=== PATIENT | male | born 1975 | race Two or more races ===

== ENCOUNTER 2018-04-12 03:54 | Inpatient (IN) ==
[2018-04-12 04:08] LABS: Basophils # 0.1 K/mm3 (0-0.2); Basophils % 0.9 % (0.1-2.0); Eosinophils # 0.3 K/mm3 (0.0-0.4); Eosinophils % 3.4 % (0.1-12.0); Lymphocytes # 2.5 K/mm3 (0.7-4.5); Lymphocytes % 33.9 K/mm3 (10-50); Mean Corpuscular HGB Conc 32.4 g/dL (31.8-35.4); Mean Corpuscular Volume 89.6 fl (80-94); Mean Platelet Volume 9.4 fl (7.4-10.4); Monocytes # 0.4 K/mm3 (0.1-1.0); Monocytes % 4.9 % (1.7-9.3); Neutrophils # 4.2 K/mm3 (1.8-7.8); Neutrophils % 56.9 % (37.0-80.0); Platelet Count 61 K/mm3 (142-424); Red Blood Count 2.66 M/mm3 (4.60-6.20); Red Cell Distribution Width 17.7 % (11.5-17.5); White Blood Count 7.3 K/mm3 (4.8-10.8)
[2018-04-12 04:14] LABS: Hematocrit 23.8 % (42.0-52.0); Hemoglobin 7.7 g/dL (14.1-18.0)
[2018-04-12 04:20] LABS: Anion Gap 13.1 mEq/L (5-15); Blood Urea Nitrogen 9 mg/dL (7-18); Carbon Dioxide 28 mmol/L (21.0-32.0); Chloride 91 mmol/L (98-107); Glucose 155 mg/dL (74-106); Potassium 3.1 mmoL/L (3.5-5.1); Sodium 129 mmol/L (136-145)
--- NOTE | 2018-04-12 04:43 | Emergency Department Note ---
ED Disposition Clinical Impression: UGI bleed, Tobacco abuse, Alcohol use disorder, Hypokalemia Chest pain Qualifiers: Chest pain type: precordial pain Qualified Code(s): R07.2 - Precordial pain Anemia Qualifiers: Anemia type: unspecified type Qualified Code(s): D64.9 - Anemia, unspecified Alcohol intoxication Qualifiers: Complication of substance-induced condition: with unspecified complication Qualified Code(s): F10.929 - Alcohol use, unspecified with intoxication, unspecified Disposition: Admitted as Observation Condition on Discharge: Good - Critical Care Critical Care Time: No Attestation: On 04/12/18, the high probability of a clinically significant, sudden or life threatening deterioration of the following system(s) required my full and direct attention, intervention and personal management. The time I documented below is in addition to time spent performing reported procedures but includes the following listed in this critical care notation. Medical Decision Making - Medical Records Medical records reviewed: Yes: I reviewed the patient's medical records. - Job Inquiry Pt receiving controlled substance: No Vital Signs: 04/12/18 03:54 04/12/18 04:24 04/12/18 04:27 Temperature 98.6 F Temperature Source Oral Pulse Rate 115 H Pulse Rate [Right Brachial] 115 H 103 H Respiratory Rate 15 16 Blood Pressure [Right Arm] 116/64 103/52 Blood Pressure Mean [Right Arm] 81 69 Blood Pressure Source [Right Arm] Automatic Cuff Blood Pressure Position [Right Arm] Sitting 02 Sat by Pulse Oximetry 98 97 Oxygen Delivery Method Room Air Room Air 04/12/18 04:51 Temperature Temperature Source Pulse Rate Pulse Rate [Right Brachial] 107 H Respiratory Rate 15 Blood Pressure [Right Arm] 108/62 Blood Pressure Mean [Right Arm] 77 Blood Pressure Source [Right Arm] Automatic Cuff Blood Pressure Position [Right Arm] Sitting 02 Sat by Pulse Oximetry 99 Oxygen Delivery Method Room Air - Lab Data Lab results reviewed: Yes: I reviewed the patient's lab results. Lab Results 04/12/18 04:00: WBC 7.3, RBC 2.66 L, Hgb 7.7 L*, Hct 23.8 L*, MCV 89.6, MCH 29.0 , MCHC 32.4, RDW 17.7 H, Plt Count 61 L, MPV 9.4, Neut % (Auto) 56.9, Lymph % ( Auto) 33.9, [place] % (Auto) 4.9, Eos % (Auto) 3.4, Baso % (Auto) 0.9, Neut # (Auto ) 4.2, Lymph # (Auto) 2.5, [place] # (Auto) 0.4, Eos # (Auto) 0.3, Baso # (Auto) 0.1 04/12/18 04:00: Sodium 129 L, Potassium 3.1 L, Chloride 91 L, Carbon Dioxide 28 , Anion Gap 13.1, BUN 9, Creatinine 0.67 L, Estimated Creat Clear 114, Estimated GFR 129, Est GFR ( Amer) 157, Glucose 155 H, Troponin I < 0.02 Result diagrams: 04/12/18 04:00 04/12/18 04:00 Orders (Tests/Meds): ED MEDICATIONS Generic Name Dose Route Start Last Admin Trade Name Freq PRN Reason Stop Dose Admin Lactated Ringer's 1,000 mls @ 999 mls/hr 04/12/18 04:30 04/12/18 04:31 Lactated Ringer's 1000 Ml Bag IV 04/12/18 05:30 999 mls/hr .Q1H1M VINOD Administration Sodium Chloride 250 mls @ 25 mls/hr 04/12/18 05:00 Sod Chlor 0.9% 250ml Bag IV 04/13/18 04:59 .Q10H VINOD Multivitamins 10 ml/ Thiamine 1,015 mls @ 150 mls/hr 04/12/18 05:00 HCl 100 mg/ Magnesium Sulfate IV 04/12/18 11:45 2 gm/ Lactated Ringer's .Q6H46M VINOD Discontinued Medications Generic Name Dose Route Start Last Admin Trade Name Freq PRN Reason Stop Dose Admin Folic Acid 1 mg 04/12/18 04:59 Folic Acid 1mg Tablet PO 04/12/18 05:00 ONCE ONE ORDERS Category Date Time Status PRBC [Red Blood Cells] Stat BBK 04/12/18 04:51 Ordered Type and Screen Stat BBK 04/12/18 04:51 Ordered Chest XR 2 view (NOT portable) [XR chest 2V] Stat Exams 04/12/18 03:59 Taken Ethanol [Ethyl Alcohol] Stat Lab 04/12/18 04:00 Received Hepatitis Panel (4) Stat Lab 04/12/18 05:00 Ordered Lipase Stat Lab 04/12/18 05:01 Ordered Liver Panel Stat Lab 04/12/18 05:00 Ordered Magnesium Stat Lab 04/12/18 05:01 Ordered Occult Blood,Stool Stat Lab 04/12/18 04:55 Received ECG Request by /[place] Stat Y 04/12/18 03:59 Ordered - Radiology Data #1 Image(s): Chest Image Reviewed: Yes I reviewed the patient's radiology image Preliminary Findings: Normal/NAD - ECG Data Tracing #1 I reviewed this ECG and interpreted as documented below: Arrhythmias present: sinus tach Ischemic changes: non-specific ST-T wave changes Chest Pain HPI - General Chief Complaint: Chest Pain Stated Complaint: chest pain Time Seen by Provider: 04/12/18 04:10 Mode of Arrival: Ambulatory Limitations: No Limitations Description of Symptoms (Recalled from ER Triage Doc. by RN): Reports cp that started about a month ago, but stated it felt worse yesterday with radiation to left arm. reports he vomited blood at 0100. - History of Present Illness HPI narrative: lt sided chest pain which has been ongoing for the last 2 weeks with no known card disease with hx of vomiting blood with dark stools MD complaint: chest pain Onset (ago): day(s) Duration: intermittent Activity at onset: during rest Pain location: left chest Severity: moderate Quality: aching Associated symptoms: vomiting Risk Factors for CAD: Family Hx of CAD, Smoking - KOBE Score Non-Stemi Age of patient: Less than 65 yrs Number of risk factors for CAD: Presence of 3 or more Prior coronary artery stenosis(seen in coronary angiography): Less than 50% ST-Segment deviation on ECG (more than 1 min): Absent Prior aspirin intake: ASA intake in the last 7 days Severe anginal chest pain: Two or more episodes in last 24 hours Elevated cardiac markers(CK-MB or troponin): Absent Non-Stemi Risk Score: 3 - Related Data Home Medications Medication Instructions Recorded Confirmed Aspirin [Aspirin 325mg Tab] 325 mg PO DAILY 04/12/18 04/12/18 Fluoxetine HCl [Prozac 20mg 20 mg PO DAILY 04/12/18 04/12/18 Capsule] Allergies Allergy/AdvReac Type Severity Reaction Status Date / Time No Known Allergies Allergy Verified 04/12/18 03:58 [facility] History I have reviewed the patient's past medical history: Yes Medical History: Denies:: Cancer, Diabetes Mellitus Type 1, Diabetes Mellitus Type 2, MRSA Amputation: No Fractures: Yes - Social History Smoking Status: Current every day smoker Tobacco Type: cigarettes Alcohol Intake: current Alcohol Intake Frequency:: 3 or more drinks per day - Psychiatric History Expresses thoughts of harming self/others: None Suicide Plan Description: No Plan ROS Obtained: Yes All systems reviewed & no additional complaints - Constitutional Constitutional: Denies fever(s) - Eyes Eyes: Denies change in vision - ENT Ears, Nose, Mouth, and Throat: Denies sore throat - Cardiovascular Cardiovascular: Reports chest pain - Respiratory Respiratory: No cough - Gastrointestinal Gastrointestingal: Reports: vomiting. Denies: abdominal pain, black, tarry stools - Genitourinary Male Genitourinary: Denies hematuria - Musculoskeletal Musculoskeletal: Denies joint pain, Denies joint swelling - Integumentary/Breasts Skin/Breast: Denies rash - Neurologic Neurologic: Denies seizure-like activity Physical Exam - General General appearance: in no apparent distress - Head Head exam: normocephalic - Eye Eye exam: Present: PERRL, EOMI. Absent: scleral icterus - ENT ENT exam: Present: mucous membranes dry - Neck Neck exam: Present: trachea midline - Respiratory Respiratory exam: Absent: respiratory distress - Cardiovascular Cardiovascular exam: Present: regular rate, systolic murmur - Abdominal Exam Abdominal exam: Present: soft. Absent: tenderness, guarding - Rectal Exam Rectal exam: Present: heme (+) stool, black stool - Extremities Exam Extremities exam: Absent: calf tenderness - Neurological Exam Neurological exam: Present: alert, oriented X3, CN II-XII intact - Psychiatric Psychiatric exam: Present: normal affect - Skin Skin exam: Absent: rash
[2018-04-12 05:48] LABS: Albumin Level 2.7 gm/dL (3.4-5.0); Bilirubin,Direct 0.6 mg/dL (0.0-0.2); Bilirubin,Indirect 0.7 mg/dL (0.0-0.9); Bilirubin,Total 1.3 mg/dL (0.2-1.0)
--- NOTE | 2018-04-12 07:36 | Pharmacy Consult Notes ---
[facility] Pharmacy VTE Monitoring - Patient Demographics Admission date: 04/12/18 Report Date: 04/12/18 Time: 07:35 Allergies/Adverse Reactions: Patient Allergies No Known Allergies Allergy (Verified 04/12/18 05:55) Height: 1.65 m Weight: 57.72 kg Patient Problems: Current Active Problems UGI bleed (Acute) Chest pain (Acute) Anemia (Acute) Tobacco abuse (Acute) Alcohol use disorder (Acute) Hypokalemia (Acute) Alcohol intoxication (Acute) - VTE Risk Labs: VTE Related Lab Results Hgb 7.7 g/dL (14.1-18.0) L* 04/12/18 04:00 Hct 23.8 % (42.0-52.0) L* 04/12/18 04:00 Plt Count 61 K/mm3 (142-424) L 04/12/18 04:00 BUN 9 mg/dL (7-18) 04/12/18 04:00 Creatinine 0.67 mg/dL (0.70-1.30) L 04/12/18 04:00 Estimated Creat Clear 114 mL/min (0-300) 04/12/18 04:00 Was VTE Risk Assessment Performed: No VTE Score: 1 VTE Risk Level: Very Low Risk - Prophylaxis VTE Prophylaxis Ordered?: Yes Types of VTE Prophylaxis: TEDS Knee High Location of Applied Device: Bilateral Lower Extremeties - VTE Diagnosis Confirmed Treatment or plan recommended: Continue Current Treatment
--- NOTE | 2018-04-12 07:50 | Consult Report ---
History of Present Illness Consult date: 04/12/18 Requesting physician: Sebas English Consult reason: chest pain Chief complaint: chest pain, vomiting blood Additional Medical History:: 1. Alcohol use of a 12 pack per day for many years 2. Tobacco use 1/2-1 pack per day 25 years 3. History of TIA like symptoms with previous workup at without etiology, possibly related to alcohol use History of present illness: 42-year-old male with history of alcohol and tobacco use admitted through the ER for recurrent chest pain worsening over the last couple of weeks without known aggravating or alleviating symptoms. Patient does relate previous workup at without etiology. In the emergency department showed sinus tachycardia with nonspecific ST-T abnormalities without evidence of coronary syndrome. Initial troponin's have returned normal. Echocardiogram has been performed with results pending at this time. Cardiology consulted for evaluation. Patient is receiving blood transfusion at this time for hemoglobin of 7.7 noted on admission. He did have an episode of vomiting with blood prior to admission. [facility] History Medical History: Denies:: Cancer, Diabetes Mellitus Type 1, Diabetes Mellitus Type 2, Internal Pacemaker, MRSA Other Surgeries: No: Pacemaker Amputation: No Fractures: Yes - *Social History Educational Level: Completed High School Smoking Status: Current every day smoker Tobacco Type: cigarettes Alcohol Intake: current Alcohol Intake Frequency:: 3 or more drinks per day Occupational Status: unemployed Housing: house - Psychiatric History Expresses thoughts of harming self/others: None Suicide Plan Description: No Plan *Family Hx:: Diabetes Meds Home Medications Medication Instructions Recorded Confirmed Type Aspirin [Aspirin 325mg Tab] 325 mg PO DAILY 04/12/18 04/12/18 History Fluoxetine HCl [Prozac 20mg 20 mg PO NEEDED PRN 04/12/18 04/12/18 History Capsule] Allergies Allergy/AdvReac Type Severity Reaction Status Date / Time No Known Allergies Allergy Verified 04/12/18 05:55 Review of Systems - *Cardiovascular Reports chest pain, Denies shortness of breath - *Respiratory Denies shortness of breath - *Gastrointestinal Reports vomiting blood - *Neurologic Denies seizure-like activity Exam Vital signs and Labs for Last 24 Hours: Temp Pulse Resp BP Pulse Ox 98.2 F 101 H 16 104/68 95 04/12/18 07:25 04/12/18 07:25 04/12/18 07:25 04/12/18 07:25 04/12/18 07:25 Laboratory Results - last 24 hr 04/12/18 04:00: WBC 7.3, RBC 2.66 L, Hgb 7.7 L*, Hct 23.8 L*, MCV 89.6, MCH 29.0 , MCHC 32.4, RDW 17.7 H, Plt Count 61 L, MPV 9.4, Neut % (Auto) 56.9, Lymph % ( Auto) 33.9, [place] % (Auto) 4.9, Eos % (Auto) 3.4, Baso % (Auto) 0.9, Neut # (Auto ) 4.2, Lymph # (Auto) 2.5, [place] # (Auto) 0.4, Eos # (Auto) 0.3, Baso # (Auto) 0.1 04/12/18 04:00: Sodium 129 L, Potassium 3.1 L, Chloride 91 L, Carbon Dioxide 28 , Anion Gap 13.1, BUN 9, Creatinine 0.67 L, Estimated Creat Clear 114, Estimated GFR 129, Est GFR ( Amer) 157, Glucose 155 H, Troponin I < 0.02 04/12/18 04:00: Plasma/Serum Alcohol 331 H* 04/12/18 04:00: Total Bilirubin 1.3 H, Direct Bilirubin 0.6 H, Indirect Bilirubin 0.7, AST 248 H, ALT 76, Alkaline Phosphatase 142 H, Total Protein 8.0 , Albumin 2.7 L 04/12/18 04:00: Magnesium 1.7, Lipase 244 04/12/18 04:55: Stool Occult Blood Positive A 04/12/18 05:10: Blood Type O Positive, Antibody Screen Negative, Crossmatch (AHG ) See Detail 04/12/18 05:45: Blood Type Confirm O Positive 04/12/18 07:10: Troponin I < 0.02 I & O for Last 24 hours: Intake & Output 04/09/18 04/10/18 04/11/18 04/12/18 11:59 11:59 11:59 11:59 Intake Total 1500 / 1500 Balance 1500 / 1500 Weight 127 lb 4.013 oz - *Routine Neck Exam Absent: JVD, carotid bruit - *Routine Respiratory Exam Present: CTA bilaterally - *Routine Cardiovascular Exam Present: RRR. Absent: murmur, gallop - *Routine Extremities Exam Absent: edema - *Routine Neurological Exam Present: alert, oriented X3, moving all extremities Assessment and Plan (1) UGI bleed Current visit: Yes Status: Acute Category: Medical Code(s): K92.2 - Gastrointestinal hemorrhage, unspecified (2) Alcohol use disorder Current visit: Yes Status: Acute Category: Medical Code(s): F10.99 - Alcohol use, unspecified with unspecified alcohol-induced disorder (3) Anemia Current visit: Yes Status: Acute Qualifiers: Anemia type: unspecified type Qualified Code(s): D64.9 - Anemia, unspecified Category: Medical Code(s): D64.9 - Anemia, unspecified (4) Chest pain Current visit: Yes Status: Acute Qualifiers: Chest pain type: precordial pain Qualified Code(s): R07.2 - Precordial pain Category: Medical Code(s): R07.9 - Chest pain, unspecified (5) Tobacco abuse Current visit: Yes Status: Acute Category: Medical Code(s): Z72.0 - Tobacco use - Assessment and plan all Dx Assessment and Plan for all problems:: 1. Preliminary echo shows preserved LVEF without significant valve disease. With normal troponins and no acute changes on EKG, no further cardiac workup at this time. OK from Cardiology standpoint to proceed with endoscopy. 2. Tachycardia should resolve with blood transfusion. Discussed with Dr. Mathews.
--- NOTE | 2018-04-12 09:15 | Consult Report ---
*Admission Date: 04/12/18 *Chief complaint: Chest pain, bloody emesis, and melena *History of present illness: This is a 42-year-old gentleman seen in consultation from Dr. English for evaluation regarding likely upper gastrointestinal hemorrhage. He presented to the emergency department overnight with increasing chest pain and reports of approximately 1 week of "dark stools" and occasional "bloody vomit". Cardiac evaluation has revealed no definitive abnormality and the surgical service is now consulted for possible esophagogastroduodenoscopy. No bright red blood per rectum. No unexplained weight loss. Review of Systems - Constitutional Denies fever(s) - Eyes Denies change in vision - ENT Denies dizziness - *Cardiovascular Reports chest pain - *Respiratory Denies cough - *Gastrointestinal Denies abdominal pain - *Genitourinary Denies difficulty urinating - *Neurologic Denies abnormal speech, Denies seizure-like activity - Hematologic/Lymphatic Denies easy bleeding [facility] History Medical History: Denies:: Cancer, Diabetes Mellitus Type 1, Diabetes Mellitus Type 2, Internal Pacemaker, MRSA Other Surgeries: No: Pacemaker Amputation: No Fractures: Yes - *Social History Educational Level: Completed High School Smoking Status: Current every day smoker Tobacco Type: cigarettes Alcohol Intake: current Alcohol Intake Frequency:: 3 or more drinks per day Occupational Status: unemployed Housing: house - Psychiatric History Expresses thoughts of harming self/others: None Suicide Plan Description: No Plan *Family Hx:: Diabetes Meds Home Medications Medication Instructions Recorded Confirmed Type Aspirin [Aspirin 325mg Tab] 325 mg PO DAILY 04/12/18 04/12/18 History Fluoxetine HCl [Prozac 20mg 20 mg PO NEEDED PRN 04/12/18 04/12/18 History Capsule] Allergies Allergy/AdvReac Type Severity Reaction Status Date / Time No Known Allergies Allergy Verified 04/12/18 05:55 Exam Vital signs and Labs for Last 24 Hours: Temp Pulse Resp BP Pulse Ox 98.2 F 101 H 16 104/68 95 04/12/18 07:25 04/12/18 07:25 04/12/18 07:25 04/12/18 07:25 04/12/18 07:25 Laboratory Results - last 24 hr 04/12/18 04:00: WBC 7.3, RBC 2.66 L, Hgb 7.7 L*, Hct 23.8 L*, MCV 89.6, MCH 29.0 , MCHC 32.4, RDW 17.7 H, Plt Count 61 L, MPV 9.4, Neut % (Auto) 56.9, Lymph % ( Auto) 33.9, [place] % (Auto) 4.9, Eos % (Auto) 3.4, Baso % (Auto) 0.9, Neut # (Auto ) 4.2, Lymph # (Auto) 2.5, [place] # (Auto) 0.4, Eos # (Auto) 0.3, Baso # (Auto) 0.1 04/12/18 04:00: Sodium 129 L, Potassium 3.1 L, Chloride 91 L, Carbon Dioxide 28 , Anion Gap 13.1, BUN 9, Creatinine 0.67 L, Estimated Creat Clear 114, Estimated GFR 129, Est GFR ( Amer) 157, Glucose 155 H, Troponin I < 0.02 04/12/18 04:00: Plasma/Serum Alcohol 331 H* 04/12/18 04:00: Total Bilirubin 1.3 H, Direct Bilirubin 0.6 H, Indirect Bilirubin 0.7, AST 248 H, ALT 76, Alkaline Phosphatase 142 H, Total Protein 8.0 , Albumin 2.7 L 04/12/18 04:00: Magnesium 1.7, Lipase 244 04/12/18 04:55: Stool Occult Blood Positive A 04/12/18 05:10: Blood Type O Positive, Antibody Screen Negative, Crossmatch (AHG ) See Detail 04/12/18 05:45: Blood Type Confirm O Positive 04/12/18 07:10: Troponin I < 0.02 I & O for Last 24 hours: Intake & Output 04/09/18 04/10/18 04/11/18 04/12/18 11:59 11:59 11:59 11:59 Intake Total 1500 / 1500 Balance 1500 / 1500 Weight 127 lb 4.013 oz - Constitutional no acute distress - *Routine Respiratory Exam Absent: respiratory distress - *Routine Cardiovascular Exam Present: tachycardia - *Routine Abdominal Exam Present: soft. Absent: tenderness Results - Labs 04/12/18 04:00 04/12/18 04:00 Laboratory Results - last 24 hr 04/12/18 04:00: WBC 7.3, RBC 2.66 L, Hgb 7.7 L*, Hct 23.8 L*, MCV 89.6, MCH 29.0 , MCHC 32.4, RDW 17.7 H, Plt Count 61 L, MPV 9.4, Neut % (Auto) 56.9, Lymph % ( Auto) 33.9, [place] % (Auto) 4.9, Eos % (Auto) 3.4, Baso % (Auto) 0.9, Neut # (Auto ) 4.2, Lymph # (Auto) 2.5, [place] # (Auto) 0.4, Eos # (Auto) 0.3, Baso # (Auto) 0.1 04/12/18 04:00: Sodium 129 L, Potassium 3.1 L, Chloride 91 L, Carbon Dioxide 28 , Anion Gap 13.1, BUN 9, Creatinine 0.67 L, Estimated Creat Clear 114, Estimated GFR 129, Est GFR ( Amer) 157, Glucose 155 H, Troponin I < 0.02 04/12/18 04:00: Plasma/Serum Alcohol 331 H* 04/12/18 04:00: Total Bilirubin 1.3 H, Direct Bilirubin 0.6 H, Indirect Bilirubin 0.7, AST 248 H, ALT 76, Alkaline Phosphatase 142 H, Total Protein 8.0 , Albumin 2.7 L 04/12/18 04:00: Magnesium 1.7, Lipase 244 04/12/18 04:55: Stool Occult Blood Positive A 04/12/18 05:10: Blood Type O Positive, Antibody Screen Negative, Crossmatch (AHG ) See Detail 04/12/18 05:45: Blood Type Confirm O Positive 04/12/18 07:10: Troponin I < 0.02 Assessment and Plan (1) UGI bleed Current visit: Yes Status: Acute Category: Medical Code(s): K92.2 - Gastrointestinal hemorrhage, unspecified Follow-up response to 2 units packed red blood cell transfusion. Continue PPI. Likely EGD later today or early tomorrow morning. I have discussed the risks and benefits and he agrees to proceed. (2) Alcohol use disorder Current visit: Yes Status: Acute Category: Medical Code(s): F10.99 - Alcohol use, unspecified with unspecified alcohol-induced disorder (3) Anemia Current visit: Yes Status: Acute Qualifiers: Anemia type: unspecified type Qualified Code(s): D64.9 - Anemia, unspecified Category: Medical Code(s): D64.9 - Anemia, unspecified (4) Chest pain Current visit: Yes Status: Acute Qualifiers: Chest pain type: precordial pain Qualified Code(s): R07.2 - Precordial pain Category: Medical Code(s): R07.9 - Chest pain, unspecified (5) Tobacco abuse Current visit: Yes Status: Acute Category: Medical Code(s): Z72.0 - Tobacco use
--- NOTE | 2018-04-12 12:47 | History & Physical Report ---
*Admission Date: 04/12/18 *Chief complaint: chest pain *History of present illness: This is a 42-year-old gentleman seen in consultation from Dr. English for evaluation regarding likely upper gastrointestinal hemorrhage. He presented to the emergency department overnight with increasing chest pain and reports of approximately 1 week of "dark stools" and occasional "bloody vomit". Cardiac evaluation has revealed no definitive abnormality and the surgical service is now consulted for possible esophagogastroduodenoscopy. No bright red blood per rectum. No unexplained weight loss. 42-year-old male with history of alcohol and tobacco use admitted through the ER for recurrent chest pain worsening over the last couple of weeks without known aggravating or alleviating symptoms. Patient does relate previous workup at without etiology. In the emergency department showed sinus tachycardia with nonspecific ST-T abnormalities without evidence of coronary syndrome. Initial troponin's have returned normal. Echocardiogram has been performed with results pending at this time. Cardiology consulted for evaluation. Patient is receiving blood transfusion at this time for hemoglobin of 7.7 noted on admission. He did have an episode of vomiting with blood prior to admission. [facility] History I have reviewed the patient's past medical history: Yes Medical History: Denies:: Cancer, Diabetes Mellitus Type 1, Diabetes Mellitus Type 2, Internal Pacemaker, MRSA Other Surgeries: No: Pacemaker Amputation: No Fractures: Yes - *Social History Educational Level: Completed High School Smoking Status: Current every day smoker Tobacco Type: cigarettes Alcohol Intake: current Alcohol Intake Frequency:: 3 or more drinks per day Occupational Status: unemployed Housing: house - Psychiatric History Expresses thoughts of harming self/others: None Suicide Plan Description: No Plan *Family Hx:: Diabetes Review of Systems - Review of Systems Review of systems:: pertinent systems reviewed and negative unless documented below - Constitutional Denies fever(s) - Eyes Denies change in vision - ENT Denies sore throat - *Cardiovascular Reports chest pain at rest, Denies generalized swelling, Denies rapid, pounding , or irregular heartbeat - *Respiratory Denies cough, Denies shortness of breath - *Gastrointestinal Reports vomiting blood, Denies abdominal pain - *Genitourinary Denies blood in urine - *Musculoskeletal Denies joint pain, Denies joint swelling - Integumentary/Breasts Denies rash - *Neurologic Denies abnormal speech, Denies dizziness, Denies seizure-like activity - Psychiatric Denies anxiety Meds Home Medications Medication Instructions Recorded Confirmed Type Aspirin [Aspirin 325mg Tab] 325 mg PO DAILY 04/12/18 04/12/18 History Fluoxetine HCl [Prozac 20mg 20 mg PO NEEDED PRN 04/12/18 04/12/18 History Capsule] Allergies Allergy/AdvReac Type Severity Reaction Status Date / Time No Known Allergies Allergy Verified 04/12/18 05:55 Exam Vital signs and Labs for Last 24 Hours: Temp Pulse Resp BP Pulse Ox 98.8 F 102 H 16 104/63 93 L 04/12/18 12:00 04/12/18 12:00 04/12/18 12:00 04/12/18 12:00 04/12/18 12:00 Laboratory Results - last 24 hr 04/12/18 04:00: WBC 7.3, RBC 2.66 L, Hgb 7.7 L*, Hct 23.8 L*, MCV 89.6, MCH 29.0 , MCHC 32.4, RDW 17.7 H, Plt Count 61 L, MPV 9.4, Neut % (Auto) 56.9, Lymph % ( Auto) 33.9, Blair % (Auto) 4.9, Eos % (Auto) 3.4, Baso % (Auto) 0.9, Neut # (Auto ) 4.2, Lymph # (Auto) 2.5, Blair # (Auto) 0.4, Eos # (Auto) 0.3, Baso # (Auto) 0.1 04/12/18 04:00: Sodium 129 L, Potassium 3.1 L, Chloride 91 L, Carbon Dioxide 28 , Anion Gap 13.1, BUN 9, Creatinine 0.67 L, Estimated Creat Clear 114, Estimated GFR 129, Est GFR ( Amer) 157, Glucose 155 H, Troponin I < 0.02 04/12/18 04:00: Plasma/Serum Alcohol 331 H* 04/12/18 04:00: Total Bilirubin 1.3 H, Direct Bilirubin 0.6 H, Indirect Bilirubin 0.7, AST 248 H, ALT 76, Alkaline Phosphatase 142 H, Total Protein 8.0 , Albumin 2.7 L 04/12/18 04:00: Magnesium 1.7, Lipase 244 04/12/18 04:55: Stool Occult Blood Positive A 04/12/18 05:10: Blood Type O Positive, Antibody Screen Negative, Crossmatch (AHG ) See Detail 04/12/18 05:45: Blood Type Confirm O Positive 04/12/18 07:10: Troponin I < 0.02 04/12/18 10:26: Troponin I < 0.02 I & O for Last 24 hours: Intake & Output 04/10/18 04/11/18 04/12/18 04/13/18 11:59 11:59 11:59 11:59 Intake Total 1540 / 1540 Balance 1540 / 1540 Weight 127 lb 4.013 oz - Constitutional no acute distress - *Routine HEENT Exam Head: Present: normocephalic, atraumatic Eye: Present: EOMI, PERRL. Absent: conjunctival icterus ENT: Present: mucous membranes dry - *Routine Neck Exam Absent: JVD - *Routine Respiratory Exam Present: CTA bilaterally - *Routine Cardiovascular Exam Present: RRR, murmur. Absent: rubs - *Routine Abdominal Exam Present: soft. Absent: tenderness - *Routine Extremities Exam Absent: Cony's sign - *Routine Skin Exam Present: intact - *Routine Neurological Exam Present: alert, oriented X3, CN II-XII intact - Routine Psychiatric Exam Present: normal affect H&P: Result - Labs Labs: Short CBC 04/12/18 Range/Units 04:00 WBC 7.3 (4.8-10.8) K/mm3 Hgb 7.7 L* (14.1-18.0) g/dL Hct 23.8 L* (42.0-52.0) % Plt Count 61 L (142-424) K/mm3 BMP 04/12/18 04:00 Sodium 129 L Potassium 3.1 L Chloride 91 L Carbon Dioxide 28 BUN 9 Creatinine 0.67 L Glucose 155 H Cardiac Enzymes 04/12/18 04/12/18 04/12/18 Range/Units 04:00 07:10 10:26 Troponin I < 0.02 < 0.02 < 0.02 (0.00-0.06) ng/ml Liver Function 04/12/18 Range/Units 04:00 Total Bilirubin 1.3 H (0.2-1.0) mg/dL Direct Bilirubin 0.6 H (0.0-0.2) mg/dL AST 248 H (15-37) U/L ALT 76 (12-78) U/L Alkaline Phosphatase 142 H (46-116) U/L Albumin 2.7 L (3.4-5.0) gm/dL Assessment and Plan (1) UGI bleed Current visit: Yes Status: Acute Category: Medical Code(s): K92.2 - Gastrointestinal hemorrhage, unspecified (2) Alcohol use disorder Current visit: Yes Status: Acute Category: Medical Code(s): F10.99 - Alcohol use, unspecified with unspecified alcohol-induced disorder (3) Anemia Current visit: Yes Status: Acute Qualifiers: Anemia type: unspecified type Qualified Code(s): D64.9 - Anemia, unspecified Category: Medical Code(s): D64.9 - Anemia, unspecified (4) Chest pain Current visit: Yes Status: Acute Qualifiers: Chest pain type: precordial pain Qualified Code(s): R07.2 - Precordial pain Category: Medical Code(s): R07.9 - Chest pain, unspecified (5) Tobacco abuse Current visit: Yes Status: Acute Category: Medical Code(s): Z72.0 - Tobacco use
[2018-04-12 14:01] LABS: Hematocrit 27.2 % (42.0-52.0)
[2018-04-12 14:11] LABS: Hemoglobin 9.2 g/dL (14.1-18.0)
[2018-04-12 14:15] LABS: INR 1.25 (0.9-1.1); Prothrombin Time 13.5 seconds (9.4-11.8)
--- NOTE | 2018-04-12 18:26 | Progress Note ---
[facility] Anesthesia Checklist - Patient Identification Patient Identification: Arm Band, Verbal (Name & ) - Structural Data Admitted From: Inpatient Planned Operative Procedure/s: egd Consent for Planned Operative Procedure(s) Verified: Yes Verified Documents: Surgical Consent, History and Physical - NPO Status Verified Time NPO: 00:00 - Chart Verification Results Verified: CBC, BMP - Additional verifications Patient : No Anesthesia Reactions: No Hx Blood Transfusions: No Blood Transfusion Reaction: No Cephalosporin Allergy: No Previous Colonoscopy: No - Cardiovascular Assessment Heart Sounds: S1 & S2 Pulse Strength: Baseline Pulse Rhythm: Regular Peripheral Edema: No - Airway Assessment C-Spine Mobility Assessed: Yes TMJ Mobility Assessed: Yes Dentition: Good Dentition - Neurological Assessment Level of Consciousness: Awake, Alert, Appropriate Hx Seizures: No Numbness or tingling in extremities: No - Anesthesia Plan Anesthesia Risk discussed: Yes Anesthesia Plan: Verified ASA Class: III Anesthesia Type: MAC [facility] Anesthesia HX I have reviewed the patient's past medical history: Yes Medical History: Reports:: Anxiety, Ulcer Denies:: Cancer, Diabetes Mellitus Type 1, Diabetes Mellitus Type 2, Internal Pacemaker, MRSA Other Surgeries: Yes: No Previous Surgery. No: Pacemaker Amputation: No Fractures: Yes *Family Hx:: Diabetes
[2018-04-12 19:52] LABS: Hematocrit 24.9 % (42.0-52.0)
[2018-04-12 20:04] LABS: Hemoglobin 8.4 g/dL (14.1-18.0)
[2018-04-13 06:04] LABS: Basophils % 0.5 % (0.1-2.0); Eosinophils # 0.1 K/mm3 (0.0-0.4); Eosinophils % 1.9 % (0.1-12.0); Hematocrit 26.1 % (42.0-52.0); Hemoglobin 8.7 g/dL (14.1-18.0); Lymphocytes # 0.8 K/mm3 (0.7-4.5); Lymphocytes % 15.2 K/mm3 (10-50); Mean Corpuscular HGB Conc 33.2 g/dL (31.8-35.4); Mean Corpuscular Hemoglobin 29.6 pg (27.0-31.2); Mean Corpuscular Volume 88.9 fl (80-94); Mean Platelet Volume 10.4 fl (7.4-10.4); Monocytes # 0.2 K/mm3 (0.1-1.0); Monocytes % 3.6 % (1.7-9.3); Neutrophils # 4.2 K/mm3 (1.8-7.8); Neutrophils % 78.9 % (37.0-80.0); Red Blood Count 2.94 M/mm3 (4.60-6.20); Red Cell Distribution Width 18.6 % (11.5-17.5); White Blood Count 5.3 K/mm3 (4.8-10.8)
[2018-04-13 06:13] LABS: Platelet Count 47 K/mm3 (142-424)
--- NOTE | 2018-04-13 06:30 | Progress Note ---
Subjective Patient reports: other (resting) Exam Vital signs and Labs for Last 24 Hours: Temp Pulse Resp BP Pulse Ox 99.1 F 103 H 18 118/70 99 04/13/18 04:00 04/13/18 04:00 04/13/18 04:00 04/13/18 04:00 04/13/18 04:00 Laboratory Results - last 24 hr 04/12/18 05:10: Blood Type O Positive, Antibody Screen Negative, Crossmatch (AHG ) See Detail 04/12/18 05:45: Blood Type Confirm O Positive 04/12/18 07:10: Troponin I < 0.02 04/12/18 10:26: Troponin I < 0.02 04/12/18 13:20: Troponin I < 0.02 04/12/18 13:20: Hgb 9.2 L D, Hct 27.2 L 04/12/18 19:36: Hgb 8.4 L, Hct 24.9 L 04/12/18 : PT 13.5 H, INR 1.25 H, APTT 28.0 04/13/18 05:50: WBC 5.3 D, RBC 2.94 L, Hgb 8.7 L, Hct 26.1 L, MCV 88.9, MCH 29.6, MCHC 33.2, RDW 18.6 H, Plt Count 47 L*, MPV 10.4, Neut % (Auto) 78.9, Lymph % (Auto) 15.2, Swisher % (Auto) 3.6, Eos % (Auto) 1.9, Baso % (Auto) 0.5, Neut # (Auto) 4.2, Lymph # (Auto) 0.8, Swisher # (Auto) 0.2, Eos # (Auto) 0.1, Baso # (Auto) 0.0 I & O for Last 24 hours: Intake & Output 04/10/18 04/11/18 04/12/18 04/13/18 11:59 11:59 11:59 11:59 Intake Total 1540 / 1540 3181 / 3181 Output Total 5 / 5 Balance 1540 / 1540 3176 / 3176 Weight 127 lb 4.013 oz - Constitutional no acute distress - *Routine Respiratory Exam Absent: respiratory distress - *Routine Abdominal Exam Present: soft Progress Note: A&P (1) UGI bleed Status: Acute Assessment and plan: stable H/H this AM EGD this AM Current Visit: Yes (2) Alcohol use disorder Status: Acute Current Visit: Yes (3) Anemia Status: Acute Current Visit: Yes (4) Chest pain Status: Acute Current Visit: Yes (5) Tobacco abuse Status: Acute Current Visit: Yes (6) Thrombocytopenia Status: Acute Assessment and plan: "6-pack" ordered this AM Current Visit: Yes
--- NOTE | 2018-04-13 07:17 | Procedure Note ---
- Procedure: Date: 04/13/18 Procedure Performed:: Esophagogastroduodenoscopy with biopsy Indications:: Upper gastrointestinal hemorrhage Performing Provider:: Alexy Elmore MD Referring Provider:: Dr. English Sedation:: Monitored anesthesia care Procedure:: After informed consent was obtained, the patient was taken to the endoscopy suite. Monitored anesthesia care ensued after he was transferred to the left lateral decubitus position. The gastroscope was advanced. The gastroesophageal junction was at 40 cm. Mild to moderate varices were noted distally, but no sign of recent or active hemorrhage was seen. The stomach was entered. No sign of active bleeding or "old blood" was noted. Moderate patchy gastritis was seen. A biopsy of the antrum was noted. Retroflexion did reveal a sliding hiatal hernia but no sign of recent or active hemorrhage and no sign of ulceration was seen proximally. Visualization was slightly limited secondary to gastric spasticity. The pylorus is intubated. Inflammation within the duodenal bulb was noted; however, no ulcerations were seen. The gastroscope was carefully removed and the patient was transferred to recovery. Findings:: Gastroesophageal junction 40 cm Mild to moderate varices distally with no sign of recent or active hemorrhage Sliding hiatal hernia Moderate patchy gastritis with no sign of recent or active hemorrhage No ulcerations Inflammation within duodenal bulb with no sign of ulceration or active hemorrhage Specimens:: Antral biopsy Recommendations:: Continue current medications UGI/SBFT pending Follow-up pending pathology Complications:: No immediate Estimated blood obtained (mL): 1
[2018-04-13 08:30] LABS: Hepatitis B Core Antibody IgM Negative (Negative); Hepatitis B Surface Antigen Negative (Negative)
--- NOTE | 2018-04-13 10:32 | Progress Note ---
Internal Medicine - PN: Subj *Date: 04/13/18 *Time: 22:15 Interval history: pt with endo today Exam Vital signs and Labs for Last 24 Hours: Temp Pulse Resp BP Pulse Ox 99.2 F 95 H 20 120/67 98 04/13/18 08:25 04/13/18 09:25 04/13/18 09:25 04/13/18 09:25 04/13/18 09:25 Laboratory Results - last 24 hr 04/12/18 05:10: Crossmatch (AHG) See Detail 04/12/18 10:26: Troponin I < 0.02 04/12/18 13:20: Troponin I < 0.02 04/12/18 13:20: Hgb 9.2 L D, Hct 27.2 L 04/12/18 19:36: Hgb 8.4 L, Hct 24.9 L 04/12/18 : PT 13.5 H, INR 1.25 H, APTT 28.0 04/13/18 05:50: WBC 5.3 D, RBC 2.94 L, Hgb 8.7 L, Hct 26.1 L, MCV 88.9, MCH 29.6, MCHC 33.2, RDW 18.6 H, Plt Count 47 L*, MPV 10.4, Neut % (Auto) 78.9, Lymph % (Auto) 15.2, Jefferson % (Auto) 3.6, Eos % (Auto) 1.9, Baso % (Auto) 0.5, Neut # (Auto) 4.2, Lymph # (Auto) 0.8, Jefferson # (Auto) 0.2, Eos # (Auto) 0.1, Baso # (Auto) 0.0 I & O for Last 24 hours: Intake & Output 04/10/18 04/11/18 04/12/18 04/13/18 11:59 11:59 11:59 11:59 Intake Total 1540 / 1540 3181 / 3181 Output Total 5 / 5 Balance 1540 / 1540 3176 / 3176 Weight 127 lb 4.013 oz 129 lb 4 oz - Constitutional no acute distress - *Routine HEENT Exam Head: Present: normocephalic Eye: Present: EOMI, PERRL ENT: Present: mucous membranes dry - *Routine Neck Exam Absent: JVD - *Routine Respiratory Exam Absent: respiratory distress - *Routine Cardiovascular Exam Present: RRR - *Routine Abdominal Exam Present: soft - *Routine Skin Exam Present: intact - *Routine Neurological Exam Present: alert - Routine Psychiatric Exam Present: normal affect Assessment and Plan (1) UGI bleed Current visit: Yes Status: Acute Category: Medical Code(s): K92.2 - Gastrointestinal hemorrhage, unspecified (2) Alcohol use disorder Current visit: Yes Status: Acute Category: Medical Code(s): F10.99 - Alcohol use, unspecified with unspecified alcohol-induced disorder (3) Anemia Current visit: Yes Status: Acute Qualifiers: Anemia type: unspecified type Qualified Code(s): D64.9 - Anemia, unspecified Category: Medical Code(s): D64.9 - Anemia, unspecified (4) Chest pain Current visit: Yes Status: Acute Qualifiers: Chest pain type: precordial pain Qualified Code(s): R07.2 - Precordial pain Category: Medical Code(s): R07.9 - Chest pain, unspecified (5) Tobacco abuse Current visit: Yes Status: Acute Category: Medical Code(s): Z72.0 - Tobacco use (6) Thrombocytopenia Current visit: Yes Status: Acute Category: Medical Code(s): D69.6 - Thrombocytopenia, unspecified
[2018-04-14 06:32] LABS: Hepatitis C Antibody <0.1 s/co ratio (0.0-0.9)
--- NOTE | 2018-04-14 06:58 | Progress Note ---
Subjective Patient reports: feels better Exam Vital signs and Labs for Last 24 Hours: Temp Pulse Resp BP Pulse Ox 99.0 F 81 16 110/58 98 04/14/18 04:00 04/14/18 04:00 04/14/18 04:00 04/14/18 04:00 04/14/18 04:00 Laboratory Results - last 24 hr 04/12/18 04:00: Hepatitis A IgM Ab Negative, Hep Bs Antigen Negative, Hep B Core IgM Ab Negative, Hepatitis C Antibody <0.1 04/12/18 05:10: Blood Type O Positive, Antibody Screen Negative, Crossmatch (AHG ) See Detail I & O for Last 24 hours: Intake & Output 04/11/18 04/12/18 04/13/18 04/14/18 11:59 11:59 11:59 11:59 Intake Total 1540 / 1540 3181 / 3181 2230 / 2230 Output Total 5 / 5 Balance 1540 / 1540 3176 / 3176 2230 / 2230 Weight 127 lb 4.013 oz 129 lb 4 oz - Constitutional no acute distress - *Routine Cardiovascular Exam Present: RRR - *Routine Abdominal Exam Present: soft Progress Note: A&P (1) UGI bleed Status: Acute Assessment and plan: No definite source on EGD (non-bleeding varices and moderate gastritis) Continue PPI for now FU path on antral biopsy Current Visit: Yes (2) Alcohol use disorder Status: Acute Current Visit: Yes (3) Anemia Status: Acute Current Visit: Yes (4) Chest pain Status: Acute Current Visit: Yes (5) Tobacco abuse Status: Acute Current Visit: Yes (6) Thrombocytopenia Status: Acute Current Visit: Yes (7) Abnormal small bowel x-ray Problem details: SBFT c/w possible Crohn's Status: Acute Assessment and plan: GI consultation as inpatient or in near future as outpatient (as per PCP) Current Visit: Yes
[2018-04-14 08:19] LABS: Basophils % 0.9 % (0.1-2.0); Eosinophils # 0.4 K/mm3 (0.0-0.4); Eosinophils % 9.5 % (0.1-12.0); Hematocrit 26.6 % (42.0-52.0); Hemoglobin 8.8 g/dL (14.1-18.0); Lymphocytes # 0.9 K/mm3 (0.7-4.5); Lymphocytes % 20.8 K/mm3 (10-50); Mean Corpuscular Hemoglobin 30.4 pg (27.0-31.2); Mean Corpuscular Volume 92.1 fl (80-94); Mean Platelet Volume 9.9 fl (7.4-10.4); Monocytes # 0.2 K/mm3 (0.1-1.0); Monocytes % 4.4 % (1.7-9.3); Neutrophils # 2.9 K/mm3 (1.8-7.8); Neutrophils % 64.5 % (37.0-80.0); Platelet Count 75 K/mm3 (142-424); Red Blood Count 2.89 M/mm3 (4.60-6.20); Red Cell Distribution Width 19.5 % (11.5-17.5); White Blood Count 4.5 K/mm3 (4.8-10.8)
[2018-04-14 08:21] VITALS: BP 99/58
[2018-04-14 08:31] LABS: Albumin Level 2.2 gm/dL (3.4-5.0); Albumin/Globulin Ratio 0.5 (1.1-1.8); Anion Gap 8.4 mEq/L (5-15); Bilirubin,Total 1.7 mg/dL (0.2-1.0); Calcium 7.1 mg/dL (8.5-10.1); Globulin 4.5 gm/dl (1.3-3.2); Total Protein,Serum 6.7 gm/dL (6.4-8.2)
[2018-04-14 08:32] LABS: Potassium 2.4 mmoL/L (3.5-5.1)
--- NOTE | 2018-04-14 08:43 | Discharge Summary ---
General - General Admission date:: 04/12/18 Discharge date: 04/14/18 HPI HPI: This is a 42-year-old gentleman seen in consultation from Dr. English for evaluation regarding likely upper gastrointestinal hemorrhage. He presented to the emergency department overnight with increasing chest pain and reports of approximately 1 week of "dark stools" and occasional "bloody vomit". Cardiac evaluation has revealed no definitive abnormality and the surgical service is now consulted for possible esophagogastroduodenoscopy. No bright red blood per rectum. No unexplained weight loss. 42-year-old male with history of alcohol and tobacco use admitted through the ER for recurrent chest pain worsening over the last couple of weeks without known aggravating or alleviating symptoms. Patient does relate previous workup at without etiology. In the emergency department showed sinus tachycardia with nonspecific ST-T abnormalities without evidence of coronary syndrome. Initial troponin's have returned normal. Echocardiogram has been performed with results pending at this time. Cardiology consulted for evaluation. Patient is receiving blood transfusion at this time for hemoglobin of 7.7 noted on admission. He did have an episode of vomiting with blood prior to admission. Hospital Course Hospital Course: pt witheval for gi bleed by surg After informed consent was obtained, the patient was taken to the endoscopy suite. Monitored anesthesia care ensued after he was transferred to the left lateral decubitus position. The gastroscope was advanced. The gastroesophageal junction was at 40 cm. Mild to moderate varices were noted distally, but no sign of recent or active hemorrhage was seen. The stomach was entered. No sign of active bleeding or "old blood" was noted. Moderate patchy gastritis was seen. A biopsy of the antrum was noted. Retroflexion did reveal a sliding hiatal hernia but no sign of recent or active hemorrhage and no sign of ulceration was seen proximally. Visualization was slightly limited secondary to gastric spasticity. The pylorus is intubated. Inflammation within the duodenal bulb was noted; however, no ulcerations were seen. The gastroscope was carefully removed and the patient was transferred to recovery. Findings:: Gastroesophageal junction 40 cm Mild to moderate varices distally with no sign of recent or active hemorrhage Sliding hiatal hernia Moderate patchy gastritis with no sign of recent or active hemorrhage No ulcerations Inflammation within duodenal bulb with no sign of ulceration or active hemorrhage pt has stablized with transfusion and will be followed as op with gi and pcp - discussed use of meds and no etoh Objective Vital signs: Temp Pulse Resp BP Pulse Ox 98.9 F 85 20 99/58 97 04/14/18 08:00 04/14/18 08:00 04/14/18 08:00 04/14/18 08:00 04/14/18 08:00 no acute distress - *Routine HEENT Exam Head: Present: normocephalic Eye: Present: EOMI, PERRL ENT: Present: mucous membranes dry - *Routine Neck Exam Present: supple - *Routine Respiratory Exam Present: CTA bilaterally - *Routine Cardiovascular Exam Present: RRR, murmur - *Routine Abdominal Exam Present: soft - *Routine Extremities Exam Present: full ROM - *Routine Skin Exam Present: intact - *Routine Neurological Exam Present: alert, oriented X3, CN II-XII intact - Routine Psychiatric Exam Present: normal affect Results Labs on day of discharge: Labs from last 24 hours 04/14/18 04/14/18 04/12/18 07:55 07:55 05:10 WBC 4.5 L RBC 2.89 L Hgb 8.8 L Hct 26.6 L MCV 92.1 MCH 30.4 MCHC 33.0 RDW 19.5 H Plt Count 75 L D MPV 9.9 Neut % (Auto) 64.5 Lymph % (Auto) 20.8 Wilson % (Auto) 4.4 Eos % (Auto) 9.5 Baso % (Auto) 0.9 Neut # (Auto) 2.9 Lymph # (Auto) 0.9 Wilson # (Auto) 0.2 Eos # (Auto) 0.4 Baso # (Auto) 0.0 Sodium 130 L Potassium 2.4 L* D Chloride 96 L Carbon Dioxide 28 Anion Gap 8.4 BUN 3 L D Creatinine 0.66 L Estimated Creat Clear 120 Estimated GFR 132 Est GFR ( Amer) 159 Glucose 123 H Calcium 7.1 L Total Bilirubin 1.7 H AST 159 H D ALT 65 Alkaline Phosphatase 107 Total Protein 6.7 Albumin 2.2 L Globulin 4.5 H Albumin/Globulin Ratio 0.5 L Hepatitis A IgM Ab Hep Bs Antigen Hep B Core IgM Ab Hepatitis C Antibody Blood Type O Positive Antibody Screen Negative Crossmatch (AHG) See Detail 04/12/18 04:00 WBC RBC Hgb Hct MCV MCH MCHC RDW Plt Count MPV Neut % (Auto) Lymph % (Auto) Wilson % (Auto) Eos % (Auto) Baso % (Auto) Neut # (Auto) Lymph # (Auto) Wilson # (Auto) Eos # (Auto) Baso # (Auto) Sodium Potassium Chloride Carbon Dioxide Anion Gap BUN Creatinine Estimated Creat Clear Estimated GFR Est GFR ( Amer) Glucose Calcium Total Bilirubin AST ALT Alkaline Phosphatase Total Protein Albumin Globulin Albumin/Globulin Ratio Hepatitis A IgM Ab Negative Hep Bs Antigen Negative Hep B Core IgM Ab Negative Hepatitis C Antibody <0.1 Blood Type Antibody Screen Crossmatch (AHG) DS: Diagnosis - Discharge Diagnosis (1) UGI bleed Status: Acute (2) Alcohol use disorder Status: Acute (3) Anemia Status: Acute (4) Chest pain Status: Acute (5) Tobacco abuse Status: Acute (6) Thrombocytopenia Status: Acute (7) Abnormal small bowel x-ray Status: Acute Problem details: SBFT c/w possible Crohn's (8) Esophageal varices determined by endoscopy Status: Acute (9) Tobacco use Status: Acute (10) Gastritis Status: Acute (11) Hypokalemia Status: Acute Discharge Plan - Patient Discharge Instructions ACTIVITY: Continue current activity DIET: continue same diet Patient Instructions: Alcohol Use Disorder, Upper GI Endoscopy, Hypokalemia - Follow up Plan Follow up with: Alexy Elmore MD [Staff Physician] - 1 week Disposition: Home, Self-[facility] Medications: Home Medications Medication Instructions Recorded Confirmed Type Aspirin [Aspirin 325mg Tab] 325 mg PO DAILY 04/12/18 04/12/18 History Prescriptions/Medication Reconciliation: Discontinued Aspirin [Aspirin 325mg Tab] 325 mg PO DAILY
--- NOTE | 2018-04-15 17:34 | Cardiology Report ---
PROCEDURE: 2-D M-mode and color Doppler study INDICATIONS FOR THE TEST: Chest pain + COPD Heart Murmur Tobacco Smoking+ Palpitations Fatigue Syncope Edema Hypertension Diabetes Mellitus Rheumatic Fever SOB MORA Obesity Hyperlipidemia Family History HD Additional History ALCOHOL USE PATIENT INFORMATION HEIGHT: 65 WEIGHT:125 GENDER: Male B/P:103/52 2-D/M-MODE INTERPRETATION: 2-D MEASUREMENTS OBSERVED VALUES IN CMS Right Ventricular Dimension (RVDd) 2.5 Interventricular Septum (Thickness)(IVsd) 1.0 Left Ventricular Internal Dimensions(LVIDd) 5.1 Left Ventricular Posterior Wall (Thickness)(LVPWd) 0.9 Aortic Root 3.2 Aortic Cusp Separation 2.2 Left Atrial Dimensions (LAD) 3.9 2D 1. Left atrium is normal size, left ventricle is normal size, there is no concentric left ventricular hypertrophy, visually estimated ejection fraction 55-60% with no obvious regional wall motion abnormality. 2. The right atrium and right ventricle are normal size and contractility. 3. The aortic, mitral and tricuspid valve are grossly normal. 4. The pulmonic valve is poorly visualized. 5. No significant pericardial effusion noted. DOPPLER INTERROGATION: Doppler interrogation of the aortic, mitral and tricuspid valvular presence of mild mitral and tricuspid regurgitation, tricuspid regurgitant jet velocity insufficient for calculation of the right ventricular systolic pressure, diastolic parameters are within normal range. CONCLUSION: 1. Normal left ventricular size, preserved left ventricular systolic function, visually estimated ejection fraction 55-60% with no obvious regional wall motion abnormality, diastolic parameters are within normal range. 2. Mild mitral and tricuspid regurgitation 3. No significant pericardial effusion noted.
== END 2018-04-14 12:15 | disposition home or self-care (01) ==
LOC: 2ND 03:54 → ER 03:54 → OBSVTOIN 05:40 → 2ND 05:43
PROVIDERS: ADMIT Emergency Medicine; ATTEND Emergency Medicine

== ENCOUNTER → 2018-04-18 10:42 | Outpatient (REF) | payer OTHER, SELFPAY ==
[2018-04-18 13:40] LABS: Basophils # 0.1 K/mm3 (0-0.2); Basophils % 1.2 % (0.1-2.0); Eosinophils # 0.4 K/mm3 (0.0-0.4); Eosinophils % 7.6 % (0.1-12.0); Hematocrit 27.7 % (42.0-52.0); Hemoglobin 8.7 g/dL (14.1-18.0); Lymphocytes # 1.2 K/mm3 (0.7-4.5); Lymphocytes % 23.6 K/mm3 (10-50); Mean Corpuscular HGB Conc 31.3 g/dL (31.8-35.4); Mean Corpuscular Volume 95.8 fl (80-94); Monocytes # 0.6 K/mm3 (0.1-1.0); Monocytes % 12.2 % (1.7-9.3); Neutrophils # 2.8 K/mm3 (1.8-7.8); Neutrophils % 55.4 % (37.0-80.0); Platelet Count 151 K/mm3 (142-424); Red Blood Count 2.89 M/mm3 (4.60-6.20); Red Cell Distribution Width 19.2 % (11.5-17.5)
[2018-04-18 14:29] LABS: Alanine Aminotransferase 76 U/L (12-78); Albumin Level 2.5 gm/dL (3.4-5.0); Albumin/Globulin Ratio 0.5 (1.1-1.8); Alkaline Phosphatase 141 U/L (46-116); Anion Gap 10.9 mEq/L (5-15); Aspartate Amino Transferase 135 U/L (15-37); Bilirubin,Total 1.2 mg/dL (0.2-1.0); Blood Urea Nitrogen 5 mg/dL (7-18); Calcium 8.5 mg/dL (8.5-10.1); Carbon Dioxide 27 mmol/L (21.0-32.0); Chloride 100 mmol/L (98-107); Creatinine,Serum 0.54 mg/dL (0.70-1.30); Estimated Glomerular Filt Rate 166 ml/min (>60); GFR (African American) 201 ML/MIN (>60); Globulin 4.7 gm/dl (1.3-3.2); Sodium 135 mmol/L (136-145); Total Protein,Serum 7.2 gm/dL (6.4-8.2)
[2018-04-18 14:35] LABS: Glucose 102 mg/dL (74-106)
[2018-04-18 14:37] LABS: Potassium 2.9 mmoL/L (3.5-5.1)
== END ==
LOC: LAB 10:42
PROVIDERS: Visit Provider Emergency Medicine
DX: Z72.0 Tobacco use (principal)
CPT/HCPCS: 80053; 85025

== ENCOUNTER 2019-01-01 08:24 | Inpatient (IN) ==
--- NOTE | 2019-01-01 08:48 | Emergency Department Note ---
ED Disposition Clinical Impression: Acute pancreatitis, Cholelithiasis, Fatty liver, Colitis, Reflux esophagitis, Anemia Clinical Impression: (Ruled Out): Reflux gastritis Disposition: Still a Patient Condition on Discharge: Fair Instructions: DI for Acute Abdomen Referrals: Sebas English MD [Primary Care Provider] - - Critical Care Critical Care Time: No Attestation: On 01/01/19, the high probability of a clinically significant, sudden or life threatening deterioration of the following system(s) required my full and direct attention, intervention and personal management. The time I documented below is in addition to time spent performing reported procedures but includes the following listed in this critical care notation. Medical Decision Making - Medical Records Medical records reviewed: Yes: I reviewed the patient's medical records. - Job Inquiry Pt receiving controlled substance: No Job was queried for this patient: No Vital Signs: 01/01/19 08:34 01/01/19 09:51 01/01/19 09:56 Temperature 98.5 F Temperature Source Oral Pulse Rate [Left Radial] 90 91 H 89 Respiratory Rate 16 20 16 Blood Pressure [Right Arm] 134/78 136/81 135/78 Blood Pressure Mean [Right Arm] 96 99 97 Blood Pressure Source [Right Arm] Automatic Cuff Automatic Cuff Blood Pressure Position [Right Arm] Sitting Sitting Sitting 02 Sat by Pulse Oximetry 98 99 98 Oxygen Delivery Method Room Air Room Air Room Air 01/01/19 10:30 01/01/19 11:00 01/01/19 11:30 Temperature Temperature Source Pulse Rate [Left Radial] 90 90 92 H Respiratory Rate 18 16 18 Blood Pressure [Right Arm] 141/80 H 139/86 142/86 H Blood Pressure Mean [Right Arm] 100 103 104 Blood Pressure Source [Right Arm] Automatic Cuff Automatic Cuff Automatic Cuff Blood Pressure Position [Right Arm] Sitting Sitting Sitting 02 Sat by Pulse Oximetry 94 L 94 L 98 Oxygen Delivery Method Room Air Room Air Room Air - Lab Data Lab Results 01/01/19 08:50: WBC 8.8, RBC 4.28 L, Hgb 14.1, Hct 43.5, MCV 101.8 H, MCH 32.9 H , MCHC 32.3, RDW 15.0, Plt Count 128 L, MPV 7.2 L, Neut % (Auto) 80.2 H, Lymph % (Auto) 11.6, [place] % (Auto) 4.3, Eos % (Auto) 3.2, Baso % (Auto) 0.7, Neut # (Auto) 7.0, Lymph # (Auto) 1.0, [place] # (Auto) 0.4, Eos # (Auto) 0.3, Baso # (Auto) 0.1 01/01/19 08:50: Sodium 138, Potassium 3.1 L, Chloride 103, Carbon Dioxide 24, Anion Gap 14.1, BUN 5 L, Creatinine 0.88, Estimated Creat Clear 93, Estimated GFR 94, Est GFR ( Amer) 114, Glucose 149 H, Calcium 9.1, Total Bilirubin 2.1 H, AST 72 H, ALT 44, Alkaline Phosphatase 154 H, Total Protein 8.1, Albumin 2.9 L, Globulin 5.2 H, Albumin/Globulin Ratio 0.6 L, Amylase 2323 H*, Lipase 55700 H, Plasma/Serum Alcohol 0 01/01/19 08:50: Urine Color Yellow, Urine Appearance Clear, Urine pH 6.0, Ur Specific [employer] 1.025, Urine Protein Negative, Urine Glucose (UA) Negative, Urine Ketones Negative, Urine Blood Negative, Urine Nitrate Negative, Urine Bilirubin Negative, Urine Urobilinogen 0.2, Ur Leukocyte Esterase Negative, Urine WBC 3-5, Ur Squamous Epith Cells Occasional, Urine Bacteria 1+ 01/01/19 08:50: Magnesium 1.6, Troponin I < 0.02 01/01/19 08:50: Urine Opiates Screen Negative, Urine Methadone Screen Negative, Ur Barbituates Screen Negative, Ur Phencyclidine Scrn Negative, Ur Amphetamines Screen Negative, U Benzodiazepines Scrn Negative, Urine Cocaine Screen Negative, U Marijuana (THC) Screen Negative 01/01/19 09:00: Lactate 2.1 H Result diagrams: 01/01/19 08:50 01/01/19 08:50 Orders (Tests/Meds): ED MEDICATIONS Generic Name Dose Route Start Last Admin Trade Name Freq PRN Reason Stop Dose Admin Potassium Chloride/Sodium Chloride 1,000 mls @ 125 mls/hr 01/01/19 10:00 01/01/19 10:41 Kcl 20 Meq In Ns 1,000 Ml Iv Soln IV 01/31/19 09:59 125 mls/hr .Q8H VINOD Administration Morphine Sulfate 1 mg 01/01/19 08:52 01/01/19 09:10 Morphine 2mg/Ml Syringe IV 01/31/19 08:51 1 mg [id number] PRN Administration Severe Pain Sodium Chloride 10 ml 01/01/19 08:40 01/01/19 09:10 Saline Flush 10ml Syringe IV 01/31/19 08:39 10 ml NEEDED PRN Administration Maintain IV Site Discontinued Medications Generic Name Dose Route Start Last Admin Trade Name Freq PRN Reason Stop Dose Admin Famotidine 20 mg 01/01/19 08:51 01/01/19 09:10 Pepcid 20mg/2ml Vial IV 01/01/19 08:52 20 mg ONCE ONE Administration Morphine Sulfate 2 mg 01/01/19 11:06 01/01/19 11:07 Morphine 2mg/Ml Syringe IV 01/01/19 11:07 2 mg ONCE ONE Administration Ondansetron HCl 4 mg 01/01/19 08:51 01/01/19 09:10 Zofran 4mg/2ml Vial IV 01/01/19 08:52 4 mg ONCE ONE Administration Pantoprazole Sodium 40 mg 01/01/19 08:51 01/01/19 09:10 Protonix 40mg Vial IV 01/01/19 08:52 40 mg ONCE ONE Administration Sodium Chloride 8 ml 01/01/19 08:51 01/01/19 09:09 Saline Flush 10ml Syringe IV 01/01/19 08:52 8 ml ONCE ONE Administration Sodium Chloride 10 ml 01/01/19 09:36 01/01/19 09:37 Rad-Saline Flush 10ml Syringe IV 01/01/19 09:37 10 ml ONCE ONE Administration ORDERS Category Date Time Status Urinalysis and Microscopic Stat Lab 01/01/19 08:50 Ordered Blood Culture Stat Micro 01/01/19 09:00 Received ECG Request by /Hel[place] Stat Y 01/01/19 08:55 Ordered - CT Data CT Scan: Abdomen, Pelvis Time Received: 11:[address] Reviewed: Yes: I have viewed the radiologist's interpretation Preliminary Findings: Abnormal Findings Narrative: Please see V-read report. - ECG Data Tracing #1 Normal sinus rhythm 83/min no acute findings. Medical Decision Narrative: I discussed with the patient and his at the bedside differential diagnosis of having acute pancreatitis, perforated epigastric ulcer, and acute appendicitis among other possibilities. The need for CT scan with p.o. and IV contrast is needed and outweighs the risk with his normal labs from March 2018. [address] scan report from [facility] and called Dr. Dc Dinh the on- call surgeon discussed the findings of inflammatory changes of acute pancreatitis, heterogeneous changes of the liver with recommendations for MRI, gallbladder stone with per cystic fluid. Dr. Robbins suggest the patient be admitted to medical service for acute pancreatitis treatment, n.p.o., IV fluids, pain management, and IV antibiotics. He will see the patient in consultation, in a.m. an ultrasound can be ordered in the morning.. [address] Deng direct care professional for Dr. English his primary care physician who agreed to admit the patient for medical management as discussed above. Abdominal Pain HPI - General Chief Complaint: Abdominal Pain Stated Complaint: stomach pain,kidney pain Time Seen by Provider: 01/01/19 08:35 Mode of Arrival: Ambulatory Source of Information: Patient, Spouse Limitations: No Limitations Description of Symptoms (Recalled from ER Triage Doc. by RN): to ed per pvt car with c/o epigastric pain radiating into back +vomiting approx 6 times pt states pain started approx midnight. denies fever, chills, diarrhea, sick contacts. cpta none - History of Present Illness HPI narrative: 43 years old male with history of alcoholism peptic ulcer disease and anemia that required blood transfusion. His daily medications are Nexium and iron supplement. Today at 5 AM, he developed sudden onset epigastric abdominal pain radiating to his back sharp in character rated 8/10 followed by vomiting x5 initially had blood then cleared. He denies having fever chills diarrhea. He denies having dysuria hematuria or frequency or flank pain. Denies having chest pain shortness of breath palpitations or hemoptysis. He denies recent intake of alcohol or drug. The is at the bedside and agrees with above history. The reported having chronic kidney disease I reviewed his labs from April 18, 2018 he had normal BUN and creatinine of 0.54 and BUN of 5. I reviewed his 2D echo with ejection fraction 55% from March 2018, upper GI with a follow-through with the report below: MPRESSION: 1. Negative upper GI. 2. Abnormal appearing small bowel. The terminal ileum has an abnormal appearance appearing somewhat fixed with a shaggy mucosa. This is suspicious for Crohn's disease. There is mild dilatation of the small bowel proximal to this region suggesting mild obstruction. MD complaint: abdominal pain Onset (ago): hour(s) (3 hours.) Consistency: constant Location: epigastric Severity: severe Severity scale (1-10): 8 Quality: stabbing, sharp Radiation: back Relieving factors: nothing Exacerbating factors: nothing Associated symptoms: vomiting - Related Data Home Medications Medication Instructions Recorded Confirmed esomeprazole magnesium 20 mg 20 mg PO DAILY cap 04/18/18 01/01/19 capsule,delayed release Ferrous Sulfate 325 mg PO DAILY 01/01/19 01/01/19 Allergies Allergy/AdvReac Type Severity Reaction Status Date / Time No Known Allergies Allergy Verified 04/26/18 13:12 [facility] History - Hepatitis A Screen Drug use history?: No High risk sexual behaviors?: No History of sexually transmitted infection?: No Currently employed?: No Childcare worker?: No Do you have indoor plumbing?: No Do you have electricity?: Yes Attestation statement:: This patient has been screened for Hepatitis A risk factors. I have reviewed the patient's past medical history: Yes Medical History: Reports:: Anxiety, Ulcer Denies:: Cancer, Diabetes Mellitus Type 1, Diabetes Mellitus Type 2, Internal Pacemaker, MRSA, Seizures Other Medical History: Denies: Blood Transfusion Reaction Other Surgeries: Yes: No Previous Surgery. No: Pacemaker Amputation: No Fractures: Yes - Social History Smoking Status: Current every day smoker Tobacco Type: cigarettes Alcohol Intake: never Alcohol Intake Frequency:: 3 or more drinks per day Substance Use Type: denies use Occupational Status: unemployed Housing: house - Psychiatric History Expresses thoughts of harming self/others: None Suicide Plan Description: No Plan Pschychiatric History:: Reports:: Anxiety Family Hx:: Diabetes ROS Obtained: Yes All systems reviewed & no additional complaints Physical Exam - General General appearance: alert, in distress, other (due to his pain. ) - Head Head exam: atraumatic, normocephalic, normal inspection - Eye Eye exam: Present: normal appearance, PERRL, EOMI. Absent: scleral icterus, nystagmus - ENT ENT exam: Present: normal exam, normal oropharynx, mucous membranes moist, TM's normal bilaterally, normal external ear exam - Neck Neck exam: Present: normal inspection, full ROM, trachea midline. Absent: tenderness, meningismus, lymphadenopathy - Chest Chest inspection: Present: normal inspection, symmetric chest wall rise. Absent: tenderness - Respiratory Respiratory exam: Present: normal lung sounds bilaterally. Absent: respiratory distress - Cardiovascular Cardiovascular exam: Present: regular rate, normal rhythm, normal heart sounds. Absent: JVD - Abdominal Exam Abdominal exam: Present: soft, tenderness, normal bowel sounds, tenderness at McBurney's Point, other (Patient has a soft abdomen with tenderness in epigastrium, focal tenderness over the McBurney's point with a strong rebound, no voluntary guarding no rigidity.). Absent: distention, guarding, rebound, rigidity - exam: Present: normal inspection, normal testicular lie. Absent: testicular tenderness, urethral discharge, scrotal swelling, circumcised - Extremities Exam Extremities exam: Present: normal inspection, full ROM, normal capillary refill. Absent: tenderness, pedal edema, joint swelling, calf tenderness - Back Exam Back exam: Present: normal inspection. Absent: tenderness - Neurological Exam Neurological exam: Present: alert, oriented X3, CN II-XII intact, motor sensory deficit, reflexes normal - Psychiatric Psychiatric exam: Present: normal affect, normal mood - Skin Skin exam: Present: warm, dry, intact, normal color - Lymphatic Lymphatic Findings: no adenopathy
[2019-01-01 09:01] LABS: Basophils # 0.1 K/mm3 (0-0.2); Basophils % 0.7 % (0.1-2.0); Eosinophils # 0.3 K/mm3 (0.0-0.4); Eosinophils % 3.2 % (0.1-12.0); Hematocrit 43.5 % (42.0-52.0); Hemoglobin 14.1 g/dL (14.1-18.0); Lymphocytes % 11.6 % (10-50); Mean Corpuscular HGB Conc 32.3 g/dL (31.8-35.4); Mean Corpuscular Hemoglobin 32.9 pg (27.0-31.2); Mean Corpuscular Volume 101.8 fl (80-94); Mean Platelet Volume 7.2 fl (7.4-10.4); Monocytes # 0.4 K/mm3 (0.1-1.0); Monocytes % 4.3 % (1.7-9.3); Neutrophils % 80.2 % (37.0-80.0); Platelet Count 128 K/mm3 (142-424); Red Blood Count 4.28 M/mm3 (4.60-6.20); White Blood Count 8.8 K/mm3 (4.8-10.8)
[2019-01-01 09:03] LABS: Appearance,Urine CLEAR (Clear); Bilirubin,Urine Negative (Negative); Blood, Urine Negative (Negative); Color,Urine YELLOW (Yellow); Glucose,Urine (UA) Negative (Negative); Ketones,Urine Negative (Negative); Leukocyte Esterase,Urine Negative (Negative); Microscopic, Urine URINE MICROSCOPIC (MICROSCOPIC); Protein,Urine Negative (Negative); Specific Gravity, Urine 1.025 (1.005-1.030); Urobilinogen,Urine 0.2 EU/dl (0.2)
[2019-01-01 09:09] LABS: Amphetamine/Metha Screen,Urine Negative ng/mL (<1000); Barbiturates Screen,Urine Negative ng/mL (<200); Benzodiazepines Screen,Urine Negative ng/mL (<200); Cannabinoid Screen,Urine Negative ng/mL (<50); Cocaine Screen,Urine Negative ng/mL (<300); Methadone Screen,Urine Negative ng/mL (<300); Opiate Screen,Urine Negative ng/mL (<300); Phencyclidine Screen,Urine Negative ng/mL (<25)
[2019-01-01 09:18] LABS: Bacteria,Urine 1+ /lpf; Squamous Epithelial Cell,Urine Occasional #/hpf (0-5)
[2019-01-01 09:19] LABS: Albumin Level 2.9 gm/dL (3.4-5.0); Albumin/Globulin Ratio 0.6 (1.1-1.8); Anion Gap 14.1 mEq/L (5-15); Bilirubin,Total 2.1 mg/dL (0.2-1.0); Calcium 9.1 mg/dL (8.5-10.1); Globulin 5.2 gm/dl (1.3-3.2); Potassium 3.1 mmoL/L (3.5-5.1); Total Protein,Serum 8.1 gm/dL (6.4-8.2)
[2019-01-02 07:00] LABS: Basophils % 0.9 % (0.1-2.0); Eosinophils # 0.4 K/mm3 (0.0-0.4); Eosinophils % 9.2 % (0.1-12.0); Hematocrit 38.6 % (42.0-52.0); Lymphocytes # 1.3 K/mm3 (0.7-4.5); Lymphocytes % 31.9 % (10-50); Mean Corpuscular Hemoglobin 33.1 pg (27.0-31.2); Mean Corpuscular Volume 103.5 fl (80-94); Mean Platelet Volume 7.2 fl (7.4-10.4); Monocytes # 0.3 K/mm3 (0.1-1.0); Monocytes % 7.1 % (1.7-9.3); Neutrophils # 2.1 K/mm3 (1.8-7.8); Neutrophils % 50.8 % (37.0-80.0); Platelet Count 103 K/mm3 (142-424); Red Blood Count 3.73 M/mm3 (4.60-6.20); Red Cell Distribution Width 14.8 % (11.5-17.5)
[2019-01-02 07:13] LABS: Albumin Level 2.3 gm/dL (3.4-5.0); Albumin/Globulin Ratio 0.5 (1.1-1.8); Anion Gap 10.5 mEq/L (5-15); Bilirubin,Total 2.4 mg/dL (0.2-1.0); Calcium 8.5 mg/dL (8.5-10.1); Globulin 4.5 gm/dl (1.3-3.2); INR 1.36 (0.9-1.1); Potassium 3.5 mmoL/L (3.5-5.1); Prothrombin Time 13.9 seconds (9.4-11.8); Total Protein,Serum 6.8 gm/dL (6.4-8.2)
[2019-01-02 07:18] LABS: Hemoglobin 12.3 g/dL (14.1-18.0)
--- NOTE | 2019-01-02 07:24 | Pharmacy Consult Notes ---
[facility] Pharmacy VTE Monitoring - Patient Demographics Admission date: 01/01/19 Report Date: 01/02/19 Time: 07:24 Allergies/Adverse Reactions: Patient Allergies No Known Allergies Allergy (Verified 04/26/18 13:12) Height: 1.68 m Weight: 65.799 kg Patient Problems: Current Active Problems (This Medical Record has been edited. Action required.) Anemia (Acute) Acute pancreatitis (Acute) Cholelithiasis (Acute) Fatty liver (Acute) Colitis (Acute) Reflux esophagitis (Acute) - VTE Risk Labs: VTE Related Lab Results Hgb 12.3 g/dL (14.1-18.0) L D 01/02/19 06:09 Hct 38.6 % (42.0-52.0) L 01/02/19 06:09 Plt Count 103 K/mm3 (142-424) L 01/02/19 06:09 PT 13.9 seconds (9.4-11.8) H 01/02/19 06:09 INR 1.36 (0.9-1.1) H 01/02/19 06:09 BUN 6 mg/dL (7-18) L 01/02/19 06:09 Creatinine 0.81 mg/dL (0.70-1.30) 01/02/19 06:09 Estimated Creat Clear 108 mL/min (50-200) 01/02/19 06:09 Was VTE Risk Assessment Performed: Yes VTE Score: 1 VTE Risk Level: Very Low Risk - Prophylaxis VTE Prophylaxis Ordered?: Yes Types of VTE Prophylaxis: TEDS Knee High Location of Applied Device: Bilateral Lower Extremeties - VTE Diagnosis Confirmed Treatment or plan recommended: Continue Current Treatment
--- NOTE | 2019-01-02 08:02 | Consult Report ---
*Admission Date: 01/01/19 *Chief complaint: ABDOMINAL PAIN *History of present illness: Patient is a 43-year-old male. Per his report and medical record he has a history of heavy alcohol consumption in the past and he was admitted last March with GI bleeding. He underwent endoscopy by Dr. Martinez and was found to have inflammatory changes as well as findings of mild to moderate varices. Patient states that he has abstained from alcohol consumption since last March. Yesterday he developed acute onset of epigastric pain. This was sharp and severe. He presented to the emergency department where he was seen and evaluated. He did have some mid abdomen and right lower quadrant. He underwent CT scan which revealed findings most consistent with acute pancreatitis as well as findings of gallstones. He is found to have marked elevation of pancreatic enzymes on blood work. He was admitted for inpatient management and surgical consultation. Review of Systems - Review of Systems Review of systems:: pertinent systems reviewed and negative unless documented below - Constitutional Reports anorexia - Eyes Denies change in vision - ENT Denies abnormal hearing - *Cardiovascular Denies chest pain - *Respiratory Denies shortness of breath - *Gastrointestinal Reports abdominal pain - *Genitourinary Denies difficulty urinating - *Musculoskeletal Denies abnormal walking - *Neurologic Denies dizziness [facility] History Medical History: Reports:: Anxiety, Ulcer Denies:: Cancer, Diabetes Mellitus Type 1, Diabetes Mellitus Type 2, Internal Pacemaker, MRSA, Seizures Have you ever received a pneumonia vaccine?: No Have you received a flu vaccine this season?: No Other Medical History: Denies: Blood Transfusion Reaction Other Surgeries: Yes: No Previous Surgery. No: Pacemaker Amputation: No Fractures: Yes (leg) - *Social History Smoking Status: Current every day smoker Tobacco Type: cigarettes Alcohol Intake: former Alcohol Intake Frequency:: 3 or more drinks per day Substance Use Type: denies use Occupational Status: unemployed Housing: other Household Members: spouse, friend(s) Travel in the last 8 weeks: None - Psychiatric History Expresses thoughts of harming self/others: None Suicide Plan Description: No Plan Pschychiatric History:: Reports:: Anxiety *Family Hx:: Diabetes Meds Home Medications Medication Instructions Recorded Confirmed Type esomeprazole magnesium 20 mg 20 mg PO DAILY cap 04/18/18 01/01/19 History capsule,delayed release Ergocalciferol (Vitamin D2) 400 unit PO DAILY 01/01/19 01/01/19 History [Vitamin D] Ferrous Sulfate 325 mg PO DAILY 01/01/19 01/01/19 History Allergies Allergy/AdvReac Type Severity Reaction Status Date / Time No Known Allergies Allergy Verified 04/26/18 13:12 Exam Vital signs and Labs for Last 24 Hours: Temp Pulse Resp BP Pulse Ox 98.1 F 70 18 97/56 L 98 01/02/19 04:00 01/02/19 04:00 01/02/19 04:00 01/02/19 04:00 01/02/19 04:00 Laboratory Results - last 24 hr 01/01/19 08:50: WBC 8.8, RBC 4.28 L, Hgb 14.1, Hct 43.5, MCV 101.8 H, MCH 32.9 H , MCHC 32.3, RDW 15.0, Plt Count 128 L, MPV 7.2 L, Neut % (Auto) 80.2 H, Lymph % (Auto) 11.6, [place] % (Auto) 4.3, Eos % (Auto) 3.2, Baso % (Auto) 0.7, Neut # (Auto) 7.0, Lymph # (Auto) 1.0, [place] # (Auto) 0.4, Eos # (Auto) 0.3, Baso # (Auto) 0.1 01/01/19 08:50: Sodium 138, Potassium 3.1 L, Chloride 103, Carbon Dioxide 24, Anion Gap 14.1, BUN 5 L, Creatinine 0.88, Estimated Creat Clear 93, Estimated GFR 94, Est GFR ( Amer) 114, Glucose 149 H, Calcium 9.1, Total Bilirubin 2.1 H, AST 72 H, ALT 44, Alkaline Phosphatase 154 H, Total Protein 8.1, Albumin 2.9 L, Globulin 5.2 H, Albumin/Globulin Ratio 0.6 L, Amylase 2323 H*, Lipase 70494 H, Plasma/Serum Alcohol 0 01/01/19 08:50: Urine Color Yellow, Urine Appearance Clear, Urine pH 6.0, Ur Specific [place] 1.025, Urine Protein Negative, Urine Glucose (UA) Negative, Urine Ketones Negative, Urine Blood Negative, Urine Nitrate Negative, Urine Bilirubin Negative, Urine Urobilinogen 0.2, Ur Leukocyte Esterase Negative, Urine WBC 3-5, Ur Squamous Epith Cells Occasional, Urine Bacteria 1+ 02/03/19 08:50: Magnesium 1.6, Troponin I < 0.02 01/01/19 08:50: Urine Opiates Screen Negative, Urine Methadone Screen Negative, Ur Barbituates Screen Negative, Ur Phencyclidine Scrn Negative, Ur Amphetamines Screen Negative, U Benzodiazepines Scrn Negative, Urine Cocaine Screen Negative, U Marijuana (THC) Screen Negative 01/01/19 09:00: Lactate 2.1 H 01/01/19 13:35: Lactate 1.2 01/02/19 06:09: WBC 4.0 L D, RBC 3.73 L, Hgb 12.3 L D, Hct 38.6 L, MCV 103.5 H, MCH 33.1 H, MCHC 32.0, RDW 14.8, Plt Count 103 L, MPV 7.2 L, Neut % (Auto) 50.8, Lymph % (Auto) 31.9, [place] % (Auto) 7.1, Eos % (Auto) 9.2, Baso % (Auto) 0.9, Neut # (Auto) 2.1, Lymph # (Auto) 1.3, [place] # (Auto) 0.3, Eos # (Auto) 0.4, Baso # (Auto) 0.0 01/02/19 06:09: PT 13.9 H, INR 1.36 H 01/02/19 06:09: Sodium 141, Potassium 3.5, Chloride 109 H, Carbon Dioxide 25, Anion Gap 10.5, BUN 6 L, Creatinine 0.81, Estimated Creat Clear 108, Estimated GFR 104, Est GFR ( Amer) 125, Glucose 112 H D, Calcium 8.5, Magnesium 1.6, Total Bilirubin 2.4 H, AST 53 H D, ALT 37, Alkaline Phosphatase 99, Total Protein 6.8, Albumin 2.3 L D, Globulin 4.5 H, Albumin/Globulin Ratio 0.5 L I & O for Last 24 hours: Intake & Output 12/30/18 12/31/18 01/01/19 01/02/19 11:59 11:59 11:59 11:59 Intake Total 1040 / 1040 Balance 1040 / 1040 Weight 135 lb 145 lb 1 oz - *Routine HEENT Exam Head: Present: normocephalic Eye: Present: EOMI, PERRL ENT: Present: mucous membranes moist - *Routine Neck Exam Present: supple. Absent: lymphadenopathy - *Routine Respiratory Exam Present: CTA bilaterally - *Routine Cardiovascular Exam Present: RRR - *Routine Abdominal Exam Present: soft, normoactive bowel sounds. Absent: tenderness - *Routine Extremities Exam Absent: cyanosis, clubbing, edema - *Routine Skin Exam Present: warm. Absent: rash - *Routine Neurological Exam Present: alert, oriented X3 - Detailed Eye Exam Eyelids: Left normal inspection Results - Labs 01/02/19 06:09 01/02/19 06:09 Laboratory Results - last 24 hr 01/01/19 08:50: WBC 8.8, RBC 4.28 L, Hgb 14.1, Hct 43.5, MCV 101.8 H, MCH 32.9 H , MCHC 32.3, RDW 15.0, Plt Count 128 L, MPV 7.2 L, Neut % (Auto) 80.2 H, Lymph % (Auto) 11.6, [place] % (Auto) 4.3, Eos % (Auto) 3.2, Baso % (Auto) 0.7, Neut # (Auto) 7.0, Lymph # (Auto) 1.0, [place] # (Auto) 0.4, Eos # (Auto) 0.3, Baso # (Auto) 0.1 01/01/19 08:50: Sodium 138, Potassium 3.1 L, Chloride 103, Carbon Dioxide 24, Anion Gap 14.1, BUN 5 L, Creatinine 0.88, Estimated Creat Clear 93, Estimated GFR 94, Est GFR ( Amer) 114, Glucose 149 H, Calcium 9.1, Total Bilirubin 2.1 H, AST 72 H, ALT 44, Alkaline Phosphatase 154 H, Total Protein 8.1, Albumin 2.9 L, Globulin 5.2 H, Albumin/Globulin Ratio 0.6 L, Amylase 2323 H*, Lipase 32984 H, Plasma/Serum Alcohol 0 01/01/19 08:50: Urine Color Yellow, Urine Appearance Clear, Urine pH 6.0, Ur Specific [place] 1.025, Urine Protein Negative, Urine Glucose (UA) Negative, Urine Ketones Negative, Urine Blood Negative, Urine Nitrate Negative, Urine Bilirubin Negative, Urine Urobilinogen 0.2, Ur Leukocyte Esterase Negative, Urine WBC 3-5, Ur Squamous Epith Cells Occasional, Urine Bacteria 1+ 01/01/19 08:50: Magnesium 1.6, Troponin I < 0.02 01/01/19 08:50: Urine Opiates Screen Negative, Urine Methadone Screen Negative, Ur Barbituates Screen Negative, Ur Phencyclidine Scrn Negative, Ur Amphetamines Screen Negative, U Benzodiazepines Scrn Negative, Urine Cocaine Screen Negative, U Marijuana (THC) Screen Negative 01/01/19 09:00: Lactate 2.1 H 01/01/19 13:35: Lactate 1.2 01/02/19 06:09: WBC 4.0 L D, RBC 3.73 L, Hgb 12.3 L D, Hct 38.6 L, MCV 103.5 H, MCH 33.1 H, MCHC 32.0, RDW 14.8, Plt Count 103 L, MPV 7.2 L, Neut % (Auto) 50.8, Lymph % (Auto) 31.9, [place] % (Auto) 7.1, Eos % (Auto) 9.2, Baso % (Auto) 0.9, Neut # (Auto) 2.1, Lymph # (Auto) 1.3, [place] # (Auto) 0.3, Eos # (Auto) 0.4, Baso # (Auto) 0.0 01/02/19 06:09: PT 13.9 H, INR 1.36 H 01/02/19 06:09: Sodium 141, Potassium 3.5, Chloride 109 H, Carbon Dioxide 25, Anion Gap 10.5, BUN 6 L, Creatinine 0.81, Estimated Creat Clear 108, Estimated GFR 104, Est GFR ( Amer) 125, Glucose 112 H D, Calcium 8.5, Magnesium 1.6, Total Bilirubin 2.4 H, AST 53 H D, ALT 37, Alkaline Phosphatase 99, Total Protein 6.8, Albumin 2.3 L D, Globulin 4.5 H, Albumin/Globulin Ratio 0.5 L Assessment and Plan - Assessment and plan all Dx Assessment and Plan for all problems:: Patient has findings of acute pancreatitis which based on laboratory findings is likely biliary in etiology. He is to undergo gallbladder ultrasound today. Continue to monitor clinically as well as based on laboratory findings. His clinical scenario and risk for surgical intervention is somewhat elevated due to his prior history of alcohol abuse and findings significant thrombocytopenia as well as some elevation profile. If he shows evidence of retained common bile duct stone, which is unlikely, he will potentially need ERCP. However, if he shows findings consistent with probable transient choledocholithiasis would plan to treat pancreatitis medically and plan for early interval cholecystectomy with cholangiogram to prevent future pancreatitis.
--- NOTE | 2019-01-02 08:07 | History & Physical Report ---
*Admission Date: 01/01/19 *Chief complaint: abd pain *History of present illness: this pt was seen in the ed -3 years old male with history of alcoholism peptic ulcer disease and anemia that required blood transfusion. His daily medications are Nexium and iron supplement. Today at 5 AM, he developed sudden onset epigastric abdominal pain radiating to his back sharp in character rated 8/10 followed by vomiting x5 initially had blood then cleared. He denies having fever chills diarrhea. He denies having dysuria hematuria or frequency or flank pain. Denies having chest pain shortness of breath palpitations or hemoptysis. He denies recent intake of alcohol or drug. The is at the bedside and agrees with above history. The reported having chronic kidney disease I reviewed his labs from April 18, 2018 he had normal BUN and creatinine of 0.54 and BUN of 5. [facility] History I have reviewed the patient's past medical history: Yes Medical History: Reports:: Anxiety, Ulcer Denies:: Cancer, Diabetes Mellitus Type 1, Diabetes Mellitus Type 2, Internal Pacemaker, MRSA, Seizures Have you ever received a pneumonia vaccine?: No Have you received a flu vaccine this season?: No Other Medical History: Denies: Blood Transfusion Reaction Other Surgeries: Yes: No Previous Surgery. No: Pacemaker Amputation: No Fractures: Yes (leg) - *Social History Smoking Status: Current every day smoker Tobacco Type: cigarettes Alcohol Intake: former Alcohol Intake Frequency:: 3 or more drinks per day Substance Use Type: denies use Occupational Status: unemployed Housing: other Household Members: spouse, friend(s) Travel in the last 8 weeks: None - Psychiatric History Expresses thoughts of harming self/others: None Suicide Plan Description: No Plan Pschychiatric History:: Reports:: Anxiety *Family Hx:: Diabetes Review of Systems - Review of Systems Review of systems:: pertinent systems reviewed and negative unless documented below - Constitutional Denies fever(s) - Eyes Denies change in vision - ENT Denies sore throat - *Cardiovascular Denies chest pain at rest - *Respiratory Denies cough - *Gastrointestinal Reports abdominal pain, Reports nausea, Reports vomiting - *Genitourinary Denies blood in urine - *Musculoskeletal Denies joint pain, Denies joint swelling, Denies neck pain - Integumentary/Breasts Denies rash - *Neurologic Denies abnormal walking, Denies abnormal hearing, Denies dizziness - Psychiatric Denies anxiety Meds Home Medications Medication Instructions Recorded Confirmed Type esomeprazole magnesium 20 mg 20 mg PO DAILY cap 04/18/18 01/01/19 History capsule,delayed release Ergocalciferol (Vitamin D2) 400 unit PO DAILY 01/01/19 01/01/19 History [Vitamin D] Ferrous Sulfate 325 mg PO DAILY 01/01/19 01/01/19 History Allergies Allergy/AdvReac Type Severity Reaction Status Date / Time No Known Allergies Allergy Verified 04/26/18 13:12 Exam Vital signs and Labs for Last 24 Hours: Temp Pulse Resp BP Pulse Ox 98.1 F 70 18 97/56 L 98 01/02/19 04:00 01/02/19 04:00 01/02/19 04:00 01/02/19 04:00 01/02/19 04:00 Laboratory Results - last 24 hr 01/01/19 08:50: WBC 8.8, RBC 4.28 L, Hgb 14.1, Hct 43.5, MCV 101.8 H, MCH 32.9 H , MCHC 32.3, RDW 15.0, Plt Count 128 L, MPV 7.2 L, Neut % (Auto) 80.2 H, Lymph % (Auto) 11.6, [place] % (Auto) 4.3, Eos % (Auto) 3.2, Baso % (Auto) 0.7, Neut # (Auto) 7.0, Lymph # (Auto) 1.0, [place] # (Auto) 0.4, Eos # (Auto) 0.3, Baso # (Auto) 0.1 01/01/19 08:50: Sodium 138, Potassium 3.1 L, Chloride 103, Carbon Dioxide 24, Anion Gap 14.1, BUN 5 L, Creatinine 0.88, Estimated Creat Clear 93, Estimated GFR 94, Est GFR ( Amer) 114, Glucose 149 H, Calcium 9.1, Total Bilirubin 2.1 H, AST 72 H, ALT 44, Alkaline Phosphatase 154 H, Total Protein 8.1, Albumin 2.9 L, Globulin 5.2 H, Albumin/Globulin Ratio 0.6 L, Amylase 2323 H*, Lipase 83000 H, Plasma/Serum Alcohol 0 01/01/19 08:50: Urine Color Yellow, Urine Appearance Clear, Urine pH 6.0, Ur Specific [place] 1.025, Urine Protein Negative, Urine Glucose (UA) Negative, Urine Ketones Negative, Urine Blood Negative, Urine Nitrate Negative, Urine Bilirubin Negative, Urine Urobilinogen 0.2, Ur Leukocyte Esterase Negative, Urine WBC 3-5, Ur Squamous Epith Cells Occasional, Urine Bacteria 1+ 01/01/19 08:50: Magnesium 1.6, Troponin I < 0.02 01/01/19 08:50: Urine Opiates Screen Negative, Urine Methadone Screen Negative, Ur Barbituates Screen Negative, Ur Phencyclidine Scrn Negative, Ur Amphetamines Screen Negative, U Benzodiazepines Scrn Negative, Urine Cocaine Screen Negative, U Marijuana (THC) Screen Negative 01/01/19 09:00: Lactate 2.1 H 01/01/19 13:35: Lactate 1.2 01/02/19 06:09: WBC 4.0 L D, RBC 3.73 L, Hgb 12.3 L D, Hct 38.6 L, MCV 103.5 H, MCH 33.1 H, MCHC 32.0, RDW 14.8, Plt Count 103 L, MPV 7.2 L, Neut % (Auto) 50.8, Lymph % (Auto) 31.9, [place] % (Auto) 7.1, Eos % (Auto) 9.2, Baso % (Auto) 0.9, Neut # (Auto) 2.1, Lymph # (Auto) 1.3, [place] # (Auto) 0.3, Eos # (Auto) 0.4, Baso # (Auto) 0.0 01/02/19 06:09: PT 13.9 H, INR 1.36 H 01/02/19 06:09: Sodium 141, Potassium 3.5, Chloride 109 H, Carbon Dioxide 25, Anion Gap 10.5, BUN 6 L, Creatinine 0.81, Estimated Creat Clear 108, Estimated GFR 104, Est GFR ( Amer) 125, Glucose 112 H D, Calcium 8.5, Magnesium 1.6, Total Bilirubin 2.4 H, AST 53 H D, ALT 37, Alkaline Phosphatase 99, Total Protein 6.8, Albumin 2.3 L D, Globulin 4.5 H, Albumin/Globulin Ratio 0.5 L I & O for Last 24 hours: Intake & Output 12/30/18 12/31/18 01/01/19 01/02/19 11:59 11:59 11:59 11:59 Intake Total 1040 / 1040 Balance 1040 / 1040 Weight 135 lb 145 lb 1 oz - Constitutional no acute distress, average body habitus - *Routine HEENT Exam Head: Present: normocephalic Eye: Present: EOMI, PERRL. Absent: conjunctival icterus ENT: Present: mucous membranes dry - *Routine Neck Exam Present: supple. Absent: JVD - *Routine Respiratory Exam Present: CTA bilaterally - *Routine Cardiovascular Exam Present: RRR. Absent: murmur, gallop, rubs - *Routine Abdominal Exam Present: soft, tenderness - *Routine Extremities Exam Present: full ROM - *Routine Skin Exam Present: intact - *Routine Neurological Exam Present: alert, oriented X3, CN II-XII intact - Routine Psychiatric Exam Present: normal affect Assessment and Plan (1) Acute pancreatitis Current visit: Yes Status: Acute Qualifiers: Pancreatitis type: biliary Acute pancreatitis complication: no infection or necrosis Qualified Code(s): K85.10 - Biliary acute pancreatitis without necrosis or infection Category: Medical Code(s): K85.90 - Acute pancreatitis without necrosis or infection, unspecified (2) Thrombocytopenia Current visit: Yes Status: Acute Category: Medical Code(s): D69.6 - Thrombocytopenia, unspecified (3) Cholecystitis with cholelithiasis Current visit: Yes Status: Acute Qualifiers: Cholelithiasis location: gallbladder Cholecystitis acuity: acute Biliary obstruction: without biliary obstruction Qualified Code(s): K80.00 - Calculus of gallbladder with acute cholecystitis without obstruction Category: Medical Code(s): K80.10 - Calculus of gallbladder with chronic cholecystitis without obstruction
[2019-01-02 08:20] LABS: Amylase 217 U/L (25-115); Lipase 318 u/L (73-393)
[2019-01-02 08:52] LABS: Lactate Dehydrogenase 206 U/L (82-234)
[2019-01-03 06:54] LABS: Eosinophils # 0.5 K/mm3 (0.0-0.4); Hematocrit 37.2 % (42.0-52.0); Hemoglobin 11.6 g/dL (14.1-18.0); Lymphocytes # 1.4 K/mm3 (0.7-4.5); Lymphocytes % 35.8 % (10-50); Mean Corpuscular HGB Conc 31.2 g/dL (31.8-35.4); Mean Corpuscular Hemoglobin 32.5 pg (27.0-31.2); Mean Platelet Volume 7.4 fl (7.4-10.4); Monocytes # 0.3 K/mm3 (0.1-1.0); Monocytes % 8.6 % (1.7-9.3); Neutrophils # 1.7 K/mm3 (1.8-7.8); Neutrophils % 42.6 % (37.0-80.0); Platelet Count 91 K/mm3 (142-424); Red Blood Count 3.58 M/mm3 (4.60-6.20); Red Cell Distribution Width 14.7 % (11.5-17.5)
[2019-01-03 07:10] LABS: Albumin Level 2.2 gm/dL (3.4-5.0); Albumin/Globulin Ratio 0.5 (1.1-1.8); Anion Gap 11.4 mEq/L (5-15); Bilirubin,Total 2.2 mg/dL (0.2-1.0); Globulin 4.3 gm/dl (1.3-3.2); Potassium 3.4 mmoL/L (3.5-5.1); Total Protein,Serum 6.5 gm/dL (6.4-8.2)
--- NOTE | 2019-01-03 08:10 | Progress Note ---
Subjective Narrative: Patient feeling a bit better. Tolerating clear liquids. Exam Vital signs and Labs for Last 24 Hours: Temp Pulse Resp BP Pulse Ox 99.2 F 72 16 101/67 L 94 L 01/03/19 04:00 01/03/19 04:00 01/03/19 04:00 01/03/19 04:00 01/03/19 04:00 Laboratory Results - last 24 hr 01/02/19 06:09: Lactate Dehydrogenase 206, Amylase 217 H D, Lipase 318 01/03/19 06:30: WBC 4.0 L, RBC 3.58 L, Hgb 11.6 L, Hct 37.2 L, MCV 104.0 H, MCH 32.5 H, MCHC 31.2 L, RDW 14.7, Plt Count 91 L, MPV 7.4, Neut % (Auto) 42.6, Lymph % (Auto) 35.8, [place] % (Auto) 8.6, Eos % (Auto) 12.0, Baso % (Auto) 1.0, Neut # (Auto) 1.7 L, Lymph # (Auto) 1.4, [place] # (Auto) 0.3, Eos # (Auto) 0.5 H, Baso # (Auto) 0.0 01/03/19 06:30: Sodium 140, Potassium 3.4 L, Chloride 107, Carbon Dioxide 25, Anion Gap 11.4, BUN 4 L D, Creatinine 0.82, Estimated Creat Clear 107, Estimated GFR 102, Est GFR ( Amer) 123, Glucose 108 H, Calcium 8.0 L, Total Bilirubin 2.2 H, AST 51 H, ALT 34, Alkaline Phosphatase 93, Total Protein 6.5, Albumin 2.2 L, Globulin 4.3 H, Albumin/Globulin Ratio 0.5 L, Amylase 78, Lipase 188 I & O for Last 24 hours: Intake & Output 12/31/18 01/01/19 01/02/19 01/03/19 11:59 11:59 11:59 11:59 Intake Total 1040 / 1040 4080 / 4080 Balance 1040 / 1040 4080 / 4080 Weight 135 lb 145 lb 1 oz - *Routine Abdominal Exam Present: soft Comments: Minimal tenderness without guarding. Progress Note: A&P Assessment and Plan for All Diagnoses:: Biliary pancreatitis resolving. Tentatively plan for cholecystectomy with possible cholangiogram tomorrow. Patient has some elevated perioperative risk d ue to probable cirrhosis based on imaging and platelelet count.
--- NOTE | 2019-01-03 09:10 | Progress Note ---
Internal Medicine - PN: Subj *Date: 01/03/19 *Time: 09:09 Interval history: surgery planned for tomorrow Exam Vital signs and Labs for Last 24 Hours: Temp Pulse Resp BP Pulse Ox 98.9 F 74 16 107/54 L 98 01/03/19 08:00 01/03/19 08:00 01/03/19 08:00 01/03/19 08:00 01/03/19 08:00 Laboratory Results - last 24 hr 01/03/19 06:30: WBC 4.0 L, RBC 3.58 L, Hgb 11.6 L, Hct 37.2 L, MCV 104.0 H, MCH 32.5 H, MCHC 31.2 L, RDW 14.7, Plt Count 91 L, MPV 7.4, Neut % (Auto) 42.6, Lymph % (Auto) 35.8, [place] % (Auto) 8.6, Eos % (Auto) 12.0, Baso % (Auto) 1.0, Neut # (Auto) 1.7 L, Lymph # (Auto) 1.4, [place] # (Auto) 0.3, Eos # (Auto) 0.5 H, Baso # (Auto) 0.0 01/03/19 06:30: Sodium 140, Potassium 3.4 L, Chloride 107, Carbon Dioxide 25, Anion Gap 11.4, BUN 4 L D, Creatinine 0.82, Estimated Creat Clear 107, Estimated GFR 102, Est GFR ( Amer) 123, Glucose 108 H, Calcium 8.0 L, Total Bilirubin 2.2 H, AST 51 H, ALT 34, Alkaline Phosphatase 93, Total Protein 6.5, Albumin 2.2 L, Globulin 4.3 H, Albumin/Globulin Ratio 0.5 L, Amylase 78, Lipase 188 I & O for Last 24 hours: Intake & Output 12/31/18 01/01/19 01/02/19 01/03/19 11:59 11:59 11:59 11:59 Intake Total 1040 / 1040 4560 / 4560 Balance 1040 / 1040 4560 / 4560 Weight 135 lb 145 lb 1 oz - Constitutional no acute distress - *Routine HEENT Exam Head: Present: normocephalic Eye: Present: EOMI, PERRL ENT: Present: mucous membranes moist - *Routine Neck Exam Present: supple, full ROM. Absent: lymphadenopathy - *Routine Respiratory Exam Present: CTA bilaterally - *Routine Cardiovascular Exam Present: RRR - *Routine Abdominal Exam Present: soft, normoactive bowel sounds, tenderness - *Routine Extremities Exam Absent: cyanosis, clubbing, edema - *Routine Skin Exam Present: warm. Absent: rash - *Routine Neurological Exam Present: alert, oriented X3 Assessment and Plan (1) Acute pancreatitis Current visit: Yes Status: Acute Qualifiers: Pancreatitis type: biliary Acute pancreatitis complication: no infection or necrosis Qualified Code(s): K85.10 - Biliary acute pancreatitis without necrosis or infection Category: Medical Code(s): K85.90 - Acute pancreatitis without necrosis or infection, unspecified (2) Thrombocytopenia Current visit: Yes Status: Acute Category: Medical Code(s): D69.6 - Thrombocytopenia, unspecified (3) Cholecystitis with cholelithiasis Current visit: Yes Status: Acute Qualifiers: Cholelithiasis location: gallbladder Cholecystitis acuity: acute Biliary obstruction: without biliary obstruction Qualified Code(s): K80.00 - Calculus of gallbladder with acute cholecystitis without obstruction Category: Medical Code(s): K80.10 - Calculus of gallbladder with chronic cholecystitis without obstruction - Assessment and plan all Dx Assessment and Plan for all problems:: rounded with vanita all orders per vanita
[2019-01-04 08:04] LABS: Basophils # 0.1 K/mm3 (0-0.2); Basophils % 1.4 % (0.1-2.0); Eosinophils # 0.5 K/mm3 (0.0-0.4); Eosinophils % 12.7 % (0.1-12.0); Hematocrit 40.3 % (42.0-52.0); Hemoglobin 12.4 g/dL (14.1-18.0); Lymphocytes # 1.3 K/mm3 (0.7-4.5); Lymphocytes % 31.3 % (10-50); Mean Corpuscular HGB Conc 30.8 g/dL (31.8-35.4); Mean Corpuscular Hemoglobin 32.2 pg (27.0-31.2); Mean Corpuscular Volume 104.4 fl (80-94); Monocytes # 0.3 K/mm3 (0.1-1.0); Monocytes % 8.2 % (1.7-9.3); Neutrophils # 1.9 K/mm3 (1.8-7.8); Neutrophils % 46.3 % (37.0-80.0); Platelet Count 103 K/mm3 (142-424); Red Blood Count 3.86 M/mm3 (4.60-6.20); Red Cell Distribution Width 14.6 % (11.5-17.5); White Blood Count 4.1 K/mm3 (4.8-10.8)
[2019-01-04 08:11] LABS: INR 1.38 (0.9-1.1); Prothrombin Time 14.1 seconds (9.4-11.8)
[2019-01-04 10:02] LABS: Albumin Level 2.3 gm/dL (3.4-5.0); Albumin/Globulin Ratio 0.5 (1.1-1.8); Anion Gap 13.6 mEq/L (5-15); Calcium 8.5 mg/dL (8.5-10.1); Globulin 4.4 gm/dl (1.3-3.2); Total Protein,Serum 6.7 gm/dL (6.4-8.2)
[2019-01-04 10:07] LABS: Potassium 3.6 mmoL/L (3.5-5.1)
--- NOTE | 2019-01-04 10:32 | Progress Note ---
Internal Medicine - PN: Subj *Date: 01/04/19 *Time: 08:00 Interval history: doing better - to have surg today Exam Vital signs and Labs for Last 24 Hours: Temp Pulse Resp BP Pulse Ox 98.5 F 77 18 112/70 98 01/04/19 08:00 01/04/19 08:00 01/04/19 08:00 01/04/19 08:00 01/04/19 08:00 Laboratory Results - last 24 hr 01/04/19 07:57: WBC 4.1 L, RBC 3.86 L, Hgb 12.4 L, Hct 40.3 L, MCV 104.4 H, MCH 32.2 H, MCHC 30.8 L, RDW 14.6, Plt Count 103 L, MPV 8.0, Neut % (Auto) 46.3, Lymph % (Auto) 31.3, [place] % (Auto) 8.2, Eos % (Auto) 12.7 H, Baso % (Auto) 1.4, Neut # (Auto) 1.9, Lymph # (Auto) 1.3, [place] # (Auto) 0.3, Eos # (Auto) 0.5 H, Baso # (Auto) 0.1 01/04/19 07:57: PT 14.1 H, INR 1.38 H 01/04/19 07:57: Sodium 141, Potassium 3.6, Chloride 107, Carbon Dioxide 24, Anion Gap 13.6, BUN 3 L, Creatinine 0.82, Estimated Creat Clear 107, Estimated GFR 102, Est GFR ( Amer) 123, Glucose 109 H, Calcium 8.5, Total Bilirubin 2.0 H, AST 57 H, ALT 35, Alkaline Phosphatase 95, Total Protein 6.7, Albumin 2.3 L, Globulin 4.4 H, Albumin/Globulin Ratio 0.5 L I & O for Last 24 hours: Intake & Output 01/01/19 01/02/19 01/03/19 01/04/19 11:59 11:59 11:59 11:59 Intake Total 1040 / 1040 4560 / 4560 2693 / 2693 Balance 1040 / 1040 4560 / 4560 2693 / 2693 Weight 135 lb 145 lb 1 oz Microbiology Reports for the Last 24 Hours: Microbiology 01/01/19 09:00 Blood Blood Culture - Preliminary NO GROWTH AFTER 48 HOURS 01/01/19 09:00 Blood Blood Culture - Preliminary NO GROWTH AFTER 48 HOURS - Constitutional no acute distress - *Routine HEENT Exam Head: Present: normocephalic Eye: Present: EOMI, PERRL ENT: Present: mucous membranes dry - *Routine Neck Exam Present: supple - *Routine Respiratory Exam Present: CTA bilaterally - *Routine Cardiovascular Exam Present: RRR, murmur - *Routine Abdominal Exam Present: soft, tenderness - *Routine Extremities Exam Present: cyanosis - Routine Back/Spine/Pelvis Exam Back/Spine: Present: full ROM - *Routine Skin Exam Present: intact - *Routine Neurological Exam Present: alert, CN II-XII intact - Routine Psychiatric Exam Present: normal affect Assessment and Plan (1) Acute pancreatitis Current visit: Yes Status: Acute Qualifiers: Pancreatitis type: biliary Acute pancreatitis complication: no infection or necrosis Qualified Code(s): K85.10 - Biliary acute pancreatitis without necrosis or infection Category: Medical Code(s): K85.90 - Acute pancreatitis without necrosis or infection, unspecified (2) Thrombocytopenia Current visit: Yes Status: Acute Category: Medical Code(s): D69.6 - Thrombocytopenia, unspecified (3) Cholecystitis with cholelithiasis Current visit: Yes Status: Acute Qualifiers: Cholelithiasis location: gallbladder Cholecystitis acuity: acute Biliary obstruction: without biliary obstruction Qualified Code(s): K80.00 - Calculus of gallbladder with acute cholecystitis without obstruction Category: Medical Code(s): K80.10 - Calculus of gallbladder with chronic cholecystitis without obstruction
--- NOTE | 2019-01-04 10:33 | Progress Note ---
[facility] Anesthesia Checklist - Structural Data Admitted From: Inpatient Planned Operative Procedure/s: kaci tobias Consent for Planned Operative Procedure(s) Verified: Yes - Airway Assessment C-Spine Mobility Assessed: Yes TMJ Mobility Assessed: Yes Dentition: Good Dentition - Neurological Assessment Level of Consciousness: Awake, Alert, Appropriate - Anesthesia Plan Anesthesia Risk discussed: Yes Anesthesia Plan: Verified ASA Class: II Anesthesia Type: General [facility] History I have reviewed the patient's past medical history: Yes Medical History: Reports:: Anxiety, Ulcer Denies:: Cancer, Diabetes Mellitus Type 1, Diabetes Mellitus Type 2, Internal Pacemaker, MRSA, Seizures Have you ever received a pneumonia vaccine?: No Have you received a flu vaccine this season?: No Other Medical History: Denies: Blood Transfusion Reaction Other Surgeries: Yes: No Previous Surgery. No: Pacemaker Amputation: No Fractures: Yes (leg) - *Social History Smoking Status: Current every day smoker Tobacco Type: cigarettes Alcohol Intake: former Alcohol Intake Frequency:: 3 or more drinks per day Substance Use Type: denies use Occupational Status: unemployed Housing: other Household Members: spouse, friend(s) Travel in the last 8 weeks: None - Psychiatric History Expresses thoughts of harming self/others: None Suicide Plan Description: No Plan Pschychiatric History:: Reports:: Anxiety *Family Hx:: Diabetes
--- NOTE | 2019-01-04 12:26 | Operative Note ---
Date of procedure: 01/04/19 Pre-op Diagnosis:: Biliary pancreatitis Post-op Diagnosis:: Same Procedure performed:: Laparoscopic cholecystectomy with intraoperative cholangiogram Surgeon:: Dc Dinh MD PAINTER HELPER SIGN:: Other Anesthesia: GETElmo Estimated blood loss (mL): 25 Clinical Note:: Patient is a 43-year-old male. He has a prior history of heavy alcohol abuse but states that he has not drank alcohol since March 2018. He presented with acute onset of mid upper abdominal pain. He was seen and evaluated in the emergency department and had profound elevation of pancreatic enzymes consistent with pancreatitis. Imaging revealed findings of pancreatitis with gallstones. He was admitted for inpatient management. Surgical consultation was obtained. It appears that the patient had likely biliary pancreatitis based on his laboratory findings and imaging. Plan was made for early interval cholecystectomy to eliminate the etiology of his pancreatitis with probable cholangiogram. Of note, the patient's laboratory studies did show evidence of possible cirrhosis with some mild thrombocytopenia, slightly elevated PT/INR, slight elevation of bilirubin and transaminases. Operative findings:: He had a somewhat thickened gallbladder. He had a profoundly cirrhotic liver. Cholangiogram revealed no evidence of any filling defect or obstruction. Operative note:: Consent was obtained and patient was taken to the operating room. He was given preoperative intravenous antibiotics. He was positioned in a supine position. General anesthesia was induced via endotracheal tube. Abdomen was prepped and draped in the standard surgical fashion. Subumbilical skin incision was made and while performing abdominal wall lift Veress needle was inserted. CO2 pneumoperitoneum was achieved to 15 mmHg. 11 mm optical trocar was inserted at the umbilicus. Patient was positioned in reverse Trendelenburg left side down. A couple of 5 mm trochars were inserted in the right upper abdomen. 10 mm trocar was inserted in the epigastrium. The liver was found to be profoundly nodular firm with evidence of severe cirrhosis. Gallbladder was identified and grasped and retracted anteriorly. Gallbladder was somewhat thickened and mildly edematous. There were some omental adhesions to the gallbladder and these were taken down using blunt dissection. Infundibulum/Cintron's pouch of the gallbladder was retracted anterior laterally. Blunt dissection was carried out at the neck of the gallbladder. Cystic duct was identified and carefully dissected free. A clip was placed proximal to the gallbladder. Through a small incision in the right upper abdomen taut cholangiocatheter introducer was inserted and cholangiocatheter was inserted through the introducer. Small incision was made in the cystic duct and cholangiocatheter was manipulated into the cystic duct where it was temporarily secured with a Hemoclip. Intraoperative cholangiogram was performed which revealed no evidence of any obstruction or filling defect. Cholangiocatheter was removed. The cystic duct was then clipped with numerous hemoclips. Cystic artery was clearly identified and coagulated with RADHA ultrasonic harmonic juni and divided. Gallbladder was dissected free from the liver in a retrograde fashion using RADHA ultrasonic harmonic juni. Gallbladder was placed within an Endo Catch retrieval device and removed from the peritoneal cavity via the umbilical trocar site. Gallbladder fossa and perihepatic space were irrigated and aspirated until clear. There appeared to be good hemostasis. Trochars were removed as CO2 pneumoperitoneum was evacuated. Fascia at the umbilical incision was closed wit h a 0 Vicryl [id number] suture. Anterior fascia at the epigastric incision was closed with a 0 Vicryl suture. Local anesthetic was infiltrated in all incisions. Skin incisions were closed with 4-0 Monocryl in subcuticular fashion. Steri-Strips and dressings were applied. Condition: stable Disposition: PACU Specimens:: Gallbladder and contents Complications:: None immediately apparent
--- NOTE | 2019-01-04 12:32 | Progress Note ---
[facility] Anesthesia Record Part II Discharge Time: 12:57 Destination: Medical Surgical Department PACU nurse assessment reviewed?: Yes Patient Condition:: Good Anesthesia Complications:: None Swallowing reflex intact?: Yes Cyanosis?: No
--- NOTE | 2019-01-04 12:32 | Progress Note ---
[facility] Anesthesia Record Part I Intake, IV Amount: 900 Estimated blood loss (mL): 10 Urine output (mL): 0 Blood Products used (#): none Blood Pressure: 120/76 SaO2: 96 Pulse Rate: 94 Respiratory Rate: 15 Temperature: 97.6 F Patient is:: Awake, Stable Stable to PACU at:: 12:27
--- NOTE | 2019-01-04 14:32 | Progress Note ---
Internal Medicine - PN: Subj *Date: 01/04/19 *Time: 14:32 Exam Vital signs and Labs for Last 24 Hours: Temp Pulse Resp BP Pulse Ox 97.6 F 83 18 110/67 95 01/04/19 12:32 01/04/19 12:57 01/04/19 12:57 01/04/19 12:57 01/04/19 12:57 Laboratory Results - last 24 hr 01/04/19 07:57: WBC 4.1 L, RBC 3.86 L, Hgb 12.4 L, Hct 40.3 L, MCV 104.4 H, MCH 32.2 H, MCHC 30.8 L, RDW 14.6, Plt Count 103 L, MPV 8.0, Neut % (Auto) 46.3, Lymph % (Auto) 31.3, [place] % (Auto) 8.2, Eos % (Auto) 12.7 H, Baso % (Auto) 1.4, Neut # (Auto) 1.9, Lymph # (Auto) 1.3, [place] # (Auto) 0.3, Eos # (Auto) 0.5 H, Baso # (Auto) 0.1 01/04/19 07:57: PT 14.1 H, INR 1.38 H 01/04/19 07:57: Sodium 141, Potassium 3.6, Chloride 107, Carbon Dioxide 24, Anion Gap 13.6, BUN 3 L, Creatinine 0.82, Estimated Creat Clear 107, Estimated GFR 102, Est GFR ( Amer) 123, Glucose 109 H, Calcium 8.5, Total Bilirubin 2.0 H, AST 57 H, ALT 35, Alkaline Phosphatase 95, Total Protein 6.7, Albumin 2.3 L, Globulin 4.4 H, Albumin/Globulin Ratio 0.5 L I & O for Last 24 hours: Intake & Output 01/01/19 01/02/19 01/03/19 01/04/19 23:59 23:59 23:59 23:59 Intake Total 1040 / 1040 2870 / 2870 3260 / 3260 2022 Balance 1040 / 1040 2870 / 2870 3260 / 3260 2022 Weight 65.799 kg 65.799 kg Assessment and Plan (1) Acute pancreatitis Current visit: Yes Status: Acute Qualifiers: Pancreatitis type: biliary Acute pancreatitis complication: no infection or necrosis Qualified Code(s): K85.10 - Biliary acute pancreatitis without necrosis or infection Category: Medical Code(s): K85.90 - Acute pancreatitis without necrosis or infection, unspecified (2) Thrombocytopenia Current visit: Yes Status: Acute Category: Medical Code(s): D69.6 - Thrombocytopenia, unspecified (3) Cholecystitis with cholelithiasis Current visit: Yes Status: Acute Qualifiers: Cholelithiasis location: gallbladder Cholecystitis acuity: acute Biliary obstruction: without biliary obstruction Qualified Code(s): K80.00 - Calculus of gallbladder with acute cholecystitis without obstruction Category: Medical Code(s): K80.10 - Calculus of gallbladder with chronic cholecystitis without obstruction The patient's infection will respond to the chosen ABx?: Yes Is the patient receiving the right drug, dose, and route?: Yes Could a more targeted ABx be ordered?: No (NO CULTURES CONTINUE ABX)
--- NOTE | 2019-01-05 06:31 | Progress Note ---
Subjective Patient reports: feels better (wanting to go home) Exam Vital signs and Labs for Last 24 Hours: Temp Pulse Resp BP Pulse Ox 98.3 F 89 17 123/66 93 L 01/05/19 04:00 01/05/19 04:00 01/05/19 04:00 01/05/19 04:00 01/05/19 04:00 Laboratory Results - last 24 hr 01/04/19 07:57: WBC 4.1 L, RBC 3.86 L, Hgb 12.4 L, Hct 40.3 L, MCV 104.4 H, MCH 32.2 H, MCHC 30.8 L, RDW 14.6, Plt Count 103 L, MPV 8.0, Neut % (Auto) 46.3, Lymph % (Auto) 31.3, [place] % (Auto) 8.2, Eos % (Auto) 12.7 H, Baso % (Auto) 1.4, Neut # (Auto) 1.9, Lymph # (Auto) 1.3, [place] # (Auto) 0.3, Eos # (Auto) 0.5 H, Baso # (Auto) 0.1 01/04/19 07:57: PT 14.1 H, INR 1.38 H 01/04/19 07:57: Sodium 141, Potassium 3.6, Chloride 107, Carbon Dioxide 24, Anion Gap 13.6, BUN 3 L, Creatinine 0.82, Estimated Creat Clear 107, Estimated GFR 102, Est GFR ( Amer) 123, Glucose 109 H, Calcium 8.5, Total Bilirubin 2.0 H, AST 57 H, ALT 35, Alkaline Phosphatase 95, Total Protein 6.7, Albumin 2.3 L, Globulin 4.4 H, Albumin/Globulin Ratio 0.5 L I & O for Last 24 hours: Intake & Output 01/02/19 01/03/19 01/04/19 01/05/19 11:59 11:59 11:59 11:59 Intake Total 1040 / 1040 4560 / 4560 2693 / 2693 2830 / 2830 Balance 1040 / 1040 4560 / 4560 2693 / 2693 2830 / 2830 Weight 145 lb 1 oz - Constitutional no acute distress - *Routine Respiratory Exam Absent: respiratory distress - *Routine Abdominal Exam Present: soft Comments: dressing dry. no erythema. Progress Note: A&P (1) Acute pancreatitis Status: Acute Current Visit: Yes (2) Thrombocytopenia Status: Acute Current Visit: Yes (3) Cholecystitis with cholelithiasis Status: Acute Assessment and plan: stable s/p lap micheline with IOC OK from surgical standpoint for d/c home with outpatient f/u Current Visit: Yes (4) Cirrhosis Status: Acute Assessment and plan: as per PCP Current Visit: Yes
--- NOTE | 2019-01-05 09:20 | Discharge Summary ---
General - General Admission date:: 01/01/19 Discharge date: 01/05/19 HPI HPI: this pt was seen in the ed -3 years old male with history of alcoholism peptic ulcer disease and anemia that required blood transfusion. His daily medications are Nexium and iron supplement. Today at 5 AM, he developed sudden onset epigastric abdominal pain radiating to his back sharp in character rated 8/10 followed by vomiting x5 initially had blood then cleared. He denies having fever chills diarrhea. He denies having dysuria hematuria or frequency or flank pain. Denies having chest pain shortness of breath palpitations or hemoptysis. He denies recent intake of alcohol or drug. The is at the bedside and agrees with above history. The reported having chronic kidney disease I reviewed his labs from April 18, 2018 he had normal BUN and creatinine of 0.54 and BUN of 5. Hospital Course Hospital Course: Surgery consult see note Gallbladder removal Today patient sitting up requesting to be discharged home. Patient states his abdomen has went away. Patient will be discharged home with with tom. Objective Vital signs: Temp Pulse Resp BP Pulse Ox 98.8 F 87 17 129/74 94 L 01/05/19 08:00 01/05/19 08:00 01/05/19 08:00 01/05/19 08:00 01/05/19 08:00 no acute distress - *Routine HEENT Exam Head: Present: normocephalic Eye: Present: PERRL ENT: Present: mucous membranes moist - *Routine Respiratory Exam Present: CTA bilaterally - *Routine Cardiovascular Exam Present: RRR - *Routine Abdominal Exam Present: soft, normoactive bowel sounds, tenderness Comments: For dressings to abdomen clean dry and intact - *Routine Extremities Exam Present: full ROM - *Routine Skin Exam Present: intact Comments: For dressings to the abdomen clean dry and intact - *Routine Neurological Exam Present: alert, oriented X3 - Routine Psychiatric Exam Present: normal affect Results Labs on day of discharge: Labs from last 24 hours 01/04/19 01/04/19 07:57 07:57 PT 14.1 H INR 1.38 H Sodium 141 Potassium 3.6 Chloride 107 Carbon Dioxide 24 Anion Gap 13.6 BUN 3 L Creatinine 0.82 Estimated Creat Clear 107 Estimated GFR 102 Est GFR ( Amer) 123 Glucose 109 H Calcium 8.5 Total Bilirubin 2.0 H AST 57 H ALT 35 Alkaline Phosphatase 95 Total Protein 6.7 Albumin 2.3 L Globulin 4.4 H Albumin/Globulin Ratio 0.5 L Preliminary micro results at discharge 01/01/19 09:00 Blood Culture - Preliminary Blood NO GROWTH AFTER 48 HOURS 01/01/19 09:00 Blood Culture - Preliminary Blood NO GROWTH AFTER 48 HOURS - Additional Comments Rounded with Dr. English all orders per Tameka DS: Diagnosis - Discharge Diagnosis (1) Acute pancreatitis Status: Acute (2) Thrombocytopenia Status: Acute (3) Cholecystitis with cholelithiasis Status: Acute (4) Cirrhosis Status: Acute Discharge Plan - Patient Discharge Instructions ACTIVITY: Continue current activity DIET: continue same diet Patient Instructions: DI for Pancreatitis, DI for Cirrhosis, DI for Gallstones, DI for Surgical Site Infection, Cholecystectomy -- Laparoscopic Surgery, DI for Colitis - Follow up Plan Follow up with: Dc Dinh MD [Staff Physician] - 2 weeks () Disposition: Home, Self-Shelter Medications: Home Medications Medication Instructions Recorded Confirmed Type esomeprazole magnesium 20 mg 20 mg PO DAILY cap 04/18/18 01/01/19 History capsule,delayed release Ergocalciferol (Vitamin D2) 400 unit PO DAILY 01/01/19 01/01/19 History [Vitamin D] Ferrous Sulfate 325 mg PO DAILY 01/01/19 01/01/19 History Prescriptions/Medication Reconciliation: Continue esomeprazole magnesium 20 mg capsule,delayed release 20 mg PO DAILY cap Ferrous Sulfate 325 mg PO DAILY Ergocalciferol (Vitamin D2) [Vitamin D] 400 unit PO DAILY
== END 2019-01-05 10:07 | disposition home or self-care (01) | DRG 417 ==
LOC: ER 08:24 → 2ND 11:54
PROVIDERS: ADMIT Family Medicine; ATTEND Emergency Medicine
CPT/HCPCS: 36415; 74177; 76000; 76705; 80053; 80305; 81001; 82150; 83605; 83615; 83690; 83735; 84484; 85025; 85610; 87040; 93005; 96365; 96375; 99285; J1335; J2405; J2710

== ENCOUNTER → 2019-05-24 10:30 | Outpatient (CLI) | payer OTHER, SELFPAY ==
[2019-05-24 12:06] LABS: Anion Gap 16.1 mEq/L (5-15); Blood Urea Nitrogen 4 mg/dL (7-18); Calcium 8.7 mg/dL (8.5-10.1); Carbon Dioxide 22 mmol/L (21.0-32.0); Chloride 105 mmol/L (98-107); Creatinine,Serum 0.84 mg/dL (0.70-1.30); Estimated Glomerular Filt Rate 99 ml/min (>60); GFR (African American) 120 ML/MIN (>60); Glucose 118 mg/dL (74-106); Potassium 4.1 mmoL/L (3.5-5.1); Sodium 139 mmol/L (136-145)
== END ==
PROVIDERS: Visit Provider Nurse Practitioner Acute Care
DX: K74.60 Unspecified cirrhosis of liver (principal)
CPT/HCPCS: 36415; 80048

== ENCOUNTER 2019-07-30 11:43 | Inpatient (IN) ==
[2019-07-30 12:22] LABS: Basophils % 0.3 % (0.1-2.0); Eosinophils # 0.1 K/mm3 (0.0-0.4); Eosinophils % 1.1 % (0.1-12.0); Hemoglobin 14.7 g/dL (14.1-18.0); Lymphocytes # 0.8 K/mm3 (0.7-4.5); Lymphocytes % 7.9 % (10-50); Mean Corpuscular HGB Conc 32.8 g/dL (31.8-35.4); Mean Corpuscular Volume 99.2 fl (80-94); Monocytes # 0.3 K/mm3 (0.1-1.0); Monocytes % 3.2 % (1.7-9.3); Neutrophils # 8.6 K/mm3 (1.8-7.8); Neutrophils % 87.5 % (37.0-80.0); Platelet Count 90 K/mm3 (142-424); Red Blood Count 4.53 M/mm3 (4.60-6.20); White Blood Count 9.8 K/mm3 (4.8-10.8)
--- NOTE | 2019-07-30 12:23 | Emergency Department Note ---
ED Disposition Clinical Impression: Enterocolitis Fever Qualifiers: Fever type: unspecified Qualified Code(s): R50.9 - Fever, unspecified Disposition: Admitted as Observation Condition on Discharge: Fair - Critical Care Critical Care Time: No Attestation: On 07/30/19, the high probability of a clinically significant, sudden or life threatening deterioration of the following system(s) required my full and direct attention, intervention and personal management. The time I documented below is in addition to time spent performing reported procedures but includes the following listed in this critical care notation. Medical Decision Making - Job Inquiry Pt receiving controlled substance: Yes Job was queried for this patient: Yes Reference #:: [id number] Risks and benefits of using a controlled substance: were not discussed with pt by me Comment: 0 rxs. Vital Signs: 07/30/19 11:51 07/30/19 12:37 07/30/19 13:30 Temperature 103.1 F H Temperature Source Oral Pulse Rate Pulse Rate [Left Radial] 112 H 102 H 89 Respiratory Rate 28 H Blood Pressure Blood Pressure [Right Arm] 143/85 H 140/79 121/86 Blood Pressure Mean [Right Arm] 104 99 97 Blood Pressure Source [Right Arm] Automatic Cuff Automatic Cuff Automatic Cuff Blood Pressure Position [Right Arm] Sitting Sitting Supine 02 Sat by Pulse Oximetry 99 96 95 Oxygen Delivery Method Room Air 07/30/19 14:23 07/30/19 14:30 07/30/19 15:24 Temperature 101 F H Temperature Source Oral Pulse Rate Pulse Rate [Left Radial] 91 H 80 86 Respiratory Rate Blood Pressure Blood Pressure [Right Arm] 121/68 112/69 117/80 Blood Pressure Mean [Right Arm] 85 83 92 Blood Pressure Source [Right Arm] Automatic Cuff Automatic Cuff Blood Pressure Position [Right Arm] Sitting Sitting Sitting 02 Sat by Pulse Oximetry 98 95 Oxygen Delivery Method 07/30/19 16:04 Temperature 100 F H Temperature Source Oral Pulse Rate 98 H Pulse Rate [Left Radial] Respiratory Rate 18 Blood Pressure 132/74 Blood Pressure [Right Arm] Blood Pressure Mean [Right Arm] Blood Pressure Source [Right Arm] Blood Pressure Position [Right Arm] 02 Sat by Pulse Oximetry Oxygen Delivery Method Room Air - Lab Data Lab Results 07/30/19 12:05: WBC 9.8, RBC 4.53 L, Hgb 14.7, Hct 45.0, MCV 99.2 H, MCH 32.5 H, MCHC 32.8, RDW 15.0, Plt Count 90 L, MPV 8.0, Neut % (Auto) 87.5 H, Lymph % (Auto) 7.9 L, [place] % (Auto) 3.2, Eos % (Auto) 1.1, Baso % (Auto) 0.3, Neut # (Auto) 8.6 H, Lymph # (Auto) 0.8, [place] # (Auto) 0.3, Eos # (Auto) 0.1, Baso # (Auto) 0.0, Total Counted 100, Neutrophils % (Manual) 90 H, Lymphocytes % (Manual) 7 L, Monocytes % (Manual) 3, Platelet Estimate Moderate decrease 07/30/19 12:05: Sodium 128 L, Potassium 2.6 L*, Chloride 93 L, Carbon Dioxide 23, Anion Gap 14.6, BUN 6 L, Creatinine 1.00, Estimated Creat Clear 90, Estimated GFR 81, Est GFR ( Amer) 98, Glucose 143 H, Calcium 8.0 L, Total Bilirubin 2.5 H, AST 63 H, ALT 41, Alkaline Phosphatase 107, Total Protein 8.0, Albumin 2.9 L, Globulin 5.1 H, Albumin/Globulin Ratio 0.6 L 07/30/19 12:05: Lactate 2.1 H 07/30/19 12:05: Lipase 61 L 07/30/19 12:05: PT 13.9 H, INR 1.36 H 07/30/19 12:25: Influenza Type A Ag Negative, Influenza Type B Ag Negative 07/30/19 14:00: Urine Color Yellow, Urine Appearance Clear, Urine pH 6.5, Ur Specific [place] <= 1.005, Urine Protein Negative, Urine Glucose (UA) Negative, Urine Ketones Negative, Urine Blood 2+, Urine Nitrate Negative, Urine Bilirubin Negative, Urine Urobilinogen 0.2, Ur Leukocyte Esterase Negative, Urine RBC 3-5, Urine WBC None, Ur Squamous Epith Cells Occasional, Urine Bacteria Trace 07/30/19 14:00: Stl Aeromonas (PCR) Not detected, Stl C. cayetanensis PCR Not de tected, Stool Rotavirus (PCR) Not detected, Stl Adenov F 40/41 PCR Not detected, Stool Astrovirus (PCR) Not detected, Stool Campylobacter PCR Detected A, Stl C.difficile Tox PCR Not detected, Stool Cryptosporidium PCR Not detected, Stl E.coli Shiga Tox PCR Not detected, Stool E coli O157 PCR Not detected, Stl Enterotoxigenic E PCR Not detected, Stool EPEC (PCR) Not detected, Stool EAEC (PCR) Not detected, Stl E. histolytica PCR Not detected, Stool Giardia Lamblia PCR Not detected, Stool Salmonella PCR Not detected, Stool Sapovirus (PCR) Not detected, Stl P. shigelloides PCR Not detected, Stl Shigella/EIEC PCR Not detected, St Y.enterocolitica PCR Not detected, Stool Vibrio (PCR) Not detected, Stl Vibrio cholerae PCR Not detected, Stl Norovirus GI/GII PCR Detected A 07/30/19 14:00: Stool Occult Blood Positive A Result diagrams: 07/30/19 12:05 07/30/19 12:05 Orders (Tests/Meds): ED MEDICATIONS Generic Name Dose Route Start Last Admin Trade Name Freq PRN Reason Stop Dose Admin Azithromycin 250 mg 07/30/19 17:15 07/30/19 17:46 Zithromax 250mg Tablet PO 08/13/19 17:14 250 mg DAILY VINOD Administration Levofloxacin/Dextrose 750 mg in 150 mls @ 100 mls/hr 07/31/19 15:00 Levofloxacin 750mg/150ml Premix IV 08/13/19 14:59 Q24H VINOD Protocol Metronidazole 500 mg in 100 mls @ 100 mls/hr 07/30/19 23:00 Flagyl 500mg/100ml Ivpb IV 08/13/19 14:59 Q8H VINOD Protocol Potassium Chloride/Dextrose/Sod Cl 1,000 mls @ 150 mls/hr 07/30/19 15:55 07/30/19 16:02 Kcl 40meq In Dex 5%/0.45% Nacl IV 08/29/19 15:54 150 mls/hr .Q6H40M VINOD Administration Non-Formulary Medication 240 mg 07/31/19 09:00 Ferrous Gluconate [Ferrous Gluconate 240mg Tab] PO 08/30/19 08:59 DAILY VINOD Non-Formulary Medication 1,000 mg 07/30/19 21:00 Levetiracetam [Levetiracetam] PO 08/29/19 20:59 BID VINOD Discontinued Medications Generic Name Dose Route Start Last Admin Trade Name Stephen PRN Reason Stop Dose Admin Acetaminophen 650 mg 07/30/19 12:11 07/30/19 12:18 Acetaminophen 325mg Tab PO 07/30/19 12:12 650 mg ONCE ONE Administration Sodium Chloride 1,000 mls @ 999 mls/hr 07/30/19 12:00 07/30/19 12:17 Sod Chlor 0.9% 1000ml Bag IV 07/30/19 13:00 999 mls/hr .Q1H1M VINOD Administration Potassium Chloride/Water 100 mls @ 50 mls/hr 07/30/19 13:15 07/30/19 13:58 Potassium Chloride 20meq/100ml Ivpb IV 07/30/19 15:14 50 mls/hr ONCE ONE Administration Metronidazole 500 mg in 100 mls @ 100 mls/hr 07/30/19 15:00 07/30/19 15:26 Flagyl 500mg/100ml Ivpb IV 08/13/19 14:59 100 mls/hr Q8H VINOD Administration Protocol Levofloxacin/Dextrose 750 mg in 150 mls @ 100 mls/hr 07/30/19 15:00 07/30/19 15:56 Levofloxacin 750mg/150ml Premix IV 08/13/19 14:59 Not Given Q24H VINOD Protocol Sodium Chloride 1,000 mls @ 999 mls/hr 07/30/19 15:30 07/30/19 14:30 Sod Chlor 0.9% 1000ml Bag IV 07/30/19 16:30 999 mls/hr .Q1H1M VINOD Administration Ioversol 75 ml 07/30/19 13:20 07/30/19 13:23 Rad-Optiray 350 100ml Vial IV 07/30/19 13:21 75 ml ONCE ONE Administration Protocol Potassium Chloride/Water 20 meq 07/30/19 12:48 Potassium Chloride 20meq/100ml Ivpb IV 07/30/19 12:49 ONCE ONE Sodium Chloride 10 ml 07/30/19 13:20 07/30/19 13:23 Rad-Saline Flush 10ml Syringe IV 07/30/19 13:21 10 ml ONCE ONE Administration ORDERS Category Date Time Status Basic Metabolic Panel AMLAB Lab 07/31/19 06:00 Ordered Complete Blood Count Auto Diff AMLAB Lab 07/31/19 06:00 Ordered Blood Culture Stat Micro 07/30/19 13:40 Received - CT Data CT Scan: Abdomen, Pelvis Time Received: 13:[address] Reviewed: Yes: I discussed the CT results w/the radiologist, I have viewed the radiologist's interpretation Findings Narrative: FINDINGS: Lower thorax: There is passive congestion in the posterior basilar segments of the lower lobes bilaterally. There is no pleural fluid. ABDOMEN: liver there is a heterogenic appearance to the liver with nodularity of the contour and a slightly accentuated left lobe all findings consistent with moderately advanced cirrhosis. Gallbladder: Post cholecystectomy Pancreas: No masses or peripancreatic fluid collections. Spleen: Borderline splenomegaly Adrenals: unremarkable Kidneys/ureters: The kidneys are normal size and show symmetrical function both appearing normal. PELVIS: Reproductive: unremarkable the prostate is normal in size Bladder: The urinary bladder is partially decompressed. Appendix: I do not definitely identify the appendix but there are no pericecal inflammatory changes. ABDOMEN & PELVIS: Stomach bowel: There is diffuse wall thickening of the visualized portion of the distal esophagus with serpiginous densities suggestive of advanced esophageal varices. The stomach appears grossly normal. There are mildly dilated fluid-filled loops of mid and distal small bowel. There is mild wall thickening of the distal small bowel loops. There is more prominent and diffuse wall thickening of the ascending transverse and descending colon more so than seen on the previous CT exam 06/16/2019 there are few scattered diverticula in the sigmoid colon. Peritoneum: There is a small to moderate amount of abdominal ascites with fluid accumulating around the right lobe of the liver and right paracolic gutter and ascitic fluid is seen over the dome of the partially decompressed urinary bladder. Lymph nodes: No enlarged lymph nodes apparent. Vasculature: No evidence of abdominal aortic aneurysm. No retroperitoneal hemorrhage evident. Bones: No acute fracture IMPRESSION: Prominent esophageal varices and findings of portal hypertension and cirrhosis of the liver and apparently has been interval progression of suspected enterocolitis mentioned on the previous exam Dictated by: Dr. Esteban Ortega MD 07/30/2019 14:15 - ECG Data Tracing #1 EKG interpreted by Moose Pyle MD: Rhythm: sinus Rate: 90 [place]: normal Ectopy: none Conduction: QTC [address] Segment Changes: none T Wave Changes: none Q Waves: none No evidence of acute ischemia or injury - Physician Consults Physician Consulted: Ish Time: 15:30 Reason -: Admission Comment/Response: Agrees to admit the patient to the hospital. We discussed the patient's clinical information, including history, exam, laboratory and radiology results and ED course. Per hospital procedure, I will write temporary bridge inpatient orders on the patient. Specific orders requested by the admitting physician: Levaquin and Flagyl, IV fluids, pain medication as needed. Medical Decision Narrative: Prior CT in May: FINDINGS: There is thickening of the distal esophagus which may be seen with reflux esophagitis. Liver margins are irregular with heterogeneous density of the liver consistent with cirrhosis. Prior cholecystectomy. Spleen is upper normal at 13 cm. Pancreas and adrenal glands are unremarkable. No renal or ureteral calculi. There is some increased density of the renal papilla nonspecific. There is mild haziness of the mesentery fat. There is minimal amount of perihepatic fluid. These findings may be seen with cirrhosis and portal hypertension. No evidence of appendicitis or diverticulitis. There are a few nodular opacities in the mesenteric fat suggesting small lymph nodes There are a few scattered small bowel air-fluid levels and there is suggestion of some mild thickening of the descending and sigmoid colon consistent with colitis. No intestinal obstruction or free air. No pelvic mass or abscess. No acute bony findings. IMPRESSION: 1. Cirrhosis with minimal ascites. 2. Enterocolitis. 3. Mild haziness of the mesenteric fat nonspecific and could be related to portal hypertension or underlying inflammatory changes Dictated By: Isaiah Mina MD 06/16/19 0643 General Adult HPI - General Chief complaint: Fever Stated complaint: diarrhea,fever Time Seen by Provider: 07/30/19 12:22 Mode of Arrival: Ambulatory Limitations: No Limitations Description of Symptoms (Recalled from ER Triage Doc. by RN): to ed per pvt car with c/o fever, abd cramping, wyatt flank pain, "watery" diarrhea x 2 days. pt denies sick contacts, recent antibiotic use. family state pt with hx of cirr hosis and kidney problems. cpta none - History of Present Illness HPI narrative: 2-day history of profuse diarrhea. Central abdominal pain and back pain. 2 e pisodes of vomiting. Fever. Denies difficulty urinating. No cough. Throat is dry. Denies rhinorrhea. No known exposures. No recent antibiotics. No recent travel. Has a history of cirrhosis and sees a liver specialist in [place]. He has also seen a neurosurgeon because he had a seizure in December, and a stroke, cause not found. He has a history of alcohol abuse, has not had a drink in 15 months. - Related Data Home Medications Medication Instructions Recorded Confirmed Cholecalciferol (Vitamin D3) 2,000 unit PO DAILY 06/16/19 07/30/19 [Vitamin D3] Esomeprazole Magnesium [Nexium 20 mg PO DAILY 06/16/19 07/30/19 24Hr] Ferrous Gluconate [Ferrous 240 mg PO DAILY 06/16/19 07/30/19 Gluconate 240mg Tab] levETIRAcetam [Levetiracetam] 1,000 mg PO BID 06/16/19 07/30/19 Allergies Allergy/AdvReac Type Severity Reaction Status Date / Time No Known Allergies Allergy Verified 06/16/19 00:[address] [facility] History - Hepatitis A Screen Drug use history?: No High risk sexual behaviors?: No History of sexually transmitted infection?: No Currently employed?: No Childcare worker?: No Do you have indoor plumbing?: Yes Do you have electricity?: Yes Attestation statement:: This patient has been screened for Hepatitis A risk factors. I have reviewed the patient's past medical history: Yes Medical History: Reports:: Anxiety, Ulcer Denies:: Cancer, Diabetes Mellitus Type 1, Diabetes Mellitus Type 2, Internal Pacemaker, MRSA, Seizures Other Medical History: Denies: Blood Transfusion Reaction Other Surgeries: Yes: No Previous Surgery, Cholecystectomy. No: Pacemaker Amputation: No Fractures: Yes (leg) - Social History Smoking Status: Current every day smoker Tobacco Type: cigarettes # Packs/Day (cigarettes): 0 Alcohol Intake: former Alcohol Intake Frequency:: 3 or more drinks per day Substance Use Type: denies use Occupational Status: employed Housing: house Household Members: spouse, friend(s) - Psychiatric History Pschychiatric History:: Reports:: Anxiety Family Hx:: Diabetes ROS Obtained: Yes All systems reviewed & no additional complaints - Constitutional Constitutional: Reports fever(s) - ENT Ears, Nose, Mouth, and Throat: Reports as per HPI, Denies nasal discharge - Cardiovascular Cardiovascular: Denies chest pain - Respiratory Respiratory: No cough, No dyspnea - Gastrointestinal Gastrointestingal: Reports: abdominal pain, diarrhea, nausea, vomiting - Genitourinary Male Genitourinary: Denies difficulty urinating - Musculoskeletal Musculoskeletal: Reports back pain Physical Exam - General General appearance: alert, in no apparent distress - Head Head exam: atraumatic, normocephalic - ENT ENT exam: Present: mucous membranes moist - Neck Neck exam: Present: normal inspection, full ROM. Absent: meningismus, lymphadenopathy - Chest Chest inspection: Present: normal inspection, symmetric chest wall rise - Respiratory Respiratory exam: Present: normal lung sounds bilaterally. Absent: respiratory distress - Cardiovascular Cardiovascular exam: Present: normal rhythm, tachycardia, normal heart sounds - Abdominal Exam Abdominal exam: Present: soft, tenderness, normal bowel sounds. Absent: guarding, rebound, rigidity Abdominal tenderness: Present: diffuse - Extremities Exam Extremities exam: Present: normal inspection - Neurological Exam Neurological exam: Present: alert, oriented X3 - Psychiatric Psychiatric exam: Present: normal affect, normal mood - Skin Skin exam: Present: warm, dry
[2019-07-30 12:36] LABS: Albumin Level 2.9 gm/dL (3.4-5.0); Albumin/Globulin Ratio 0.6 (1.1-1.8); Anion Gap 14.6 mEq/L (5-15); Bilirubin,Total 2.5 mg/dL (0.2-1.0); Globulin 5.1 gm/dl (1.3-3.2)
[2019-07-30 12:55] LABS: INR 1.36 (0.9-1.1); Prothrombin Time 13.9 seconds (9.4-11.8)
[2019-07-30 13:19] LABS: Lymphocytes % 7 % (10-50); Monocytes % 3 % (2-9); Neutrophils % 90 % (42-76); Total Cells Counted 100
[2019-07-30 14:16] LABS: Microscopic, Urine URINE MICROSCOPIC (MICROSCOPIC)
[2019-07-30 14:33] LABS: Appearance,Urine CLEAR (Clear); Bilirubin,Urine Negative (Negative); Blood, Urine 2+ (Negative); Color,Urine YELLOW (Yellow); Glucose,Urine (UA) Negative (Negative); Ketones,Urine Negative (Negative); Leukocyte Esterase,Urine Negative (Negative); PH,Urine 6.5 (5.0-8.5); Protein,Urine Negative (Negative); Specific Gravity, Urine <= 1.005 (1.005-1.030); Urobilinogen,Urine 0.2 EU/dl (0.2)
[2019-07-30 14:42] LABS: Bacteria,Urine Trace /lpf; Squamous Epithelial Cell,Urine Occasional #/hpf (0-5)
--- NOTE | 2019-07-30 20:03 | History & Physical Report ---
*Admission Date: 07/30/19 *Chief complaint: vomiting *History of present illness: this pt had fever and diarrhea and presented for eval in the ed and was noted to have colitis on ct asnd was clincally dehydrated and was admoitted for ivf and abx - day history of profuse diarrhea. Central abdominal pain and back pain. 2 episodes of vomiting. Fever. Denies difficulty urinating. No cough. Throat is dry. Denies rhinorrhea. No known exposures. No recent antibiotics. No recent travel. Has a history of cirrhosis and sees a liver specialist in [place]. He has also seen a neurosurgeon because he had a seizure in December, and a stroke, cause not found. He has a history of alcohol abuse, has not had a drink in 15 months. - [facility] History I have reviewed the patient's past medical history: Yes Medical History: Reports:: Anxiety, Ulcer Denies:: Cancer, Diabetes Mellitus Type 1, Diabetes Mellitus Type 2, Internal Pacemaker, MRSA, Seizures *Have you ever received a pneumonia vaccine?: No *Have you received a flu vaccine this season?: No Other Medical History: Denies: Blood Transfusion Reaction Other Surgeries: Yes: No Previous Surgery, Cholecystectomy. No: Pacemaker Amputation: No Fractures: Yes (leg) - *Social History Educational Level: Completed High School Smoking Status: Current every day smoker Tobacco Type: cigarettes # Packs/Day (cigarettes): 1 Alcohol Intake: former Alcohol Intake Frequency:: 3 or more drinks per day Substance Use Type: denies use *Occupational Status:: employed Housing: house Household Members: spouse, friend(s) *Travel in the last 8 weeks: None - Psychiatric History Pschychiatric History:: Reports:: Anxiety Family Hx:: Unable to obtain Review of Systems - Review of Systems Review of systems:: pertinent systems reviewed and negative unless documented below - Constitutional Reports fever(s) - Eyes Denies discharge - ENT Denies sore throat - *Cardiovascular Denies chest pain at rest - *Respiratory Denies cough - *Gastrointestinal Reports abdominal pain, Reports cramping, Reports loose stools, Reports nausea, Reports vomiting - *Genitourinary Denies difficulty urinating - *Musculoskeletal Denies joint pain - Integumentary/Breasts Denies rash - *Neurologic Denies seizure-like activity - Psychiatric Denies anxiety Meds Home Medications Medication Instructions Recorded Confirmed Type Cholecalciferol (Vitamin D3) 2,000 unit PO DAILY 06/16/19 07/30/19 History [Vitamin D3] Esomeprazole Magnesium [Nexium 20 mg PO DAILY 06/16/19 07/30/19 History 24Hr] Ferrous Gluconate [Ferrous 240 mg PO DAILY 06/16/19 07/30/19 History Gluconate 240mg Tab] levETIRAcetam [Levetiracetam] 1,000 mg PO BID 06/16/19 07/30/19 History Allergies Allergy/AdvReac Type Severity Reaction Status Date / Time No Known Allergies Allergy Verified 06/16/19 00:35 Exam Vital signs and Labs for Last 24 Hours: Temp Pulse Resp BP Pulse Ox 99.5 F 93 H 17 126/76 98 07/30/19 16:12 07/30/19 16:12 07/30/19 16:12 07/30/19 16:12 07/30/19 17:28 Laboratory Results - last 24 hr 07/30/19 12:05: WBC 9.8, RBC 4.53 L, Hgb 14.7, Hct 45.0, MCV 99.2 H, MCH 32.5 H, MCHC 32.8, RDW 15.0, Plt Count 90 L, MPV 8.0, Neut % (Auto) 87.5 H, Lymph % (Auto) 7.9 L, [place] % (Auto) 3.2, Eos % (Auto) 1.1, Baso % (Auto) 0.3, Neut # (Auto) 8.6 H, Lymph # (Auto) 0.8, [place] # (Auto) 0.3, Eos # (Auto) 0.1, Baso # (Auto) 0.0, Total Counted 100, Neutrophils % (Manual) 90 H, Lymphocytes % (Manual) 7 L, Monocytes % (Manual) 3, Platelet Estimate Moderate decrease 07/30/19 12:05: Sodium 128 L, Potassium 2.6 L*, Chloride 93 L, Carbon Dioxide 23, Anion Gap 14.6, BUN 6 L, Creatinine 1.00, Estimated Creat Clear 90, Estimated GFR 81, Est GFR ( Amer) 98, Glucose 143 H, Calcium 8.0 L, Total Bilirubin 2.5 H, AST 63 H, ALT 41, Alkaline Phosphatase 107, Total Protein 8.0, Albumin 2.9 L, Globulin 5.1 H, Albumin/Globulin Ratio 0.6 L 07/30/19 12:05: Lactate 2.1 H 07/30/19 12:05: Lipase 61 L 07/30/19 12:05: PT 13.9 H, INR 1.36 H 07/30/19 12:25: Influenza Type A Ag Negative, Influenza Type B Ag Negative 07/30/19 14:00: Urine Color Yellow, Urine Appearance Clear, Urine pH 6.5, Ur Specific [place] <= 1.005, Urine Protein Negative, Urine Glucose (UA) Negative, Urine Ketones Negative, Urine Blood 2+, Urine Nitrate Negative, Urine Bilirubin Negative, Urine Urobilinogen 0.2, Ur Leukocyte Esterase Negative, Urine RBC 3-5, Urine WBC None, Ur Squamous Epith Cells Occasional, Urine Bacteria Trace 07/30/19 14:00: Stl Aeromonas (PCR) Not detected, Stl C. cayetanensis PCR Not detected, Stool Rotavirus (PCR) Not detected, Stl Adenov F 40/41 PCR Not detected, Stool Astrovirus (PCR) Not detected, Stool Campylobacter PCR Detected A, Stl C.difficile Tox PCR Not detected, Stool Cryptosporidium PCR Not detected, Stl E.coli Shiga Tox PCR Not detected, Stool E coli O157 PCR Not detected, Stl Enterotoxigenic E PCR Not detected, Stool EPEC (PCR) Not detected, Stool EAEC (PCR) Not detected, Stl E. histolytica PCR Not detected, Stool Giardia Lamblia PCR Not detected, Stool Salmonella PCR Not detected, Stool Sapovirus (PCR) Not detected, Stl P. shigelloides PCR Not detected, Stl Shigella/EIEC PCR Not detected, St Y.enterocolitica PCR Not detected, Stool Vibrio (PCR) Not detected, Stl Vibrio cholerae PCR Not detected, Stl Norovirus GI/GII PCR Detected A 07/30/19 14:00: Stool Occult Blood Positive A 07/30/19 16:30: Lactate 2.0 I & O for Last 24 hours: Intake & Output 07/28/19 07/29/19 07/30/19 07/31/19 11:59 11:59 11:59 11:59 Intake Total 450 / 450 Balance 450 / 450 Weight 150 lb 155 lb 5 oz - Constitutional no acute distress - *Routine HEENT Exam Head: Present: normocephalic Eye: Present: EOMI, PERRL. Absent: conjunctival icterus ENT: Present: mucous membranes dry - *Routine Neck Exam Absent: JVD - *Routine Respiratory Exam Present: CTA bilaterally - *Routine Cardiovascular Exam Present: RRR - *Routine Abdominal Exam Present: soft, tenderness - *Routine Extremities Exam Present: full ROM - *Routine Skin Exam Present: intact - *Routine Neurological Exam Present: alert, oriented X3, CN II-XII intact - Routine Psychiatric Exam Present: normal affect Assessment and Plan (1) Hypokalemia Current visit: Yes Status: Acute Category: Medical Code(s): E87.6 - Hypokalemia (2) Enterocolitis Current visit: Yes Status: Acute Category: Medical Code(s): K52.9 - Noninfective gastroenteritis and colitis, unspecified (3) Esophageal varices Current visit: Yes Status: Acute Qualifiers: Esophageal varices type: secondary Esophageal varices bleeding: without bleeding Qualified Code(s): I85.10 - Secondary esophageal varices without bleeding Category: Medical Code(s): I85.00 - Esophageal varices without bleeding (4) Portal hypertension Current visit: Yes Status: Acute Category: Medical Code(s): K76.6 - Portal hypertension (5) Cirrhosis Current visit: Yes Status: Acute Qualifiers: Hepatic cirrhosis type: alcoholic cirrhosis Ascites presence: without ascites Qualified Code(s): K70.30 - Alcoholic cirrhosis of liver without ascites Category: Medical Code(s): K74.60 - Unspecified cirrhosis of liver
[2019-07-31 07:28] LABS: Eosinophils # 0.1 K/mm3 (0.0-0.4); Mean Corpuscular Volume 99.5 fl (80-94); Monocytes # 0.4 K/mm3 (0.1-1.0)
[2019-07-31 07:49] LABS: Basophils % 0.4 % (0.1-2.0); Eosinophils % 2.1 % (0.1-12.0); Hematocrit 39.4 % (42.0-52.0); Lymphocytes # 0.7 K/mm3 (0.7-4.5); Lymphocytes % 11.9 % (10-50); Mean Corpuscular HGB Conc 32.6 g/dL (31.8-35.4); Mean Platelet Volume 7.6 fl (7.4-10.4); Monocytes % 7.4 % (1.7-9.3); Neutrophils # 4.2 K/mm3 (1.8-7.8); Neutrophils % 78.2 % (37.0-80.0); Platelet Count 79 K/mm3 (142-424); Red Blood Count 3.96 M/mm3 (4.60-6.20); Red Cell Distribution Width 15.3 % (11.5-17.5); White Blood Count 5.4 K/mm3 (4.8-10.8)
[2019-07-31 07:53] LABS: Anion Gap 10.1 mEq/L (5-15); Calcium 7.5 mg/dL (8.5-10.1)
[2019-07-31 08:37] LABS: Hemoglobin 12.8 g/dL (14.1-18.0)
--- NOTE | 2019-07-31 10:10 | Pharmacy Consult Notes ---
[facility] Pharmacy VTE Monitoring - Patient Demographics Admission date: 07/30/19 Report Date: 07/31/19 Time: 10:09 Allergies/Adverse Reactions: Patient Allergies No Known Allergies Allergy (Verified 06/16/19 00:35) Height: 1.65 m Weight: 70.449 kg Patient Problems: Current Active Problems (This Medical Record has been edited. Action required.) Fever (Acute) Enterocolitis (Acute) Hypokalemia (Acute) Esophageal varices (Acute) Portal hypertension (Acute) Cirrhosis (Acute) - VTE Risk Labs: VTE Related Lab Results Hgb 12.8 g/dL (14.1-18.0) L D 07/31/19 07:15 Hct 39.4 % (42.0-52.0) L 07/31/19 07:15 Plt Count 79 K/mm3 (142-424) L 07/31/19 07:15 PT 13.9 seconds (9.4-11.8) H 07/30/19 12:05 INR 1.36 (0.9-1.1) H 07/30/19 12:05 BUN 5 mg/dL (7-18) L 07/31/19 07:15 Creatinine 0.75 mg/dL (0.70-1.30) D 07/31/19 07:15 Estimated Creat Clear 124 mL/min (50-200) 07/31/19 07:15 VTE Score: 1 VTE Risk Level: Very Low Risk - Prophylaxis VTE Prophylaxis Ordered?: Yes Types of VTE Prophylaxis: TEDS Knee High Location of Applied Device: Bilateral Lower Extremeties
--- NOTE | 2019-07-31 10:24 | Discharge Summary ---
General - General Admission date:: 07/30/19 Discharge date: 07/31/19 HPI HPI: this pt had fever and diarrhea and presented for eval in the ed and was noted to have colitis on ct asnd was clincally dehydrated and was admoitted for ivf and abx - day history of profuse diarrhea. Central abdominal pain and back pain. 2 episodes of vomiting. Fever. Denies difficulty urinating. No cough. Throat is dry. Denies rhinorrhea. No known exposures. No recent antibiotics. No recent travel. Has a history of cirrhosis and sees a liver specialist in [place]. He has also seen a neurosurgeon because he had a seizure in December, and a stroke, cause not found. He has a history of alcohol abuse, has not had a drink in 15 months. - Hospital Course Hospital Course: pt with good response to ivf and meds - had abn diarrhea panel- pt with stable labs and tolerating diet and activity and with dec diarrhea will be d/c at this time Objective Vital signs: Temp Pulse Resp BP Pulse Ox 98.5 F 76 22 103/58 L 98 07/31/19 08:00 07/31/19 08:00 07/31/19 08:00 07/31/19 08:00 07/31/19 08:00 no acute distress - *Routine HEENT Exam Head: Present: normocephalic Eye: Present: EOMI, PERRL ENT: Present: mucous membranes dry - *Routine Neck Exam Present: supple - *Routine Respiratory Exam Present: CTA bilaterally - *Routine Cardiovascular Exam Present: RRR, murmur - *Routine Abdominal Exam Present: soft - *Routine Extremities Exam Present: full ROM - *Routine Skin Exam Present: intact - *Routine Neurological Exam Present: alert, CN II-XII intact - Routine Psychiatric Exam Present: normal affect Results Labs on day of discharge: Labs from last 24 hours 07/31/19 07/31/19 07/30/19 07:15 07:15 16:30 WBC 5.4 D RBC 3.96 L Hgb 12.8 L D Hct 39.4 L MCV 99.5 H MCH 32.4 H MCHC 32.6 RDW 15.3 Plt Count 79 L MPV 7.6 Neut % (Auto) 78.2 Lymph % (Auto) 11.9 [place] % (Auto) 7.4 Eos % (Auto) 2.1 Baso % (Auto) 0.4 Neut # (Auto) 4.2 Lymph # (Auto) 0.7 [place] # (Auto) 0.4 Eos # (Auto) 0.1 Baso # (Auto) 0.0 Total Counted Neutrophils % (Manual) Lymphocytes % (Manual) Monocytes % (Manual) Platelet Estimate PT INR Sodium 135 L Potassium 3.1 L Chloride 104 Carbon Dioxide 24 Anion Gap 10.1 BUN 5 L Creatinine 0.75 D Estimated Creat Clear 124 Estimated GFR 113 Est GFR ( Amer) 136 D Glucose 134 H Lactate 2.0 Calcium 7.5 L Total Bilirubin AST ALT Alkaline Phosphatase Total Protein Albumin Globulin Albumin/Globulin Ratio Lipase Urine Color Urine Appearance Urine pH Ur Specific [place] Urine Protein Urine Glucose (UA) Urine Ketones Urine Blood Urine Nitrate Urine Bilirubin Urine Urobilinogen Ur Leukocyte Esterase Urine RBC Urine WBC Ur Squamous Epith Cells Urine Bacteria Stool Occult Blood Stl Aeromonas (PCR) Stl C. cayetanensis PCR Stool Rotavirus (PCR) Stl Adenov F 40/41 PCR Stool Astrovirus (PCR) Stool Campylobacter PCR Stl C.difficile Tox PCR Stool Cryptosporidium PCR Stl E.coli Shiga Tox PCR Stool E coli O157 PCR Stl Enterotoxigenic E PCR Stool EPEC (PCR) Stool EAEC (PCR) Stl E. histolytica PCR Stool Giardia Lamblia PCR Stool Salmonella PCR Stool Sapovirus (PCR) Stl P. shigelloides PCR Stl Shigella/EIEC PCR St Y.enterocolitica PCR Stool Vibrio (PCR) Stl Vibrio cholerae PCR Stl Norovirus GI/GII PCR Influenza Type A Ag Influenza Type B Ag 07/30/19 07/30/19 07/30/19 14:00 14:00 14:00 WBC RBC Hgb Hct MCV MCH MCHC RDW Plt Count MPV Neut % (Auto) Lymph % (Auto) [place] % (Auto) Eos % (Auto) Baso % (Auto) Neut # (Auto) Lymph # (Auto) [place] # (Auto) Eos # (Auto) Baso # (Auto) Total Counted Neutrophils % (Manual) Lymphocytes % (Manual) Monocytes % (Manual) Platelet Estimate PT INR Sodium Potassium Chloride Carbon Dioxide Anion Gap BUN Creatinine Estimated Creat Clear Estimated GFR Est GFR ( Amer) Glucose Lactate Calcium Total Bilirubin AST ALT Alkaline Phosphatase Total Protein Albumin Globulin Albumin/Globulin Ratio Lipase Urine Color Yellow Urine Appearance Clear Urine pH 6.5 Ur Specific [place] <= 1.005 Urine Protein Negative Urine Glucose (UA) Negative Urine Ketones Negative Urine Blood 2+ Urine Nitrate Negative Urine Bilirubin Negative Urine Urobilinogen 0.2 Ur Leukocyte Esterase Negative Urine RBC 3-5 Urine WBC None Ur Squamous Epith Cells Occasional Urine Bacteria Trace Stool Occult Blood Positive A Stl Aeromonas (PCR) Not detected Stl C. cayetanensis PCR Not detected Stool Rotavirus (PCR) Not detected Stl Adenov F 40/41 PCR Not detected Stool Astrovirus (PCR) Not detected Stool Campylobacter PCR Detected A Stl C.difficile Tox PCR Not detected Stool Cryptosporidium PCR Not detected Stl E.coli Shiga Tox PCR Not detected Stool E coli O157 PCR Not detected Stl Enterotoxigenic E PCR Not detected Stool EPEC (PCR) Not detected Stool EAEC (PCR) Not detected Stl E. histolytica PCR Not detected Stool Giardia Lamblia PCR Not detected Stool Salmonella PCR Not detected Stool Sapovirus (PCR) Not detected Stl P. shigelloides PCR Not detected Stl Shigella/EIEC PCR Not detected St Y.enterocolitica PCR Not detected Stool Vibrio (PCR) Not detected Stl Vibrio cholerae PCR Not detected Stl Norovirus GI/GII PCR Detected A Influenza Type A Ag Influenza Type B Ag 07/30/19 07/30/19 07/30/19 12:25 12:05 12:05 WBC RBC Hgb Hct MCV MCH MCHC RDW Plt Count MPV Neut % (Auto) Lymph % (Auto) [place] % (Auto) Eos % (Auto) Baso % (Auto) Neut # (Auto) Lymph # (Auto) [place] # (Auto) Eos # (Auto) Baso # (Auto) Total Counted Neutrophils % (Manual) Lymphocytes % (Manual) Monocytes % (Manual) Platelet Estimate PT 13.9 H INR 1.36 H Sodium Potassium Chloride Carbon Dioxide Anion Gap BUN Creatinine Estimated Creat Clear Estimated GFR Est GFR ( Amer) Glucose Lactate Calcium Total Bilirubin AST ALT Alkaline Phosphatase Total Protein Albumin Globulin Albumin/Globulin Ratio Lipase 61 L Urine Color Urine Appearance Urine pH Ur Specific [place] Urine Protein Urine Glucose (UA) Urine Ketones Urine Blood Urine Nitrate Urine Bilirubin Urine Urobilinogen Ur Leukocyte Esterase Urine RBC Urine WBC Ur Squamous Epith Cells Urine Bacteria Stool Occult Blood Stl Aeromonas (PCR) Stl C. cayetanensis PCR Stool Rotavirus (PCR) Stl Adenov F 40/41 PCR Stool Astrovirus (PCR) Stool Campylobacter PCR Stl C.difficile Tox PCR Stool Cryptosporidium PCR Stl E.coli Shiga Tox PCR Stool E coli O157 PCR Stl Enterotoxigenic E PCR Stool EPEC (PCR) Stool EAEC (PCR) Stl E. histolytica PCR Stool Giardia Lamblia PCR Stool Salmonella PCR Stool Sapovirus (PCR) Stl P. shigelloides PCR Stl Shigella/EIEC PCR St Y.enterocolitica PCR Stool Vibrio (PCR) Stl Vibrio cholerae PCR Stl Norovirus GI/GII PCR Influenza Type A Ag Negative Influenza Type B Ag Negative 07/30/19 07/30/19 07/30/19 12:05 12:05 12:05 WBC 9.8 RBC 4.53 L Hgb 14.7 Hct 45.0 MCV 99.2 H MCH 32.5 H MCHC 32.8 RDW 15.0 Plt Count 90 L MPV 8.0 Neut % (Auto) 87.5 H Lymph % (Auto) 7.9 L [place] % (Auto) 3.2 Eos % (Auto) 1.1 Baso % (Auto) 0.3 Neut # (Auto) 8.6 H Lymph # (Auto) 0.8 [place] # (Auto) 0.3 Eos # (Auto) 0.1 Baso # (Auto) 0.0 Total Counted 100 Neutrophils % (Manual) 90 H Lymphocytes % (Manual) 7 L Monocytes % (Manual) 3 Platelet Estimate Moderate decrease PT INR Sodium 128 L Potassium 2.6 L* Chloride 93 L Carbon Dioxide 23 Anion Gap 14.6 BUN 6 L Creatinine 1.00 Estimated Creat Clear 90 Estimated GFR 81 Est GFR ( Amer) 98 Glucose 143 H Lactate 2.1 H Calcium 8.0 L Total Bilirubin 2.5 H AST 63 H ALT 41 Alkaline Phosphatase 107 Total Protein 8.0 Albumin 2.9 L Globulin 5.1 H Albumin/Globulin Ratio 0.6 L Lipase Urine Color Urine Appearance Urine pH Ur Specific [place] Urine Protein Urine Glucose (UA) Urine Ketones Urine Blood Urine Nitrate Urine Bilirubin Urine Urobilinogen Ur Leukocyte Esterase Urine RBC Urine WBC Ur Squamous Epith Cells Urine Bacteria Stool Occult Blood Stl Aeromonas (PCR) Stl C. cayetanensis PCR Stool Rotavirus (PCR) Stl Adenov F PCR Stool Astrovirus (PCR) Stool Campylobacter PCR Stl C.difficile Tox PCR Stool Cryptosporidium PCR Stl E.coli Shiga Tox PCR Stool E coli O157 PCR Stl Enterotoxigenic E PCR Stool EPEC (PCR) Stool EAEC (PCR) Stl E. histolytica PCR Stool Giardia Lamblia PCR Stool Salmonella PCR Stool Sapovirus (PCR) Stl P. shigelloides PCR Stl Shigella/EIEC PCR St Y.enterocolitica PCR Stool Vibrio (PCR) Stl Vibrio cholerae PCR Stl Norovirus GI/GII PCR Influenza Type A Ag Influenza Type B Ag DS: Diagnosis - Discharge Diagnosis (1) Hypokalemia Status: Acute (2) Enterocolitis Status: Acute (3) Esophageal varices Status: Acute (4) Portal hypertension Status: Acute (5) Cirrhosis Status: Acute (6) Campylobacter enteritis Status: Acute (7) Enteritis due to Norovirus Status: Acute Discharge Plan - Patient Discharge Instructions ACTIVITY: Continue current activity DIET: continue same diet Patient Instructions: Norovirus Infection, Gastrointestinal Bleeding - Follow up Plan Disposition: Home, Self-Senior Care Medications: Home Medications Medication Instructions Recorded Confirmed Type Cholecalciferol (Vitamin D3) 2,000 unit PO DAILY 06/16/19 07/30/19 History [Vitamin D3] Esomeprazole Magnesium [Nexium 20 mg PO DAILY 06/16/19 07/30/19 History 24Hr] Ferrous Gluconate [Ferrous 240 mg PO DAILY 06/16/19 07/30/19 History Gluconate 240mg Tab] levETIRAcetam [Levetiracetam] 1,000 mg PO BID 06/16/19 07/30/19 History Azithromycin [Zithromax 250mg 250 mg PO DIRECTED #6 tab 07/31/19 Rx tab] Prescriptions/Medication Reconciliation: New Azithromycin [Zithromax 250mg tab] 250 mg PO DIRECTED #6 tab Continued Ferrous Gluconate [Ferrous Gluconate 240mg Tab] 240 mg PO DAILY Cholecalciferol (Vitamin D3) [Vitamin D3] 2,000 unit PO DAILY levETIRAcetam [Levetiracetam] 1,000 mg PO BID Esomeprazole Magnesium [Nexium 24Hr] 20 mg PO DAILY - Problem Reconciliation Problems Reviewed?: Yes
--- NOTE | 2019-07-31 16:52 | Electrocardiograph Report ---
APPROVED REPORT Exam: Resting ECG HR:90 bpm ECG Measurements Heart Rate 90 AXES [place] 130 P QRSd 84 QRS 41 QT 430 T6 QTc 526 <Conclusion> Normal sinus rhythm Prolonged QT Abnormal ECG Electronically signed by : Mani Rosales, 07/31/2019 16:52:15
== END 2019-07-31 11:27 | disposition home or self-care (01) | DRG 372 ==
LOC: 2ND 11:43 → ER 11:43 → OBSVTOIN 16:05 → 2ND 16:06
PROVIDERS: ADMIT Family Medicine; ATTEND Emergency Medicine
CPT/HCPCS: 36415; 71010; 71045; 74177; 80048; 80053; 81001; 82272; 83605; 83690; 85007; 85025; 85610; 87040; 87275; 87276; 87506; 93005; 96365; 96367; 99285; G0328; J0456; Q9967

== ENCOUNTER → 2019-10-17 16:05 | Outpatient (CLI) | payer OTHER, SELFPAY ==
[2019-10-17 18:11] LABS: Anion Gap 9.4 mEq/L (5-15); Blood Urea Nitrogen 3 mg/dL (7-18); Calcium 8.3 mg/dL (8.5-10.1); Carbon Dioxide 28 mmol/L (21.0-32.0); Chloride 106 mmol/L (98-107); Creatinine,Serum 0.84 mg/dL (0.70-1.30); Estimated Glomerular Filt Rate 99 ml/min (>60); GFR (African American) 120 ML/MIN (>60); Glucose 76 mg/dL (74-106); Potassium 3.4 mmoL/L (3.5-5.1); Sodium 140 mmol/L (136-145)
== END ==
PROVIDERS: Visit Provider Nurse Practitioner Acute Care
DX: K74.60 Unspecified cirrhosis of liver (principal)
CPT/HCPCS: 36415; 80048

== ENCOUNTER → 2020-10-11 10:47 | Outpatient (CLI) | payer MEDICAID, SELFPAY ==
[2020-10-12 14:45] LABS: Covid-19 Nasal PCR Sendout Lex NOT DETECTED
== END ==
PROVIDERS: PCP Emergency Medicine; Visit Provider Nurse Practitioner Family
DX: Z03.818 Encounter for observation for suspected exposure to other biological agents ruled out (principal)
CPT/HCPCS: U0004

== ENCOUNTER → 2020-12-03 10:40 | Outpatient (CLI) | payer OTHER, SELFPAY | PROVIDERS: PCP Emergency Medicine; Visit Provider Emergency Medicine | DX: Z11.52 Encounter for screening for COVID-19 (principal) | CPT/HCPCS: U0003 ==

== ENCOUNTER 2021-05-08 15:16 | Emergency (ER) | payer OTHER, SELFPAY ==
[2021-05-08 15:18] VITALS: BP 116/78; PULSE 91; RESP 18; TEMP 37.3; O2SAT 98; BMI 28.3
--- NOTE | 2021-05-08 15:33 | XR_ITS ---
PROCEDURE: XR CHEST PORTABLE CLINICAL HISTORY: soa COMPARISON: CR Chest from 04/12/2018 CR CXR2V XR chest 2V from 04/12/2018 CR XR CHEST PORTABLE from 07/30/2019 FINDINGS: The cardiomediastinal silhouette and pulmonary vascularity are within normal limits. There are low lung volumes. Right hemidiaphragm is slightly elevated. Lungs are clear bilaterally. No acute bony abnormalities. IMPRESSION: No acute findings. Dictated by: Isaiah Mina MD 05/08/2021 16:19 Isaiah Mina MD in [place] 05/08/2021 16:19
[2021-05-08 15:45] VITALS: BP 127/87; PULSE 91; O2SAT 95
[2021-05-08 16:04] LABS: Basophils # 0.1 K/mm3 (0-0.2); Eosinophils # 0.3 K/mm3 (0.0-0.4); Hemoglobin 15.8 g/dL (14.1-18.0); Lymphocytes # 1.5 K/mm3 (0.7-4.5); Mean Corpuscular HGB Conc 32.3 g/dL (31.8-35.4); Mean Corpuscular Hemoglobin 31.5 pg (27.0-31.2); Mean Corpuscular Volume 97.4 fl (80-94); Mean Platelet Volume 7.9 fl (7.4-10.4); Monocytes # 0.3 K/mm3 (0.1-1.0); Monocytes % 6.3 % (1.7-9.3); Neutrophils # 3.1 K/mm3 (1.8-7.8); Neutrophils % 58.8 % (37.0-80.0); Platelet Count 127 K/mm3 (142-424); Red Blood Count 5.03 M/mm3 (4.60-6.20); Red Cell Distribution Width 14.2 % (11.5-17.5); White Blood Count 5.2 K/mm3 (4.8-10.8)
[2021-05-08 16:06] LABS: Chloride 101 mmol/L (98-107); Potassium 3.1 mmoL/L (3.5-5.1); Sodium 134 mmol/L (136-145)
[2021-05-08 16:09] LABS: Alanine Aminotransferase 19 U/L (12-78); Albumin Level 3.4 g/dl (3.5-5.0); Albumin/Globulin Ratio 0.9 (1.1-1.8); Alkaline Phosphatase 121 U/L (38-126); Anion Gap 11.1 mEq/L (5-15); Aspartate Amino Transferase 42 U/L (17-59); Bilirubin,Total 1.7 mg/dl (0.2-1.3); Blood Urea Nitrogen 3 mg/dl (9-20); Calcium 8.2 mg/dl (8.4-10.2); Carbon Dioxide 25 mmol/L (22.0-30.0); Creatinine Clearance Estimated 144 mL/min (50-200); Estimated Glomerular Filt Rate 121 ml/min (>60); GFR (African American) 147 ML/MIN (>60); Glucose 88 mg/dl (74-100); Lipase 85 U/L (23-300); Total Protein,Serum 7.4 g/dl (6.3-8.2)
--- NOTE | 2021-05-08 16:19 | HMH.EDGENADL ---
ED Disposition Clinical Impression: Ascites Disposition: Home, Self-Care Condition on Discharge: Good Additional Instructions: Return to emergency department for worsening swelling fever or any other concerns within the next 8 hours otherwise follow-up with your primary care physician with next few days Referrals: Sebas English MD [Primary Care Provider] - - Critical Care Critical Care Time: No Attestation: On 05/08/21, the high probability of a clinically significant, sudden or life threatening deterioration of the following system(s) required my full and direct attention, intervention and personal management. The time I documented below is in addition to time spent performing reported procedures but includes the following listed in this critical care notation. Medical Decision Making - Medical Records Medical records reviewed: Yes: I reviewed the patient's medical records. - Job Inquiry Pt receiving controlled substance: No Vital Signs: 05/08/21 15:18 05/08/21 15:45 05/08/21 16:30 Temperature 99.2 F Temperature Source Oral Pulse Rate 91 H 86 Pulse Rate [Left Radial] 91 H Respiratory Rate 18 Blood Pressure 127/87 110/76 Blood Pressure [Right Arm] 116/78 Blood Pressure Mean [Right Arm] 90 Blood Pressure Source [Right Arm] Automatic Cuff Blood Pressure Position [Right Arm] Sitting 02 Sat by Pulse Oximetry 98 95 92 L Oxygen Delivery Method Room Air 05/08/21 17:29 05/08/21 18:20 Temperature 98.1 F Temperature Source Oral Pulse Rate 84 81 Pulse Rate [Left Radial] Respiratory Rate 18 16 Blood Pressure 115/71 107/67 L Blood Pressure [Right Arm] Blood Pressure Mean [Right Arm] Blood Pressure Source [Right Arm] Blood Pressure Position [Right Arm] 02 Sat by Pulse Oximetry 99 98 Oxygen Delivery Method Room Air Room Air - Lab Data Lab Results 05/08/21 15:49: WBC 5.2, RBC 5.03, Hgb 15.8, Hct 49.0, MCV 97.4 H, MCH 31.5 H, MCHC 32.3, RDW 14.2, Plt Count 127 L, MPV 7.9, Neut % (Auto) 58.8, Lymph % (Auto) 29.0, [place] % (Auto) 6.3, Eos % (Auto) 5.0, Baso % (Auto) 1.0, Neut # (Auto) 3.1, Lymph # (Auto) 1.5, [place] # (Auto) 0.3, Eos # (Auto) 0.3, Baso # (Auto) 0.1 05/08/21 15:49: Sodium 134 L, Potassium 3.1 L, Chloride 101, Carbon Dioxide 25, Anion Gap 11.1, BUN 3 L, Creatinine 0.70, Estimated Creat Clear 144, Estimated GFR 121, Est GFR ( Amer) 147, Glucose 88, Calcium 8.2 L, Total Bilirubin 1.7 H, AST 42, ALT 19, Alkaline Phosphatase 121, Total Protein 7.4, Albumin 3.4 L, Globulin 4.0 H, Albumin/Globulin Ratio 0.9 L, Lipase 85 05/08/21 16:25: PT 14.0 H, INR 1.20 H, APTT 29.5 05/08/21 17:14: Fluid Source Peritoneal fluid, Fluid Volume , Fluid Appearance Clear, Fluid RBC (Auto) < 10, Fld Tot Nucleated Cell 358, Fld Polynuclear WBCs % 21, Fld Mononuclear WBCs % 79 Result diagrams: 05/08/21 15:49 05/08/21 15:49 Orders (Tests/Meds): ED MEDICATIONS Discontinued Medications Generic Name Dose Route Start Last Admin Trade Name Freq PRN Reason Stop Dose Admin Albumin Human 25 gm 05/08/21 18:02 05/08/21 18:06 Albumin 25% (12.5 Gm) Soln 50ml Bottle IV 05/08/21 18:03 25 gm ONCE ONE Administration ORDERS Category Date Time Status Body Fluid Cult & Gram Stain Stat Micro 05/08/21 17:14 Received Medical Decision Narrative: 45-year-old male presents with abdominal swelling. He is in no acute distress nontoxic-appearing comfortable in the bed. He does have a significant amount of ascites on his abdominal ultrasound. Afebrile in the emergency department less likely to be SBP. Laboratory evaluation reveals minimal thrombocytopenia. Paracentesis to be performed as well. Paracentesis performed without difficulty 7-1/2 L were drained albumin given in the emergency department. Otherwise paracentesis labs unremarkable for concern for SBP. Plan to discharge with return precautions General Adult HPI - General Chief complaint: Shortness of Breath/Dysp
[2021-05-08 16:30] VITALS: BP 110/76; PULSE 86; O2SAT 92
--- NOTE | 2021-05-08 16:37 | PC.NURSE ---
INFORMED CONSENT FOR PERICARDIOCENTESIS OBTAINED
--- NOTE | 2021-05-08 16:46 | PC.NURSE ---
TIME OUT PERFORMED PER HOSPITAL POLICY
--- NOTE | 2021-05-08 16:50 | PC.NURSE ---
at bedside doing procedure.
[2021-05-08 16:55] LABS: Activated Partial Thrombo Time 29.5 seconds (22.8-30.6)
[2021-05-08 17:29] VITALS: BP 115/71; PULSE 84; RESP 18; TEMP 36.7; O2SAT 99
[2021-05-08 17:36] LABS: Appearance,Body Fld. CLEAR; Source, Body Fld. Peritoneal Fluid
[2021-05-08 17:38] LABS: RBC,Body Fluid < 10 cells/uL (< 10 X 10^3); TNC,Body Fluid 358 cells/uL (< 1000)
[2021-05-08 18:03] LABS: Mononuclear WBCs,Body Fluid 79 %; Polynuclear WBC,Body Fluid 21 %
[2021-05-08 18:20] VITALS: BP 107/67; PULSE 81; RESP 16; O2SAT 98
--- NOTE | 2021-05-08 18:33 | PC.NURSE ---
Dr Eric madison.
--- NOTE | 2021-05-08 18:37 | PC.NURSE ---
Dr Reyes returned call
--- NOTE | 2021-05-08 18:38 | PC.NURSE ---
PATIENT FILLED 8 ONE LITER EVACUATED DRAINAGE BOTTLES. MADE AWARE. WILL CONTINUE TO MONITOR PATIENT
[2021-05-08 19:00] VITALS: BP 105/71; PULSE 91; RESP 15; TEMP 36.8; O2SAT 99
[2021-05-10 09:14] LABS: Protein, Body Fluid 2.3 g/dL (.)
== END 2021-05-08 19:15 | disposition home or self-care (01) ==
PROVIDERS: Emergency Provider Emergency Medicine; PCP Emergency Medicine
DX: R18.8 Other ascites (principal); F41.9 Anxiety disorder, unspecified; F17.210 Nicotine dependence, cigarettes, uncomplicated
CPT/HCPCS: 49083; 71045; 80053; 83690; 84155; 85025; 85610; 85730; 87070; 87205; 89051; 96365; 99283; C1725; P9047

== ENCOUNTER → 2021-08-15 10:58 | Outpatient (CLI) | payer OTHER, SELFPAY | PROVIDERS: Visit Provider Student in an Organized Health Care Education/Training Program | DX: Z01.812 Encounter for preprocedural laboratory examination (principal); Z11.52 Encounter for screening for COVID-19 | CPT/HCPCS: C9803; U0003; U0005 ==

== ENCOUNTER → 2021-10-24 12:25 | Outpatient (CLI) | payer OTHER, SELFPAY | PROVIDERS: Visit Provider Internal Medicine Gastroenterology | DX: Z01.812 Encounter for preprocedural laboratory examination (principal); Z11.52 Encounter for screening for COVID-19 | CPT/HCPCS: C9803; U0003; U0005 ==

== ENCOUNTER → 2021-10-29 11:26 | Outpatient (CLI) | payer OTHER, SELFPAY ==
[2021-10-29 13:07] LABS: Chloride 101 mmol/L (98-107); Sodium 127 mmol/L (136-145)
[2021-10-29 13:10] LABS: Blood Urea Nitrogen 18 mg/dl (9-20); Calcium 8.7 mg/dl (8.4-10.2); Carbon Dioxide 17 mmol/L (22.0-30.0); Estimated Glomerular Filt Rate 72 ml/min (>60); GFR (African American) 87 ML/MIN (>60); Glucose 114 mg/dl (74-100)
== END ==
PROVIDERS: Visit Provider Nurse Practitioner Acute Care
DX: E87.1 Hypo-osmolality and hyponatremia (principal)
CPT/HCPCS: 36415; 80048

== ENCOUNTER → 2022-01-09 11:40 | Outpatient (CLI) | payer OTHER, SELFPAY | PROVIDERS: PCP Emergency Medicine; Visit Provider Student in an Organized Health Care Education/Training Program | DX: Z20.822 Contact with and (suspected) exposure to COVID-19 (principal) | CPT/HCPCS: C9803; U0003; U0005 ==

== ENCOUNTER → 2022-02-19 13:32 | Outpatient (CLI) | payer OTHER, SELFPAY | PROVIDERS: Visit Provider Student in an Organized Health Care Education/Training Program | DX: Z01.812 Encounter for preprocedural laboratory examination (principal); Z11.52 Encounter for screening for COVID-19 | CPT/HCPCS: C9803; U0003; U0005 ==

== ENCOUNTER 2023-09-01 10:11 | Emergency (ER) | payer SELFPAY ==
[2023-09-01] VITALS (7 sets, daily range): BP systolic 102–156; BP diastolic 61–77; PULSE 70–102; RESP 14–23; TEMP 36.6–36.8; O2SAT 93–98; BMI 29.0; BMI 27.4
--- NOTE | 2023-09-01 11:00 | XR_ITS ---
FINAL REPORT CLINICAL HISTORY: fever, chills, SOA COMPARISON: 05/08/2021 FINDINGS: SINGLE-VIEW CHEST The heart size is normal. The mediastinum is normal. The lungs are clear. There is no pneumothorax. IMPRESSION: No acute cardiopulmonary process. Reviewed, Interpreted and Dictated by Dc Jaimes III, MD Transcribed by Marquita Petty Authenticated and [facility]
[2023-09-01 11:17] LABS: Chloride 101 mmol/L (98-107); Sodium 134 mmol/L (136-145)
[2023-09-01 11:19] LABS: Alanine Aminotransferase 55 U/L (12-78); Aspartate Amino Transferase 69 U/L (17-59); Blood Urea Nitrogen 5 mg/dl (9-20); Creatinine Clearance Estimated 108 mL/min (50-200); Estimated Glomerular Filt Rate 90 ml/min (>60); GFR (African American) 109 ML/MIN (>60)
[2023-09-01 11:20] LABS: Albumin Level 3.6 g/dl (3.5-5.0); Albumin/Globulin Ratio 0.9 (1.1-1.8); Alkaline Phosphatase 97 U/L (38-126); Anion Gap 15.9 mEq/L (5-15); Calcium 7.8 mg/dl (8.4-10.2); Carbon Dioxide 20 mmol/L (22.0-30.0); Globulin 3.8 g/dL (1.3-3.2); Glucose 286 mg/dl (74-100); Lipase 35 U/L (23-300); Total Protein,Serum 7.4 g/dl (6.3-8.2)
--- NOTE | 2023-09-01 11:20 | PC.NURSE ---
xray at bs
[2023-09-01 11:22] LABS: Coronavirus 19, PCR Not Detected (NotDetected); Influenza A, PCR Not Detected (NotDetected); Influenza B, PCR Not Detected (NotDetected)
[2023-09-01 11:25] LABS: Basophils % 0.3 % (0.1-2.0); Eosinophils % 0.2 % (0.1-12.0); Hematocrit 50.6 % (42.0-52.0); Hemoglobin 15.6 g/dL (14.1-18.0); Lymphocytes # 0.9 K/mm3 (0.7-4.5); Lymphocytes % 9.6 % (10-50); Mean Corpuscular HGB Conc 30.9 g/dL (31.8-35.4); Mean Corpuscular Hemoglobin 29.9 pg (27.0-31.2); Mean Corpuscular Volume 96.7 fl (80-94); Mean Platelet Volume 9.1 fl (7.4-10.4); Monocytes # 0.3 K/mm3 (0.1-1.0); Monocytes % 3.2 % (1.7-9.3); Neutrophils # 8.2 K/mm3 (1.8-7.8); Neutrophils % 86.9 % (37.0-80.0); Platelet Count 73 K/mm3 (142-424); Red Blood Count 5.24 M/mm3 (4.60-6.20); Red Cell Distribution Width 14.4 % (11.5-17.5); White Blood Count 9.4 K/mm3 (4.8-10.8)
[2023-09-01 11:43] LABS: Lactic Acid 3.9 mmol/L (0.7-2.1)
[2023-09-01 11:45] LABS: Potassium 2.9 mmoL/L (3.5-5.1)
[2023-09-01 11:46] LABS: MANUAL DIFFERENTIAL MANUAL DIFFERENTIAL (MANUAL DIFF)
[2023-09-01 11:58] LABS: Microscopic, Urine URINE MICROSCOPIC (MICROSCOPIC)
--- NOTE | 2023-09-01 11:59 | CT_ITS ---
FINAL REPORT TECHNIQUE: Postcontrast axial images through the abdomen and pelvis were performed. This study was performed with techniques to keep radiation doses as low as reasonably achievable, (ALARA). Individualized dose reduction techniques using automated exposure control or adjustment of mA and/or kV according to the patient's size were employed. CLINICAL HISTORY: back pain/n/v/d Sepsis COMPARISON: 08/30/2019 FINDINGS: Abdomen: There is irregular liver contour consistent with cirrhosis. TIPS stent is present. There is splenomegaly with the spleen measuring 12.5 cm. There are postoperative changes in the upper abdomen from presumed embolization. The adrenals are normal. The pancreas is unremarkable. The kidneys enhance appropriately. The aorta is normal in caliber. No free fluid or adenopathy is identified. No findings for mechanical bowel obstruction are identified. Pelvis: The appendix is not identified. There is diffuse colon wall thickening, may represent edema or colitis. A small umbilical hernia containing fat is identified. The urinary bladder is unremarkable. No free fluid, free air, abscess or adenopathy is identified. IMPRESSION: Diffuse colon wall thickening, may represent edema or colitis. Cirrhosis of the liver. Splenomegaly. Postoperative changes. Reviewed, Interpreted and Dictated by Dc Jaimes III, MD Transcribed by Marquita Petty Authenticated and [facility]
[2023-09-01 12:01] LABS: Appearance,Urine CLEAR (Clear); Bilirubin,Urine Negative (Negative); Blood, Urine TRACE-I (Negative); Color,Urine AMBER (Yellow); Glucose,Urine (UA) 2+ (Negative); Ketones,Urine Negative (Negative); Leukocyte Esterase,Urine Negative (Negative); Nitrate,Urine Negative (Negative); Protein,Urine Negative (Negative); Urobilinogen,Urine 0.2 EU/dl (0.2)
[2023-09-01 12:04] LABS: Eosinophils % 1 % (0-3); Lymphocytes % 11 % (10-50); Monocytes % 2 % (2-9); Neutrophils % 86 % (42-76); Platelet Estimate Moderate Decrease; RBC Morphology Normal; Total Cells Counted 100
--- NOTE | 2023-09-01 12:06 | HMH.EDGENADL ---
Discharge Plan Disposition Patient Disposition: Home, Self-Care Condition: Good Prescriptions Prescriptions: New promethazine 25 mg tablet 25 mg PO Q6H PRN (Reason: nausea and vomiting) Qty: 10 0RF potassium chloride 20 mEq tablet extended release 20 meq PO DAILY Qty: 30 0RF No Action cholecalciferol (vitamin D3) 50 mcg (2,000 unit) capsule 2,000 unit PO DAILY Qty: 90 0RF esomeprazole magnesium 20 mg tablet,delayed release (DR/EC) 20 mg PO DAILY Qty: 90 0RF ferrous gluconate 240 mg (27 mg iron) tablet 240 mg PO DAILY Qty: 90 0RF levetiracetam 1,000 mg tablet 1,000 mg PO BID Qty: 180 0RF propranolol 10 mg tablet 10 mg PO BID cholecalciferol (vitamin D3) 1,000 unit capsule 1,000 unit PO DAILY cyclobenzaprine 10 mg tablet 10 mg PO BID Referrals Follow up/Referrals: Sebas English MD [Primary Care Provider] - See instructions Activity Restrictions/Add. Instructions Additional Instructions/Restrictions: You were evaluated in the emergency department today. Please apple picker your prescriptions at the pharmacy. Take Tylenol and ibuprofen at home as needed for pain. Hydrate is much as possible. Follow-up with your primary care provider over the next 3 days for reassessment. Return to the emergency department for new or worsening symptoms or should you wish to be admitted and monitored for your lab abnormalities. Clinical Impressions Clinical Impression: Gastroenteritis, Acute hypokalemia, Acute dehydration Instructions Patient Instructions: DI for Viral Gastroenteritis -- Adult, DI for Bacterial Gastroenteritis -- Adult Discharge ED Provider: Elizabeth Lange General Adult HPI General Chief complaint: Shortness of Breath/Dyspnea Stated complaint: soa, vomiting Time Seen by Provider: 09/01/23 10:22 Mode of Arrival: Ambulatory Source of Information: Patient Limitations: No Limitations Description of Symptoms (Recalled from ER Triage Doc. by RN): 48 yo M presents to ED with c/o shortness of air, vomitting, nausea, diarrhea. symptoms began yesterday. History of Present Illness HPI narrative: This patient is a 48-year-old male with a history of alcoholic cirrhosis, portal hypertension, bleeding esophageal varices, anemia, hypokalemia, gastritis, pancreatitis presented to the emergency department for evaluation with concern for nausea, vomiting, diarrhea, and low back pain that started yesterday. He reports that he is also had chills and body aches. He notes cough, but no chest pain, shortness of breath, abdominal pain, hematemesis, melena, hematochezia, or other concerns. Related Data Home Medications Medication Instructions Recorded Confirmed cholecalciferol (vitamin D3) 25 1,000 unit PO DAILY 09/11/19 09/01/23 mcg (1,000 unit) capsule propranolol 10 mg tablet 10 mg PO BID 09/11/19 09/01/23 cyclobenzaprine 10 mg tablet 10 mg PO BID 05/08/21 09/01/23 Previous Rx's Medication Instructions Recorded cholecalciferol (vitamin D3) 50 2,000 unit PO DAILY Supplement #90 03/25/21 mcg (2,000 unit) capsule caps esomeprazole magnesium 20 mg 20 mg PO DAILY GERD #90 tabs 03/25/21 tablet,delayed release ferrous gluconate 240 mg (27 mg 240 mg PO DAILY Supplement #90 tabs 03/25/21 iron) tablet levetiracetam 1,000 mg tablet 1,000 mg PO BID SEIZURES #180 tabs 03/25/21 potassium chloride 20 mEq 20 meq PO DAILY #30 tabs 09/01/23 tablet,extended release promethazine 25 mg tablet 25 mg PO Q6H PRN nausea and 09/01/23 vomiting #10 tabs Allergies Allergy/AdvReac Type Severity Reaction Status Date / Time No Known Allergies Allergy Verified 05/27/21 09:57 [facility] Disclaimer: The information contained in this section may have been updated after the patient was seen, as this information can be updated by other users. Social History Smoking Status: Current every day smoker tobacco type: cigarettes packs per d
--- NOTE | 2023-09-01 12:07 | CT_ITS ---
FINAL REPORT CLINICAL HISTORY: tachycardia, SOA FINDINGS: Thin section axial CT images of the chest were obtained with contrast. 3D reformatted images were also obtained. This study was performed with techniques to keep radiation doses as low as reasonably achievable (ALARA). Individualized dose reduction techniques using automated exposure control or adjustment of mA and/or kV according to the patient's size were employed. There is no evidence of pulmonary embolism. There is no evidence of thoracic aortic aneurysm or dissection. There is no evidence of mediastinal or hilar mass or adenopathy. There is no evidence of pulmonary mass or nodule. There is mild bibasilar atelectasis. IMPRESSION: No evidence of pulmonary embolism. Bibasilar atelectasis. Reviewed, Interpreted and Dictated by Dc Jaimes III, MD Transcribed by Marquita Petty Authenticated and [facility]
[2023-09-01 12:14] LABS: Bacteria,Urine Trace /lpf; RBC,Urine Occasional #/hpf (0-3); Squamous Epithelial Cell,Urine Occasional #/hpf (0-5)
--- NOTE | 2023-09-01 12:40 | ECG_ITS ---
APPROVED REPORT Exam: Resting ECG HR:76 bpm ECG Measurements Heart Rate 76 AXES CO 135 P -50 QRSd 91 QRS 60 QT 416 T 39 QTc 446 Conclusion ECTOPIC ATRIAL RHYTHM ABNORMAL RHYTHM ECG UNCONFIRMED REPORT Electronically signed by : Vladimir Soriano MD 09/02/2023 07:31:36
--- NOTE | 2023-09-01 12:43 | PC.NURSE ---
pt resting in bed turned lights off , call light at bs
--- NOTE | 2023-09-01 13:35 | PC.NURSE ---
Pt resting in bed,call light at bs
--- NOTE | 2023-09-01 15:00 | PC.NURSE ---
PO challenging patient
[2023-09-01 15:01] LABS: Lactic Acid 1.8 mmol/L (0.7-2.1)
[2023-09-01 15:09] LABS: Reflex Lactic Add Lactic Reflex
== END 2023-09-01 15:50 | disposition home or self-care (01) ==
PROVIDERS: Emergency Provider Emergency Medicine; PCP Emergency Medicine
DX: E87.6 Hypokalemia (principal); E86.0 Dehydration; A09 Infectious gastroenteritis and colitis, unspecified; I49.8 Other specified cardiac arrhythmias; F17.210 Nicotine dependence, cigarettes, uncomplicated; K70.30 Alcoholic cirrhosis of liver without ascites; K85.20 Alcohol induced acute pancreatitis without necrosis or infection; I85.01 Esophageal varices with bleeding; D63.8 Anemia in other chronic diseases classified elsewhere; K76.6 Portal hypertension; K29.00 Acute gastritis without bleeding; F10.188 Alcohol abuse with other alcohol-induced disorder
CPT/HCPCS: 36415; 71045; 71275; 74177; 80053; 81001; 83605; 83690; 85007; 85025; 87040; 87636; 93005; 96361; 96365; 96366; 96374; 96375; 99291; J0131; J2405; Q9967

== ENCOUNTER 2023-10-08 17:13 | Emergency (ER) | payer SELFPAY ==
[2023-10-08 17:15] VITALS: BP 130/76; PULSE 84; RESP 18; TEMP 36.8; O2SAT 96; BMI 26.6
[2023-10-08 17:22] VITALS: BP 130/76; PULSE 78; RESP 16; O2SAT 96
--- NOTE | 2023-10-08 17:25 | XR_ITS ---
PROCEDURE INFORMATION: Exam: XR Left Shoulder Exam date and time: 10/08/2023 5:28 PM Age: 48 years old Clinical indication: Pain; Shoulder; Left; Additional info: Pain, recent dislocation TECHNIQUE: Imaging protocol: Radiologic exam of the left shoulder. Views: 2 or more views. COMPARISON: CR XR CHEST PORTABLE 09/01/2023 11:33 AM FINDINGS: Bones/joints: Normal. Soft tissues: Normal. IMPRESSION: No acute findings.
--- NOTE | 2023-10-08 17:25 | XR_ITS ---
PROCEDURE INFORMATION: Exam: XR Left Humerus Exam date and time: 10/08/2023 5:30 PM Age: 48 years old Clinical indication: Pain; Upper arm; Left; Additional info: Pain, recent dislocation TECHNIQUE: Imaging protocol: Radiologic exam of the left humerus. Views: 2 or more views. COMPARISON: CR Shoulder L 10/08/2023 5:28 PM FINDINGS: Bones/joints: Normal. Soft tissues: Normal. IMPRESSION: No acute findings.
[2023-10-08 17:31] VITALS: BP 128/82; PULSE 74; RESP 16; O2SAT 96
--- NOTE | 2023-10-08 17:45 | HMH.EDGENADL ---
Discharge Plan Disposition Patient Disposition: Home, Self-Care Condition: Good Prescriptions Prescriptions: No Action esomeprazole magnesium 20 mg tablet,delayed release (DR/EC) 20 mg PO DAILY Qty: 90 0RF levetiracetam 1,000 mg tablet 1,000 mg PO BID Qty: 180 0RF Referrals Follow up/Referrals: Enrique Pompa DO [Staff Physician] - See instructions Sebas English MD [Primary Care Provider] - See instructions Activity Restrictions/Add. Instructions Additional Instructions/Restrictions: You were evaluated in the emergency department today. Please take Tylenol and ibuprofen as needed for pain. Keep your sling on. Follow-up with orthopedics for further evaluation and management of your shoulder instability. Return to the emergency department for new or worsening symptoms Clinical Impressions Clinical Impression: Left shoulder pain, Instability of left shoulder joint Instructions Patient Instructions: DI for Shoulder Instability Discharge ED Provider: Elizabeth Lange General Adult HPI General Chief complaint: Extremity Injury, Lower Stated complaint: left shoulder pain, possible dislocation Time Seen by Provider: 10/08/23 17:25 Mode of Arrival: Ambulatory Source of Information: Patient Limitations: No Limitations Description of Symptoms (Recalled from ER Triage Doc. by RN): Patient states he dislocated his left shoulder yesterday and was seen at [facility] and it was set back. Patient states he feels like it may have came back out. Reports pain in left shoulder. Denies other symptoms at this time. 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 He notes that he dislocated it yesterday reaching outward, so he went to [facility]. He states that it was reduced, and he was sent home in a shoulder immobilizer, but it started becoming more painful and he felt like it was getting out of place, so he took the immobilizer off. The pain is worsened since then. He denies any recent new traumas or injuries. He denies any other concerns at this time. Related Data Previous Rx's Medication Instructions Recorded esomeprazole magnesium 20 mg 20 mg PO DAILY GERD #90 tabs 03/25/21 tablet,delayed release levetiracetam 1,000 mg tablet 1,000 mg PO BID SEIZURES #180 tabs 03/25/21 Allergies Allergy/AdvReac Type Severity Reaction Status Date / Time No Known Allergies Allergy Verified 05/27/21 09:57 [facility] Disclaimer: The information contained in this section may have been updated after the patient was seen, as this information can be updated by other users. Social History Smoking Status: Never smoker second hand exposure: Yes alcohol intake: former substance use type: denies use current occupational status: employed Travel in the last 8 weeks: None household members: spouse and friend(s) housing: house current occupational exposures/hazards: No caffeine: Yes ROS Obtained: Yes All systems reviewed & no additional complaints except as documented Physical Exam General General appearance: alert and in no apparent distress Head Head exam: atraumatic and normocephalic Eye Eye exam: Present normal appearance, PERRL and EOMI ENT ENT exam: Present normal exam, normal oropharynx, mucous membranes moist and normal external ear exam Neck Neck exam: Present normal inspection, full ROM and trachea midline; Absent tenderness Chest Chest inspection: Present normal inspection and symmetric chest wall rise; Absent tenderness Respiratory Respiratory exam: Present normal lung sounds bilaterally; Absent respiratory distress, wheezes, stridor or accessory muscle use Cardiovascular Cardiovascular exam: P
--- NOTE | 2023-10-08 17:46 | PC.NURSE ---
PT GONE TO RADIOLOGY
[2023-10-08 18:36] VITALS: BP 125/80; PULSE 79; RESP 19; TEMP 36.8; O2SAT 98
== END 2023-10-08 18:54 | disposition home or self-care (01) ==
PROVIDERS: Emergency Provider Emergency Medicine; PCP Emergency Medicine
DX: M25.512 Pain in left shoulder (principal); M25.312 Other instability, left shoulder; K70.30 Alcoholic cirrhosis of liver without ascites; F10.11 Alcohol abuse, in remission
CPT/HCPCS: 73030; 73060; 96372; 99283

== ENCOUNTER 2024-07-05 18:15 | Emergency (ER) | payer SELFPAY ==
[2024-07-05] VITALS (21 sets, daily range): BP systolic 135–216; BP diastolic 77–121; PULSE 93–145; RESP 8–24; TEMP 36.6–36.7; O2SAT 89–100; BMI 30.2
--- NOTE | 2024-07-05 18:52 | XR_ITS ---
PROCEDURE INFORMATION: Exam: XR Left Shoulder Exam date and time: 07/05/2024 7:19 PM Age: 49 years old Clinical indication: Pain; Shoulder; Left; Additional info: R/O dislocation TECHNIQUE: Imaging protocol: Radiologic exam of the left shoulder. Views: 2 or more views. COMPARISON: CR XR SHOULDER LT MIN 2V 10/08/2023 5:28 PM FINDINGS: Bones/joints: No acute fracture. Soft tissues: Anterior inferior subcoracoid shoulder dislocation. IMPRESSION: 1. Anterior inferior subcoracoid shoulder dislocation. 2. No evidence for acute fracture.
--- NOTE | 2024-07-05 19:31 | HMH.EDGENADL ---
Discharge Plan Disposition Patient Disposition: Home, Self-Care Prescriptions Prescriptions: No Action esomeprazole magnesium 20 mg tablet,delayed release (DR/EC) 20 mg PO DAILY Qty: 90 0RF levetiracetam 1,000 mg tablet 1,000 mg PO BID Qty: 180 0RF Referrals Follow up/Referrals: Provider,Referral, [Primary Care Provider] - See instructions Activity Restrictions/Add. Instructions Additional Instructions/Restrictions: Please wear your shoulder immobilizer at all times until you are seen by orthopedic surgeon given its instability. Because of the chronic dislocations and very loose nature of your shoulder I recommend you follow-up with an orthopedic surgeon [facility] as you have had difficulty being evaluated and seen due to lack of insurance status at other places. You may call [phone] to make an appointment with [facility] orthopedic surgery. Clinical Impressions Clinical Impression: Anterior dislocation of left shoulder Print Language Print Language: Albanian Discharge ED Provider: Ashley Leavitt General Adult HPI General Chief complaint: Extremity Injury, Upper Stated complaint: shoulder pain Time Seen by Provider: 07/05/24 18:28 Mode of Arrival: EMS Source of Information: Patient Limitations: No Limitations Description of Symptoms (Recalled from ER Triage Doc. by RN): Patient states that while throwing a rope when his left shoulder went out of place. States this happens all the time. History of Present Illness HPI narrative: 49-year-old male presenting today with what he describes as a probable left shoulder dislocation. States this has happened many times in the past. Has followed up with the surgeon but given the fact that he does not have insurance has not been operated on. Was throwing a rope today and states that when out of place. Complains of severe pain very consistent with dislocation she has had in the past. Related Data Previous Rx's ?Medication ?Instructions ?Recorded esomeprazole magnesium 20 mg 20 mg PO DAILY GERD #90 tabs 03/25/21 tablet,delayed release levetiracetam 1,000 mg tablet 1,000 mg PO BID SEIZURES #180 tabs 03/25/21 Allergies Allergy/AdvReac Type Severity Reaction Status Date / Time No Known Allergies Allergy Verified 11/02/23 13:06 [facility] Disclaimer: The information contained in this section may have been updated after the patient was seen, as this information can be updated by other users. Social History Smoking Status: Unknown if ever smoked second hand exposure: Yes alcohol intake: former substance use type: denies use current occupational status: employed Travel in the last 8 weeks: None household members: spouse and friend(s) housing: house current occupational exposures/hazards: No caffeine: Yes ROS Obtained: Yes All systems reviewed & no additional complaints except as documented Physical Exam General General appearance: alert and in no apparent distress Respiratory Respiratory exam: Present normal lung sounds bilaterally Cardiovascular Cardiovascular exam: Present regular rate Extremities Exam Extremities exam: Present other (Positive sulcus sign on the left neurovascularly intact otherwise significant pain anterior shoulder) Neurological Exam Neurological exam: Present alert and oriented X3 Medical Decision Making Job Inquiry Pt receiving controlled substance: No Vital Signs: 07/05/24 18:15 07/05/24 18:19 07/05/24 18:31 Temperature 98.0 F Temperature Source Oral Pulse Rate 118 H 110 H Pulse Rate [Radial] 115 H Respiratory Rate 16 Blood Pressure 150/97 H 143/95 H Blood Pressure [Right Arm] 150/97 H Blood Pressure Mean [Right Arm] 114 Blood Pressure Source [Right Arm] Automatic Cuff Blood Pressure Position [Right Arm] Sitting 02 Sat by Pulse Oximetry 93 L 95 94 L Oxygen Delivery Method Room Air Room Air Room Air 07/05/24 18:42 07/05/24 20:15 Temperature 98.1 F Temperature Source Oral Pulse Rate 103 H Pulse Rate [Radial] 100 H Respiratory Rate 12 Blood Pressure 149/97 H Blood Pressure [Right Arm] 137/85 Blood Pressure Mean [Right Arm] 102 Blood Pressure Source [Right Arm] Automatic Cuff Blood Pressure Position [Right Arm] Sitting 02 Sat by Pulse Oximetry 98 97 Oxygen Delivery Method Room Air Room Air Orders (Tests/Meds): ORDERS Category Date Time Status Shoulder XR left minimum 2 views [XR shoulder LT min 2V Exams 07/05/24 20:56 Completed ] Stat XR shoulder LT min 2V Stat Exams 07/05/24 18:52 Completed Medical Decision Narrative: 49-year-old male with above history and physical likely a shoulder dislocation. Will get plain films for further evaluation will likely require sedation and reduction. X-ray showed anterior shoulder dislocation patient had a difficult sedation due to him having a lack of response and somewhat of an emergency phenomenon associate with the ketamine. He did require additional propofol and was successfully reduced clinically. I also reviewed the films with Dr. Ga Pompa who agreed as I was concerned about sending this patient out as he may not have any type of follow-up in 1 to make sure he was reduced and the reduction itself was unsatisfying and that I did not feel a definitive clunk. However it feels full and radiographically appears to be back in anatomic position. I did give him [facility] follow-up as she has had difficulty being evaluated and managed because of lack of insurance and he likely needs surgery for the lack of stability has been his shoulder. He is aware of all this he was placed in a shoulder immobilizer and will keep this on until he is seen by orthopedic surgery Procedures Orthopedic Joint Reduction Joint #1: Time Out Performed: Yes Side: left Joint Reduction Location: shoulder Analgesia: procedural sedation Shoulder Technique Used (if applicable): traction/counter-traction and external rotation Technique used: traction/counter-traction and direct manipulation Post-reduction neuro exam: intact Post-reduction vascular: intact Post Reduction X-Ray Obtained: Yes Post Reduction X-Ray Results: reduced Procedural Sedation Mallampati Score:: Class I Indication: fracture/dislocation reduction ASA Class: I Preparation: decision analyst applied, pulse oximeter, capnometry used, supplemental O2 applied, suction/airway equipment at bedside and IV secured Ketamine: IV Ketamine dose (mg): 160 IV Propofol dose (mg): 120 Patient Tolerated Procedure: other (Patient had a significant emergence reaction with ketamine and was not sedated with 2/kg dissociative dose with screaming and yelling requiring additional propofol for muscular relaxation he was given 120 mg of propofol without any significant loosening but he did calm down) Complications: none (No other significant complications) Interventions: oxygen applied Critical Care Critical Care Time Critical Care Time: No
--- NOTE | 2024-07-05 20:25 | PC.NURSE ---
and TRN at bedside. Patient signed consent prior to performing time out. Time out performed and patient name, , procedure confirmed with patient at bedside for Left shoulder reduction. Patient VU of procedure, and currently alert and oriented x4. Iv confirmed with patency, flushes well with blood return noted. Patient with cardiac monitoring, pulse ox, and end tidal CO2 in place before beginning procedure. Airway box present, along with crash cart, ambu bag, and suction set up. First dose of 80mg Ketamine verbally ordered per Dr. Leavitt at 2028 and administered per this RN through R AC. After initial dose of ketamine administered patient started to experience adverse reaction to medication a began to scream uncontrollably, clenching teeth, and uncooperative therefore unable to obtain BP for several minutes. After several following doses of ketamine as charted patient was not relaxed, nor tolerating procedure. VO given to TRN per , with MD request for addition of propofol to be pulled and drawn up. 10ml drawn up and handed to Dr. Leavitt at bedside for administration. Patient ended up receiving a total of 12ml of propofol administered between Dr. Leavitt, and Allan Alcocer PA-C. Procedure/reduction completed per , and xray contacted for imaging at 2054. After xray obtained, patient is becoming more responsive, following commands and alert to name. Patient placed in left arm sling and secured in place with help of Jennifer, RN, and SON Chacko.
[2024-07-05] MEDS: KETAMINE 50MG/1ML SYRINGE 160 MG IV (20:29)
[2024-07-05] MEDS: LACTATED RINGERS 1000ML 1,000 ML 999 ML IV (20:30)
[2024-07-05] MEDS: PROPOFOL 10MG/ML 20ML VIAL 120 MG IV (20:40)
--- NOTE | 2024-07-05 20:56 | XR_ITS ---
PROCEDURE INFORMATION: Exam: XR Left Shoulder Exam date and time: 07/05/2024 8:52 PM Age: 49 years old Clinical indication: Pain; Shoulder; Left; Patient HX: Post reduction; Additional info: Dislocation TECHNIQUE: Imaging protocol: Radiologic exam of the left shoulder. Views: 2 or more views. COMPARISON: CR XR SHOULDER LT MIN 2V 07/05/2024 7:19 PM FINDINGS: Bones/joints: Re-establishment of anatomic alignment at the glenohumeral joint. Soft tissues: Normal. IMPRESSION: Re-establishment of anatomic alignment at the glenohumeral joint.
--- NOTE | 2024-07-05 22:21 | PC.NURSE ---
Patient stating that he has to use the restroom. Tech in room at this time with urinal. Patient able to stand up independently at this time to urinate. He is back to baseline and alert and oriented x4. at bedside and reports that she will be driving patient home.
--- NOTE | 2024-07-05 22:26 | PC.NURSE ---
pt voided via urinal with standby assistance. family is at BS. call light within reach.
== END 2024-07-05 22:39 | disposition home or self-care (01) ==
PROVIDERS: Emergency Provider Student in an Organized Health Care Education/Training Program
DX: S43.015A Anterior dislocation of left humerus, initial encounter (principal); X50.0XXA Overexertion from strenuous movement or load, initial encounter
CPT/HCPCS: 99152; 23650; 73030; 96360; 99285; J7120

== ENCOUNTER 2024-10-02 02:10 | Emergency (ER) | payer SELFPAY ==
[2024-10-02 02:13] VITALS: BP 154/97; PULSE 105; RESP 20; TEMP 37.2; O2SAT 97; BMI 29.0
[2024-10-02 02:17] VITALS: BP 154/97; PULSE 107; O2SAT 94
[2024-10-02] MEDS: ONDANSETRON 4MG/2ML VIAL 4 MG IV (02:56)
[2024-10-02] MEDS: 0.9 % SODIUM CHLORIDE 1000ML 1,000 ML 999 ML IV (02:57)
--- NOTE | 2024-10-02 02:58 | HMH.EDGENADL ---
Discharge Plan Disposition Patient Disposition: Home, Self-Care Prescriptions Prescriptions: New ondansetron 4 mg tablet,disintegrating 4 mg PO TID PRN (Reason: nausea and vomiting) 3 Days Qty: 10 0RF No Action esomeprazole magnesium 20 mg tablet,delayed release (DR/EC) 20 mg PO DAILY Qty: 90 0RF levetiracetam 1,000 mg tablet 1,000 mg PO BID Qty: 180 0RF potassium chloride 20 mEq tablet,ER particles/crystals 20 meq PO DAILY multivit with min-folic acid [Multivitamin Gummies] 200 mcg Tablet,Chewable 1 tab PO DAILY Referrals Follow up/Referrals: Provider,Referral, MD [Primary Care Provider] - See instructions Activity Restrictions/Add. Instructions Additional Instructions/Restrictions: You were evaluated in the ER and are appropriate for discharge at this time. Take the prescribed ondansetron as directed if needed for nausea and vomiting. Drink plenty of water. You can continue to take acetaminophen (Tylenol), however you should not exceed 2000 mg (4 of the 500mg tablets). Take your oxycodone for breakthrough pain. Call your orthopedic doctor for other pain management recommendations. Follow-up with your primary care doctor for reevaluation in 2 days, they should recheck your potassium and liver levels. Also discuss your labs with your liver doctor. Return to the ER with new, worsening, or otherwise concerning symptoms. Clinical Impressions Clinical Impression: COVID, Hypokalemia, Nausea & vomiting, Transaminitis Instructions Patient Instructions: DI for Hypokalemia, DI for Nausea -- Adult, DI for COVID-19 (Suspected or Confirmed ) Print Language Print Language: Yi Discharge ED Provider: Pat White Adult [facility] General Chief complaint: Headache Stated complaint: VILLALPANDO,Vomiting Time Seen by Provider: 10/02/24 02:28 Mode of Arrival: Family Vehicle Source of Information: Patient, Significant Other and Medical Record Limitations: No Limitations Description of Symptoms (Recalled from ER Triage Doc. by RN): Pt presents to ER with c/o nausea with vomiting and headache. He recently had L shoulder surgery @ on 09/27. Roomate at bedside states pt has nausea medication at home but has not been taking it, reported that he forgot he had it . As well as taking maybe more Tylenol than he should . Roomate states he is taking Tylenol 500mg 6-8x daily. He does have Oxycodone but was not taking it d/t confusion with instructions. Pt does have a hx of Liver Cirrhosis and roomate concerned with the amount of tylenol he is taking with his hx of cirrhosis. Pt denies any vision changes. Denies any hx of migraines. Denies any cough, SOA, dyspnea, or chest pain. No documented fever. Denies any falls, trauma, or recent injuries. History of Present Illness HPI narrative: 49-year-old male presents to the ER with complaints of vomiting, cough, headache. Patient states symptoms onset approximately 3 to 4 hours ago. Patient reports he had left shoulder surgery at on September 27. His reports patient has nausea medication at home from his surgery but has not been taking it. She is concerned patient may be taking more Tylenol than he should because of his known history of cirrhosis, patient reports taking a maximum of 6-8 500 mg Tylenol total per day. He has not noticed any jaundice, abdominal swelling, or other symptoms. He does have a history of esophageal varices in 2020, also has a history of TIPS procedure. Patient is not on the transplant list. Patient reports he has oxycodone but has only been taking it up to once a day because he is afraid to become addicted to it. Patient denies vision changes, numbness, tingling, weakness, ringing in the ears or hearing changes, shortness of breath, chest pain, diarrhea, dysuria, or hematuria. Patient states the wounds have been healing well, he has not had any abnormal discharge or worsening pain in the shoulder. Patient reports he vomited 5 times with no blood or bile. ROS otherwise negative. Related Data Home Medications ?Medication ?Instructions ?Recorded ?Confirmed multivitamin with minerals-folic 1 tab PO DAILY 10/02/24 10/02/24 acid 200 mcg chewable tablet (Multivitamin Gummies) potassium chloride 20 mEq 20 meq PO DAILY 10/02/24 10/02/24 tablet,extended release(part/cryst) Previous Rx's ?Medication ?Instructions ?Recorded esomeprazole magnesium 20 mg 20 mg PO DAILY GERD #90 tabs 03/25/21 tablet,delayed release levetiracetam 1,000 mg tablet 1,000 mg PO BID SEIZURES #180 tabs 03/25/21 ondansetron 4 mg disintegrating 4 mg PO TID PRN nausea and 10/02/24 tablet vomiting 3 days #10 tabs Allergies Allergy/AdvReac Type Severity Reaction Status Date / Time No Known Allergies Allergy Verified 11/02/23 13:06 [facility] Disclaimer: The information contained in this section may have been updated after the patient was seen, as this information can be updated by other users. Social History Smoking Status: Unknown if ever smoked second hand exposure: Yes alcohol intake: former substance use type: denies use current occupational status: employed Travel in the last 8 weeks: None household members: spouse and friend(s) housing: house current occupational exposures/hazards: No caffeine: Yes Other Medical History Have you received the Flu Vaccine for this season: No Have you received the Pneumonia Vaccine: No ROS Obtained: Yes Systems reviewed as appropriate & no additional complaints except as documented ROS per HPI Physical Exam General General appearance: alert and in no apparent distress Head Head exam: atraumatic and normocephalic Eye Eye exam: Present PERRL and EOMI ENT ENT exam: Present mucous membranes dry (Mildly dry) Neck Neck exam: Present normal inspection and full ROM Chest Chest inspection: Present symmetric chest wall rise Respiratory Respiratory exam: Present normal lung sounds bilaterally; Absent respiratory distress, wheezes or stridor Cardiovascular Cardiovascular exam: Present regular rate and normal rhythm Abdominal Exam Abdominal exam: Present soft; Absent distention, tenderness, guarding or rebound Extremities Exam Extremities exam: Present full ROM and other (Sling on left upper extremity, wounds on the left shoulder are clean, dry, well-approximated, no findings of infection, neurovascularly intact in the left upper extremity) Neurological Exam Neurological exam: Present alert and oriented X3; Absent motor sensory deficit Psychiatric Psychiatric exam: Present normal affect and normal mood Skin Skin exam: Present warm and dry Medical Decision Making Medical Records Medical records reviewed: Yes I reviewed the patient's medical records. Screening: Per USPSTF and CDC recommendations, given the prevalence of disease in our region, it is our hospital?s policy to screen for HIV and viral Hepatitis for all patients aged 18 and over and those with ongoing risk factors. MR Comment: Most recent orthopedics note from Dr. 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 Plan at that time was for MRI for potential surgical planning. Since that time patient had had shoulder dislocation reduced in our ER. He was referred to for orthopedic surgery which patient reports was performed on 09/27/2024 Job Inquiry Pt receiving controlled substance: No Vital Signs: 10/02/24 02:13 10/02/24 02:17 10/02/24 03:33 Temperature 98.9 F Temperature Source Oral Pulse Rate 107 H 88 Pulse Rate [Right] 105 H Respiratory Rate 20 15 Blood Pressure 154/97 H 145/92 H Blood Pressure [Right Arm] 154/97 H Blood Pressure Mean [Right Arm] 116 Blood Pressure Source [Right Arm] Automatic Cuff 02 Sat by Pulse Oximetry 97 94 L 95 Oxygen Delivery Method Room Air 10/02/24 04:37 Temperature 98.6 F Temperature Source Oral Pulse Rate 86 Pulse Rate [Right] Respiratory Rate 20 Blood Pressure 146/88 H Blood Pressure [Right Arm] Blood Pressure Mean [Right Arm] Blood Pressure Source [Right Arm] 02 Sat by Pulse Oximetry Oxygen Delivery Method Room Air Lab Data Lab Results 10/02/24 02:20: WBC 5.3, RBC 4.86, Hgb 16.2, Hct 47.2, MCV 97.0 H, MCH 33.4 H, MCHC 34.4, RDW 15.1, Plt Count 119 L, MPV 8.0, Neut % (Auto) 73.3, Lymph % (Auto) 11.3, [place] % (Auto) 6.6, Eos % (Auto) 7.3, Baso % (Auto) 1.6, Neut # (Auto) 3.9, Lymph # (Auto) 0.6 L, [place] # (Auto) 0.4, Eos # (Auto) 0.4, Baso # (Auto) 0.1, PT 12.4, INR 1.12 H, Sodium 135 L, Potassium 2.7 L*, Chloride 102, Carbon Dioxide 25, Anion Gap 10.7, BUN 5 L, Creatinine 0.70, Estimated Creat Clear 146, Estimated GFR 119, Est GFR ( Amer) 144, Glucose 141 H, Calcium 8.3 L, Total Bilirubin 2.1 H, AST 136 H, ALT 65, Alkaline Phosphatase 136 H, Troponin I < 0.01, NT-Pro-B Natriuret Pep 169 H, Total Protein 7.4, Albumin 3.8, Globulin 3.6 H, Albumin/Globulin Ratio 1.1 10/02/24 03:03: SARS-CoV-2 (PCR) Detected A, Influenza A Untype (PCR) Not detected, Influenza Type B (PCR) Not detected 10/02/24 04:02: Acetaminophen < 10 L 10/02/24 02:20 10/02/24 02:20 Orders (Tests/Meds): ED MEDICATIONS Discontinued Medications Generic Name Dose Route Start Last Admin Trade Name Freq PRN Reason Stop Dose Admin Sodium Chloride 1,000 mls @ 999 mls/hr 10/02/24 02:48 10/02/24 02:57 Sod Chlor 0.9% 1000ml Bag IV 10/02/24 03:48 999 mls/hr .Q1H1M ONE Administration Ketorolac Tromethamine 15 mg 10/02/24 03:50 10/02/24 03:58 Ketorolac 30mg/Ml Vial IV 10/02/24 03:51 15 mg ONCE ONE Administration Ondansetron HCl 4 mg 10/02/24 02:49 10/02/24 02:56 Ondansetron 4mg/2ml Vial IV 10/02/24 02:50 4 mg ONCE ONE Administration Potassium Chloride 80 meq 10/02/24 03:16 10/02/24 03:36 Potassium Chloride 20meq Tab PO 10/02/24 03:17 80 meq ONCE ONE Administration ORDERS Category Date Time Status CXR --portable [XR chest portable] Stat Exams 10/02/24 03:25 Completed Acetaminophen Stat Lab 10/02/24 04:02 Completed BNP [NT Pro Brain Natriuretic Pep.] Stat Lab 10/02/24 02:20 Completed CBC w/Auto Diff [Complete Blood Count Auto Diff] Stat Lab 10/02/24 02:20 Completed CMP [Comprehensive Metabolic Panel] Stat Lab 10/02/24 02:20 Completed HIV (1&2) Antibody Rapid Stat Lab 10/02/24 02:20 Received Hep C Ab with Reflex to RNA Stat Lab 10/02/24 02:20 Received PT INR [Prothrombin Time INR] Stat Lab 10/02/24 02:20 Completed Rapid PCR Covid and Flu A/B Stat Lab 10/02/24 03:03 Completed Trop I [Troponin I] Stat Lab 10/02/24 02:20 Completed Troponin I Q3H Lab 10/02/24 06:30 Ordered Troponin I Q3H Lab 10/02/24 09:30 Ordered ECG Request Stat Y 10/02/24 03:25 Ordered Medical Decision Narrative: In summary, this 49-year-old male with history of cirrhosis, TIPS presents to the emergency department today with headache, vomiting, cough that all started approximately 4 hours prior to arrival. On initial evaluation patient is hemodynamically stable, afebrile, patient and are concerned about possibly taking too much Tylenol for his liver function level, patient has no abdominal tenderness, no fluid wave, no jaundice, left shoulder incisions appear well without findings of infection, neurovascularly intact distally, no neurologic deficits throughout, PERRL. Differential diagnosis includes but is not limited to electrolyte abnormality, dehydration, kidney dysfunction, transaminitis/hepatic dysfunction, elevated PT/INR, thrombocytopenia, I considered that patient's onset of symptoms are likely related to viral syndrome. Based on these concerns, I ordered serum labs, viral swab. Patient has a nonacute abdomen, and normal neuroexam with mild generalized headache, no thunderclap or sudden onset I do not believe he requires any imaging. Patient received IV fluids and Zofran initially for treatment. Labs personally reviewed demonstrate hypokalemia, potassium 2.7, patient is receiving repletion, CMP also demonstrates trace hyponatremia which is similar to prior, patient has good kidney function, his AST and alkaline phosphatase are somewhat elevated above prior, this is possibly related to him taking 3 g of Tylenol over 24 hours vs his known liver disease, however his bilirubin is decreased from prior now 2.1 from 3.0 just over 1 year ago. If patient's transaminitis was related to acetaminophen ingestion, I would expect more acute, severe elevation than what he is exhibiting. Patient reported to nursing he is having mild shortness of breath. He was laying flat in bed at the time and reports that when he does that, he often struggles to breathe, he was set up in bed and it improved. He is reporting cough with his other symptoms. He is saturating well on room air with no findings of respiratory distress, cardiopulmonary exam remains benign. He reports no chest pain or pressure IV fluids were slowed, I have low suspicion for but considered the possibility of ACS so out of an abundance of caution ECG, chest x-ray, troponin, BNP were added to workup. Patient has not had any change in clinical status or exam and I believe his symptoms are more likely related to a viral syndrome. ECG personally interpreted demonstrates normal sinus rhythm, rate 88, normal axis, normal OK and QTc, no STEMI. XR personally interpreted demonstrates no acute intrathoracic abnormality, see radiology read for final interpretation. Additional labs personally reviewed demonstrate no leukocytosis or anemia, platelets are slightly low at 119, however this is improved from prior, PT/INR nonactionable, unremarkable. I added an acetaminophen level to patient's workup, though this would be a chronic ingestion type toxicity and acetaminophen level is less valuable, he did most recently take acetaminophen around midnight which is now 4 hours ago which adds some value to the test. Amberly Gilmore nomogram not applicable due to chronic congestion. Acetaminophen level resulted undetectable, this is reassuring that patient is processing acetaminophen well. Initial troponin undetectably low at less than 0.01, BNP slightly elevated at 169. I personally interpreted chest x-ray which demonstrates chronic stable findings, slight increase in the size of the cardiac silhouette, no acute intrathoracic abnormality. See radiology read for final interpretation. COVID test is positive. This fully explains all of patient's symptoms. I reviewed all lab and imaging results with the patient and family at bedside. I recommended prescription for Paxlovid with the patient given his comorbidities, he refused this prescription. Patient is appropriate for discharge at this time. I do not believe he requires serial troponins since his mild shortness of breath improved after being sat up and he stated it is common for him to get short of breath while laying flat. All his other symptoms are well explained by the COVID infection. His pain is controlled. He is appropriate for outpatient follow-up. I discussed at length appropriate acetaminophen use at home with guidance of taking less than 2000 mg daily consistent with current evidence of acetaminophen use in chronic liver patients. I discussed the use of ibuprofen, advising it could increase his risk of bleeding in the setting of esophageal varices and should be avoided. I encouraged him to use his oxycodone up to the amount/frequency prescribed for pain control. I also encouraged him to follow-up with his orthopedic doctor and discuss other pain management recommendations. Additionally, I recommended close follow-up with primary care and his liver team to recheck potassium and transaminases. Patient and report he is already on potassium at home because his last checkup also showed low potassium, this has been a chronic problem for him. I prescribed ondansetron for outpatient management of nausea and vomiting, encouraged him to drink plenty of fluids including electrolyte drinks. Patient and indicated understanding and the patient was discharged in stable condition. Critical Care Critical Care Time Critical Care Time: No
[2024-10-02 03:08] LABS: Chloride 102 mmol/L (98-107)
[2024-10-02 03:08] LABS: Influenza A, PCR Not Detected (NotDetected); Influenza B, PCR Not Detected (NotDetected)
[2024-10-02 03:09] LABS: Sodium 135 mmol/L (136-145)
[2024-10-02 03:11] LABS: Blood Urea Nitrogen 5 mg/dl (9-20); Creatinine Clearance Estimated 146 mL/min (50-200); Estimated Glomerular Filt Rate 119 ml/min (>60); GFR (African American) 144 ML/MIN (>60); INR 1.12 (0.9-1.1); Prothrombin Time 12.4 seconds (10.1-12.5)
[2024-10-02 03:12] LABS: Alanine Aminotransferase 65 U/L (12-78); Alkaline Phosphatase 136 U/L (38-126); Aspartate Amino Transferase 136 U/L (17-59); Bilirubin,Total 2.1 mg/dl (0.2-1.3); Calcium 8.3 mg/dl (8.4-10.2); Carbon Dioxide 25 mmol/L (22.0-30.0); Glucose 141 mg/dl (74-100)
[2024-10-02 03:16] LABS: Anion Gap 10.7 mEq/L (5-15); Potassium 2.7 mmoL/L (3.5-5.1)
[2024-10-02 03:17] LABS: Total Protein,Serum 7.4 g/dl (6.3-8.2)
[2024-10-02 03:18] LABS: Albumin Level 3.8 g/dl (3.5-5.0); Albumin/Globulin Ratio 1.1 (1.1-1.8); Globulin 3.6 g/dL (1.3-3.2)
--- NOTE | 2024-10-02 03:20 | PC.NURSE ---
Dr. White notified of pt's critical potassium
--- NOTE | 2024-10-02 03:25 | XR_ITS ---
PROCEDURE INFORMATION: Exam: XR Chest Exam date and time: 10/02/2024 3:31 AM Age: 49 years old Clinical indication: Shortness of breath; Additional info: SOA TECHNIQUE: Imaging protocol: Radiologic exam of the chest. Views: 1 view. COMPARISON: CT ANGIO CHEST PE PROTOCOL 09/01/2023 12:21 PM FINDINGS: Lungs: Unremarkable. No consolidation. Pleural spaces: Unremarkable. No pleural effusion. No pneumothorax. Heart/Mediastinum: Unremarkable. No cardiomegaly. Bones/joints: Unremarkable. IMPRESSION: No acute findings.
[2024-10-02 03:26] LABS: Basophils # 0.1 K/mm3 (0-0.2); Basophils % 1.6 % (0.1-2.0); Eosinophils # 0.4 K/mm3 (0.0-0.4); Eosinophils % 7.3 % (0.1-12.0); Hematocrit 47.2 % (42.0-52.0); Hemoglobin 16.2 g/dL (14.1-18.0); Lymphocytes # 0.6 K/mm3 (0.7-4.5); Lymphocytes % 11.3 % (10-50); Mean Corpuscular HGB Conc 34.4 g/dL (31.8-35.4); Mean Corpuscular Hemoglobin 33.4 pg (27.0-31.2); Monocytes # 0.4 K/mm3 (0.1-1.0); Monocytes % 6.6 % (1.7-9.3); Neutrophils # 3.9 K/mm3 (1.8-7.8); Neutrophils % 73.3 % (37.0-80.0); Platelet Count 119 K/mm3 (142-424); Red Blood Count 4.86 M/mm3 (4.60-6.20); Red Cell Distribution Width 15.1 % (11.5-17.5); White Blood Count 5.3 K/mm3 (4.8-10.8)
--- NOTE | 2024-10-02 03:30 | ECG_ITS ---
APPROVED REPORT Exam: Resting ECG HR:88 bpm ECG Measurements Heart Rate 88 AXES WA 129 P 45 QRSd 93 QRS 1 QT 399 T 14 QTc 445 Conclusion SINUS RHYTHM NORMAL ECG Electronically signed by : MARIELLA NAJERA, 10/02/2024 06:49:23
[2024-10-02 03:33] VITALS: BP 145/92; PULSE 88; RESP 15; O2SAT 95
[2024-10-02] MEDS: POTASSIUM CHLORIDE 20MEQ TAB 80 MEQ PO (03:36)
[2024-10-02 03:58] LABS: NT Pro Brain Natriuretic Pep. 169 pg/mL (0-125)
[2024-10-02] MEDS: KETOROLAC 30MG/ML VIAL 15 MG IV (03:58)
[2024-10-02 04:19] LABS: Troponin I < 0.01 ng/ml (0.00-0.034)
[2024-10-02 04:25] LABS: Acetaminophen < 10 ug/ml (10-30)
[2024-10-02 04:29] LABS: Coronavirus 19, PCR Detected (NotDetected)
[2024-10-02 04:37] VITALS: BP 146/88; PULSE 86; RESP 20; TEMP 37; O2SAT 97
[2024-10-02 09:42] LABS: HIV (1&2) Antibody Rapid NONREACTIVE (NONREACTIVE)
[2024-10-03 09:28] LABS: HCV Ab Non Reactive (Non Reactive)
== END 2024-10-02 04:52 | disposition home or self-care (01) ==
PROVIDERS: Emergency Provider Emergency Medicine
DX: R74.01 Elevation of levels of liver transaminase levels (principal); E87.6 Hypokalemia; U07.1 COVID-19; R11.2 Nausea with vomiting, unspecified; R51.9 Headache, unspecified; R05.9 Cough, unspecified
CPT/HCPCS: 71045; 80053; 80329; 83880; 84484; 85025; 85610; 86803; 87389; 87636; 93005; 96361; 96374; 96375; 99284; G0480; J1885; J2405; J7030

== ENCOUNTER 2025-02-01 03:37 | Emergency (ER) | payer SELFPAY ==
[2025-02-01 03:45] VITALS: BP 133/87; PULSE 96; O2SAT 97
[2025-02-01 03:46] VITALS: BP 133/87; PULSE 111; RESP 18; TEMP 36.9; O2SAT 96; BMI 29.1
--- NOTE | 2025-02-01 03:47 | XR_ITS ---
PROCEDURE INFORMATION: Exam: XR Chest Exam date and time: 02/01/2025 3:59 AM Age: 49 years old Clinical indication: Shortness of breath; Additional info: SOA TECHNIQUE: Imaging protocol: Radiologic exam of the chest. Views: 1 view. COMPARISON: CR XR CHEST PORTABLE 10/02/2024 3:31 AM FINDINGS: Lungs: Unremarkable. No consolidation. Pleural spaces: Unremarkable. No pleural effusion. No pneumothorax. Heart/Mediastinum: Unremarkable. No cardiomegaly. Bones/joints: Unremarkable. IMPRESSION: No acute findings.
--- NOTE | 2025-02-01 03:50 | ED_ITS ---
Discharge Plan Disposition Patient Disposition: Home, Self-Care Prescriptions Prescriptions: New ondansetron HCl 4 mg tablet 4 mg PO Q8H PRN (Reason: nausea and vomiting) 5 Days Qty: 30 0RF oseltamivir 75 mg capsule 75 mg PO BID 5 Days Qty: 10 0RF No Action esomeprazole magnesium 20 mg tablet,delayed release (DR/EC) 20 mg PO DAILY Qty: 90 0RF levetiracetam 1,000 mg tablet 1,000 mg PO BID Qty: 180 0RF potassium chloride 20 mEq tablet,ER particles/crystals 20 meq PO DAILY multivit with min-folic acid [Multivitamin Gummies] 200 mcg Tablet,Chewable 1 tab PO DAILY ondansetron 4 mg tablet,disintegrating 4 mg PO TID PRN (Reason: nausea and vomiting) 3 Days Qty: 10 0RF Referrals Follow up/Referrals: Provider,Referral, MD [Primary Care Provider] - See instructions Activity Restrictions/Add. Instructions Additional Instructions/Restrictions: Please take Tamiflu as prescribed. Please take Zofran as needed for nausea and vomiting. Please follow-up with your primary care provider. Please return to the emergency department if you develop any new or worsening symptoms or become concerned for your health. Clinical Impressions Clinical Impression: Influenza A, Headache Print Language Print Language: Greek Discharge ED Provider: Juancho Dee Adult HPI General Chief complaint: Headache Stated complaint: trouble breathing, [place] Time Seen by Provider: 02/01/25 03:40 Mode of Arrival: Ambulatory Source of Information: Patient Description of Symptoms (Recalled from ER Triage Doc. by RN): pt presents with c/o SOA that began last night with associated headache and nausea. History of Present Illness HPI narrative: 49-year-old male with history of cirrhosis presents for flulike illness. He reports he has a headache that is been getting worse the last couple of hours. He is also having muscle aches, nausea with some vomiting. The vomitus is nonbloody nonbilious. He also feels a little short of breath. He feels like he had a fever earlier today but did not check his temperature. Related Data Home Medications ?Medication ?Instructions ?Recorded ?Confirmed multivitamin with minerals-folic 1 tab PO DAILY 10/02/24 10/02/24 acid 200 mcg chewable tablet (Multivitamin Gummies) potassium chloride 20 mEq 20 meq PO DAILY 10/02/24 10/02/24 tablet,extended release(part/cryst) Previous Rx's ?Medication ?Instructions ?Recorded esomeprazole magnesium 20 mg 20 mg PO DAILY GERD #90 tabs 03/25/21 tablet,delayed release levetiracetam 1,000 mg tablet 1,000 mg PO BID SEIZURES #180 tabs 03/25/21 ondansetron 4 mg disintegrating 4 mg PO TID PRN nausea and 10/02/24 tablet vomiting 3 days #10 tabs ondansetron HCl 4 mg tablet 4 mg PO Q8H PRN nausea and 02/01/25 vomiting 5 days #30 tabs oseltamivir 75 mg capsule 75 mg PO BID 5 days #10 caps 02/01/25 Allergies Allergy/AdvReac Type Severity Reaction Status Date / Time No Known Allergies Allergy Verified 11/02/23 13:06 [facility] Disclaimer: The information contained in this section may have been updated after the patient was seen, as this information can be updated by other users. Social History Smoking Status: Current every day smoker tobacco type: cigarettes packs per day: 1 second hand exposure: Yes alcohol intake: former substance use type: denies use current occupational status: employed Travel in the last 8 weeks: None household members: spouse and friend(s) housing: house current occupational exposures/hazards: No caffeine: Yes Have you lived/traveled outside [place] in past 30 days?: No Contact w/someone who lives/traveled outside US past 30 days?: No Exposure to someone with infectious disease in past 14 days?: No Do you have a fever (greater than 100.4 F or 38 C)?: No Have you tested positive for COVID-19: No Exposed to someone with COVID-19 in past 14 days?: No Do you have a sore throat?: No Do you have a cough?: No Do you have any weakness?: No Do you have any diarrhea?: No Are you experiencing any unusual bleeding?: No Do you have any muscle aches/pain?: No Do you have any abdominal pain?: No Are you experiencing loss of taste or smell?: No Other Medical History Have you received the Flu Vaccine for this season: No Have you received the Pneumonia Vaccine: No ROS Obtained: Yes All systems reviewed & no additional complaints except as documented Physical Exam General General appearance: alert and in no apparent distress Head Head exam: atraumatic and normocephalic Eye Eye exam: Present normal appearance, PERRL and EOMI ENT ENT exam: Present normal oropharynx and normal external ear exam Neck Neck exam: Present normal inspection and full ROM Chest Chest inspection: Present normal inspection and symmetric chest wall rise; Absent tenderness Respiratory Respiratory exam: Present normal lung sounds bilaterally; Absent respiratory distress Cardiovascular Cardiovascular exam: Present regular rate and normal rhythm Abdominal Exam Abdominal exam: Present soft; Absent distention, tenderness or guarding Extremities Exam Extremities exam: Present normal inspection; Absent edema or joint swelling Back Exam Back exam: Present normal inspection; Absent tenderness Neurological Exam Neurological exam: Present alert and oriented X3; Absent motor sensory deficit Psychiatric Psychiatric exam: Present normal affect and normal mood Skin Skin exam: Present warm, dry and normal color Lymphatic Lymphatic Findings: no adenopathy Medical Decision Making Medical Records Medical records reviewed: Yes I reviewed the patient's medical records. Screening: Per USPSTF and CDC recommendations, given the prevalence of disease in our region, it is our hospital?s policy to screen for HIV and viral Hepatitis for all patients aged 18 and over and those with ongoing risk factors. Job Inquiry Pt receiving controlled substance: No Job was queried for this patient: No Vital Signs: 02/01/25 03:45 02/01/25 03:46 02/01/25 04:00 Temperature 98.4 F Temperature Source Oral Pulse Rate 96 H 93 H Pulse Rate [Radial] 111 H Respiratory Rate 18 Blood Pressure 133/87 130/83 Blood Pressure [Right Arm] 133/87 Blood Pressure Mean [Right Arm] 102 02 Sat by Pulse Oximetry 97 96 94 L Oxygen Delivery Method Room Air Room Air Room Air 02/01/25 04:30 02/01/25 05:00 02/01/25 05:26 Temperature 97.3 F L Temperature Source Pulse Rate 90 87 Pulse Rate [Radial] Respiratory Rate 17 18 20 Blood Pressure 129/75 127/74 127/64 Blood Pressure [Right Arm] Blood Pressure Mean [Right Arm] 02 Sat by Pulse Oximetry 96 99 Oxygen Delivery Method Room Air Room Air Room Air Lab Data Lab results reviewed: Yes I reviewed the patient's lab results. Lab Results 02/01/25 03:46: SARS-CoV-2 (PCR) Not detected, Influenza A Untype (PCR) Detected A, Influenza Type B (PCR) Not detected 02/01/25 03:57: WBC 3.2 L, RBC 4.71, Hgb 15.5, Hct 44.2, MCV 93.8, MCH 32.9 H, MCHC 35.1, RDW 14.6, Plt Count 91 L, MPV 11.2 H, Neut % (Auto) 72.3, Lymph % (Auto) 12.0, [place] % (Auto) 10.1 H, Eos % (Auto) 2.8, Baso % (Auto) 2.2 H, Neut # (Auto) 2.3, Lymph # (Auto) 0.4 L, [place] # (Auto) 0.3, Eos # (Auto) 0.1, Baso # (Auto) 0.1, D-Dimer 0.35, Sodium 133 L, Potassium 3.2 L, Chloride 99, Carbon Dioxide 25, Anion Gap 12.2, BUN 3 L, Creatinine 0.60 L, Estimated Creat Clear 165, Estimated GFR 143, Est GFR ( Amer) 173, Glucose 173 H, Calcium 8.2 L , Total Bilirubin 3.6 H, AST 202 H, ALT 96 H, Alkaline Phosphatase 153 H, Troponin I < 0.01, Total Protein 7.9, Albumin 4.2, Globulin 3.7 H, Albumin/Globulin Ratio 1.1 02/01/25 04:12: PT 12.9 H, INR 1.17 H 02/01/25 03:57 02/01/25 03:57 Orders (Tests/Meds): ED MEDICATIONS Discontinued Medications Generic Name Dose Route Start Last Admin Trade Name Freq PRN Reason Stop Dose Admin Acetaminophen 1,000 mg 02/01/25 03:46 02/01/25 04:03 Acetaminophen 500mg Tab PO 02/01/25 03:47 1,000 mg ONCE ONE Administration Sodium Chloride 1,000 mls @ 999 mls/hr 02/01/25 04:00 02/01/25 04:03 Sod Chlor 0.9% 1000ml Bag IV 02/01/25 05:00 999 mls/hr .Q1H1M VINOD Administration Magnesium Sulfate 2 gm in 50 mls @ 150 mls/hr 02/01/25 03:46 02/01/25 04:04 Magnesium Sulfate 2gm/50ml Premix IV 02/01/25 04:05 150 mls/hr ONCE ONE Administration Ketorolac Tromethamine 30 mg 02/01/25 03:46 02/01/25 04:03 Ketorolac 30mg/Ml Vial IV 02/01/25 03:47 30 mg ONCE ONE Administration Prochlorperazine Edisylate 10 mg 02/01/25 03:46 02/01/25 04:03 Prochlorperazine 10mg/2ml Vial IV 02/01/25 03:47 10 mg ONCE ONE Administration ORDERS Category Date Time Status CXR --portable [XR chest portable] Stat Exams 02/01/25 03:47 Completed CBC w/Auto Diff [Complete Blood Count Auto Diff] Stat Lab 02/01/25 03:57 Completed CMP [Comprehensive Metabolic Panel] Stat Lab 02/01/25 03:57 Completed D-Dimer Stat Lab 02/01/25 03:57 Completed INR [Prothrombin Time INR] Stat Lab 02/01/25 04:12 Completed Rapid PCR Covid and Flu A/B Stat Lab 02/01/25 03:46 Completed Troponin I Q3H Lab 02/01/25 03:57 Completed ECG Data Tracing #1: I reviewed this ECG and interpreted as documented below: ECG initial impression date: 02/01/25 ECG initial impression time: 03:58 ECG normal with no acute: arrhythmias, ischemia, conduction abnormalities, chamber hypertrophy Normal Sinus Rhythm: Yes HEART Score History (anamnesis): Slightly suspicious ECG: Normal Age: 45-65 years Risk factors: 1-2 risk factors Troponin: </= normal limit HEART Score: 2 Medical Decision Narrative: 49-year-old male with history of cirrhosis presents with flulike illness x 1 day. History was obtained via interactive discussion with patient. On arrival, patient is [afebrile, hemodynamically stable, satting appropriately, alert, oriented x4, GCS 15], moving all extremities spontaneously. Full physical exam performed and significant for clear lungs bilaterally, no neurodeficits Differential includes but is not limited to flu, COVID, URI, pneumonia, PE ACS tension headache, migraine headache, intracranial pathology. Patient was given Tylenol Toradol IV magnesium and Compazine for treatment of headache. Workup initiated including CBC CMP COVID flu D-dimer EKG chest x-ray troponin. On re-evaluation, patient reports marked symptomatic improvement. Headache resolved. Laboratory workup independently interpreted by me and significant for findings consistent with cirrhosis with mild leukocytopenia and thrombocytopenia, mildly elevated INR, mild electrolyte derangements and liver enzyme elevation. Negative initial troponin. Given low concern for ACS, single troponin will suffice. D-dimer negative. Flu a positive. Imaging independently interpreted by me and significant for clear lungs bilaterally without focal opacity. See radiology read for full review of final results. Admission was considered, but deemed unnecessary due to history and exam.. Given patient history, exam and workup, patient's presentation most likely represents acute influenza A infection. Interactive discussion with outpatient pain regarding his presentation. Given his comorbidities, recommended he initiate Tamiflu. Patient was given prescription for Tamiflu and Zofran and discharged in stable condition with strict return precautions. Procedures Risk/Benefits of Procedure(s) Were Explained: Yes Critical Care Critical Care Time Critical Care Time: No
[2025-02-01 03:53] LABS: Coronavirus 19, PCR Not Detected (NotDetected); Influenza B, PCR Not Detected (NotDetected)
--- NOTE | 2025-02-01 03:57 | ECG_ITS ---
APPROVED REPORT Exam: Resting ECG HR:92 bpm ECG Measurements Heart Rate 92 AXES MA 125 P 80 QRSd 97 QRS 72 QT 372 T 65 QTc 422 Conclusion SINUS RHYTHM NORMAL ECG UNCONFIRMED REPORT Electronically signed by : CHAIM SANTIAGO, 02/01/2025 06:48:40
[2025-02-01 04:00] VITALS: BP 130/83; PULSE 93; O2SAT 94
[2025-02-01] MEDS: ACETAMINOPHEN 500MG TAB 1000 MG PO (04:03)
[2025-02-01] MEDS: PROCHLORPERAZINE 10MG/2ML VIAL 10 MG IV (04:03)
[2025-02-01] MEDS: 0.9 % SODIUM CHLORIDE 1000ML 1,000 ML 999 ML IV (04:03)
[2025-02-01] MEDS: KETOROLAC 30MG/ML VIAL 30 MG IV (04:03)
[2025-02-01] MEDS: MAGNESIUM SULFATE IN WATER 2 GM/50 ML PIGGYBACK IV (04:04)
[2025-02-01 04:24] LABS: Albumin Level 4.2 g/dl (3.5-5.0); Chloride 99 mmol/L (98-107); Potassium 3.2 mmoL/L (3.5-5.1); Sodium 133 mmol/L (136-145)
[2025-02-01 04:27] LABS: Alanine Aminotransferase 96 U/L (12-78); Albumin/Globulin Ratio 1.1 (1.1-1.8); Alkaline Phosphatase 153 U/L (38-126); Anion Gap 12.2 mEq/L (5-15); Aspartate Amino Transferase 202 U/L (17-59); Bilirubin,Total 3.6 mg/dl (0.2-1.3); Blood Urea Nitrogen 3 mg/dl (9-20); Carbon Dioxide 25 mmol/L (22.0-30.0); Creatinine Clearance Estimated 165 mL/min (50-200); Estimated Glomerular Filt Rate 143 ml/min (>60); GFR (African American) 173 ML/MIN (>60); Globulin 3.7 g/dL (1.3-3.2); Total Protein,Serum 7.9 g/dl (6.3-8.2)
[2025-02-01 04:28] LABS: Calcium 8.2 mg/dl (8.4-10.2); Glucose 173 mg/dl (74-100)
[2025-02-01 04:30] VITALS: BP 129/75; PULSE 90; RESP 17; O2SAT 96
[2025-02-01 04:30] LABS: INR 1.17 (0.9-1.1); Prothrombin Time 12.9 seconds (10.1-12.5)
[2025-02-01 04:34] LABS: Basophils # 0.1 K/mm3 (0-0.2); Basophils % 2.2 % (0.1-2.0); Eosinophils # 0.1 K/mm3 (0.0-0.4); Eosinophils % 2.8 % (0.1-12.0); Hematocrit 44.2 % (42.0-52.0); Hemoglobin 15.5 g/dL (14.1-18.0); Lymphocytes # 0.4 K/mm3 (0.7-4.5); Mean Corpuscular HGB Conc 35.1 g/dL (31.8-35.4); Mean Corpuscular Hemoglobin 32.9 pg (27.0-31.2); Mean Corpuscular Volume 93.8 fl (80-94); Mean Platelet Volume 11.2 fl (7.4-10.4); Monocytes # 0.3 K/mm3 (0.1-1.0); Monocytes % 10.1 % (1.7-9.3); Neutrophils # 2.3 K/mm3 (1.8-7.8); Neutrophils % 72.3 % (37.0-80.0); Platelet Count 91 K/mm3 (142-424); Red Blood Count 4.71 M/mm3 (4.60-6.20); Red Cell Distribution Width 14.6 % (11.5-17.5); White Blood Count 3.2 K/mm3 (4.8-10.8)
[2025-02-01 04:44] LABS: Troponin I < 0.01 ng/ml (0.00-0.034)
[2025-02-01 04:45] LABS: D-Dimer 0.35 ug/mL (0.0-0.5)
--- NOTE | 2025-02-01 04:50 | PC.NURSE ---
pt reports improvement in headache
[2025-02-01 05:00] VITALS: BP 127/74; RESP 18; O2SAT 99
[2025-02-01 05:07] LABS: Influenza A, PCR Detected (NotDetected)
--- NOTE | 2025-02-01 05:18 | PC.NURSE ---
provider at the bedside updating pt on POC
[2025-02-01 05:26] VITALS: BP 127/64; PULSE 87; RESP 20; TEMP 36.3; O2SAT 99
== END 2025-02-01 05:26 | disposition home or self-care (01) ==
PROVIDERS: Emergency Provider Emergency Medicine
DX: J09.X2 Influenza due to identified novel influenza A virus with other respiratory manifestations (principal); R51.9 Headache, unspecified
CPT/HCPCS: 71045; 80053; 84484; 85025; 85378; 85610; 87636; 93005; 96361; 96365; 96375; 99284; J0780; J1885; J3475; J7030

== ENCOUNTER 2025-04-15 14:44 | Emergency (ER) | payer SELFPAY ==
[2025-04-15] VITALS (8 sets, daily range): BP systolic 106–139; BP diastolic 78–90; PULSE 57–113; RESP 12–20; TEMP 36.8–37.1; O2SAT 85–98; BMI 24.9
--- NOTE | 2025-04-15 14:45 | ECG_ITS ---
APPROVED REPORT Exam: Resting ECG HR:115 bpm ECG Measurements Heart Rate 115 AXES PA 130 P 62 QRSd 86 QRS 28 QT 351 T 44 QTc 419 Conclusion SINUS TACHYCARDIA ABNORMAL RHYTHM ECG UNCONFIRMED REPORT Electronically signed by : Phil Leavitt, 04/15/2025 16:04:09
--- NOTE | 2025-04-15 14:55 | CT_ITS ---
PROCEDURE INFORMATION: Exam: CT Head Without Contrast Exam date and time: 04/15/2025 2:57 PM Age: 49 years old Clinical indication: Stroke-like symptoms; Altered mental status/memory loss; Lt upper extremity weakness; Additional info: Left sided paralysis/weakness lnk [id number] TECHNIQUE: Imaging protocol: Computed tomography of the head without contrast. Radiation optimization: All CT scans at this facility use at least one of these dose optimization techniques: automated exposure control; mA and/or kV adjustment per patient size (includes targeted exams where dose is matched to clinical indication); or iterative reconstruction. Other technique: STROKE PROTOCOL was implemented. COMPARISON: No relevant prior studies available. FINDINGS: Brain: There is a hyperdense, acute intraparenchymal hemorrhage centered in the right thalamus, measuring 1.8 x 3.7 x 2.1 cm, causing mass effect on the right lateral ventricle posterior horn and the right posterior limb of the internal capsule. No intraventricular extension of hemorrhage. No significant midline shift or herniation identified. No findings to suggest acute infarction. Cerebral ventricles: See Brain finding. Paranasal sinuses: Visualized sinuses are unremarkable. No fluid levels. Mastoid air cells: Visualized mastoid air cells are well aerated. Bones: No acute fracture. Soft tissues: Unremarkable. IMPRESSION: There is a hyperdense, acute intraparenchymal hemorrhage centered in the right thalamus, measuring 1.8 x 3.7 x 2.1 cm, causing mass effect on the right lateral ventricle posterior horn and the right posterior limb of the internal capsule. No intraventricular extension of hemorrhage. No significant midline shift or herniation identified. THIS REPORT CONTAINS FINDINGS THAT MAY BE CRITICAL TO PATIENT CARE. The findings were verbally communicated via telephone conference at 3:11 PM EDT on 04/15/2025 with Denny Leavitt The findings were acknowledged and understood.
--- NOTE | 2025-04-15 14:55 | CT_ITS ---
PROCEDURE INFORMATION: Exam: CTA Head With Contrast, Arteriography Exam date and time: 04/15/2025 3:01 PM Clinical indication: Stroke-like symptoms; Altered mental status/memory loss; Lt upper extremity weakness; Additional info: Left sided paralysis/weakness lnk [id number] TECHNIQUE: Imaging protocol: Computed tomographic angiography of the head with contrast. Exam focused on the arteries. 3D rendering (Not supervised by radiologist): MIP and/or 3D reconstructed images were created by the technologist. COMPARISON: No relevant prior studies available. FINDINGS: ANTERIOR CIRCULATION: Right internal carotid artery: Intracranial segment is patent with no significant stenosis. No aneurysm. Right middle cerebral artery: No occlusion or significant stenosis. No aneurysm. Right anterior cerebral artery: No occlusion or significant stenosis. No aneurysm. Left internal carotid artery: Intracranial segment is patent with no significant stenosis. No aneurysm. Left middle cerebral artery: No occlusion or significant stenosis. No aneurysm. Left anterior cerebral artery: No occlusion or significant stenosis. No aneurysm. POSTERIOR CIRCULATION: Right vertebral artery: No occlusion or significant stenosis. No aneurysm. Left vertebral artery: No occlusion or significant stenosis. No aneurysm. Basilar artery: No occlusion or significant stenosis. No aneurysm. Right posterior cerebral artery: No occlusion or significant stenosis. No aneurysm. There appear to be tiny arterioles extending from the right posterior cerebral artery into the inferior margin of the intrathalamic hematoma on images 60 through 66 of series 5 and image 69 of series 6. Left posterior cerebral artery: No occlusion or significant stenosis. No aneurysm. Brain: No definite mass, mass effect, or midline shift. A large intrathalamic hematoma is seen on the right as detailed on the accompanying CT head exam. Cerebral ventricles: No ventriculomegaly. Bones/joints: Unremarkable. No acute fracture. Soft tissues: Unremarkable. IMPRESSION: 1. The CT angiogram of the brain shows no large vessel occlusion. 2. There appear to be tiny arterioles extending from the right posterior cerebral artery into the inferior margin of the intrathalamic hematoma on images 60 through 66 of series 5 and image 69 of series 6. A prior CT head exam from 06/04/2016 showed no mass lesion or vascular abnormality in the right thalamus, however. PROCEDURE INFORMATION: Exam: CTA Neck With Contrast Exam date and time: 04/15/2025 3:01 PM Age: 49 years old Clinical indication: Stroke-like symptoms; Altered mental status/memory loss; Lt upper extremity weakness; Additional info: Left sided paralysis/weakness lnk [id number] TECHNIQUE: Imaging protocol: Computed tomographic angiography of the neck with contrast. Exam focused on the cervical segments of the vasculature. 3D rendering (Not supervised by radiologist): MIP and/or 3D reconstructed images were created by the technologist. Radiation optimization: All CT scans at this facility use at least one of these dose optimization techniques: automated exposure control; mA and/or kV adjustment per patient size (includes targeted exams where dose is matched to clinical indication); or iterative reconstruction. Contrast material: ISOVUE 370; Contrast volume: 80 ml; Contrast route: INTRAVENOUS (IV); COMPARISON: 1. CT ANGIO CHEST PE PROTOCOL 09/01/2023 12:21 PM 2. The great vessels in the upper mediastinum and the proximal subclavian arteries bilaterally appear normal. FINDINGS: Right common carotid artery: No stenosis. No dissection or occlusion. Right internal carotid artery: No stenosis of the extracranial segment. No dissection or occlusion. Right external carotid artery: No occlusion or stenosis of the origin. Left common carotid artery: No stenosis. No dissection or occlusion. Left internal carotid artery: No stenosis of the extracranial segment. No dissection or occlusion. Left external carotid artery: No occlusion or stenosis of the origin. Right vertebral artery: No stenosis. No dissection or occlusion. Left vertebral artery: No stenosis. No dissection or occlusion. Soft tissues: Normal. No significant soft tissue swelling. Bones/joints: No acute fracture. IMPRESSION: No stenosis, dissection or occlusion of the arteries in the neck. REFERENCES: NASCET CRITERIA. The degree of stenosis in the cervical segment of the internal carotid artery is based on NASCET criteria. Normal is no stenosis. Mild is less than 50% stenosis. Moderate is 50-69% stenosis. Severe is 70% to 99% stenosis. Total occlusion is no detectable patent lumen.
--- NOTE | 2025-04-15 14:55 | CT_ITS ---
PROCEDURE INFORMATION: Exam: CTA Head With Contrast, Arteriography Exam date and time: 04/15/2025 3:01 PM Age: 49 years old Clinical indication: Stroke-like symptoms; Altered mental status/memory loss; Lt upper extremity and lt lower extremity weakness; Additional info: Left sided paralysis/weakness lnk [id number] TECHNIQUE: Imaging protocol: Computed tomographic angiography of the head with contrast. Exam focused on the arteries. 3D rendering (Not supervised by radiologist): MIP and/or 3D reconstructed images were created by the technologist. Radiation optimization: All CT scans at this facility use at least one of these dose optimization techniques: automated exposure control; mA and/or kV adjustment per patient size (includes targeted exams where dose is matched to clinical indication); or iterative reconstruction. Contrast material: ISOVUE; Contrast volume: 80 ml; Contrast route: INTRAVENOUS (IV); COMPARISON: CT HEAD/BRAIN WO CON 04/15/2025 2:57 PM FINDINGS: ANTERIOR CIRCULATION: Right internal carotid artery: Intracranial segment is patent with no significant stenosis. No aneurysm. Right middle cerebral artery: No occlusion or significant stenosis. No aneurysm. Right anterior cerebral artery: No occlusion or significant stenosis. No aneurysm. Left internal carotid artery: Intracranial segment is patent with no significant stenosis. No aneurysm. Left middle cerebral artery: No occlusion or significant stenosis. No aneurysm. Left anterior cerebral artery: No occlusion or significant stenosis. No aneurysm. POSTERIOR CIRCULATION: Right vertebral artery: No occlusion or significant stenosis. No aneurysm. Left vertebral artery: No occlusion or significant stenosis. No aneurysm. Basilar artery: No occlusion or significant stenosis. No aneurysm. Right posterior cerebral artery: No occlusion or significant stenosis. No aneurysm. Left posterior cerebral artery: No occlusion or significant stenosis. No aneurysm. Brain: Acute hemorrhage arising from the inferior right thalamus measures 2.2 x 3.7 x 2.3 cm. Adjacent edema and mild mass effect. Cerebral ventricles: No ventriculomegaly. Bones/joints: Unremarkable. No acute fracture. Soft tissues: Unremarkable. IMPRESSION: 1. Acute hemorrhage arising from the inferior right thalamus measures 2.2 x 3.7 x 2.3 cm. Adjacent edema and mild mass effect. 2. No significant stenosis or occlusion.
[2025-04-15] MEDS: IOPAMIDOL-370 (76%);100ML BOTTLE 80 ML IV (15:02)
[2025-04-15] MEDS: 0.9 % SODIUM CHLORIDE 50 ML VIAL IV (15:02)
[2025-04-15] MEDS: SODIUM CHLORIDE 0.9% 10ML SYR (RAD ONLY) 10 ML IV (15:02)
[2025-04-15 15:03] LABS: Basophils # 0.1 K/mm3 (0-0.2); Basophils % 2.9 % (0.1-2.0); Eosinophils # 0.2 Kmm3 (0.0-0.4); Eosinophils % 5.1 % (0.1-12.0); Hematocrit 41.8 % (42.0-52.0); Hemoglobin 15.1 g/dL (14.1-18.0); Immature Granulocytes # 0 10^3uL; Immature Granulocytes % 0 %; Lymphocytes % 43.9 % (10-50); Mean Corpuscular HGB Conc 36.1 g/dL (31.8-35.4); Mean Corpuscular Hemoglobin 35.8 pg (27.0-31.2); Mean Corpuscular Volume 99.1 fl (80-94); Monocytes # 0.3 K/mm3 (0.1-1.0); Monocytes % 6.6 % (1.7-9.3); Neutrophils # 1.9 K/mm3 (1.8-7.8); Neutrophils % 41.5 % (37.0-80.0); Nucleated Red Blood Cells # 0 10^3/uL; Nucleated Red Blood Cells % 0 %; Platelet Count 106 K/mm3 (142-424); Red Blood Count 4.22 M/mm3 (4.60-6.20); Red Cell Distribution Width 14.1 % (11.5-17.5); Red Cell Distribution Width-SD 51.9 fL; White Blood Count 4.5 K/mm3 (4.8-10.8)
[2025-04-15 15:04] LABS: Albumin Level 3.5 g/dl (3.5-5.0); Chloride 103 mmol/L (98-107)
--- NOTE | 2025-04-15 15:04 | PC.NURSE ---
Called per for poss transfer for a hemorrhagic head bleed. stated that they would give us a call back.
[2025-04-15 15:05] LABS: Potassium 3.2 mmoL/L (3.5-5.1); Sodium 136 mmol/L (136-145)
[2025-04-15 15:07] LABS: Alanine Aminotransferase 68 U/L (12-78); Albumin/Globulin Ratio 0.9 (1.1-1.8); Alkaline Phosphatase 182 U/L (38-126); Anion Gap 16.2 mEq/L (5-15); Aspartate Amino Transferase 217 U/L (17-59); Bilirubin,Total 3.6 mg/dl (0.2-1.3); Carbon Dioxide 20 mmol/L (22.0-30.0); Creatinine Clearance Estimated 137 mL/min (50-200); Estimated Glomerular Filt Rate 143 ml/min (>60); GFR (African American) 173 ML/MIN (>60); Globulin 4.1 g/dL (1.3-3.2); Total Protein,Serum 7.6 g/dl (6.3-8.2)
[2025-04-15 15:08] LABS: Calcium 8.4 mg/dl (8.4-10.2); Chol/HDL Ratio 6.6 (1-3.5); Cholesterol 171 mg/dl (140-200); Glucose 206 mg/dl (74-100); HDL Cholesterol 26 mg/dl (40-60); Triglycerides 212 mg/dl (30-150); VLDL Cholesterol 42 mg/dL (0-40)
--- NOTE | 2025-04-15 15:08 | ED_ITS ---
Discharge Plan Disposition Patient Disposition: Xfer Other Chief Complaint: Neuro Symptoms/Deficit Prescriptions Prescriptions: No Action esomeprazole magnesium 20 mg tablet,delayed release (DR/EC) 20 mg PO DAILY Qty: 90 0RF levetiracetam 1,000 mg tablet 1,000 mg PO BID Qty: 180 0RF potassium chloride 20 mEq tablet,ER particles/crystals 20 meq PO DAILY multivit with min-folic acid [Multivitamin Gummies] 200 mcg Tablet,Chewable 1 tab PO DAILY ondansetron 4 mg tablet,disintegrating 4 mg PO TID PRN (Reason: nausea and vomiting) 3 Days Qty: 10 0RF ondansetron HCl 4 mg tablet 4 mg PO Q8H PRN (Reason: nausea and vomiting) 5 Days Qty: 30 0RF oseltamivir 75 mg capsule 75 mg PO BID 5 Days Qty: 10 0RF Clinical Impressions Clinical Impression: Hemorrhagic stroke, Cirrhosis Stand Alone Forms Stand Alone Forms: Transfer Record - ED Print Language Print Language: Maltese Discharge ED Provider: Ashley Leavitt General Adult HPI General Chief complaint: Neuro Symptoms/Deficit Stated complaint: Chest pain/ numbness left side Time Seen by Provider: 04/15/25 14:48 Mode of Arrival: Ambulatory Source of Information: Patient Description of Symptoms (Recalled from ER Triage Doc. by RN): Pt presents for evaluation from home by [facility]. Pt states he went to get up from a chair and fell and hit the back of his head on the floor. Pt denies blood thinners, states he has a hx of hemorrhagic stroke. Per EMS pt has c/o headache, and had a negative [place] scale, but has tingling to his left arm. Upon this RNS assessment pt is unable to move his left arm and leg. BGL 143 EMS vitals 110/74. 18G Left forearm History of Present Illness HPI narrative: Patient is a 49-year-old male with a history of spontaneous intraparenchymal hemorrhage 6 years ago was treated nonoperatively and had almost complete resolution of his symptoms at that time also has a history of cirrhosis presents today with strokelike symptoms. He tells me that symptoms began 30 minutes prior to her my assessment which my assessment was around 3 PM therefore from his history states that this started around 230 however EMS got a call about an hour earlier than this so it is unclear as to the exact timing. Patient states that immediately he developed left-sided complete body numbness followed by weakness. He did have a fall but denies the fall coming prior to the symptoms. States that he simply was unable to walk. 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 Also complains of a severe headache. Related Data Home Medications ?Medication ?Instructions ?Recorded ?Confirmed multivitamin with minerals-folic 1 tab PO DAILY 10/02/24 10/02/24 acid 200 mcg chewable tablet (Multivitamin Gummies) potassium chloride 20 mEq 20 meq PO DAILY 10/02/24 10/02/24 tablet,extended release(part/cryst) Previous Rx's ?Medication ?Instructions ?Recorded esomeprazole magnesium 20 mg 20 mg PO DAILY GERD #90 tabs 03/25/21 tablet,delayed release levetiracetam 1,000 mg tablet 1,000 mg PO BID SEIZURES #180 tabs 03/25/21 ondansetron 4 mg disintegrating 4 mg PO TID PRN nausea and 10/02/24 tablet vomiting 3 days #10 tabs ondansetron HCl 4 mg tablet 4 mg PO Q8H PRN nausea and 02/01/25 vomiting 5 days #30 tabs oseltamivir 75 mg capsule 75 mg PO BID 5 days #10 caps 02/01/25 Allergies Allergy/AdvReac Type Severity Reaction Status Date / Time No Known Allergies Allergy Verified 11/02/23 13:06 [facility] Disclaimer: The information contained in this section may have been updated after the patient was seen, as this information can be updated by other users. Social History Smoking Status: Never smoker second hand exposure: Yes alcohol intake: former substance use type: denies use current occupational status: employed Travel in the last 8 weeks?: None household members: spouse and friend(s) housing: house current occupational exposures/hazards: No caffeine: Yes Have you lived/traveled outside [place] in past 30 days?: No Contact w/someone who lives/traveled outside [place] past 30 days?: No Exposure to someone with infectious disease in past 14 days?: No Do you have a fever (greater than 100.4 F or 38 C)?: No Have you tested positive for COVID-19?: No Exposed to someone with COVID-19 in past 14 days?: No Do you have a sore throat?: No Do you have a cough?: No Do you have any weakness?: No Do you have any diarrhea?: No Are you experiencing any unusual bleeding?: No Do you have any muscle aches/pain?: No Do you have any abdominal pain?: Yes Are you experiencing loss of taste or smell?: No Other Medical History Have you received the Flu Vaccine for this season: No Have you received the Pneumonia Vaccine: No ROS Obtained: Yes All systems reviewed & no additional complaints except as documented Physical Exam General General appearance: alert Respiratory Respiratory exam: Present normal lung sounds bilaterally Cardiovascular Cardiovascular exam: Present regular rate Neurological Exam Neurological exam: Present alert, oriented X3 (Answer questions appropriately) and motor sensory deficit (Complete and severe left upper and left lower extremity flaccid paralysis no other neurologic abnormalities noted NIH stroke scale of 10 on my assessment) Medical Decision Making Medical Records Screening: Per USPSTF and CDC recommendations, given the prevalence of disease in our region, it is our hospital?s policy to screen for HIV and viral Hepatitis for all patients aged 18 and over and those with ongoing risk factors. Job Inquiry Pt receiving controlled substance: No Vital Signs: 04/15/25 14:48 04/15/25 15:05 04/15/25 15:11 Temperature 98.2 F Temperature Source Oral Pulse Rate 57 L Pulse Rate [Right] 113 H Respiratory Rate 18 Blood Pressure 117/78 Blood Pressure [Right Arm] 106/78 L Blood Pressure Mean 90 Blood Pressure Mean [Right Arm] 87 Blood Pressure Source [Right Arm] Automatic Cuff Blood Pressure Position [Right Arm] Sitting 02 Sat by Pulse Oximetry 95 85 L Oxygen Delivery Method Room Air 04/15/25 15:11 04/15/25 15:17 04/15/25 15:17 Temperature Temperature Source Pulse Rate 98 H Pulse Rate [Right] Respiratory Rate 12 18 Blood Pressure 139/84 Blood Pressure [Right Arm] Blood Pressure Mean 101 Blood Pressure Mean [Right Arm] Blood Pressure Source [Right Arm] Blood Pressure Position [Right Arm] 02 Sat by Pulse Oximetry 93 L Oxygen Delivery Method Lab Data Lab results reviewed: Yes I reviewed the patient's lab results. Lab Results 04/15/25 14:35: WBC 4.5 L, RBC 4.22 L, Hgb 15.1, Hct 41.8 L, MCV 99.1 H, MCH 35.8 H, MCHC 36.1 H, RDW 14.1, Plt Count 106 L, MPV 11.0 H, Neut % (Auto) 41.5, Lymph % (Auto) 43.9, Cotton % (Auto) 6.6, Eos % (Auto) 5.1, Baso % (Auto) 2.9 H, Neut # (Auto) 1.9, Lymph # (Auto) 2.0, Cotton # (Auto) 0.3, Eos # (Auto) 0.2, Baso # (Auto) 0.1, PT 13.3 H, INR 1.22 H, APTT 29.5, Sodium 136, Potassium 3.2 L, Chloride 103, Carbon Dioxide 20 L, Anion Gap 16.2 H, BUN < 2 L, Creatinine 0.60 L, Estimated Creat Clear 137, Estimated GFR 143, Est GFR ( Amer) 173, G lucose 206 H, Calcium 8.4, Total Bilirubin 3.6 H, AST 217 H, ALT 68, Alkaline Phosphatase 182 H, Troponin I < 0.01, Total Protein 7.6, Albumin 3.5, Globulin 4.1 H, Albumin/Globulin Ratio 0.9 L, Triglycerides 212 H, Cholesterol 171, LDL Cholesterol Direct 103.41, VLDL Cholesterol 42 H, HDL Cholesterol 26 L, C holesterol/HDL Ratio 6.6 H, Plasma/Serum Alcohol 208 H 04/15/25 15:18: Urine Color Yellow, Urine Appearance Clear, Urine pH 6.5, Ur Specific [place] <= 1.005, Urine Protein Negative, Urine Glucose (UA) Negative, Urine Ketones Negative, Urine Blood Negative, Urine Nitrate Negative, Urine Bilirubin Negative, Urine Urobilinogen 0.2, Ur Leukocyte Esterase Negative 04/15/25 14:35 04/15/25 14:35 Orders (Tests/Meds): ED MEDICATIONS Generic Name Dose Route Start Last Admin Trade Name Freq PRN Reason Stop Dose Admin Lactated Ringer's 1,000 mls @ 999 mls/hr 04/15/25 14:55 04/15/25 15:27 Lactated Ringer's 1000 Ml Bag IV 04/15/25 15:55 999 mls/hr .Q1H1M ONE Administration Sodium Chloride 10 ml 04/15/25 14:55 Sodium Chloride 0.9% 10ml Flush Syringe IV 05/15/25 14:54 NEEDED PRN Maintain IV Site Discontinued Medications Generic Name Dose Route Start Last Admin Trade Name Stephen PRN Reason Stop Dose Admin Acetaminophen 1,000 mg 04/15/25 14:55 04/15/25 15:27 Acetaminophen 1,000mg/100ml Vial IV 04/15/25 14:56 1,000 mg ONCE ONE Administration Iopamidol 80 ml 04/15/25 15:01 04/15/25 15:02 Iopamidol-370 (76%);100ml Bottle IV 04/15/25 15:02 80 ml ONCE ONE Administration Sodium Chloride 50 ml 04/15/25 15:01 04/15/25 15:02 0.9 % Sodium Chloride 50 Ml Vial IV 04/15/25 15:02 50 ml ONCE ONE Administration Sodium Chloride 10 ml 04/15/25 15:01 04/15/25 15:02 Sodium Chloride 0.9% 10ml Syr (Rad Only) IV 04/15/25 15:02 10 ml ONCE ONE Administration ORDERS Category Date Time Status CT angio head Stat Cat Scan 04/15/25 14:[address] angio neck Stat Cat Scan 04/15/25 14:[address] head/brain wo con Stat Cat Scan 04/15/25 14:55 Completed Activated Partial Thrombo Time Stat Lab 04/15/25 14:35 Completed Complete Blood Count Auto Diff Stat Lab 04/15/25 14:35 Completed Comprehensive Metabolic Panel Stat Lab 04/15/25 14:35 Completed Drug Screen,Urine Stat Lab 04/15/25 15:18 Received Ethyl Alcohol Stat Lab 04/15/25 14:35 Completed Lipid Panel Stat Lab 04/15/25 14:35 Completed Prothrombin Time INR Stat Lab 04/15/25 14:35 Completed Troponin I Q3H Lab 04/15/25 18:00 Ordered Troponin I Q3H Lab 04/15/25 21:00 Ordered Troponin I Stat Lab 04/15/25 14:35 Completed Urinalysis and Microscopic Stat Lab 04/15/25 15:18 Results ECG Request Stat Y 04/15/25 14:55 Ordered Medical Decision Narrative: Patient stroke alerted from above history and physical. Immediately upon seeing the noncontrasted CT scan while patient was still in the scanner he was noted to have a significant a large intraparenchymal right thalamic hemorrhagic infarct. Patient's platelets are low but have been above 100 will not transfuse platelets but he is not on any other anticoagulants to my knowledge therefore no reversal is needed. He is hypotensive and will not give him further antihypertensive medications. Patient will need to be transferred to higher level of care. I ultimately was able to speak to Dr. Salinas and Dr. Kan at [facility] patient will be transferred to [facility] emergency department for further evaluation and management neurosurgery and neurology stroke team. Patient remains mildly hypotensive no antihypertensive medications were given and he is stable from a neurologic standpoint on serial assessments at this point. Critical Care Critical Care Time Critical Care Time: Yes Attestation: On 04/15/25, the high probability of a clinically significant, sudden or life threatening deterioration of the following system(s) required my full and direct attention, intervention and personal management. The time I documented below is in addition to time spent performing reported procedures but includes the following listed in this critical care notation. Total Time Total Critical Care Time: 35
[2025-04-15 15:10] LABS: Activated Partial Thrombo Time 29.5 seconds (22.8-30.6); INR 1.22 (0.9-1.1); Prothrombin Time 13.3 seconds (10.1-12.5)
[2025-04-15 15:12] LABS: Blood Urea Nitrogen < 2 mg/dl (9-20)
--- NOTE | 2025-04-15 15:13 | PC.NURSE ---
Called [facility] Per Dr. Leavitt for Hemorrhagic head bleed. [facility] states they will give us a call back.
--- NOTE | 2025-04-15 15:17 | PC.NURSE ---
Pt voids 500cc into urinal
[2025-04-15 15:19] LABS: Direct LDL Cholesterol 103.41 mg/dL (100-129)
[2025-04-15 15:20] LABS: Ethyl Alcohol 208 mg/dl (0-10)
[2025-04-15 15:21] LABS: Microscopic, Urine URINE MICROSCOPIC (MICROSCOPIC)
[2025-04-15 15:22] LABS: Troponin I < 0.01 ng/ml (0.00-0.034)
[2025-04-15 15:24] LABS: Appearance,Urine CLEAR (Clear); Bilirubin,Urine Negative (Negative); Blood, Urine Negative (Negative); Color,Urine YELLOW (Yellow); Glucose,Urine (UA) Negative (Negative); Ketones,Urine Negative (Negative); Leukocyte Esterase,Urine Negative (Negative); Nitrate,Urine Negative (Negative); PH,Urine 6.5 (5.0-8.5); Protein,Urine Negative (Negative); Specific Gravity, Urine <= 1.005 (1.005-1.030); Urobilinogen,Urine 0.2 EU/dl (0.2)
[2025-04-15] MEDS: LACTATED RINGERS 1000ML 1,000 ML 999 ML IV (15:27)
[2025-04-15] MEDS: ACETAMINOPHEN 1,000MG/100ML VIAL 1000 MG IV (15:27)
--- NOTE | 2025-04-15 15:30 | PC.NURSE ---
Ashley Leavitt MD states patient was accepted to [facility] by Dr. Pineda
[2025-04-15 15:31] LABS: Yeast,Urine Occasional /lpf
[2025-04-15 15:32] LABS: WBC,Urine Occasional #/hpf (0-3)
[2025-04-15 15:35] LABS: Amphetamine/Metha Screen,Urine Negative ng/ml (<1000); Barbiturates Screen,Urine Negative ng/ml (<200)
[2025-04-15 15:36] LABS: Benzodiazepines Screen,Urine Negative ng/ml (<200); Cannabinoid Screen,Urine Negative ng/ml (<50)
[2025-04-15 15:37] LABS: Cocaine Screen,Urine Negative ng/ml (<300)
[2025-04-15 15:38] LABS: Methadone Screen,Urine Negative ng/ml (<300); Opiate Screen,Urine Negative ng/ml (<300)
[2025-04-15 15:39] LABS: Phencyclidine Screen,Urine Negative ng/ml (<25)
--- NOTE | 2025-04-15 15:48 | PC.NURSE ---
report given to [employer]
== END 2025-04-15 15:49 | disposition other institution (70) ==
PROVIDERS: Emergency Provider Student in an Organized Health Care Education/Training Program
DX: I61.9 Nontraumatic intracerebral hemorrhage, unspecified (principal); K70.30 Alcoholic cirrhosis of liver without ascites; F10.129 Alcohol abuse with intoxication, unspecified; Z87.891 Personal history of nicotine dependence; Y90.7 Blood alcohol level of 200-239 mg/100 ml
CPT/HCPCS: 70450; 70496; 70498; 80053; 80061; 80307; 80320; 81001; 84484; 85025; 85610; 85730; 93005; 96361; 96374; 99291; J0131; J7120; Q9967

== ENCOUNTER 2025-08-15 20:02 | Emergency (ER) | payer SELFPAY ==
[2025-08-15 20:09] VITALS: BP 129/80; PULSE 113; RESP 15; TEMP 37; O2SAT 96; BMI 15.3
--- NOTE | 2025-08-15 20:17 | ED_ITS ---
<Statement entered by Natalie Villaseñor DO - 08/19/25 00:27> I was consulted by the GEORGE, and we discussed the complexity of problems being addressed. I approve the treatment and management plan for this patient's care in the emergency department, thus performing a substantial portion of the medical decision making. Natalie Villaseñor DO Discharge Plan Disposition Patient Disposition: Home, Self-Care Condition: Good Prescriptions Prescriptions: New nystatin 100,000 unit/gram powder 1 applic topical BID Qty: 60 0RF No Action esomeprazole magnesium 20 mg tablet,delayed release (DR/EC) 20 mg PO DAILY Qty: 90 0RF levetiracetam 1,000 mg tablet 1,000 mg PO BID Qty: 180 0RF potassium chloride 20 mEq tablet,ER particles/crystals 20 meq PO DAILY multivit with min-folic acid [Multivitamin Gummies] 200 mcg Tablet,Chewable 1 tab PO DAILY ondansetron 4 mg tablet,disintegrating 4 mg PO TID PRN (Reason: nausea and vomiting) 3 Days Qty: 10 0RF ondansetron HCl 4 mg tablet 4 mg PO Q8H PRN (Reason: nausea and vomiting) 5 Days Qty: 30 0RF oseltamivir 75 mg capsule 75 mg PO BID 5 Days Qty: 10 0RF Referrals Follow up/Referrals: Provider,Referral, MD [Primary Care Provider, Medical] - See instructions Activity Restrictions/Add. Instructions Additional Instructions/Restrictions: Apply the nystatin powder onto the rash twice to three times daily. Return to the emergency department if the rash continues to spread, or if he develops fevers at home. Follow-up with a primary care provider if you are able. Try to keep him turned frequently to avoid the left sided getting contact with the bed. Clinical Impressions Clinical Impression: Rash, Fungal infection Instructions Patient Instructions: DI for Skin Abscess Print Language Print Language: [place] Discharge ED Provider: Natalie Villaseñor General Adult HPI <BENNETT James - Last Filed: 08/15/25 22:16> General Chief complaint: Skin/Abscess/Foreign Body Stated complaint: Rash Time Seen by Provider: 08/15/25 20:08 Mode of Arrival: EMS Source of Information: Patient and EMS Description of Symptoms (Recalled from ER Triage Doc. by RN): PT brought to the ED vis [facility] for evaluation of a rash on the L upper side of the body. 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 Initial triage vitals noted for tachycardia otherwise unremarkable, previous history of alcohol and tobacco use. Please note that above description of symptoms, in this electronic medical record under categorization of recalled from ER triage doctor by RN are reflective of an initial nursing assessment, however, is not reflective of my full history and physical exam that was personally taken and clarified. Consequentially, this preceding description of symptoms, which may include the patient's categorized chief complaint in the EMR, do not reflect my personal clinical impression, and the ultimate description of history of present illness and patient stated complaints should be deferred to this section of the note. Unless stated otherwise or congruent with this section of the note, additional signs, symptoms, or incongruence should be interpreted as inaccurate with my clinical impression. Onset (ago): week(s) Related Data Home Medications ?Medication ?Instructions ?Recorded ?Confirmed multivitamin with minerals-folic 1 tab PO DAILY 10/02/24 acid 200 mcg chewable tablet (Multivitamin Gummies) potassium chloride 20 mEq 20 meq PO DAILY 10/02/2403/22 tablet,extended release(part/cryst) Previous Rx's ?Medication ?Instructions ?Recorded esomeprazole magnesium 20 mg 20 mg PO DAILY GERD #90 t abs 03/25/21 tablet,delayed release levetiracetam 1,000 mg tablet 1,000 mg PO BID SEIZURES #180 tabs 03/25/21 ondansetron 4 mg disintegrating 4 mg PO TID PRN nausea and 10/02/24 tablet vomiting 3 days #10 tabs ondansetron HCl 4 mg tablet 4 mg PO Q8H PRN nausea and 02/01/25 vomiting 5 days #30 tabs oseltamivir 75 mg capsule 75 mg PO BID 5 days #10 caps 02/01/25 nystatin 100,000 unit/gram topical 1 applic topical BI D #60 grams 08/15/25 powder Allergies Allergy/AdvReac Type Severity Reaction Status Date / Time No Known Allergies Allergy Verified 11/02/23 13:06 [facility] <BENNETT James - Last Filed: 08/15/25 22:16> [facility] Disclaimer: The information contained in this section may have been updated after the patient was seen, as this information can be updated by other users. Social History Smoking Status: Former smoker tobacco type: cigarettes packs per day: 1 second hand exposure: Yes alcohol intake: former substance use type: denies use current occupational status: employed Travel in the last 8 weeks?: None household members: spouse and friend(s) housing: house current occupational exposures/hazards: No caffeine: Yes Have you lived/traveled outside [place] in past 30 days?: No Contact w/someone who lives/traveled outside US past 30 days?: No Exposure to someone with infectious disease in past 14 days?: No Do you have a fever (greater than 100.4 F or 38 C)?: No Have you tested positive for COVID-19?: No Exposed to someone with COVID-19 in past 14 days?: No Do you have a sore throat?: No Do you have a cough?: No Do you have any weakness?: No Do you have any diarrhea?: No Are you experiencing any unusual bleeding?: No Do you have any muscle aches/pain?: No Do you have any abdominal pain?: No Are you experiencing loss of taste or smell?: No Other Medical History Have you received the Flu Vaccine for this season: No Have you received the Pneumonia Vaccine: No <BENNETT James - Last Filed: 08/15/25 22:16> ROS Obtained: Yes All systems reviewed & no additional complaints except as documented Physical Exam <BENNETT James - Last Filed: 08/15/25 22:16> General General appearance: alert and in no apparent distress Head Head exam: atraumatic and normocephalic Eye Eye exam: Present PERRL and EOMI ENT ENT exam: Present mucous membranes moist Neck Neck exam: Present normal inspection Chest Chest inspection: Present normal inspection and symmetric chest wall rise Respiratory Respiratory exam: Present normal lung sounds bilaterally; Absent respiratory distress Cardiovascular Cardiovascular exam: Present regular rate and normal rhythm Abdominal Exam Abdominal exam: Present soft; Absent tenderness Extremities Exam Extremities exam: Present normal inspection Neurological Exam Neurological exam: Present alert, oriented X3 and other (Hemiplegic on the left side from prior CVA) Psychiatric Psychiatric exam: Present normal affect Skin Skin exam: Present warm, dry, rash, erythema and other (Left-sided erythematous maculopapular rash with some active skin breakdown from the patient's axilla area, extended all the way to the posterior back, down buttock area as well as left flank and left lateral thigh area, otherwise neurovascular intact) Medical Decision Making <BENNETT James - Last Filed: 08/15/25 22:16> Medical Records Medical records reviewed: Yes I reviewed the patient's medical records. Screening: Per USPSTF and CDC recommendations, given the prevalence of disease in our region, it is our hospital?s policy to screen for HIV and viral Hepatitis for all patients aged 18 and over and those with ongoing risk factors. Job Inquiry Pt receiving controlled substance: No Vital Signs: 08/15/25 20:09 08/15/25 21:45 08/15/25 22:37 Temperature 98.6 F Temperature Source Tympanic Pulse Rate 111 H 104 H Pulse Rate [Right] 113 H Respiratory Rate 15 15 16 Blood Pressure 142/89 H Blood Pressure [Right Arm] 129/80 Blood Pressure Mean 105 Blood Pressure Mean [Right Arm] 96 Blood Pressure Source Blood Pressure Position 02 Sat by Pulse Oximetry 96 97 93 L Oxygen Delivery Method Room Air Oxygen Flow Rate (LPM) 08/15/25 22:40 08/16/25 00:21 Temperature 98.6 F Temperature Source Oral Pulse Rate 108 H 89 Pulse Rate [Right] Respiratory Rate 15 0 L Blood Pressure 142/89 H 142/89 H Blood Pressure [Right Arm] Blood Pressure Mean Blood Pressure Mean [Right Arm] Blood Pressure Source Automatic Cuff Blood Pressure Position Supine 02 Sat by Pulse Oximetry 90 L Oxygen Delivery Method Nasal Cannula Room Air Oxygen Flow Rate (LPM) 2 Lab Data Lab results reviewed: Yes I reviewed the patient's lab results. Lab Results 08/15/25 20:12: WBC 4.6 L, RBC 4.76, Hgb 15.0, Hct 44.9, MCV 94.3 H, MCH 31.5 H, MCHC 33.4, RDW 14.5, Plt Count 90 L, MPV 11.1 H, Neut % (Auto) 54.6, Lymph % (Auto) 26.5, [place] % (Auto) 7.4, Eos % (Auto) 10.0, Baso % (Auto) 1.3, Neut # (Auto) 2.5, Lymph # (Auto) 1.2, [place] # (Auto) 0.3, Eos # (Auto) 0.5 H, Baso # (Auto) 0.1, ESR 26 H, PT 13.5 H, INR 1.24 H, APTT 28.9, Sodium 140, Potassium 3.3 L, Chloride 108 H, Carbon Dioxide 27, Anion Gap 8.3, BUN 4 L, Creatinine 0.50 L, Estimated Creat Clear 127, Estimated GFR 175, Est GFR ( Amer) 212, Glucose 137 H, Calcium 9.0, Total Bilirubin 1.5 H, AST 46, ALT 21, Alkaline Phosphatase 145 H, C-Reactive Protein 5.8 H, Total Protein 7.4, Albumin 3.5, G lobulin 3.9 H, Albumin/Globulin Ratio 0.9 L 08/15/25 20:50: Lactate 2.1 08/15/25 20:59: Urine Color Yellow, Urine Appearance Clear, Urine pH 7.5, Ur Specific Plaza 1.015, Urine Protein Negative, Urine Glucose (UA) Negative, Urine Ketones Negative, Urine Blood Negative, Urine Nitrate Negative, Urine Bilirubin Negative, Urine Urobilinogen 0.2, Ur Leukocyte Esterase Trace, Urine RBC Occasional, Urine WBC 5-10, Ur Squamous Epith Cells 10-20, Amorphous Sediment 2+, Urine Bacteria 2+ 08/15/25 20:12 08/15/25 20:12 Orders (Tests/Meds): ED MEDICATIONS Discontinued Medications Generic Name Dose Route Start Last Admin Trade Name Freq PRN Reason Stop Dose Admin Diphenhydramine HCl 25 mg 08/15/25 22:16 08/15/25 22:33 Diphenhydramine 50mg/Ml Vial IV 08/15/25 22:17 25 mg ONCE ONE Administration Morphine Sulfate 2 mg 08/15/25 20:53 08/15/25 21:16 Morphine 2mg/Ml Syringe IV 08/15/25 20:54 2 mg ONCE ONE Administration Morphine Sulfate 2 mg 08/15/25 22:16 08/15/25 22:34 Morphine 2mg/Ml Syringe IV 08/15/25 22:17 2 mg ONCE ONE Administration Ondansetron HCl 4 mg 08/15/25 20:54 08/15/25 21:16 Ondansetron 4mg/2ml Vial IV 08/15/25 20:55 4 mg ONCE ONE Administration ORDERS Category Date Time Status CRP [C-Reactive Protein] Stat Lab 08/15/25 20:12 Completed Complete Blood Count Auto Diff Stat Lab 08/15/25 20:12 Completed Comprehensive Metabolic Panel Stat Lab 08/15/25 20:12 Completed ESR [Erythrocyte Sedimentation Rate] Stat Lab 08/15/25 20:12 Completed Lactic Acid Stat Lab 08/15/25 20:50 Completed PT INR [Prothrombin Time INR] Stat Lab 08/15/25 20:12 Completed PTT [Activated Partial Thrombo Time] Stat Lab 08/15/25 20:12 Completed Urinalysis and Microscopic Stat Lab 08/15/25 20:59 Completed Urine Culture Stat Micro 08/15/25 20:59 Completed Medical Decision Narrative: 50-year-old male presents emerged from with a rash for 1 week that is pruritic and painful, differential diagnose include but not limited to, skin breakdown, pressure ulcer, cellulitis, irritant contact dermatitis, psoriasis, cutaneous drug reaction, allergic contact dermatitis, coagulopathy, among others. I discussed this patient's case with the attending physician Dr. Villaseñro she saw and examined the patient as well. Will obtain basic laboratory studies, PT/INR, PTT, ESR, CRP, will give 4 mg Zofran for nausea and 2 mg IV morphine for pain. CBC is notable for neutropenia at 4.6, thrombocytopenia 90 which appears to be within baseline. PTT is elevated at 13.5, INR is elevated at 1.24, PTT within normal limits CMP is notable for hypokalemia 3.3 mild ALP elevation at 145, AST and ALT within normal limits, minimal Tbili elevation at 1.5 CRP is mildly elevated at 5.8 UA unremarkable No lactic acidosis is noted ESR is elevated at 26 I discussed this patient's case with the attending physician Dr. Villaseñor at shift change, she will be assuming admitted the patient's care/workup, disposition is pending interactive discussion with hospitalist physician for possible admission. <Natalie Villaseñor, DO - Last Filed: 08/19/25 00:30> Vital Signs: 08/15/25 20:09 08/15/25 21:45 08/15/25 22:37 Temperature 98.6 F Temperature Source Tympanic Pulse Rate 111 H 104 H Pulse Rate [Right] 113 H Respiratory Rate 15 15 16 Blood Pressure 142/89 H Blood Pressure [Right Arm] 129/80 Blood Pressure Mean 105 Blood Pressure Mean [Right Arm] 96 Blood Pressure Source Blood Pressure Position 02 Sat by Pulse Oximetry 96 97 93 L Oxygen Delivery Method Room Air Oxygen Flow Rate (LPM) 08/15/25 22:40 08/16/25 00:21 Temperature 98.6 F Temperature Source Oral Pulse Rate 108 H 89 Pulse Rate [Right] Respiratory Rate 15 0 L Blood Pressure 142/89 H 142/89 H Blood Pressure [Right Arm] Blood Pressure Mean Blood Pressure Mean [Right Arm] Blood Pressure Source Automatic Cuff Blood Pressure Position Supine 02 Sat by Pulse Oximetry 90 L Oxygen Delivery Method Nasal Cannula Room Air Oxygen Flow Rate (LPM) 2 Lab Data Lab Results 08/15/25 20:12: WBC 4.6 L, RBC 4.76, Hgb 15.0, Hct 44.9, MCV 94.3 H, MCH 31.5 H, MCHC 33.4, RDW 14.5, Plt Count 90 L, MPV 11.1 H, Neut % (Auto) 54.6, Lymph % (Auto) 26.5, [place] % (Auto) 7.4, Eos % (Auto) 10.0, Baso % (Auto) 1.3, Neut # (Auto) 2.5, Lymph # (Auto) 1.2, [place] # (Auto) 0.3, Eos # (Auto) 0.5 H, Baso # (Auto) 0.1, ESR 26 H, PT 13.5 H, INR 1.24 H, APTT 28.9, Sodium 140, Potassium 3.3 L, Chloride 108 H, Carbon Dioxide 27, Anion Gap 8.3, BUN 4 L, Creatinine 0.50 L, Estimated Creat Clear 127, Estimated GFR 175, Est GFR ( Amer) 212, Glucose 137 H, Calcium 9.0, Total Bilirubin 1.5 H, AST 46, ALT 21, Alkaline Phosphatase 145 H, C-Reactive Protein 5.8 H, Total Protein 7.4, Albumin 3.5, G lobulin 3.9 H, Albumin/Globulin Ratio 0.9 L 08/15/25 20:50: Lactate 2.1 08/15/25 20:59: Urine Color Yellow, Urine Appearance Clear, Urine pH 7.5, Ur Specific Plaza 1.015, Urine Protein Negative, Urine Glucose (UA) Negative, Urine Ketones Negative, Urine Blood Negative, Urine Nitrate Negative, Urine Bilirubin Negative, Urine Urobilinogen 0.2, Ur Leukocyte Esterase Trace, Urine RBC Occasional, Urine WBC 5-10, Ur Squamous Epith Cells 10-20, Amorphous Sediment 2+, Urine Bacteria 2+ Orders (Tests/Meds): ED MEDICATIONS Discontinued Medications Generic Name Dose Route Start Last Admin Trade Name Freq PRN Reason Stop Dose Admin Diphenhydramine HCl 25 mg 08/15/25 22:16 08/15/25 22:33 Diphenhydramine 50mg/Ml Vial IV 08/15/25 22:17 25 mg ONCE ONE Administration Morphine Sulfate 2 mg 08/15/25 20:53 08/15/25 21:16 Morphine 2mg/Ml Syringe IV 08/15/25 20:54 2 mg ONCE ONE Administration Morphine Sulfate 2 mg 08/15/25 22:16 08/15/25 22:34 Morphine 2mg/Ml Syringe IV 08/15/25 22:17 2 mg ONCE ONE Administration Ondansetron HCl 4 mg 08/15/25 20:54 08/15/25 21:16 Ondansetron 4mg/2ml Vial IV 08/15/25 20:55 4 mg ONCE ONE Administration ORDERS Category Date Time Status CRP [C-Reactive Protein] Stat Lab 08/15/25 20:12 Completed Complete Blood Count Auto Diff Stat Lab 08/15/25 20:12 Completed Comprehensive Metabolic Panel Stat Lab 08/15/25 20:12 Completed ESR [Erythrocyte Sedimentation Rate] Stat Lab 08/15/25 20:12 Completed Lactic Acid Stat Lab 08/15/25 20:50 Completed PT INR [Prothrombin Time INR] Stat Lab 08/15/25 20:12 Completed PTT [Activated Partial Thrombo Time] Stat Lab 08/15/25 20:12 Completed Urinalysis and Microscopic Stat Lab 08/15/25 20:59 Completed Urine Culture Stat Micro 08/15/25 20:59 Completed Medical Decision Narrative: 50-year-old male presents emerged from with a rash for 1 week that is pruritic and painful, differential diagnose include but not limited to, skin breakdown, pressure ulcer, cellulitis, irritant contact dermatitis, psoriasis, cutaneous drug reaction, allergic contact dermatitis, coagulopathy, among others. I discussed this patient's case with the attending physician Dr. Villaseñor she saw and examined the patient as well. Will obtain basic laboratory studies, PT/INR, PTT, ESR, CRP, will give 4 mg Zofran for nausea and 2 mg IV morphine for pain. CBC is notable for neutropenia at 4.6, thrombocytopenia 90 which appears to be within baseline. PTT is elevated at 13.5, INR is elevated at 1.24, PTT within normal limits CMP is notable for hypokalemia 3.3 mild ALP elevation at 145, AST and ALT within normal limits, minimal Tbili elevation at 1.5 CRP is mildly elevated at 5.8 UA unremarkable No lactic acidosis is noted ESR is elevated at 26 I discussed this patient's case with the attending physician Dr. Villaseñor at shift change, she will be assuming admitted the patient's care/workup, disposition is pending. I assumed care of the patient at 2200. Patient's labs did not appear to be SJS or TENS. Patient's labs were otherwise unremarkable. No crepitus to suggest necrotizing soft tissue infection. The unilateral nature of the rash likely secondary to patient lying predominantly on the left side given history of prior CVA. Patient's rash felt to be consistent with likely fungal infection. Patient was prescribed nystatin cream and recommended he follow-up with primary care provider or to return to the emergency department in 48 hours if rash is not improving. Patient was otherwise discharged home in stable condition. Return precautions were discussed. Critical Care <BENNETT James - Last Filed: 08/15/25 22:16> Critical Care Time Critical Care Time: No
[2025-08-15 20:37] LABS: Hematocrit 44.9 % (42.0-52.0); Hemoglobin 15.0 g/dL (14.1-18.0); Immature Granulocytes % 0.2 %; Mean Corpuscular HGB Conc 33.4 g/dL (31.8-35.4); Mean Corpuscular Hemoglobin 31.5 pg (27.0-31.2); Mean Corpuscular Volume 94.3 fl (80-94); Nucleated Red Blood Cells % 0 %; Platelet Count 90 K/mm3 (142-424); Red Blood Count 4.76 M/mm3 (4.60-6.20); Red Cell Distribution Width-SD 50.2 fL; White Blood Count 4.6 K/mm3 (4.8-10.8)
[2025-08-15 20:43] LABS: Alanine Aminotransferase 21 U/L (12-78); Albumin Level 3.5 g/dl (3.5-5.0); Albumin/Globulin Ratio 0.9 (1.1-1.8); Alkaline Phosphatase 145 U/L (38-126); Anion Gap 8.3 mEq/L (5-15); Aspartate Amino Transferase 46 U/L (17-59); Bilirubin,Total 1.5 mg/dl (0.2-1.3); Blood Urea Nitrogen 4 mg/dl (9-20); Calcium 9.0 mg/dl (8.4-10.2); Carbon Dioxide 27 mmol/L (22.0-30.0); Chloride 108 mmol/L (98-107); Creatinine Clearance Estimated 127 mL/min (50-200); Creatinine,Serum 0.50 mg/dl (0.66-1.25); Estimated Glomerular Filt Rate 175 ml/min (>60); GFR (African American) 212 ML/MIN (>60); Globulin 3.9 g/dL (1.3-3.2); Glucose 137 mg/dl (74-100); Potassium 3.3 mmoL/L (3.5-5.1); Sodium 140 mmol/L (136-145); Total Protein,Serum 7.4 g/dl (6.3-8.2)
[2025-08-15 20:45] LABS: Activated Partial Thrombo Time 28.9 seconds (22.8-30.6); INR 1.24 (0.9-1.1); Prothrombin Time 13.5 seconds (10.1-12.5)
[2025-08-15 21:00] LABS: C-Reactive Protein 5.8 mg/L (0-4)
[2025-08-15 21:05] LABS: Microscopic, Urine URINE MICROSCOPIC (MICROSCOPIC)
[2025-08-15 21:08] LABS: Bilirubin,Urine Negative (Negative); Color,Urine YELLOW (Yellow); Glucose,Urine (UA) Negative (Negative); Ketones,Urine Negative (Negative); Leukocyte Esterase,Urine TRACE (Negative); PH,Urine 7.5 (5.0-8.5); Protein,Urine Negative (Negative); Specific Gravity, Urine 1.015 (1.005-1.030); Urobilinogen,Urine 0.2 EU/dl (0.2)
[2025-08-15] MEDS: ONDANSETRON 4MG/2ML VIAL 4 MG IV (21:16)
[2025-08-15] MEDS: MORPHINE 2MG/ML SYRINGE 2 MG IV ×2 (21:16→22:34)
[2025-08-15 21:26] LABS: Amorphous Sediment,Urine 2+ /lpf; Bacteria,Urine 2+ /lpf; RBC,Urine Occasional #/hpf (0-3)
[2025-08-15 21:45] VITALS: PULSE 111; RESP 15; O2SAT 97
[2025-08-15 22:37] VITALS: BP 142/89; PULSE 104; RESP 16; O2SAT 93
--- NOTE | 2025-08-15 22:39 | PC.NURSE ---
PT stated PT is on PRN O2 at night time. When O2 in use 2L NC is used
[2025-08-15 22:40] VITALS: BP 142/89; PULSE 108; RESP 15; O2SAT 90
--- NOTE | 2025-08-15 23:49 | PC.NURSE ---
PT noted to call out for primary nurse to come to her room. Upon entering room PT became tearful and stated Karina just been treated awful and no one believe me what is wrong with me . This nurse notified PT of awaiting CT reads. PT stated I dont care, I didnt come here to be treated this way I want to leave . I notified PT on need to stay in the ED for possible admission. I also notfied the PT i had been in to check on her multiple time and that she was resting in bed with her eyes closed and did not want to wake her. PT again stated she wanted to leave. Charge Nurse and Provider, Kasi, notified.
[2025-08-16 00:21] VITALS: BP 142/89; PULSE 89; RESP 0; TEMP 37; O2SAT 98
[2025-08-16 01:02] LABS: Reflex Lactic Add Lactic Reflex
--- NOTE | 2025-08-17 09:34 | PC.NURSE ---
Urine culture results reviewed by Dr. Leavitt. called patient and his , spoke with them, patient is not having any symptoms of UTI. Advised no need for antibiotics at this time. Advised if anything changes to return to ER or follow up with PCP. Verbalized understanding .
== END 2025-08-16 00:23 | disposition home or self-care (01) ==
PROVIDERS: Physician Assistant; Emergency Provider Student in an Organized Health Care Education/Training Program
DX: R21 Rash and other nonspecific skin eruption (principal); B49 Unspecified mycosis; D70.9 Neutropenia, unspecified; D69.6 Thrombocytopenia, unspecified; E87.6 Hypokalemia
CPT/HCPCS: 80053; 81001; 83605; 85025; 85610; 85651; 85730; 86140; 87086; 87088; 87186; 96374; 96375; 96376; 99285; J1200; J2270; J2405

== ENCOUNTER 2025-11-19 12:42 | Outpatient (CLI) | payer MEDICAID, SELFPAY ==
--- OUTSIDE RECORDS SUMMARY | 2025-10-16 09:59 | XMS_ITS | Encounter Summary ---
Author Organization [facility] Address [address] 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 Patient unable to answer 04/16/2025 Within the last year, have y ou been humiliated or emotionally abused in other ways by your partner or ex-partner? Patient unable to answer 04/16/2025 Within the last year, have y ou been kicked, hit, slapped, or otherwise physically hurt by your partner or ex-partner? Patient unable to answer 04/16/2025 Within the last year, have y ou been raped or forced to have any kind of sexual activity by your partner or ex-partner? Patient unable to answer 04/16/2025 Social Connection and Isolation Panel Answer Date Recorded In a typical week, how many times do you talk on the phone with family, friends, or neighbors? Patient unable to answer 04/16/2025 How often do you get togethe r with friends or relatives? Patient unable to answer 04/16/2025 How often do you attend chur or holiness services? Patient unable to answer 04/16/2025 Do you belong to any clubs o r organizations such as caodaism groups, unions, fraternal or athletic groups, or school groups? Patient unable to answer 04/16/2025 How often do you attend meet ings of the clubs or organizations you belong to? Patient unable to answer 04/16/2025 Are you , , di vorced, , never , or living with a partner? Patient unable to answer 04/16/2025 AUDIT-C Answer Date Recorded Q1: How often do you have a drink containing alcohol? Patient unable to answer 04/16/2025 Q2: How many drinks containi ng alcohol do you have on a typical day when you are drinking? Patient unable to answer Q3: How often do you have si x or more drinks on one occasion? Patient unable to answer 04/16/2025 PHQ-2 Answer Date Recorded Patient Health Questionnaire-2 Score 0 [facility] - Occupational Stress Questionnaire Answer Date Recorded Do you feel stress - tense, restless, nervous, or anxious, or unable to sleep at night because your mind is troubled all the time - these days? Patient unable to answer 04/16/2025 Exercise Vital Sign Answer Date Recorde d On average, how many days pe r week do you engage in moderate to strenuous exercise (like a brisk walk)? Patient unable to answer 04/16/2025 Minutes of Exercise per Session Not on file 04/16/2025 Hunger Vital Sign Answer Date Recorded Within the past 12 months, y ou worried that your food would run out before you got the money to buy more. Never true 09/05/20 25 Within the past 12 months, t he food you bought just didn't last and you didn't have money to get more. Never true 09/05/2025 PRAPARE - Transportation Answer Date Re corded In the past 12 months, has l ack of transportation kept you from medical appointments or from getting medications? No 06/30 In the past 12 months, has l ack of transportation kept you from meetings, work, or from getting things needed for daily living? No 07/25/2025 Housing Stability Vital Sign Answer Jairo e Recorded In the last 12 months, was t here a time when you were not able to pay the mortgage or rent on time? No 09/05/2025 Number of Times Moved in the Last Year Not on fi le 09/05/2025 At any time in the past 12 m [facility], were you homeless or living in a senior care (including now)? No 09/05/2025 CAGE ASSESSMENT Answer Date Recorded Cage unable to access Not on file 10/16/2025 Maximum number of drinks you had on a given occasion in the last month? 0 drinks 10/16/2025 How many alcoholic Beverages do you typically drink in a week? 0 - 7 per week 10/16/2025 Have you ever felt you should CUT down on your d rinking? 0 10/16/2025 Have you been ANNOYED by peo ple criticizing your drinking? 0 10/16/2025 Have you felt GUILTY about your drinking? 0 10/16/2025 Have you had a drink first t lucia in the morning (EYE-OPERATIONS INSPECTOR) to steady your nerves or to get rid of a hangover? 0 10/16/2025 CAGE Questionnaire Score 0 025 Utilities Answer Date Recorded In the past 12 months has th e electric, gas, oil, or water company threatened to shut off services in your home? No 07/25/2025 PHQ-2A Answer Date Recorded Patient Health Questionnaire-2 Score 0 10/27/2023 Sex and Gender Information Value Date Recorded Sex Assigned at Male 07/22/2021 10:06 AM EDT Legal Sex Male 7:02 PM EDT Gender Identity Male 07/22/2021 10:06 AM EDT Sexual Orientation Not on file documented as of this encounter Functional Status * Calculated C-SSRS Risk Score (Lifetime/Recent) Answer Date of Assessment Author No Risk Indicated 10/16/2025 1:40 PM Mikayla Nieto RN * Question Answer Date of Assessment Author 1. Wish to be (Past 1 Month) No 025 1:40 PM Mikayla Nieto RN 2. Non-Specific Active Suici he Thoughts (Past 1 Month) No 10/16/2025 1:40 PM Pat Nieto RN 6. Suicidal Behavior (Lifetime) No 5 1:40 PM Mikayla Nieto RN documented as of this encounter Medications at Time of Discharge esomeprazole (NexIUM) [address] capsule Take 1 capsule by mouth daily before breakfast. Do not open capsule. folic acid (Folvite) 1 MG tablet Take 1 tablet by mouth daily. 30 tablet 3 07/22/2025 11/19/2025 levETIRAcetam (Keppra) 750 MG tabletIndications :Seizures (CMS/HCC) Take 2 tablets by mouth 2 times a day. 120 tablet 3 10/16/2025 02/13/2026 Multiple Vitamins-Minerals (multivitamin with minerals) tablet Take 1 tablet by mouth daily. oxyCODONE-acetami nophen (Percocet) 10-325 MG tablet take 1 tablet by mouth 2 times a day as needed for pain 09/28/2025 Potassium 99 MG tablet Take 1 tablet by mouth daily. traZODone (Desyrel) 150 MG tablet Take 0.5 tablets by mouth nightly. 15 tablet 2 07/21/2025 documented as of this encounter Miscellaneous Notes * Rudy Asif - 10/16/2025 10:04 AM EST Images from the original note were not included. 1639 Caring for Yourself after Contrast Imaging If you had ORAL contrast: ? You can go back to your normal diet and activities as tolerated. ? Drink plenty of fluids, unless told otherwise. If you had IV contrast: ? You can go back to your normal diet and activities as tolerated. ? Drink plenty of fluids, unless told otherwise. ? Leave a bandage on the site for 30 minutes (where the IV was inserted or blood was drawn). If you had Intravesical (bladder) contrast: ? Return to normal diet and activity. What you need to know about delayed reaction to IV contrast What is IV Contrast? ? Contrast is a dye that is put into your body through an IV. ? It is used for imaging scans such as CT scans and MRIs. ? The contrast makes blood vessels, organs and other parts of your body show up better on the scan. What do I need to do after IV contrast? ? Drink lots of fluids. This will help flush the contrast out of your system. ? Drink 2-3 extra glasses or bottles of water within 4 hours of your scan. What is a contrast reaction? ? A contrast reaction is a bad side effect from the contrast dye. ? It is rare but it does happen. ? They can be mild - such as sneezing, itching, or hives. ? They can be severe - such as trouble breathing, throat swelling, and irregular heart beat. When do these reactions happen? ? They often happen right after the contrast is injected. ? Some happen hours after going home. Go to the nearest Emergency Department right away if you have any of these symptoms after you leavethe clinic or hospital. ? Sneezing ? Itching in your mouth, throat, eyes, ears, or skin ? Rash or hives ? Throwing up or stomach sickness ? High heart rate or ?racing? of your heart ? Feeling dizzy or woozy ? Feeling short of breath or like you can?t take a deep breath ? Feeling very anxious for no other reason It is very important that these reactions be treated. Tell the doctor or nurse that you are having a reaction to IV contrast dye. Do not ignore any sign of a reaction! All reactions must be assessed by a doctor. Call [phone] if you are alone and your reaction is more than mild sneezing or itching. If you have a mild reaction, call to speak with a Radiologist, explain that you havehad a contrast reaction, as this needs to be added to your medical record. documented in this encounter Plan of Treatment Upcoming Encounters Date Type Department Care Team (Late st Contact Info) Description 01/15/2026 1:20 PM EST [facility] [address] [place] [address] Oma Haywood MD [address] [place] [address] documented as of this encounter Goals Goal Patient Goal Type Associated Problems Recent Progress Patient-Stated? 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 2) Small tangle of vessels in the region of the posterior right sylvian fissure. This tangle of vessels is likely supplied by distal M3 branches. It extends toward and is suspected to drain into the vein of Manoj. This finding raises suspicion for a high flow vascular malformation such as an arteriovenous malformation. This finding is suspected to correlate with the abnormality described on the most recent catheter angiogram examination. 3) In the ambient cistern and adjacent mesial right temporal lobe, there is a tangle of vessels at this site of the prior right thalamic and temporal lobe hematoma. It is suspected be supplied by branches from the right posterior cerebral artery. The right basal vein of Tiesha courses in the immediate vicinity of this finding and could potentially be a venous drainage pathway. This finding also raises suspicion for a high flow vascular malformation such as an arteriovenous malformation. Enhancement related to the prior hematoma (such as granulation tissue) is favored to be less likely. 4) A cluster of tiny vessels in the interpeduncular cistern may reflect normal venous structures. However, the appearance is pronounced and a vascular malformation is also possible. 5) A cluster of vessels in the region of the left proximal P4 branches is favored to more likely reflect normal TRACK WATCHMAN branches and venous structures coursing close proximity to one and later rather than a vascular malformation. 6) No evidence of an acute intracranial finding noting that the presence of iodinated contrast material limits the assessment for intracranial hemorrhage. 7) Gliosis and encephalomalacia at the site of the previously seen parenchymal hematoma centered in the right temporal lobe and thalamus. 8) Mild interval increase in size of the right lateral and third ventricles, which may reflect a combination of expected dilation and decreased mass effect from the prior hematoma. NECK CTA: Patent cervical arteries without a high-grade stenosis. Periapical lucency at the right mandibular second premolar tooth. Partially visualized 5 x 4 mm nodule in the right lung appears similar to a nodule seen at this site on a prior chest CT from 04/12/2019 within the [id number]-[id number] on the current study. RECOMMENDATION: If clinically warranted, consider further imaging evaluation of the possible vascular malformations with a cjyr-wo-tqyodw MRA of the head or catheter angiogram. Dental referral for the right mandibular periapical lucency. Given only partial visualization of the right lung nodule on the current study, a follow-up chest CT could be considered to confirm temporal stability of this nodule, especially if the patient has a smoking history or other risk factors for lung cancer. Case finalized on 10/16/25 14:41 EDT David Douglas M.D. This report has been electronically signed and verified by the Radiologist whose name is printed above. This report contains privileged and confidential information and is intended solely for the use of the individual or entity to which it is addressed. If you are not the intended recipient of this report, you are hereby notified that any copying, distribution, dissemination or action taken in relation to the contents of this report is strictly prohibited and may be unlawful. If you have received this report in error, please notify the sender immediately at [phone] and permanently delete the original report and destroy any copies or printouts. 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 Total DLP 565.4 mGy centimeters 3D Image Post Processing, including MIPs when applicable, was performed Comparison: Brain MRI 06/06/2025; head CT 04/26/2025; CTA head and neck 04/15/2025 Exam: CTA of the head and neck FINDINGS: HEAD CTA: ANTERIOR CIRCULATION: Internal Carotid Arteries: Widely patent with mild atherosclerotic changes on the left. Next field Anterior cerebral Arteries: Widely patent. Congenitally hypoplastic right A1 segment. Middle cerebral Arteries: Patent without significant stenosis. Anterior Communicating Atery: Present No evidence of an aneurysm. There is a small tangle of vessels in the region of the posterior right sylvian fissure best seen on series 4 image 58. It measures approximately 10 x 3 mm in axial plane. This tangle of vessels is likely supplied by distal M3 branches. It extends toward and is suspected to drain into a prominent cortical venous structure overlying the adjacent temporal lobe that likely reflects the vein of Manoj. POSTERIOR CIRCULATION: Verterbral Ateries: Patent without significant stenosis. Basilar Atery: Patent without significant stenosis. Posterior Cerebral Arteries: Patent without significant stenosis. Posterior Communicating Arteries: Not definitively visualized on the left. Suspected diminutive vessel on the right. No aneurysm. In the region of the ambient cistern and adjacent mesial right temporal lobe, there is a tangle of vessels best seen on series 5 images 149-172. It is located in the region of the prior right thalamic and temporal lobe hematoma. It measures approximately 9 x 7 x 19 mm (TR x AP x CC). It is suspected be supplied by branches from the right posterior cerebral artery. The right basal vein of Tiesha courses in the immediate vicinity of this finding and could potentially be a venous drainage pathway. There is also a cluster of vessels in the region of the left proximal P4 branches on series 5 image 169. There is a cluster of vessels in the interpeduncular cistern on series 5 image 150. Venous Structures: No findings suggestive of a thrombosis. NONVASCULAR FINDINGS: Note is made that the presence of iodinated contrast material decreases sensitivity for intracranial hemorrhage. Within this limitation: Brain Parenchyma: No evidence of a large territorial acute infarction. No obvious evidence of intracranial hemorrhage. There is encephalomalacia and gliosis at the site of the previously seen large hematoma in the right thalamus as well as the right parietal and temporal lobes. There is also a small focus of encephalomalacia/gliosis near the anterior right cingulate gyrus, also present previously. Ventricles and Extra-Axial Spaces: There is no transtentorial herniation. There is mild ventriculomegaly. Interval increase in size of the right lateral ventricle which may reflect ex vacuo elation. It is asymmetrically mildly larger compared to the left lateral ventricle. The third ventricle is also mildly increased in size over the interval which may reflect a combination of ex vacuo elation and decreased mass effect from the prior hematoma. Bones and Extracranial Structures: No acute fracture. The globes and orbits are unremkarkable. No significant mucosal thickening in the paranasal sinuses. Prominent leftward nasal septal deviation with a leftward projecting nasal septal spur the mastoid air cells are well aerated. A small lucent focus in the posterior right mastoid bone is minimally increased in size compared to 2019 and most likely reflects a benign finding. NECK CTA: Aortic Arch: Three vessel left sided aortic arch. Mild atherosclerotic changes. Brachiocephalic Trunk: Widely patent Subclavian Arteries: Widely patent Right Common Carotid Artery: Widely patent Right Internal Carotid Artery: Widely patent Left Common Carotid Artery: Widely patent Left Internal Carotid Artery: Widely patent External Carotid Arteries: Widely patent Right Vertebral Artery: Widely patent Left Vertebral Artery: Widely patent Internal Jugular Veins: Enhance normally in the upper neck. Suboptimally characterized in the lower neck due to contrast bolus timing. NON-VASCULAR FINDINGS: Aerodigestive Tract: The mucosal contours are symmetric. Lymph Nodes: No suspcious cervical lymph nodes. Thyroid Gland: Unremarkable. Upper Thorax: There is a partially visualized 4 x 5 mm nodule in the right lung on series 7 image 1. It measures similarly to the prior chest CT from 04/12/2019 within the [id number]-[id number] of this exam. Bones and Soft Tissues: No destructive osseous lesion. Unchanged benign sclerotic focus in the left mandible dating back to 2019. There is a periapical lucency at the right mandibular second premolar tooth with thinning of the buccal cortex. 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 TotalDLP 565.4 mGy centimeters 3D Image Post Processing, including MIPs when applicable, was performed Comparison: Brain MRI 06/06/2025; head CT 04/26/2025; CTA head and neck04/15/2025 Exam: CTA of the head and neck FINDINGS: HEAD CTA: ANTERIOR CIRCULATION: Internal Carotid Arteries: Widely patent with mild atherosclerotic changeson the left. Next field Anterior cerebral Arteries: Widely patent. Congenitally hypoplastic rightA1 segment. Middle cerebral Arteries: Patent without significant stenosis. Anterior Communicating Atery: Present No evidence of an aneurysm. There is a small tangle of vessels in theregion of the posterior right sylvian fissure best seen on series 4 image58. It measures approximately 10 x 3 mm in axial plane. This tangle ofvessels is likely supplied by distal M3 branches. It extends toward andis suspected to drain into a prominent cortical venous structure overlyingthe adjacent temporal lobe that likely reflects the vein of Manoj. POSTERIOR CIRCULATION: Verterbral Ateries: Patent without significant stenosis. Basilar Atery: Patent without significant stenosis. Posterior Cerebral Arteries: Patent without significant stenosis. Posterior Communicating Arteries: Not definitively visualized on the left.Suspected diminutive vessel on the right. No aneurysm. In the region of the ambient cistern and adjacent mesialright temporal lobe, there is a tangle of vessels best seen on series 5images 149-172. It is located in the region of the prior right thalamicand temporal lobe hematoma. It measures approximately 9 x 7 x 19 mm (TR xAP x CC). It is suspected be supplied by branches from the rightposterior cerebral artery. The right basal vein of Tiesha courses inthe immediate vicinity of this finding and could potentially be a venousdrainage pathway. There is also a cluster of vessels in the region of theleft proximal P4 branches on series 5 image 169. There is a cluster ofvessels in the interpeduncular cistern on series 5 image 150. Venous Structures: No findings suggestive of a thrombosis. NONVASCULAR FINDINGS: Note is made that the presence of iodinated contrast material decreasessensitivity for intracranial hemorrhage. Within this limitation: Brain Parenchyma: No evidence of a large territorial acute infarction. Noobvious evidence of intracranial hemorrhage. There is encephalomalaciaand gliosis at the site of the previously seen large hematoma in the rightthalamus as well as the right parietal and temporal lobes. There is alsoa small focus of encephalomalacia/gliosis near the anterior rightcingulate gyrus, also present previously. Ventricles and Extra-Axial Spaces: There is no transtentorial herniation.There is mild ventriculomegaly. Interval increase in size of the rightlateral ventricle which may reflect ex vacuo elation. It isasymmetrically mildly larger compared to the left lateral ventricle. Thethird ventricle is also mildly increased in size over the interval whichmay reflect a combination of ex vacuo elation and decreased mass effectfrom the prior hematoma. Bones and Extracranial Structures: No acute fracture. The globes andorbits are unremkarkable. No significant mucosal thickening in theparanasal sinuses. Prominent leftward nasal septal deviation with aleftward projecting nasal septal spur the mastoid air cells are wellaerated. A small lucent focus in the posterior right mastoid bone isminimally increased in size compared to 2019 and most likely reflects abenign finding. NECK CTA: Aortic Arch: Three vessel left sided aortic arch. Mild atheroscleroticchanges. Brachiocephalic Trunk: Widely patent Subclavian Arteries: Widely patent Right Common Carotid Artery: Widely patent Right Internal Carotid Artery: Widely patent Left Common Carotid Artery: Widely patent Left Internal Carotid Artery: Widely patent External Carotid Arteries: Widely patent Right Vertebral Artery: Widely patent Left Vertebral Artery: Widely patent Internal Jugular Veins: Enhance normally in the upper neck. Suboptimallycharacterized in the lower neck due to contrast bolus timing. NON-VASCULAR FINDINGS: Aerodigestive Tract: The mucosal contours are symmetric. Lymph Nodes: No suspcious cervical lymph nodes. Thyroid Gland: Unremarkable. Upper Thorax: There is a partially visualized 4 x 5 mm nodule in the rightlung on series 7 image 1. It measures similarly to the prior chest CTfrom 04/12/2019 within the [id number] of this exam. Bones and Soft Tissues: No destructive osseous lesion. Unchanged benignsclerotic focus in the left mandible dating back to 2019. There is aperiapical lucency at the right mandibular second premolar tooth withthinning of the buccal cortex. IMPRESSION: HEAD CTA: 1) Patent intracranial arteries without a significant stenosis oraneurysm. 2) Small tangle of vessels in the region of the posterior right sylvianfissure. This tangle of vessels is likely supplied by distal M3 branches.It extends toward and is suspected to drain into the vein of Manoj. Thisfinding raises suspicion for a high flow vascular malformation such as anarteriovenous malformation. This finding is suspected to correlate withthe abnormality described on the most recent catheter angiogramexamination. 3) In the ambient cistern and adjacent mesial right temporal lobe, thereis a tangle of vessels at this site of the prior right thalamic andtemporal lobe hematoma. It is suspected be supplied by branches from theright posterior cerebral artery. The right basal vein of Rosenthalcourses in the immediate vicinity of this finding and could potentially matt venous drainage pathway. This finding also raises suspicion for a highflow vascular malformation such as an arteriovenous malformation.Enhancement related to the prior hematoma (such as granulation tissue) isfavored to be less likely. 4) A cluster of tiny vessels in the interpeduncular cistern may reflectnormal venous structures. However, the appearance is pronounced and avascular malformation is also possible. 5) A cluster of vessels in the region of the left proximal P4 branches isfavored to more likely reflect normal TRACK WATCHMAN branches and venous structurescoursing close proximity to one and later rather than a vascularmalformation. 6) No evidence of an acute intracranial finding noting that the presenceof iodinated contrast material limits the assessment for intracranialhemorrhage. 7) Gliosis and encephalomalacia at the site of the previously seenparenchymal hematoma centered in the right temporal lobe and thalamus. 8) Mild interval increase in size of the right lateral and thirdventricles, which may reflect a combination of expected dilation anddecreased mass effect from the prior hematoma. NECK CTA: Patent cervical arteries without a high-grade stenosis. Periapical lucency at the right mandibular second premolar tooth. Partially visualized 5 x 4 mm nodule in the right lung appears similar toa nodule seen at this site on a prior chest CT from 04/12/2019 within [id number] on the current study. RECOMMENDATION: If clinically warranted, consider further imaging evaluation of thepossible vascular malformations with a [id number] MRA of the head orcatheter angiogram. Dental referral for the right mandibular periapical lucency. Given only partial visualization of the right lung nodule on the currentstudy, a follow-up chest CT could be considered to confirm temporalstability of this nodule, especially if the patient has a smoking historyor other risk factors for lung cancer. Case finalized on 10/16/25 14:41 EDT David Douglas M.D. This report has been electronically signed and verified by the Radiologistwhose name is printed above. This report contains privileged and confidential information and isintended solely for the use of the individual or entity to which it isaddressed. If you are not the intended recipient of this report, you arehereby notified that any copying, distribution, dissemination or actiontaken in relation to the contents of this report is strictly prohibitedand may be unlawful. If you have received this report in error, pleasenotify the sender immediately at [phone] and permanently delete theoriginal report and destroy any copies or printouts. Hunter Liu APRN IMG CT PROCEDURES Final Res ult * CT Angio Head (10/16/2025 10:30 AM EST) Anatomical Region Laterality Modality [place] [facility] [place] Computed Tomogr aphy Impressions 10/16/2025 2:41 PM EST HEAD CTA: 1) Patent intracranial arteries without a significant stenosis or aneurysm. 2) Small tangle of vessels in the region of the posterior right sylvian fissure. This tangle of vessels is likely supplied by distal M3 branches. It extends toward and is suspected to drain into the vein of Manoj. This finding raises suspicion for a high flow vascular malformation such as an arteriovenous malformation. This finding is suspected to correlate with the abnormality described on the most recent catheter angiogram examination. 3) In the ambient cistern and adjacent mesial right temporal lobe, there is a tangle of vessels at this site of the prior right thalamic and temporal lobe hematoma. It is suspected be supplied by branches from the right posterior cerebral artery. The right basal vein of Tiesha courses in the immediate vicinity of this finding and could potentially be a venous drainage pathway. This finding also raises suspicion for a high flow vascular malformation such as an arteriovenous malformation. Enhancement related to the prior hematoma (such as granulation tissue) is favored to be less likely. 4) A cluster of tiny vessels in the interpeduncular cistern may reflect normal venous structures. However, the appearance is pronounced and a vascular malformation is also possible. 5) A cluster of vessels in the region of the left proximal P4 branches is favored to more likely reflect normal TRACK WATCHMAN branches and venous structures coursing close proximity to one and later rather than a vascular malformation. 6) No evidence of an acute intracranial finding noting that the presence of iodinated contrast material limits the assessment for intracranial hemorrhage. 7) Gliosis and encephalomalacia at the site of the previously seen parenchymal hematoma centered in the right temporal lobe and thalamus. 8) Mild interval increase in size of the right lateral and third ventricles, which may reflect a combination of expected dilation and decreased mass effect from the prior hematoma. NECK CTA: Patent cervical arteries without a high-grade stenosis. Periapical lucency at the right mandibular second premolar tooth. Partially visualized 5 x 4 mm nodule in the right lung appears similar to a nodule seen at this site on a prior chest CT from 04/12/2019 within the [id number] on the current study. RECOMMENDATION: If clinically warranted, consider further imaging evaluation of the possible vascular malformations with a [id number]-pb-oddlkr MRA of the head or catheter angiogram. Dental referral for the right mandibular periapical lucency. Given only partial visualization of the right lung nodule on the current study, a follow-up chest CT could be considered to confirm temporal stability of this nodule, especially if the patient has a smoking history or other risk factors for lung cancer. Case finalized on 10/16/25 14:41 MAT Douglas M.D. This report has been electronically signed and verified by the Radiologist whose name is printed above. This report contains privileged and confidential information and is intended solely for the use of the individual or entity to which it is addressed. If you are not the intended recipient of this report, you are hereby notified that any copying, distribution, dissemination or action taken in relation to the contents of this report is strictly prohibited and may be unlawful. If you have received this report in error, please notify the sender immediately at [phone] and permanently delete the original report and destroy any copies or printouts. 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 Total DLP 565.4 mGy centimeters 3D Image Post Processing, including MIPs when applicable, was performed Comparison: Brain MRI 06/06/2025; head CT 04/26/2025; CTA head and neck 04/15/2025 Exam: CTA of the head and neck FINDINGS: HEAD CTA: ANTERIOR CIRCULATION: Internal Carotid Arteries: Widely patent with mild atherosclerotic changes on the left. Next field Anterior cerebral Arteries: Widely patent. Congenitally hypoplastic right A1 segment. Middle cerebral Arteries: Patent without significant stenosis. Anterior Communicating Atery: Present No evidence of an aneurysm. There is a small tangle of vessels in the region of the posterior right sylvian fissure best seen on series 4 image 58. It measures approximately 10 x 3 mm in axial plane. This tangle of vessels is likely supplied by distal M3 branches. It extends toward and is suspected to drain into a prominent cortical venous structure overlying the adjacent temporal lobe that likely reflects the vein of Manoj. POSTERIOR CIRCULATION: Verterbral Ateries: Patent without significant stenosis. Basilar Atery: Patent without significant stenosis. Posterior Cerebral Arteries: Patent without significant stenosis. Posterior Communicating Arteries: Not definitively visualized on the left. Suspected diminutive vessel on the right. No aneurysm. In the region of the ambient cistern and adjacent mesial right temporal lobe, there is a tangle of vessels best seen on series 5 images 149-172. It is located in the region of the prior right thalamic and temporal lobe hematoma. It measures approximately 9 x 7 x 19 mm (TR x AP x CC). It is suspected be supplied by branches from the right posterior cerebral artery. The right basal vein of Tiesha courses in the immediate vicinity of this finding and could potentially be a venous drainage pathway. There is also a cluster of vessels in the region of the left proximal P4 branches on series 5 image 169. There is a cluster of vessels in the interpeduncular cistern on series 5 image 150. Venous Structures: No findings suggestive of a thrombosis. NONVASCULAR FINDINGS: Note is made that the presence of iodinated contrast material decreases sensitivity for intracranial hemorrhage. Within this limitation: Brain Parenchyma: No evidence of a large territorial acute infarction. No obvious evidence of intracranial hemorrhage. There is encephalomalacia and gliosis at the site of the previously seen large hematoma in the right thalamus as well as the right parietal and temporal lobes. There is also a small focus of encephalomalacia/gliosis near the anterior right cingulate gyrus, also present previously. Ventricles and Extra-Axial Spaces: There is no transtentorial herniation. There is mild ventriculomegaly. Interval increase in size of the right lateral ventricle which may reflect ex vacuo elation. It is asymmetrically mildly larger compared to the left lateral ventricle. The third ventricle is also mildly increased in size over the interval which may reflect a combination of ex vacuo elation and decreased mass effect from the prior hematoma. Bones and Extracranial Structures: No acute fracture. The globes and orbits are unremkarkable. No significant mucosal thickening in the paranasal sinuses. Prominent leftward nasal septal deviation with a leftward projecting nasal septal spur the mastoid air cells are well aerated. A small lucent focus in the posterior right mastoid bone is minimally increased in size compared to 2019 and most likely reflects a benign finding. NECK CTA: Aortic Arch: Three vessel left sided aortic arch. Mild atherosclerotic changes. Brachiocephalic Trunk: Widely patent Subclavian Arteries: Widely patent Right Common Carotid Artery: Widely patent Right Internal Carotid Artery: Widely patent Left Common Carotid Artery: Widely patent Left Internal Carotid Artery: Widely patent External Carotid Arteries: Widely patent Right Vertebral Artery: Widely patent Left Vertebral Artery: Widely patent Internal Jugular Veins: Enhance normally in the upper neck. Suboptimally characterized in the lower neck due to contrast bolus timing. NON-VASCULAR FINDINGS: Aerodigestive Tract: The mucosal contours are symmetric. Lymph Nodes: No suspcious cervical lymph nodes. Thyroid Gland: Unremarkable. Upper Thorax: There is a partially visualized 4 x 5 mm nodule in the right lung on series 7 image 1. It measures similarly to the prior chest CT from 04/12/2019 within the [id number] of this exam. Bones and Soft Tissues: No destructive osseous lesion. Unchanged benign sclerotic focus in the left mandible dating back to 2019. There is a periapical lucency at the right mandibular second premolar tooth with thinning of the buccal cortex. 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 TotalDLP 565.4 mGy centimeters 3D Image Post Processing, including MIPs when applicable, was performed Comparison: Brain MRI 06/06/2025; head CT 04/26/2025; CTA head and neck04/15/2025 Exam: CTA of the head and neck FINDINGS: HEAD CTA: ANTERIOR CIRCULATION: Internal Carotid Arteries: Widely patent with mild atherosclerotic changeson the left. Next field Anterior cerebral Arteries: Widely patent. Congenitally hypoplastic rightA1 segment. Middle cerebral Arteries: Patent without significant stenosis. Anterior Communicating Atery: Present No evidence of an aneurysm. There is a small tangle of vessels in theregion of the posterior right sylvian fissure best seen on series 4 image58. It measures approximately 10 x 3 mm in axial plane. This tangle ofvessels is likely supplied by distal M3 branches. It extends toward andis suspected to drain into a prominent cortical venous structure overlyingthe adjacent temporal lobe that likely reflects the vein of Manoj. POSTERIOR CIRCULATION: Verterbral Ateries: Patent without significant stenosis. Basilar Atery: Patent without significant stenosis. Posterior Cerebral Arteries: Patent without significant stenosis. Posterior Communicating Arteries: Not definitively visualized on the left.Suspected diminutive vessel on the right. No aneurysm. In the region of the ambient cistern and adjacent mesialright temporal lobe, there is a tangle of vessels best seen on series 5images 149-172. It is located in the region of the prior right thalamicand temporal lobe hematoma. It measures approximately 9 x 7 x 19 mm (TR xAP x CC). It is suspected be supplied by branches from the rightposterior cerebral artery. The right basal vein of Tiesha courses inthe immediate vicinity of this finding and could potentially be a venousdrainage pathway. There is also a cluster of vessels in the region of theleft proximal P4 branches on series 5 image 169. There is a cluster ofvessels in the interpeduncular cistern on series 5 image 150. Venous Structures: No findings suggestive of a thrombosis. NONVASCULAR FINDINGS: Note is made that the presence of iodinated contrast material decreasessensitivity for intracranial hemorrhage. Within this limitation: Brain Parenchyma: No evidence of a large territorial acute infarction. Noobvious evidence of intracranial hemorrhage. There is encephalomalaciaand gliosis at the site of the previously seen large hematoma in the rightthalamus as well as the right parietal and temporal lobes. There is alsoa small focus of encephalomalacia/gliosis near the anterior rightcingulate gyrus, also present previously. Ventricles and Extra-Axial Spaces: There is no transtentorial herniation.There is mild ventriculomegaly. Interval increase in size of the rightlateral ventricle which may reflect ex vacuo elation. It isasymmetrically mildly larger compared to the left lateral ventricle. Thethird ventricle is also mildly increased in size over the interval whichmay reflect a combination of ex vacuo elation and decreased mass effectfrom the prior hematoma. Bones and Extracranial Structures: No acute fracture. The globes andorbits are unremkarkable. No significant mucosal thickening in theparanasal sinuses. Prominent leftward nasal septal deviation with aleftward projecting nasal septal spur the mastoid air cells are wellaerated. A small lucent focus in the posterior right mastoid bone isminimally increased in size compared to 2019 and most likely reflects abenign finding. NECK CTA: Aortic Arch: Three vessel left sided aortic arch. Mild atheroscleroticchanges. Brachiocephalic Trunk: Widely patent Subclavian Arteries: Widely patent Right Common Carotid Artery: Widely patent Right Internal Carotid Artery: Widely patent Left Common Carotid Artery: Widely patent Left Internal Carotid Artery: Widely patent External Carotid Arteries: Widely patent Right Vertebral Artery: Widely patent Left Vertebral Artery: Widely patent Internal Jugular Veins: Enhance normally in the upper neck. Suboptimallycharacterized in the lower neck due to contrast bolus timing. NON-VASCULAR FINDINGS: Aerodigestive Tract: The mucosal contours are symmetric. Lymph Nodes: No suspcious cervical lymph nodes. Thyroid Gland: Unremarkable. Upper Thorax: There is a partially visualized 4 x 5 mm nodule in the rightlung on series 7 image 1. It measures similarly to the prior chest CTfrom 04/12/2019 within the [id number]-[id number] of this exam. Bones and Soft Tissues: No destructive osseous lesion. Unchanged benignsclerotic focus in the left mandible dating back to 2019. There is aperiapical lucency at the right mandibular second premolar tooth withthinning of the buccal cortex. IMPRESSION: HEAD CTA: 1) Patent intracranial arteries without a significant stenosis oraneurysm. 2) Small tangle of vessels in the region of the posterior right sylvianfissure. This tangle of vessels is likely supplied by distal M3 branches.It extends toward and is suspected to drain into the vein of Manoj. Thisfinding raises suspicion for a high flow vascular malformation such as anarteriovenous malformation. This finding is suspected to correlate withthe abnormality described on the most recent catheter angiogramexamination. 3) In the ambient cistern and adjacent mesial right temporal lobe, thereis a tangle of vessels at this site of the prior right thalamic andtemporal lobe hematoma. It is suspected be supplied by branches from theright posterior cerebral artery. The right basal vein of Rosenthalcourses in the immediate vicinity of this finding and could potentially matt venous drainage pathway. This finding also raises suspicion for a highflow vascular malformation such as an arteriovenous malformation.Enhancement related to the prior hematoma (such as granulation tissue) isfavored to be less likely. 4) A cluster of tiny vessels in the interpeduncular cistern may reflectnormal venous structures. However, the appearance is pronounced and avascular malformation is also possible. 5) A cluster of vessels in the region of the left proximal P4 branches isfavored to more likely reflect normal TRACK WATCHMAN branches and venous structurescoursing close proximity to one and later rather than a vascularmalformation. 6) No evidence of an acute intracranial finding noting that the presenceof iodinated contrast material limits the assessment for intracranialhemorrhage. 7) Gliosis and encephalomalacia at the site of the previously seenparenchymal hematoma centered in the right temporal lobe and thalamus. 8) Mild interval increase in size of the right lateral and thirdventricles, which may reflect a combination of expected dilation anddecreased mass effect from the prior hematoma. NECK CTA: Patent cervical arteries without a high-grade stenosis. Periapical lucency at the right mandibular second premolar tooth. Partially visualized 5 x 4 mm nodule in the right lung appears similar toa nodule seen at this site on a prior chest CT from 04/12/2019 within [id number] on the current study. RECOMMENDATION: If clinically warranted, consider further imaging evaluation of thepossible vascular malformations with a [id number] MRA of the head orcatheter angiogram. Dental referral for the right mandibular periapical lucency. Given only partial visualization of the right lung nodule on the currentstudy, a follow-up chest CT could be considered to confirm temporalstability of this nodule, especially if the patient has a smoking historyor other risk factors for lung cancer. Case finalized on 10/16/25 14:41 MAT Douglas M.D. This report has been electronically signed and verified by the Radiologistwhose name is printed above. This report contains privileged and confidential information and isintended solely for the use of the individual or entity to which it isaddressed. If you are not the intended recipient of this report, you arehereby notified that any copying, distribution, dissemination or actiontaken in relation to the contents of this report is strictly prohibitedand may be unlawful. If you have received this report in error, pleasenotify the sender immediately at [phone] and permanently delete theoriginal report and destroy any copies or printouts. 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) documented in this encounter Administered Medications Inactive Administered Medications - up to 3 most recent administrations Medication Order MAR Action Action Date Dose Rate Site iohexol (OMNIPaque) 350 MG/ML injection 100 mL 100 mL, Intravenous, Once in imaging, 1 dose, Starting on 10/16/25 at 1004, Until 10/16/25 at 1015, Routine, Imaging Protocol Orders Given 10/16/2025 10:15 AM EST 100 mL documented in this encounter Additional Health Concerns Active Problems Noted Date Diagnosed Date Autogenerated Problem 06/15/2025 Assessment Noted Time A fall risk assessment has been complete d for the patient 10/16/2025 11:36 AM EST A Body Mass Index follow-up plan has been documented for the patient 10/18/2025 3:38 PM EST documented as of this encounter 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
--- OUTSIDE RECORDS SUMMARY | 2025-10-16 11:20 | XMS_ITS | Encounter Summary ---
Author Organization [facility] Address [address] [place] [address] Care Team Providers Care Branch Account Executive Name Role Phone Nayeli Torrez MD Unavailable [phone] Pcp, No Primary Care Provider Unavailabl e Reason for Referral * Consultation (Urgent) - Authorized Specialty Diagnoses / Procedures Referred By Alexis langston Referred To Contact Neurology Diagnoses Seizures (CMS/HCC) Oma Haywood MD [address] [address] Phone: tel: fax: Martawoodrow NicaMO wilson [address] [address] Phone: tel: fax: Referral ID Status Reason Start Date Expiration Date Visits Requested Visits Authorized [id number] Authorized Specialty Services Required 04/17/2027 1 1 Scheduling Instructions Please schedule first available appt for eval and treatment of seizures and anti-epileptic medication management. * Consultation (Routine) - Pending Review Specialty Diagnoses / Procedures Referred By Alexis langston Referred To Contact Physical Therapy Diagnoses Left hemiparesis (CMS/HCC) Impaired mobility and activities of daily living Oma Haywood MD [address] [address] Phone: tel: fax: Referral ID Status Reason Start Date Expiration Date Visits Requested Visits Authorized [id number] Pending Review Specialty Services Required 5 04/17/2027 1 1 Scheduling Instructions Please schedule first available PT/OT visit for eval and treatment of L sided hemiparesis * Consultation (Urgent) - Authorized Specialty Diagnoses / Procedures Referred By Alexis langston Referred To Contact Diagnoses Needs assistance with community resources Oma Haywood MD [address] [address] Phone: tel: fax: Referral ID Status Reason Start Date Expiration Date Visits Requested Visits Authorized [id number] Authorized Specialty Services Required 5 04/17/2027 1 1 Scheduling Instructions Please contact patient regarding community resources: no insurance, and has L sided hemiparesis. 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) Hunter Liu S, CUSTOMER LOGISTICS MANAGER [address] [address] Phone: tel: fax: Referral ID Status Reason Start Date Expiration Date V isits Requested Visits Authorized [id number] Closed Specialty Services Required 07/21/2025 01/20/2027 1 1 Encounter Details Date Type Department Care Team (Late st Contact Info) Description 10/16/2025 11:20 AM EST Office Visit [place] [facility] [address] [place] [address] Oma Haywood MD [address] [address] Seizures (CMS/HCC) (Primary Dx); Left hemiparesis (CMS/HCC); Impaired mobility and activities of daily living; Needs assistance with community resources Social History Tobacco Use Types Packs/Day Years Used Date Smoking Tobacco: Former Cigarettes 0.3 36.6 S tarted: 1990 Passive Smoke Exposure: Current Smokeless Tobacco: Never Tobacco Cessation:Counseling Given: Not Answered Comments:2 cigarettes per day for past 4-5 years, previously used to [...] answer 04/16/2025 How often do you attend [facility] or [facility] services? Patient unable to answer 04/16/2025 Do you belong to any clubs o r organizations such as yazidism groups, unions, fraternal or athletic groups, or [...] Recorded Patient Health Questionnaire-2 Score 0 09/25/2024 [facility] - Occupational Stress Questionnaire Answer Date [...] any time in the past 12 m [place], were you homeless or living in a prison (including now)? No 09/05/2025 CAGE ASSESSMENT Answer [...] drink first t lucia in the morning (EYE-SUPERVISOR [employer]INE [employer]PA[employer]) to steady your nerves or to get rid of a hangover? 0 10/16/2025 CAGE Questionnaire Score 0 025 Utilities Answer Date Recorded In the past 12 months has th [employer], gas, oil, or water company threatened to shut off services in your home? No 07/25/2025 PHQ-2A Answer Date Recorded Patient Health Questionnaire-2 Score 0 10/27/2023 Sex and Gender Information Value Date Recorded Sex Assigned at Male 07/22/2021 10:06 AM EDT Legal Sex Male 7:02 PM EDT Gender Identity Male 07/22/2021 10:06 AM EDT Sexual Orientation Not on file documented as of this encounter Last Filed Vital Signs Vital Sign Reading Time Taken Comments Blood Pressure 130/70 10/16/2025 11:36 AM EST Pulse 114 10/16/2025 11:36 AM EST Temperature - - Respiratory Rate - - Oxygen Saturation 96% 10/16/2025 11:36 AM EST Inhaled Oxygen Concentration - - Weight 70.3 kg (155 lb) 10/16/2025 11:36 AM EST Height - - Body Mass Index 25.02 06/13/2025 3:50 PM EDT documented in this encounter Functional Status * Calculated C-SSRS [...] Suicidal Behavior (Lifetime) No 5 1:40 PM EST Mikayla Calderon RN documented as of this encounter Miscellaneous Notes * Progress Notes - Shannon Laboy PA - 10/16/2025 11:20 AM EST NEUROINTERVENTIONAL RADIOLOGY PROGRESS NOTE We had the pleasure of seeing your patient in our neurosurgical clinic today. HISTORY OF PRESENT ILLNESS: Jah Rodríguez is a 50 y.o. 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 He presented to on 04/15/2025 with left-sided weakness resulting in a fall. NISHS on arrival was 13. He reported poor compliance with seizure medication due to cost and was drinking alcohol daily. CT head showed a right thalamic IPH without mass effect or intraventricular extension. The mechanismof the event was thought to be coagulopathy and thrombocytopenia ISO cirrhosis. Serial imaging showed fluctuating size of the hematoma. DSA 04/18 showed findings of early venous drainage into the right transverse/sigmoid sinus with concern for possible underlying AVM vs pial fistula; motion degraded study. Repeat DSA 06/18 showed a small tangle of arteries on right parietal area arising from distal middle cerebral artery branches, measuring 7.6 mm in diameter, with venous drainage to superior sagittal sinus through vein for Trolard. His hospital course was further complicated by refractory status epilepticus that resolved after burst suppression with IV ativan and keppra load. Seizure etiology secondary to ICH and history of primary hemorrhage. Today he presents accompanied by his and brother who help provide a majority of the history. Since hospital discharge he spends most days in bed, able to dress himself and brush his hair. If patient gets up he will transfer into the wheelchair, has not done PT/OT or speech therapy since discharge. states the other day his PCP was concerned for left shoulder dislocation and was told to proceed to ER after the appointment. She is very aggravated because he had medicaid special needs and is getting cancelled every other month causing lack of assistance for medical bills and prescriptions. Denies seizure-like activity, currently taking 1,000 mg BID or less of Keppra due to running low on prescription, not currently managed by a neurologist. He is no longer smoking cigarettes and drinking alcohol. Family History[1] Immunization History Administered Date(s) Administered DT (pediatric) 03/19/2023 Hep B, adult 07/10/2019, 10/09/2019, 01/05/2020 HepB-CpG 10/27/2023 Pfizer-BioNTech COVID-19 Bivalent (Stout Cap) 12+ years (dick-sucrose) 12/02/2022 Pfizer-BioNTech COVID-19 Vaccine (Moore Cap) 12+ years (dick-sucrose) 02/12/2022 Pfizer-BioNTech COVID-19 Vaccine (Purple Cap) 12+ 08/26/2021, 09/16/2021 Allergies[2] Medications Ordered Prior to Encounter[3] ROS: A 14 point review of systems was completed and reviewed. Negative other than indicated above in the history of present illness. Last Recorded Vitals Visit Vitals BP 130/70 Pulse (!) 114 Wt 70.3 kg (155 lb) SpO2 96% BMI 25.02 kg/m?? Smoking Status Former BSA 1.81 m?? PHYSICAL EXAM: -Constitutional: Well developed, well nourished. No acute distress. Alert and oriented to person, place, and time. -Head, Eyes, Nose, Throat: Normocephalic, atraumatic. Pupils are equally round and reactive to light. Extra-ocular movements are intact without nystagmus. Oral mucosa is pink and moist. -Musculoskeletal: Left hemiparesis, presents in wheelchair. -Extremities: There is no clubbing, cyanosis, or edema. There is no pronator drift. -Neurologic: Awake, alert, following commands briskly, speech intact, face symmetric, sensation intact to light touch, CN 2-12 intact, Motor: RUE: 4/5 RLE 4/5 Left hemiparesis IMAGING: I personally reviewed and independently interpreted the following: CTA Head and neck performed today demonstrates: stable right parietal AVM supplied by distal M3 branches with no evidence of new hemorrhage. Encephalomalacia and gliosis at the site of the previouslyseen large hematoma in the right thalamus as well as the right parietal and temporal lobes. ASSESSMENT AND PLAN: Jah Finleyes is a 50 y.o. year old male with: Right parietal arteriovenous malformation Stable on imaging today with no evidence of new hemorrhage. Follow-up in three months for clinical appointment to discuss diagnostic cerebral catheter angiogram. Right thalamic IPH presenting with left-sided weakness though to be secondary to coagulopathy and thrombocytopenia ISO cirrhosis. Likely secondary to AVM, now resolved on imaging reviewed today. 3. Seizure disorder Refill of Keppra sent to local pharmacy, states patient has not been taking full dose due to running low on prescription. Referral placed to Epilepsy clinic at neurology for continued management. Left hemiparesis Orders placed for PT/OT with home health Socioeconomic Barriers Per patient's insurance coverage has been cancelled every other month since hospital dischargecausing significant challenges for the patient to receive medication, PT/OT and attend follow-up appointments. We have contacted our clinic manager social responsibility on behalf of the patient for assistance and provided himwith the financial assistance number. Thank you. If there are any questions or concerns please feel free to contact us: [facility] Department of Neurosurgery [address] [place] [address], [place] [address] [place] [phone] ; I reviewed this patient's history, exam, and any imaging with Dr. Oma Haywood. She guided plan ofcare for this patient. [1] Family History Problem Relation Name Age of Onset Hypertension Father Anesthesia problems Neg Hx Malig Hyperthermia Neg Hx [2] No Known Allergies [3] Current Outpatient Medications on File Prior to Visit Medication Sig Dispense Refill esomeprazole (NexIUM) [address] capsule Take 1 capsule by mouth daily before breakfast. Do not open capsule. folic acid (Folvite) 1 MG tablet Take 1 tablet by mouth daily. 30 tablet 3 levETIRAcetam (Keppra) 750 MG tablet Take 2 tablets by mouth 2 times a day. 120 tablet 3 Multiple Vitamins-Minerals (multivitamin with minerals) tablet Take 1 tablet by mouth daily. oxyCODONE-acetaminophen (Percocet) 10-325 MG tablet take 1 tablet by mouth 2 times a day as needed for pain Potassium 99 MG tablet Take 1 tablet by mouth daily. traZODone (Desyrel) 150 MG tablet Take 0.5 tablets by mouth nightly. 15 tablet 2 baclofen 5 MG tablet Take 1 tablet by mouth 3 times a day. (Patient not taking: Reported on 10/16/2025) 90 tablet 0 lacosamide (Vimpat) 50 MG tablet Take 1 tablet by mouth 2 times a day for 3 days, THEN 1 tablet daily for 7 days. (Patient not taking: No sig reported) 13 tablet 0 rifAXIMin (Xifaxan) 550 MG tablet Take 1 tablet by mouth 2 times a day. (Patient not taking: Reported on 10/16/2025) 60 tablet 1 simethicone (Mylicon) 20 mg/0.3 mL drops Take 0.6 mL by mouth every 6 hours as needed for flatulence. (Patient not taking: Reported on 10/16/2025) 30 mL 0 Current Facility-Administered Medications on File Prior to Visit Medication Dose Route Frequency Provider Last Rate Last Admin hepatitis B (Heplisav-B) 20 MCG/0.5ML vaccine 20 mcg 20 mcg Intramuscular Once Bettie Márquez RN [COMPLETED] iohexol (OMNIPaque) 350 MG/ML injection 100 mL 100 mL Intravenous Once in imaging Murphy Gandara MD 100 mL at 10/16/25 1015 Cosigned by Oma Haywood MD at 10/22/2025 11:35 AM EST Associated attestation - Oma Haywood MD - 10/22/2025 11:35 AM EST I saw and examined the patient with the GEORGE. I agree with the assessment and plan. A substantive portion of care was provided by the GEORGE. documented in this encounter Plan of Treatment Upcoming Encounters Date Type Department Care Team (Late st Contact Info) Description 01/15/2026 1:20 PM EST Office Visit [place] [facility] [address] [place] [address] Oma Haywood MD [address] [place] [address] Scheduled Referrals Name Type Priority Associated Diagnoses Order Schedule Ambulatory referral to Social Work Outpatient Referral Routine Needs assistance with community resources Expected: 10/16/2025, Expires: 04/19/2027 Ambulatory referral to PT/OT for Eval and Treat Outpatient Referral Routine Left hemiparesis (CMS/HCC) Impaired mobility and activities of daily living 1 Occurrences starting 10/16/2025 until 04/19/2027 Ambulatory referral to Neurology Outpatient Referral Routine Seizures (CMS/HCC) Expected: 10/30/2025, Expires: 04/19/2027 documented as of this encounter Goals Goal Patient Goal Type Associated Problems Recent Progress Patient-Stated? Author Autogenerat ed Goal Care Plan Autogenerated Problem Joaquin Leon documented as of this encounter Visit Diagnoses Diagnosis Seizures (CMS/HCC)- Primary Other convulsions Left hemiparesis (CMS/HCC) Unspecified hemiplegia affecting unspecified side Impaired mobility and activities of daily living Needs assistance with community resources documented in this encounter Additional Health Concerns Active Problems Noted Date Diagnosed Date Autogenerated Problem 06/15/2025 Assessment Noted Time A fall risk assessment has been complete d for the patient 10/16/2025 11:36 AM EST A Body Mass Index follow-up plan has been documented for the patient 10/18/2025 3:38 PM EST documented as of this encounter Care Teams Branch Account Executive Relationship Specialty Start Date End Date Pcp, No [address] [place] [address] PCP - General Family Medicine 03/17/25 Nayeli Torrez MD [address] [place] [address] Service Attending Neurology 07/28/22 documented as of this encounter
--- OUTSIDE RECORDS SUMMARY | 2025-10-16 13:24 | XMS_ITS | Encounter Summary ---
Author Organization [facility] Address [address] [place] [address] Care Team Providers Care Technician Automatic Name Role Phone Nayeli Torrez MD Unavailable [phone] Pcp, No Primary Care Provider Unavailabl e Reason for Referral * Consultation (Routine) - Authorized Specialty Diagnoses / Procedures Referred By Alexis langston Referred To Contact Orthopaedic Surgery Diagnoses Acute pain of left shoulder Brad Alston MD [address] [place] [address] Phone: tel: fax: [facility] [address] [place] [address] Phone: tel: fax: Referral ID Status Reason Start Date Expiration Date Visits Requested Visits Authorized [id number] Authorized Specialty Services Required 04/17/2027 1 1 Reason for Visit * Reason Comments Shoulder Injury Encounter Details Date Type Department Care Team ([facility] st Contact Info) Description 10/16/2025 1:24 PM EST - 10/16/2025 8:10 PM EST Emergency [facility] Emergency Department [address] [place] [address] Shannon Baxter MD [address] [place] [address] Brad Alston MD [address] [place] [address] Acute pain of left shoulder (Primary Dx) Discharge Disposition: Home or Self Care Social [...] How often do you attend chur or confucianism services? Patient unable to answer 04/16/2025 Do you belong to any clubs o r organizations such as oriental orthodox groups, unions, fraternal or athletic groups, or [...] Recorded Patient Health Questionnaire-2 Score 0 09/25/2024 [facility] - Occupational Stress Questionnaire Answer Date Recorded [...] were you homeless or living in a jail (including now)? 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 0 10/16/2025 CAGE Questionnaire Score 0 025 Utilities Answer Date Recorded In the past 12 months has th e [employer], gas, oil, or water company threatened to [...] Sign Reading Time Taken Comments Blood Pressure 111/68 10/16/2025 5:37 PM EST Pulse 87 10/16/2025 5:37 PM EST Temperature 36.5 C (97.7 F) 10/16/2025 5:37 PM EST Respiratory Rate 18 10/16/2025 5:37 PM EST Oxygen Saturation 93% 10/16/2025 5:37 PM EST Inhaled Oxygen Concentration - - Weight - - Height 167.6 cm (5' 6 ) 10/16/2025 1:09 PM EST Body Mass Index - - documented in this encounter Functional Status * Calculated C-SSRS Risk Score (Lifetime/Recent) Answer Date of Assessment Author No Risk Indicated 10/16/2025 1:40 PM EST Mikayla Calderon RN * Question Answer Date of Assessment Author 1. Wish to be (Past 1 Month) No 025 1:40 PM EST Mikayla Calderon RN 2. Non-Specific Active Suici he Thoughts (Past 1 Month) No 10/16/2025 1:40 PM EST Pat Calderon RN 6. Suicidal Behavior (Lifetime) No 1:40 PM EST Mikayla Calderon RN documented as of this encounter Discharge Instructions * Discharge Instructions* Osbaldo Martinez MD - 10/16/2025 8:02 PM EST Please follow up with your orthopedic surgeon on outpatient basis. Please call them to schedule an appointment. If you do not hear from them, their number is on the discharge paperwork. Please returnto ED if your symptoms worsen, change in location, change in severity, new symptoms develop or if you become concerned for your health. documented in this encounter Medications at Time of Discharge [...] as of this encounter Miscellaneous Notes * ED Provider Notes - Osbaldo Martinez MD - 10/16/2025 1:07 PM EST Images from the original note were not included. - HPI Chief Complaint Patient presents with Shoulder Injury [facility] NOTE Jah Rodríguez is a 50 y.o. male who presents to the ED with a shoulder injury. Pt states he doesn't remember when his L shoulder came out of place. Pt presents here under advisement of PCP with concern for L shoulder dislocation. Pt has Hx of multiple L shoulder dislocations. Pt presents here s/p stroke, endorses left-sided paralysis. Pt denies any trauma that could account for symptoms. Pt denies fever, chills, N/V/D, abdominal pain, headache, dizziness, chest pain, SOA, and urinary symptoms. 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 I personally performed my own history, ROS, and physical. I agree with the above [facility] documentation with the following additions/exceptions: Jah Rodríguez is a 50 y.o. male with a PMH as per above who presents to the emergency department for evaluation of left shoulder pain. The patient has a history of multiple prior left shoulder dislocations and prior surgery per Orthopedic surgery Department. He is concerned that it may be dislocated. He was seen and examined by his doctor today and was sent to our emergency department given concerns for dislocation. He denies any other issues or complaints at this time. Patient History Past Medical History[1] Surgical History[2] Family History[3] Social History[4] Allergies: Allergies[5] Physical Exam ED Triage Vitals Temp Pulse Resp BP -- -- -- -- SpO2 Temp src Heart Rate Source Patient Position -- -- -- -- BP Location FiO2 (%) -- -- Physical Exam Vitals and nursing note reviewed. Constitutional: General: He is awake. He is not in acute distress. Appearance: Normal appearance. He is not ill-appearing or toxic-appearing. HENT: Head: Normocephalic and atraumatic. Nose: No rhinorrhea. Mouth/Throat: Mouth: Mucous membranes are moist. Dentition: Normal dentition. Pharynx: Oropharynx is clear. No oropharyngeal exudate or posterior oropharyngeal erythema. Eyes: General: Right eye: No discharge. Left eye: No discharge. Extraocular Movements: Extraocular movements intact. Conjunctiva/sclera: Conjunctivae normal. Pupils: Pupils are equal, round, and reactive to light. Cardiovascular: Rate and Rhythm: Normal rate and regular rhythm. Pulses: Radial pulses are 2+ on the right side and 2+ on the left side. Dorsalis pedis pulses are 2+ on the right side and 2+ on the left side. Heart sounds: No murmur heard. No friction rub. No gallop. Pulmonary: Effort: Pulmonary effort is normal. No respiratory distress. Breath sounds: Normal breath sounds. No stridor. Abdominal: General: Bowel sounds are normal. There is no distension. Palpations: Abdomen is soft. Tenderness: There is no abdominal tenderness. Musculoskeletal: General: Normal range of motion. Cervical back: No rigidity. Right lower leg: No edema. Left lower leg: No edema. Comments: Palpable deformity of L shoulder. Lymphadenopathy: Cervical: No cervical adenopathy. Skin: General: Skin is warm and dry. Coloration: Skin is not pale. Neurological: Mental Status: He is alert and oriented to person, place, and time. Motor: Motor function is intact. No weakness. Gait: Gait is intact. Psychiatric: Mood and Affect: Mood normal. Behavior: Behavior normal. [place] Coma Scale Score: 15 ED Course & MDM - Assessment: 50 y.o. male presents to ED with complaint of concern for left shoulder dislocation. Differential Diagnosis: Left shoulder dislocation, left shoulder fracture, left shoulder subluxation, ligamentous injury, among others In order to fully explore the differential diagnosis the following treatments and tests were ordered: ED Medication Administration from 10/16/2025 1307 to 10/17/2025 0408 Date/Time Order Dose Route Action 10/16/2025 1410 EST oxyCODONE (Roxicodone) 5 MG immediate release tablet - Pyxis Override Pull -- Override Pull 10/16/2025 1410 EST oxyCODONE (Roxicodone) immediate release tablet 5 mg 5 mg Oral Given 10/16/2025 1845 EST ketamine (Ketalar) injection 20 mg 20 mg Intravenous Given by Other All Other Orders Ordered Status Ordering Provider 10/16/25 1321 XR Shoulder Left 2+ Views (AP, Y-Lateral, Axillary) Once Final result MJ BROCK 10/16/25 1321 XR Humerus Left 2+ Views Once Final result MJ BROCK 10/16/252002 Discharge Ambulatory referral to Orthopaedic Surgery Ordered OSBALDO MARTINEZ ED Course: Upon initial evaluation, patient is in no acute distress, hemodynamically stable, non tachycardic, satting 98% on room air, with no focal neurologic deficits. Cardiopulmonary and abdominal exam was benign. The patient is afebrile and nontoxic appearing. Evaluation of the left shoulder is consistentfor asymmetry and is concerning so much for dislocation. However, I am able to range the shoulder joint passively. There is certainly extreme pain with passive ROM. Initial evaluation includes left shoulder x-ray and left humerus x-ray. Per my independent interpretation, the joint does look mildly subluxed. Patient was given a dose of pain dose ketamine and reduction maneuvers were performed. Afte rwards, the patient reported improved pain and was ultimately discharged in stable condition without issue with outpatient orthopedic surgery follow up. ED Course as of 10/17/258 WedOct 16, 2025 1406 FUAD Prescription # Filled Written Drug Label Qty Days Strength MEDD Prescriber [facility]acy [facility] PatientId [id number] 09/28/2025 09/28/2025 oxyCODONE/Acetaminophen 60.0 30 10.0 MG/325.0 MG 30.0 Calos Juventino [id number] Deny Mcarthur [JM] ED Course User Index [JM] Shannon Baxter MD Clinical Impressions as of 10/17/25407 Acute pain of left shoulder Social Determinates of Health Risks (including Economic Stability, Education and level of understanding, Healthcare access and quality and concerning social factors): None identified on this visit Last PDMP Review: Shannon Baxter MD on 10/16/2025 2:05 PM Ultimately, this patient was Was discharged Home (Discharge) The encounter diagnosis was Acute pain of left shoulder. . Patient was counseled on thediagnoses. Discharge medications if any are listed below. Listed medications are thought be either curative for listed diagnoses or will help control ongoing symptoms. Patient is requested to follow up with Patient's Primary Care Provider in order to obtain routine follow-up and specialty care. Instructions on follow up as well as precautions to return to the ER provided verbally by the EM provider, as well as written in patients discharge education packet. ED Prescriptions None Discharge Instructions Please follow up with your orthopedic surgeon on outpatient basis. Please call them to schedule an appointment. If you do not hear from them, their number is on the discharge paperwork. Please returnto ED if your symptoms worsen, change in location, change in severity, new symptoms develop or if you become concerned for your health. Disposition Discharge AVS (Vincentian Snapshot) - Printed 10/16/2025 Follow-Ups: Follow up with [facility] (Orthopaedic Surgery) Discharge Orders Discharge Ambulatory referral to Orthopaedic Surgery [facility] - [facility] Date/Time: 10/16/2025, 1:20 PM Entered by Mulu Lawler acting as scribe for Mj Cummings MD. Attending Attestation: The documentation was recorded by Mulu Lawler acting as scribe in my presence at the time of the encounter and accurately reflects the service I personally performed. [1] Past Medical History: Diagnosis Date Acute kidney injury 12/19/2021 Acute pancreatitis 10/27/2023 Adverse effect of anesthesia 07/2024 During conscious sedation at [facility] in ER for dislocated shoulder the medication over sedated the patient. 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 No issues with right shoulder. First time in 1992 while swimming. Most recent episode last week while chopping wood. Substance abuse Tobacco abuse UGI bleed 10/27/2023 Unspecified fracture of left lower leg, initial encounter for closed fracture Leg fracture, left [2] Past Surgical History: Procedure Laterality Date APPENDECTOMY 2017 ARM SURGERY CHOLECYSTECTOMY 2017 GALLBLADDER SURGERY N/A Gallbladder surgery from [facility] LEG SURGERY N/A Leg surgery from [facility] LEG SURGERY TIPS PROCEDURE [3] Family History Problem Relation Name Age of Onset Hypertension Father Anesthesia problems Neg Hx Malig Hyperthermia Neg Hx [4] Tobacco Use Smoking status: Former Current packs/day: 0.25 Average packs/day: 0.3 packs/day for 36.5 years (9.1 ttl pk-yrs) Types: Cigarettes Start date: 1990 Passive exposure: Current Smokeless tobacco: Never Tobacco comments: 2 cigarettes per day for past 4-5 years, previously used to smoke 2 packs for 20 years Vaping Use Vaping status: Never Used Substance Use Topics Alcohol use: Yes Comment: 1-2 times a month will have 1 wine cooler Drug use: Not Currently [5] No Known Allergies Osbaldo Martinez MD Resident 10/17/25 0412 Cosigned by Brad Alston MD at 10/18/2025 8:32 AM EST Associated attestation - Brad Alston MD - 10/18/2025 8:32 AM EST I saw and evaluated the patient with the resident/fellow. I discussed the case with the resident/fellow and agree with the findings and plan as documented. * ED Triage Notes - Tami Webber RN - 10/16/2025 1:07 PM EST Pt sent by PCP with concern for left shoulder dislocation, no trauma documented in this encounter Plan of Treatment Upcoming Encounters Date Type Department Care Team (Late st Contact Info) Description 01/15/2026 1:20 PM EST Office Visit [facility] [address] [place] [address] Oma Haywood MD [address] [place] [address] Scheduled Referrals Name Type Priority Associated Diagnoses Order Schedule Discharge Ambulatory referral to Orthopaedic Surgery Outpatient Referral Routine Acute pain of left shoulder Expected: 10/16/2025 (Approximate), Expires: 04/19/2027 documented as of this encounter Goals Goal Patient Goal Type Associated Problems Recent Progress Patient-Stated? Author Autogenerat ed Goal Care Plan Autogenerated Problem No Joaquin Leavitt documented as of this encounter Procedures Procedure Name Priority Date/Time Associated Diagnosis Comments XR HUMERUS LEFT 2+ VIEWS STAT 10/16/2025 2:45 PM EST XR SHOULDER LEFT 2+ VIEWS STAT 10/16/2025 2:45 PM EST documented in this encounter Results * XR Humerus Left 2+ Views (10/16/2025 2:45 PM EST) Anatomical Region Laterality Modality Upper Extremities, Humerus Left Digit al Radiography Impressions 10/16/2025 3:04 PM EST No acute fracture or malalignment. Degenerative changes as above. CRITICAL RESULT: No. COMMUNICATION: Per this written report. By electronically signing this report, I, the attending physician, attest that I have personally reviewed the images/data for the above examination(s) and agree with the final edited report. Drafted by Ricky Chaudhari MD on 10/16/2025 2:57 PM Final report signed by Shola Horton MD on 10/16/2025 3:04 PM Narrative 10/16/2025 3:04 PM EST CLINICAL INDICATION: shoulder dislocation TECHNIQUE: XR HUMERUS LEFT 2+ VIEWS, XR SHOULDER LEFT 2+ VIEWS COMPARISON: Chest radiograph dated 06/28/2025 MRI left shoulder without contrast dated 08/24/2024 Left shoulder radiographs dated 07/17/2024 FINDINGS: Left shoulder: No fracture, subluxation, or dislocation is identified. There is no evidence of degeneration or narrowing of the subacromial space. [id number] degenerative changes of the acromioclavicular joint and glenohumeral joint. Decreased bony mineralization. No abnormalities in the visualized portions of the lungs. Left humerus: No acute fracture, subluxation, or dislocation. No elbow joint effusion. Decreased bony mineralization. Procedure Note Shola Horton MD - 10/16/2025 CLINICAL INDICATION: shoulder dislocation TECHNIQUE: XR HUMERUS LEFT 2+ VIEWS, XR SHOULDER LEFT 2+ VIEWS COMPARISON: Chest radiograph dated 06/28/2025 MRI left shoulder without contrast dated 08/24/2024 Left shoulder radiographs dated 07/17/2024 FINDINGS: Left shoulder: No fracture, subluxation, or dislocation is identified.There is no evidence of degeneration or narrowing of the subacromialspace. Gcpv-pp-hazwyikb degenerative changes of the acromioclavicularjoint and glenohumeral joint. Decreased bony mineralization. Noabnormalities in the visualized portions of the lungs. Left humerus: No acute fracture, subluxation, or dislocation. No elbowjoint effusion. Decreased bony mineralization. IMPRESSION: No acute fracture or malalignment. Degenerative changes as above. CRITICAL RESULT: No. COMMUNICATION: Per this written report. By electronically signing this report, I, the attending physician, attestthat I have personally reviewed the images/data for the aboveexamination(s) and agree with the final edited report. Drafted by Ricky Chaudhari MD on 10/16/2025 2:57 PM Final report signed by Shola Horton MD on 10/16/2025 3:04 PM Mj Brock MD IMG XR PROCEDURES Final Resul t * XR Shoulder Left 2+ Views (AP, Y-Lateral, Axillary) (10/16/2025 2:45 PM EST) Anatomical Region Laterality Modality Upper Extremities, Shoulder Left Digi kierra Radiography Impressions 10/16/2025 3:04 PM EST No acute fracture or malalignment. Degenerative changes as above. CRITICAL RESULT: No. COMMUNICATION: Per this written report. By electronically signing this report, I, the attending physician, attest that I have personally reviewed the images/data for the above examination(s) and agree with the final edited report. Drafted by Ricky Chaudhari MD on 10/16/2025 2:57 PM Final report signed by Shola Horton MD on 10/16/2025 3:04 PM Narrative 10/16/2025 3:04 PM EST CLINICAL INDICATION: shoulder dislocation TECHNIQUE: XR HUMERUS LEFT 2+ VIEWS, XR SHOULDER LEFT 2+ VIEWS COMPARISON: Chest radiograph dated 06/28/2025 MRI left shoulder without contrast dated 08/24/2024 Left shoulder radiographs dated 07/17/2024 FINDINGS: Left shoulder: No fracture, subluxation, or dislocation is identified. There is no evidence of degeneration or narrowing of the subacromial space. Qlni-yy-[id number] degenerative changes of the acromioclavicular joint and glenohumeral joint. Decreased bony mineralization. No abnormalities in the visualized portions of the lungs. Left humerus: No acute fracture, subluxation, or dislocation. No elbow joint effusion. Decreased bony mineralization. Procedure Note Shola Horton MD - 10/16/2025 CLINICAL INDICATION: shoulder dislocation TECHNIQUE: XR HUMERUS LEFT 2+ VIEWS, XR SHOULDER LEFT 2+ VIEWS COMPARISON: Chest radiograph dated 06/28/2025 MRI left shoulder without contrast dated 08/24/2024 Left shoulder radiographs dated 07/17/2024 FINDINGS: Left shoulder: No fracture, subluxation, or dislocation is identified.There is no evidence of degeneration or narrowing of the subacromialspace. Izgw-rh-wihndgce degenerative changes of the acromioclavicularjoint and glenohumeral joint. Decreased bony mineralization. Noabnormalities in the visualized portions of the lungs. Left humerus: No acute fracture, subluxation, or dislocation. No elbowjoint effusion. Decreased bony mineralization. IMPRESSION: No acute fracture or malalignment. Degenerative changes as above. CRITICAL RESULT: No. COMMUNICATION: Per this written report. By electronically signing this report, I, the attending physician, attestthat I have personally reviewed the images/data for the aboveexamination(s) and agree with the final edited report. Drafted by Ricky Chaudhari MD on 10/16/2025 2:57 PM Final report signed by Shola Horton MD on 10/16/2025 3:04 PM Mj Lisseth Brock MD IMG XR PROCEDURES Final Resul t documented in this encounter Visit Diagnoses Diagnosis Acute pain of left shoulder- Primary documented in this encounter Administered Medications Inactive Administered Medications - up to 3 most recent administrations Medication Order MAR Action Action Date Dose Rate Site ketamine (Ketalar) injection 20 mg 20 mg (rounded from 21.09 mg = 0.3 mg/kg 70.3 kg), Intravenous, Once, 1 dose, On Wed10/16/25 at 1835, Administer over 3 Minutes, STAT Given by Other 10/16/2025 6:45 PM EST 20 mg oxyCODONE (Roxicodone) immediate release tablet 5 mg 5 mg, Oral, Once, 1 dose, On Wed10/16/25 at 1410, STAT Given 10/16/2025 2:10 PM EST 5 mg documented in this encounter Active and Recently Administered Medications Times are shown in EST. Scheduled Medication Order 10/14/2025 10/15/2025 10/16/2025 ketamine (Ketalar) injection 20 mg (COMPLETED) 20 mg (rounded from 21.09 mg = 0.3 mg/kg 70.3 kg), Intravenous, Once, 1 dose, On Wed10/16/25 at 1835, Administer over 3 Minutes, STAT 1845 (Given by Other - Provider: Korin Mane RN - Comment: given by Dr. J Carlos Martinez) oxyCODONE (Roxicodone) immediate release tablet 5 mg (COMPLETED) 5 mg, Oral, Once, 1 dose, On Wed10/16/25 at 1410, STAT 1410 (Given - Provid er: Lauren Giron RN) documented in this encounter Additional Health Concerns Active Problems Noted Date Diagnosed Date Autogenerated Problem 06/15/2025 Assessment Noted Time A fall risk assessment has been complete d for the patient 10/16/2025 11:36 AM EST A Body Mass Index follow-up plan has been documented for the patient 10/18/2025 3:38 PM EST documented as of this encounter Care Teams Technician Automatic Relationship Specialty Start Date End Date Pcp, No [address] [place] [address] PCP - General Family Medicine 03/17/25 Nayeli Torrez MD [address] [place] [address] Service Attending Neurology 07/28/22 documented as of this encounter
--- OUTSIDE RECORDS SUMMARY | 2025-11-19 12:44 | XMS_ITS | Encounter Summary ---
Author Organization [facility] Address [address] [place] [address] Care Team Providers Care Measuring Machine Operator Name Role Phone Nayeli Torrez MD Unavailable [phone] Pcp, No Primary Care Provider Unavailabl e Encounter Details Date Type Department Care Team (Latest Contact Info) Description 10/16/2025 Travel Social History Tobacco Use Types Packs/Day Years [...] 04/16/2025 How often do you attend chur ch or taoism services? Patient unable to answer 04/16/2025 Do you belong to any clubs o r organizations such as anabaptist groups, unions, fraternal or athletic groups, or [...] Recorded Patient Health Questionnaire-2 Score 0 09/25/2024 [facility] of Occupat ional Health - Occupational Stress [...] any time in the past 12 m [facility], were you homeless or living in a skilled nursing (including now)? No 09/05/2025 CAGE ASSESSMENT Answer [...] drink first t lucia in the morning (EYE-WINDOW TINTER) to steady your nerves or to get [...] No Risk Indicated 10/16/2025 1:40 PM Mikayla Nieto, RN * Question Answer Date of Assessment Author 1. Wish to be (Past 1 Month) No 025 1:40 PM EST Mikayla Calderon RN 2. Non-Specific Active Suici he Thoughts (Past 1 Month) No 10/16/2025 1:40 PM EST Pat Calderon RN 6. Suicidal Behavior (Lifetime) No 5 1:40 PM EST Mikayla Calderon RN documented as of this encounter Plan of Treatment Upcoming Encounters Date Type Department Care Team (Late st Contact Info) Description 01/15/2026 1:20 PM EST Office Visit [place] [facility] [address], [address] [place] [address] Oma Haywood MD [address] [place] [address] documented as of this encounter Goals Goal Patient Goal Type Associated Problems Recent Progress Patient-Stated? Author Autogenerat ed Goal Care Plan Autogenerated Problem No Joaquin Leavitt documented as of this encounter Visit Diagnoses Not on filedocumented in this encounter Additional Health Concerns Active Problems Noted Date Diagnosed Date Autogenerated Problem 06/15/2025 Assessment Noted Time A fall risk assessment has been complete d for the patient 10/16/2025 11:36 AM EST A Body Mass Index follow-up plan has been documented for the patient 10/18/2025 3:38 PM EST documented as of this encounter Care Teams Measuring Machine Operator Relationship Specialty Start Date End Date Pcp, No [address] [place] [address] PCP - General Family Medicine 03/17/25 Nayeli Torrez MD [address] [place] [address] Service Attending Neurology 07/28/22 documented as of this encounter
--- OUTSIDE RECORDS SUMMARY | 2025-11-19 12:45 | XMS_ITS | Encounter Summary ---
Author Organization [facility] Address [address] [place] [address] Care Team Providers Care Community Service Representative Name Role Phone Nayeli Torrez MD Unavailable [phone] Pcp, No Primary Care Provider UnavailJennifer Echevarria LPN Unavailable Unavailab Deena Tai Unavailable Unavailable Deena Mcfarland Unavailable Unavailable Encounter Details Date Type Department Care Team (Late st Contact Info) Description 04/25/2025 Lab Requisition [facility] [address] [place] [address] Richard Longoria MD [address] [facility] [address] [place] [address] Encounter for general adult medical examination without abnormal findings Social History Tobacco Use Types Packs/Day Years Used Date Smoking Tobacco: Some Days Cigarettes 0.3 36.6 Started: 1990 Passive Smoke Exposure: Current Smokeless Tobacco: [...] answer 04/16/2025 How often do you attend [facility] or sikh services? Patient unable to answer 04/16/2025 Do [...] Patient Health Questionnaire-2 Score 0 09/25/2024 [facility] [place] of Occupat ional Health - Occupational Stress [...] you got the money to buy more. Patient unable to answer 04/16/2025 Within the past 12 months, t he food you bought just didn't last and you didn't have money to get more. Patient unable to answer 04/16/2025 PRAPARE - Transportation Answer Date Re corded In the past 12 months, has l ack of transportation kept you from medical appointments or from getting medications? Patient unable to answer 04/16/2025 In the past 12 months, has l ack of transportation kept you from meetings, work, or from getting things needed for daily living? Patient unable to answer 04/16/2025 Housing Stability Vital Sign Answer Jairo e Recorded In the last 12 months, was t here a time when you were not able to pay the mortgage or rent on time? Patient unable to answer 04/16/2025 Number of Times Moved in the Last Year Not on fi le 04/16/2025 At any time in the past 12 m [facility], were you homeless or living in a [facility] (including now)? Patient unable to answer 04/16/2025 CAGE ASSESSMENT Answer Date Recorded Cage unable to access Not on file 04/15/2025 Maximum number of drinks you had on a given occasion in the last month? 5 or more drinks 04/15/2025 How many alcoholic Beverages do you typically drink in a week? 15 or more per week 04/15/2025 Have you ever felt you shoul d CUT down on your drinking? 1 04/15/2025 Have you been ANNOYED by peo ple criticizing your drinking? 0 04/15/2025 Have you felt GUILTY about your drinking? 0 04/15/2025 Have you had a drink first t lucia in the morning (EYE-HOG FEEDER) to steady your nerves or to get rid of a hangover? 1 04/15/2025 CAGE Questionnaire Score 2 025 Utilities Answer Date Recorded In the past 12 months has th e electric, gas, oil, or water company threatened to shut off services in your home? Patient unable to answer 04/16/2025 PHQ-2A Answer Date Recorded Patient Health Questionnaire-2 Score 0 10/27/2023 Sex and Gender Information Value Date Recorded Sex Assigned at Male 07/22/2021 10:06 AM EDT Legal Sex Male 7:02 PM EDT Gender Identity Male 07/22/2021 10:06 AM EDT Sexual Orientation Not on file documented as of this encounter Functional Status * Question Answer Date of Assessment Author Sol Environmental surveillance 04/28/2025 11: 00 PM EDT Shanda Spaulding * Calculated C-SSRS Risk Score (Lifetime/Recent) Answer Date of Assessment Author No Risk Indicated 04/28/2025 10:00 PM EDT Shanda Syed * Question Answer Date of Assessment Author 1. Wish to be (Past 1 Month) No 025 10:00 PM EDT Shanda Spaulding 2. Non-Specific Active Suici he Thoughts (Past 1 Month) No 04/28/2025 10:00 PM EDT David Spaulding cia 6. Suicidal Behavior (Lifetime) No 10:00 PM EDT Shanda Sapulding documented as of this encounter Mental Status * Question Answer Entry Date Author Precautions Environmental surveillance 04/28/2025 11: 00 PM EDT Shanda Spaulding documented in this encounter Plan of Treatment Upcoming Encounters Date Type Department Care Team (Late st Contact Info) Description 01/15/2026 1:20 PM EST Office Visit [place] [facility] [address], [address] [place] [address] Oma Haywood MD [address] [place] [address] documented as of this encounter Procedures Procedure Name Priority Date/Time Associated Diagnosis Comments MULTI DRUG RESISTANCE TEST Routine 04/25/2025 8:00 AM EDT Encounter for general adult medical examination without abnormal findings documented in this encounter Results * Multi Drug Resistance Test (04/25/2025 8:00 AM EDT) Culture No growth at day 1 04/26/2025 9:43 AM EDT [facility] Swab (Nares and Celeste Rectal) 04/25/2025 8:00 AM EDT 04/25/2025 8:53 AM EDT Narrative [facility] - 04/26/2025 9:43 AM EDT This test was developed and its performance characteristics determined by the [facility]. Although the media is FDA-approved, it is not FDA-approved for all specimen types submitted. The FDA has determined that such clearance or approval is not necessary. This test is used for surveillance purposes. It should not be regarded as investigational or for research. The [facility] is certified under the Clinical Laboratory Improvement Amendments of 1988 (CLIA-88) as qualified to perform high complexity clinical laboratory testing. us Richard Longoria MD LAB MICROBIOLOGY - GEN ERAL ORDERABLES Final Result [facility] [address] [place] [address] documented in this encounter Visit Diagnoses Diagnosis Encounter for general adult medical examination without abnormal findings documented in this encounter Additional Health Concerns Infection Onset Date Last Indicated Resolved Time COVID-19 Rule-Out 05/13/2025 05/13/2025 05/14/2025 7:55 AM EDT Respiratory Rule-Out 05/13/2025 05/13/2025 025 7:48 PM EDT Assessment Noted Time A fall risk assessment has been complete d for the patient 09/25/2024 11:08 AM EDT A Body Mass Index follow-up plan has been documented for the patient 07/21/2025 12:36 PM EDT documented as of this encounter Care Teams Community Service Representative Relationship Specialty Start Date End Date Pcp, No [address] [place] [address] PCP - General Family Medicine 03/17/25 Nayeli Torrez MD [address] [place] [address] Service Attending Neurology 07/28/22 Jennifer Sharp LPN [facility] None TCM Nurse 07/18/25 08/22/25 Deena Mcfarland Community Health Worker 07/26/25 08/03/25 Deena Mcfarland Community Health Worker 08/23/25 09/05/25 documented as of this encounter
--- OUTSIDE RECORDS SUMMARY | 2025-11-19 12:45 | XMS_ITS | Encounter Summary ---
Author Organization [facility] Address [address] [place] [address] Care Team Providers Care Automation Application Engineer Name Role Phone Nayeli Torrez MD Unavailable [phone] Pcp, No Primary Care Provider UnavailJennifer Echevarria LPN Unavailable Unavailab Deena Tai Unavailable Unavailable Deena Mcfarland Unavailable Unavailable Encounter Details Date Type Department Care Team (Late st Contact Info) Description 04/19/2025 Lab Requisition [facility] [address] [place] [address] Richard Longoria MD [address] [facility] [address] [place] [address] Encounter for general adult medical examination without [...] answer 04/16/2025 How often do you attend [facility] or protestant services? Patient unable to answer 04/16/2025 Do you belong to any clubs o r organizations such as holiness groups, unions, fraternal or athletic groups, or [...] Recorded Patient Health Questionnaire-2 Score 0 09/25/2024 [facility] of Occupat ional Health - Occupational Stress [...] any time in the past 12 m [facility], were you homeless or living in a fdc (including now)? Patient unable to answer 04/16/2025 [...] drink first t lucia in the morning (EYE-TYPE BAR AND SEGMENT ASSEMBLER) to steady your nerves or to get [...] documented as of this encounter Functional Status documented as of this encounter Mental Status * Question Answer Entry Date Author Precautions Aspiration;Fall risk ;Environmental surveillance 04/22/2025 8:00 PM EDT Shannon Moody documented in this encounter Plan of Treatment Upcoming Encounters Date Type Department Care Team (Late st Contact Info) Description 01/15/2026 1:20 PM EST Office Visit [place] [facility] [address] [place] [address] Oma Haywood MD [address] [place] [address] documented as of this encounter Procedures Procedure Name Priority Date/Time Associated Diagnosis Comments SHIRA AURIS SURVEILLANCE BY PCR Routine 04/19/2025 2:30 PM EDT Encounter for general adult medical examination without abnormal findings documented in this encounter Results * Shira auris Surveillance by PCR (04/19/2025 2:30 PM EDT) Shira auris PCR Result Not Detected Not Detected 04/20/2025 2:51 PM EDT [facility] Swab (Axilla and Groin) 04/19/2025 2:30 PM EDT 04/19/2025 2:42 PM EDT Narrative [facility] - 04/20/2025 2:51 PM EDT This PCR assay was developed and its performance characteristics determined by [facility] as appropriate for clinical purposes. This assay has not been cleared or approved by the FDA, but is performed in a CLIA regulated laboratory that is qualified to perform high-complexity testing. us Richard Longoria MD LAB MICROBIOLOGY - GEN ERAL ORDERABLES Final Result [facility] [address] [place] [address] documented in this encounter Visit Diagnoses Diagnosis Encounter for general adult medical examination without abnormal findings documented in this encounter Additional Health Concerns Infection Onset Date Last Indicated Resolved Time COVID-19 Rule-Out 04/24/2025 04/24/2025 04/24/2025 3:09 PM EDT Respiratory Rule-Out 04/24/2025 04/24/2025 025 10:46 AM EDT COVID-19 Rule-Out 05/13/2025 05/13/2025 05/14/2025 7:55 AM EDT Respiratory Rule-Out 05/13/2025 05/13/2025 025 7:48 PM EDT Assessment Noted Time A fall risk assessment has been complete d for the patient 09/25/2024 11:08 AM EDT A Body Mass Index follow-up plan has been documented for the patient 07/21/2025 12:36 PM EDT documented as of this encounter Care Teams Automation Application Engineer Relationship Specialty Start Date End Date Pcp, No [address] [place] [address] PCP - General Family Medicine 03/17/25 Nayeli Torrez MD [address] [facility] [address] [place] [address] Service Attending Neurology 07/28/22 Jennifer Sharp LPN [facility] None TCM Nurse 07/18/25 08/22/25 Deena Mcfarland Community Health Worker 07/26/25 08/03/25 Deena Mcfarland Community Health Worker 08/23/25 09/05/25 documented as of this encounter
--- OUTSIDE RECORDS SUMMARY | 2025-11-19 12:45 | XMS_ITS | Encounter Summary ---
Author Organization [facility] Address [address] [place] [address] Care Team Providers Care Printing Table Hand Name Role Phone Nayeli Torrez MD Unavailable [phone] Pcp, No Primary Care Provider UnavailJennifer Echevarria LPN Unavailable Unavailab Deena Tai Unavailable Unavailable Deena Mcfarland Unavailable Unavailable Encounter Details Date Type Department Care Team (Late st Contact Info) Description 04/16/2025 Lab Requisition [facility] [address] [place] [address] Richard Longoria MD [address] [facility] [address] [place] [address] Encounter for general adult medical examination without [...] answer 04/16/2025 How often do you attend [facility] or yazdanism services? Patient unable to answer 04/16/2025 Do you belong to any clubs o r organizations such as pentecostal groups, unions, fraternal or athletic groups, or [...] Recorded Patient Health Questionnaire-2 Score 0 09/25/2024 [facility] of Occupat ional Health - Occupational Stress [...] time in the past 12 m [facility], were you homeless or living in a senior care (including now)? Patient unable to answer 04/16/2025 [...] drink first t lucia in the morning (EYE-BAG BUNDLER) to steady your nerves or to get [...] * Question Answer Date of Assessment Author Precautions Fall risk;Aspiration;Seizure;Environme ntal surveillance 04/19/2025 8:00 PM EDT Ashley Aiken RN * AUDIT-C Score Answer Date of Assessment Author -1 04/16/2025 1:00 PM EDT Ashley Gonzalez * Question Answer Date of Assessment Author Q1: How often do you have a drink containing alcohol? Patient unable to answer 04/16/2025 1:00 PM EDT Jeanie Gonzalez Q2: How many drinks containing alcohol do you have on a typical day when you are drinking? Patient unable to answer 04/16/2025 1:00 PM EDT Jeanie Gonzalez Q3: How often do you have six or more drinks on one occasion? Patient unable to answer 04/16/2025 1:00 PM EDT Jeanie Gonzalez * Question Answer Date of Assessment Author Precautions Fall risk;Aspiration;Seizure;Environme ntal surveillance 04/19/2025 8:00 PM EDT Ashley Aiken RN * Calculated C-SSRS Risk Score (Lifetime/Recent) Answer Date of Assessment Author No Risk Indicated 04/16/2025 8:00 AM EDT Reji [place] ma, RN * Question Answer Date of Assessment Author 1. Wish to be (Past 1 Month) No 025 8:00 AM EDT Reji Mcgrath RN 2. Non-Specific Active Suici he Thoughts (Past 1 Month) No 04/16/2025 8:00 AM EDT Mat Mcgrath RN 6. Suicidal Behavior (Lifetime) No 8:00 AM EDT Reji Mcgrath RN documented as of this encounter Mental Status * Question Answer Entry Date Author Precautions Fall risk;Aspiration;Seizure;Environme ntal surveillance 04/19/2025 8:00 PM EDT Ashley Aiken RN documented in this encounter Plan of Treatment Upcoming Encounters Date Type Department Care Team (Late st Contact Info) Description 01/15/2026 1:20 PM EST Office Visit [place] [facility] [address] [place] [address] Oma Haywood MD [address] [place] [address] documented as of this encounter Procedures Procedure Name Priority Date/Time Associated Diagnosis Comments MULTI DRUG RESISTANCE TEST Routine 04/16/2025 9:00 AM EDT Encounter for general adult medical examination without abnormal findings documented in this encounter Results * Multi Drug Resistance Test (04/16/2025 9:00 AM EDT) Culture No growth at day 1 04/17/2025 10:14 AM EDT [facility] Swab (Nares and Celeste Rectal) 04/16/2025 9:00 AM EDT 04/16/2025 9:28 AM EDT Narrative [facility] - 04/17/2025 10:14 AM EDT This test was developed and its performance characteristics determined by the [facility]. Although the media is FDA-approved, it is not FDA-approved for all specimen types submitted. The FDA has determined that such clearance or approval is not necessary. This test is used for surveillance purposes. It should not be regarded as investigational or for research. The [facility] is certified under the Clinical Laboratory Improvement Amendments of 1988 (CLIA-88) as qualified to perform high complexity clinical laboratory testing. us Richard Longoria MD LAB MICROBIOLOGY - GEN ERAL ORDERABLES Final Result [facility] [address] [place] [address] documented in this encounter Visit Diagnoses Diagnosis [...] documented as of this encounter Care Teams Printing Table Hand Relationship Specialty Start Date End Date Pcp, Elaine [address] [place] [address] PCP - General Family Medicine 03/17/25 Nayeli Torrez MD [address] [facility] [address] [place] [address] Service Attending Neurology 07/28/22 Jennifer Sharp LPN [facility] None TCM Nurse 07/18/25 08/22/25 Deena Mcfarland Community Health Worker 07/26/25 08/03/25 Deena Mcfarland Community Health Worker 08/23/25 09/05/25 documented as of this encounter
--- OUTSIDE RECORDS SUMMARY | 2025-11-19 12:45 | XMS_ITS | Referral Summary ---
Author Organization [facility] ([place], [place], [place], [place], [place]) Address [address] [place] [address] Care Team Providers Care Broadcast Operations Director Name Role Phone Unavailable Primary Care Provider Unavailabl e Allergies No known active allergies Medications levETIRAcetam (KEPPRA) 1000 MG tablet Take 1 tablet (1,000 mg total) by mouth 2 (two) times daily. Active esomeprazole (NexIUM) 20 MG capsule Take 1 capsule (20 mg total) by mouth daily. Active Active Problems No known active problems Social History Tobacco Use Types Packs/Day Years Used Date Smoking Tobacco: Never Assessed Family and Community Support Answer Jairo e Recorded Help with Day to Day Activities Not on file 12/11/2023 Feeling Lonely or Isolated Not on file 12/11 Educational Attainment Answer Date Jaydon rded Speak language other than Kazakh at home Not on file 12/11/2023 Want help with school or training Not on file 12/11/2023 Substance Use Answer Date Recorded Used prescription meds for non-medical reasons N ot on file 12/11/2023 Used illegal drugs past 12 months Not on file 12/11/2023 Sex and Gender Information Value Date Recorded Sex Assigned at Not on file Legal Sex Male 10:09 AM CDT Gender Identity Not on file Sexual Orientation Not on file Last Filed Vital Signs Vital Sign Reading Time Taken Comments Blood Pressure 148/85 06/29/2023 11:19 AM EDT Pulse 80 06/29/2023 11:19 AM EDT Temperature 36.9 C (98.4 F) 06/29/2023 11:19 AM EDT Respiratory Rate 16 06/29/2023 11:19 AM EDT Oxygen Saturation 96% 06/29/2023 11:19 AM EDT Inhaled Oxygen Concentration - - Weight 68 kg (150 lb) 06/29/2023 11:19 AM EDT Height 167.6 cm (5' 6 ) 06/29/2023 11:19 AM EDT Body Mass Index 24.21 06/29/2023 11:19 AM EDT Plan of Treatment Not on file
--- OUTSIDE RECORDS SUMMARY | 2025-11-19 12:45 | XMS_ITS | Clinical Summary ---
Author Organization [employer] ([place], [place], [place], [place], [place]) Address [address] [place] [address] Care Team Providers Care Link Wire Fabric Machine Operator Name Role Phone Unavailable Primary Care Provider [...] Date Jaydon rded Speak language other than Arabic at home Not on file 12/11/2023 Want [...] 06/29/2023 11:19 AM EDT Plan of Treatment Health Maintenance Due Date Last Done Comments CT Colonography 1974 Colonoscopy 1974 Colorectal Cancer Screening 1974 FOBT/FIT 1974 Fit-DNA (Cologuard) 1974 Sigmoidoscopy 1974 Depression Screening (12+) 1986 HIV Screening 1989 Hepatitis C Screening 1992 Lipid Panel 2009 Tobacco Cessation Counseling and Screening (12+) 06/29/2024 06/29/2023 Pneumococcal 50+ years (1 of 1 - PCV) 2024 Shingles Vaccine (Zoster) (1 of 2) 2024 COVID-19 VACCINE (5 - 2024-2 6 season) 2025 12/02/2022, 02/12/2022, 09/16/2021, Additional history exists Influenza Vaccine (#1) 2025 DTAP/TDAP/TD VACCINES (2 - Tdap) 03/19/2033 03/19/20 23
--- OUTSIDE RECORDS SUMMARY | 2025-11-19 12:45 | XMS_ITS | Encounter Summary ---
Author Organization [facility] Address [address] [place] [address] Care Team Providers Care Aquaculture Director Name Role Phone Sebas English MD Primary Care Provider + [phone] Nayeli Torrze MD Unavailable [phone] Calos Jauregui MD Primary Care Provider [phone] Pcp, No Primary Care Provider UnavailJennifer Echevarria LPN Unavailable Unavailab Deena Tai Unavailable Unavailable Deena Mcfarland Unavailable Unavailable Reason for Visit * Reason Comments Med Refill Encounter Details Date Type Department Care Team (Late st Contact Info) Description 09/23/2022 Refill [facility] [address] [place] [address] Bettie Márquez, RN [address] [place] [address] Alcoholic cirrhosis, unspecified whether ascites present (CMS/HCC) Social History Tobacco Use Types Packs/Day Years Used Date Smoking Tobacco: Some Days Cigarettes Smokeless Tobacco: Never Comments:2 cigarettes per da y for past 4-5 years, previously used to smoke 2 packs for 20 years Alcohol Use Standard Drinks/Week Comments Not Currently 0 (1 standard drink = 0.6 oz pure alcohol) last drink was 4-5 years back. PHQ-2 Answer Date Recorded Patient Health Questionnaire-2 Score 0 08/26/2022 Sex and Gender Information Value Date Recorded Sex Assigned at Male 07/22/2021 10:06 AM EDT Legal Sex Male 7:02 PM EDT Gender Identity Male 07/22/2021 10:06 AM EDT Sexual Orientation Not on file COVID-19 Exposure Response Date Recorded In the last 10 days, have yo u been in contact with someone who was confirmed or suspected to have Coronavirus/COVID-19? No / Unsure 08/26/2022 7:33 AM EDT documented as of this encounter Miscellaneous Notes * Telephone Encounter - Louise Merino RN - 09/23/2022 2:35 PM EDT Provider d/c'd medication on 08/26. pt notified. * Telephone Encounter - Juancho Mayorga PharmD - 09/23/2022 1:25 PM EDT Routing refill request to appropriate in-basket for review. documented in this encounter Plan of Treatment Upcoming Encounters Date Type Department Care Team (Late st Contact Info) Description 01/15/2026 1:20 PM EST Office Visit [place] [facility] [address] [place] [address] Oma Haywood MD [address] [place] [address] documented as of this encounter Visit Diagnoses Diagnosis Alcoholic cirrhosis, unspecified whether ascites present documented in this encounter Additional Health Concerns Infection Onset Date Last Indicated Resolved Time Gastrointestinal Rule-Out 09/02/2023 09/02/2023 10:45 PM EDT Campylobacter 09/02/2023 09/02/2023 04/05/2024 11: 21 AM EDT Enterotoxigenic E. coli (ETEC) 09/02/2023 09/02/2023 04/05/2024 11:21 AM EDT COVID-19 Rule-Out 10/02/2024 10/02/2024 10/02/2024 7:20 PM EST COVID 19 (Confirmed) 10/02/2024 10/02/2024 024 5:23 AM EST COVID-19 Rule-Out 04/24/2025 04/24/2025 04/24/2025 3:09 PM EDT Respiratory Rule-Out 04/24/2025 04/24/2025 025 10:46 AM EDT COVID-19 Rule-Out 05/13/2025 05/13/2025 05/14/2025 7:55 AM EDT Respiratory Rule-Out 05/13/2025 05/13/2025 025 7:48 PM EDT Assessment Noted Time A fall risk assessment has been complete d for the patient 08/26/2022 9:36 AM EDT documented as of this encounter Care Teams Aquaculture Director Relationship Specialty Start Date End Date Sebas English MD [address] [place], [place] [phone] PCP - General 04/11/21 10/26/23 Calos Jauregui MD [address] [place] [address] PCP - General 10/27/23 03/16/25 Pcp, Elaine [address] [place] [address] PCP - General Family Medicine 03/17/25 Nayeli Torrez MD [address] [place] [address] Service Attending Neurology 07/28/22 Jennifer Sharp LPN [facility] None TCM Nurse 07/18/25 08/22/25 Deena Mcfarland Community Health Worker 07/26/25 08/03/25 Deena Mcfarland Community Health Worker 08/23/25 09/05/25 documented as of this encounter
--- OUTSIDE RECORDS SUMMARY | 2025-11-19 12:45 | XMS_ITS | Clinical Summary ---
Author Organization [facility] Address [address] [place] [address] Care Team Providers [employer] Name Role Phone Nayeli Torrez MD Unavailable [phone] Pcp, No Primary Care Provider Unavailabl e Allergies No known active allergies Medications esomeprazole (NexIUM) [address] capsule Take 1 capsule by mouth daily before breakfast. Do not open capsule. Active Multiple Vitamins-Minera ls (multivitamin with minerals) tablet Take 1 tablet by mouth daily. Active Potassium 99 MG tablet Take 1 tablet by mouth daily. Active folic acid (Folvite) 1 MG tablet Take 1 tablet by mouth daily. 30 tablet 3 07/22/2025 5 Active traZODone (Desyrel) 150 MG tablet Take 0.5 tablets by mouth nightly. 15 tablet 2 07/21/2025 Active oxyCODONE-aceta minophen (Percocet) 10-325 MG tablet take 1 tablet by mouth 2 times a day as needed for pain 09/28/2025 Active levETIRAcetam (Keppra) 750 MG tabletIndicatio ns:Seizures (CMS/HCC) Take 2 tablets by mouth 2 times a day. 120 tablet 3 10/16/2025 6 Active Hospital, Clinic, or Other Facility Administered Medication Ordered Dose Route Frequency Start Date End Date Status hepatitis B (Heplisav-B) 20 MCG/0.5ML vaccine 20 mcgIndications:Alcoholic cirrhosis, unspecified whether ascites present 20 mcg IM Once 08/26/2022 A ctive Active Problems Problem Noted Date Diagnosed Date Leukocytopenia 07/21/2025 Chronic insomnia 07/21/2025 Left hemiparesis 07/21/2025 Impaired mobility and activities of daily living 07/21/2025 GERD (gastroesophageal reflux disease) Moderate protein-calorie malnutrition 07/04/2025 History of bacteremia 04/25/2025 Assessment & Plan (05/04/2025 8:45 AM EDT): Bcx positive 04/24 for MecA staph, coagulase negative. Follow cultures from 04/26 No overt clinical signs of bacteremia at this time Discontinued vanc 04/27 Treating zosyn x5 days for upper respiratory gram neg/pos rods Assessment & Plan (05/03/2025 2:28 PM EDT): Bcx positive 04/24 for MecA staph, coagulase negative. Follow cultures from 04/26 No overt clinical signs of bacteremia at this time Discontinued vanc 04/27 Treating zosyn x5 days for upper respiratory gram neg/pos rods Assessment & Plan (05/02/2025 11:54 AM EDT): Bcx positive 04/24 for MecA staph, coagulase negative. Follow cultures from 04/26 No overt clinical signs of bacteremia at this time Discontinued vanc 04/27 Treating zosyn x5 days for upper respiratory gram neg/pos rods Assessment & Plan (05/02/2025 8:20 AM EDT): Bcx positive 04/24 for MecA staph, coagulase negative. Follow cultures from 04/26 No overt clinical signs of bacteremia at this time Discontinued vanc 04/27 Q48h blood cultures Assessment & Plan (04/30/2025 10:02 AM EDT): Bcx positive 04/24 for MecA staph, coagulase negative. Follow cultures from 04/26 No overt clinical signs of bacteremia at this time Discontinued vanc 04/27 Q48h blood cultures Assessment & Plan (04/29/2025 8:09 AM EDT): Bcx positive 04/24 for MecA staph, coagulase negative. Follow cultures from 04/26 No overt clinical signs of bacteremia at this time Discontinued vanc 04/27 Q48h blood cultures Hyperammonemia 04/23/2025 Assessment & Plan (05/04/2025 8:45 AM EDT): Complicating neuro evaluation Continue Lactulose TID for goal of 3 bowel movements/day Trend labs Assessment & Plan (05/03/2025 2:28 PM EDT): Complicating neuro evaluation Continue Lactulose TID for goal of 3 bowel movements/day Trend labs Assessment & Plan (05/02/2025 11:54 AM EDT): Complicating neuro evaluation Continue Lactulose TID for goal of 3 bowel movements/day Trend labs Assessment & Plan (05/02/2025 8:20 AM EDT): Complicating neuro evaluation Continue Lactulose TID for goal of 3 bowel movements/day Trend labs Assessment & Plan (04/30/2025 10:02 AM EDT): Complicating neuro evaluation Continue Lactulose TID for goal of 3 bowel movements/day Trend labs Assessment & Plan (04/29/2025 8:09 AM EDT): Ammonia 107 on 04/23 (not checked recently) Complicating neuro evaluation Added Lactulose TID for goal of 3 bowel movements/day Trend labs Primary hypertension 04/22/2025 Overview (04/29/2025): Assessment & Plan (05/04/2025 8:45 AM EDT): Goal SBP<130 Lisinopril 30mg Prn hydralazine and labetalol Assessment & Plan (05/03/2025 2:28 PM EDT): Goal SBP<130 Lisinopril 30mg Prn hydralazine and labetalol Assessment & Plan (05/02/2025 11:54 AM EDT): Goal SBP<130 Lisinopril 30mg Prn hydralazine and labetalol Assessment & Plan (05/02/2025 8:20 AM EDT): Goal SBP<130 Lisinopril 30mg Prn hydralazine and labetalol Assessment & Plan (04/30/2025 10:02 AM EDT): Goal SBP<130 Lisinopril 30mg Prn hydralazine and labetalol Assessment & Plan (04/29/2025 8:09 AM EDT): Goal SBP<130 Lisinopril 30mg Prn hydralazine and labetalol IVH (intraventricular hemorrhage) 04/20/2025 Assessment & Plan (05/04/2025 8:45 AM EDT): New IVH on CT 5, no surgical intervention Assessment & Plan (05/03/2025 2:28 PM EDT): New IVH on CT 5/, no surgical intervention Assessment & Plan (05/02/2025 11:54 AM EDT): New IVH on CT 5/22, no surgical intervention Assessment & Plan (05/02/2025 8:20 AM EDT): New IVH on CT 5/, no surgical intervention Assessment & Plan (04/30/2025 10:02 AM EDT): New IVH on CT 5/22, no surgical intervention Assessment & Plan (04/29/2025 8:09 AM EDT): New IVH on CT 5/22, no surgical intervention Cerebral edema 04/20/2025 Assessment & Plan (05/04/2025 8:45 AM EDT): 2/2 ICH Stopped salt tabs and started free water for Na above goal range Stop free water if Na<140 Assessment & Plan (05/03/2025 2:28 PM EDT): 2/2 ICH Stopped salt tabs and started free water for Na above goal range Assessment & Plan (05/02/2025 11:54 AM EDT): 2/2 ICH Stopped salt tabs and started free water for Na above goal range Assessment & Plan (05/02/2025 8:20 AM EDT): 2/2 ICH Stopped salt tabs and started free water for Na above goal range Assessment & Plan (04/30/2025 10:02 AM EDT): 2/2 ICH Stopped salt tabs and started free water for Na above goal range Assessment & Plan (04/29/2025 8:09 AM EDT): 2/2 ICH NA goals to 145-155 Stopped salt tabs and started free water for Na above goal range 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 Assessment & Plan (05/04/2025 8:45 AM EDT): Likely secondary to AVM vs pial fistula- To be f/u with NS outpt SBP<140 Normal Na goal Keep HOB elevated NIHSS and neuro examinations per ICU protocol Will continue ongoing stroke education Assessment & Plan (05/03/2025 2:28 PM EDT): Likely secondary to AVM vs pial fistula- To be f/u with NS outpt SBP<140 Normal Na goal Keep HOB elevated NIHSS and neuro examinations per ICU protocol Will continue ongoing stroke education Assessment & Plan (05/02/2025 11:54 AM EDT): Likely secondary to AVM vs pial fistula- To be f/u with NS outpt SBP<140 Normal Na goal Keep HOB elevated NIHSS and neuro examinations per ICU protocol Will continue ongoing stroke education Assessment & Plan (05/02/2025 8:20 AM EDT): Likely secondary to AVM vs pial fistula- To be f/u with NS outpt SBP<140 Normal Na goal Keep HOB elevated NIHSS and neuro examinations per ICU protocol Will continue ongoing stroke education Assessment & Plan (04/30/2025 10:02 AM EDT): Likely secondary to AVM vs pial fistula- To be f/u with NS outpt SBP<130 Normal Na goal Keep HOB elevated NIHSS and neuro examinations per ICU protocol Will continue ongoing stroke education Assessment & Plan (04/29/2025 8:09 AM EDT): Likely secondary to AVM vs pial fistula- To be f/u with NS outpt SBP<140 Normal Na goal Keep HOB elevated NIHSS and neuro examinations per ICU protocol Will continue ongoing stroke education Hypokalemia 10/27/2023 10/27/2023 Alcohol use disorder 10/27/2023 10/27/2023 Assessment & Plan (05/04/2025 8:45 AM EDT): Thiamine and folic Seizure precautions Assessment & Plan (05/03/2025 2:28 PM EDT): Thiamine and folic Seizure precautions Assessment & Plan (05/02/2025 11:54 AM EDT): Thiamine and folic Seizure precautions Assessment & Plan (05/02/2025 8:20 AM EDT): Thiamine and folic Seizure precautions Assessment & Plan (04/30/2025 10:02 AM EDT): Thiamine and folic Seizure precautions Assessment & Plan (04/29/2025 8:09 AM EDT): Thiamine and folic Seizure precautions Anemia 10/27/2023 10/27/2023 Overview (04/15/2025): Hgb stable current admission Monitor on daily labs Esophageal varices with bleeding 10/27/2023 10/27/2023 Portal hypertension 10/27/2023 10/27/2023 Alcoholic cirrhosis of liver with ascites 2021 Assessment & Plan (05/04/2025 8:45 AM EDT): -Monitor per protocol. -Large ascites on CT Assessment & Plan (05/03/2025 2:28 PM EDT): -Monitor per protocol. -No evidence of ascites Assessment & Plan (05/02/2025 11:54 AM EDT): -Monitor per protocol. -No evidence of ascites Assessment & Plan (05/02/2025 8:20 AM EDT): -Monitor per protocol. -No evidence of ascites Assessment & Plan (04/30/2025 10:02 AM EDT): -Monitor per protocol. Assessment & Plan (04/29/2025 8:09 AM EDT): -Monitor per protocol. Portal vein thrombosis 01/26/2022 S/P TIPS (transjugular intrahepatic portosystemi c shunt) 01/14/2022 Assessment & Plan (05/04/2025 8:45 AM EDT): Hx of TIPS, now with dysfunction GI follows w/ recs: GI f/u with recs 04/19: - Can follow up as outpatient for TIPS dysfunction. Does not have any ascites or evidence of portal hypertension right now - Encourage alcohol cessation - Follow up in Hepatology clinic on discharge - 2g/day Na diet. No NSAIDS. APAP <2g/day - Start vaccination for HAV/HBV if not immune by serology. - Recommend nutrition consultation: daily protein intake of 1.2 to 1.5 g/kg and caloric intake of 35 Kcal/kg, thiamine, vitamin B complex supplementation and late night (or bedtime) snack -CTAP completed - GI would no place PEG given collateral vascular blood flow and ascites. Recommend US to evaluate TIPS patency Assessment & Plan (05/03/2025 2:28 PM EDT): Hx of TIPS, now with dysfunction GI follows w/ recs: GI f/u with recs 04/19: - Can follow up as outpatient for TIPS dysfunction. Does not have any ascites or evidence of portal hypertension right now - Encourage alcohol cessation - Follow up in Hepatology clinic on discharge - 2g/day Na diet. No NSAIDS. APAP <2g/day - Start vaccination for HAV/HBV if not immune by serology. - Recommend nutrition consultation: daily protein intake of 1.2 to 1.5 g/kg and caloric intake of 35 Kcal/kg, thiamine, vitamin B complex supplementation and late night (or bedtime) snack -Contacted GI team regarding patient's eligibility for PEG tube in setting of occluded TIPS -CTAP completed Assessment & Plan (05/02/2025 11:54 AM EDT): Hx of TIPS, now with dysfunction GI follows w/ recs: GI f/u with recs 04/19: - Can follow up as outpatient for TIPS dysfunction. Does not have any ascites or evidence of portal hypertension right now - Encourage alcohol cessation - Follow up in Hepatology clinic on discharge - 2g/day Na diet. No NSAIDS. APAP <2g/day - Start vaccination for HAV/HBV if not immune by serology. - Recommend nutrition consultation: daily protein intake of 1.2 to 1.5 g/kg and caloric intake of 35 Kcal/kg, thiamine, vitamin B complex supplementation and late night (or bedtime) snack -Contacted GI team regarding patient's eligibility for PEG tube in setting of occluded TIPS Assessment & Plan (05/02/2025 8:20 AM EDT): Hx of TIPS, now with dysfunction GI follows w/ recs: GI f/u with recs 04/19: - Can follow up as outpatient for TIPS dysfunction. Does not have any ascites or evidence of portal hypertension right now - Encourage alcohol cessation - Follow up in Hepatology clinic on discharge - 2g/day Na diet. No NSAIDS. APAP <2g/day - Start vaccination for HAV/HBV if not immune by serology. - Recommend nutrition consultation: daily protein intake of 1.2 to 1.5 g/kg and caloric intake of 35 Kcal/kg, thiamine, vitamin B complex supplementation and late night (or bedtime) snack -Contacted GI team regarding patient's eligibility for PEG tube in setting of occluded TIPS Assessment & Plan (04/30/2025 10:02 AM EDT): Hx of TIPS, now with dysfunction GI follows w/ recs: GI f/u with recs 04/19: - Can follow up as outpatient for TIPS dysfunction. Does not have any ascites or evidence of portal hypertension right now - Encourage alcohol cessation - Follow up in Hepatology clinic on discharge - 2g/day Na diet. No NSAIDS. APAP <2g/day - Start vaccination for HAV/HBV if not immune by serology. - Recommend nutrition consultation: daily protein intake of 1.2 to 1.5 g/kg and caloric intake of 35 Kcal/kg, thiamine, vitamin B complex supplementation and late night (or bedtime) snack Assessment & Plan (04/29/2025 8:09 AM EDT): Hx of TIPS, now with dysfunction GI follows w/ recs: GI f/u with recs 04/19: - Can follow up as outpatient for TIPS dysfunction. Does not have any ascites or evidence of portal hypertension right now - Encourage alcohol cessation - Follow up in Hepatology clinic on discharge - 2g/day Na diet. No NSAIDS. APAP <2g/day - Start vaccination for HAV/HBV if not immune by serology. - Recommend nutrition consultation: daily protein intake of 1.2 to 1.5 g/kg and caloric intake of 35 Kcal/kg, thiamine, vitamin B complex supplementation and late night (or bedtime) snack CVA (cerebral vascular accident) 01/12/2022 Assessment & Plan (05/04/2025 8:45 AM EDT): Secondary stroke ppx when appropriate per primary Continue stroke education Assessment & Plan (05/03/2025 2:28 PM EDT): Secondary stroke ppx when appropriate per primary Continue stroke education Assessment & Plan (05/02/2025 11:54 AM EDT): Secondary stroke ppx when appropriate per primary Continue stroke education Assessment & Plan (05/02/2025 8:20 AM EDT): Secondary stroke ppx when appropriate per primary Continue stroke education Assessment & Plan (04/30/2025 10:02 AM EDT): Secondary stroke ppx when appropriate per primary Continue stroke education Assessment & Plan (04/29/2025 8:09 AM EDT): Secondary stroke ppx when appropriate per primary Continue stroke education Electrolyte abnormality 09/06/2021 Assessment & Plan (05/04/2025 11:25 AM EDT): Replace per ICU sliding scale policy Continue close assessment PO lasix for net positive fluid status Assessment & Plan (05/03/2025 2:28 PM EDT): Replace per ICU sliding scale policy Continue close assessment Assessment & Plan (05/02/2025 11:54 AM EDT): Replace per ICU sliding scale policy Continue close assessment Assessment & Plan (05/02/2025 8:20 AM EDT): Replace per ICU sliding scale policy Continue close assessment Assessment & Plan (04/30/2025 10:02 AM EDT): Replace per ICU sliding scale policy Continue close assessment Assessment & Plan (04/29/2025 8:09 AM EDT): Replace per ICU sliding scale policy Continue close assessment Seizures 06/24/2021 Assessment & Plan (05/04/2025 8:45 AM EDT): Continue Keppra 04/19 Recurrent seizure while on Keppra. Given Ativan. Required intubation for burst suppression AED's per primary - Continuous EEG stopped 04/25 Clobazam ended 04/30 Seizure precautions Assessment & Plan (05/03/2025 2:28 PM EDT): Continue Keppra 04/19 Recurrent seizure while on Keppra. Given Ativan. Required intubation for burst suppression AED's per primary - Continuous EEG stopped 04/25 Clobazam ended 6/2 Seizure precautions Assessment & Plan (05/02/2025 11:54 AM EDT): Continue Keppra 04/19 Recurrent seizure while on Keppra. Given Ativan. Required intubation for burst suppression AED's per primary - Continuous EEG stopped 04/25 Clobazam ended 6/2 Seizure precautions Assessment & Plan (05/02/2025 8:20 AM EDT): Continue Keppra 04/19 Recurrent seizure while on Keppra. Given Ativan. Required intubation for burst suppression AED's per primary - Continuous EEG stopped 04/25 Clobazam ended 6/2 Seizure precautions Assessment & Plan (04/30/2025 10:02 AM EDT): Continue Keppra 04/19 Recurrent seizure while on Keppra. Given Ativan. Required intubation for burst suppression AED's per primary - Continuous EEG stopped 04/25 Clobazam ended /2 Seizure precautions Assessment & Plan (04/30/2025 9:18 AM EDT): Continue Keppra 04/19 Recurrent seizure while on Keppra. Given Ativan. Required intubation for burst suppression AED's per primary - Neuro weaning Clobazam today Continuous EEG stopped 04/25 Seizure precautions Assessment & Plan (04/29/2025 8:09 AM EDT): Continue Keppra 04/19 Recurrent seizure while on Keppra. Given Ativan. Required intubation for burst suppression AED's per primary - Neuro weaning Clobazam today Continuous EEG stopped 04/25 Seizure precautions Positive hepatitis C antibody test 05/17/2019 Thrombocytopenia 05/17/2019 Assessment & Plan (05/04/2025 8:45 AM EDT): Stable, baseline appears 80-110 Transfuse for PLT<20 Assessment & Plan (05/03/2025 2:28 PM EDT): Stable, baseline appears 80-110 Transfuse for PLT<20 Assessment & Plan (05/02/2025 11:54 AM EDT): Stable, baseline appears 80-110 Transfuse for PLT<20 Assessment & Plan (05/02/2025 8:20 AM EDT): Stable, baseline appears 80-110 Transfuse for PLT<20 Assessment & Plan (04/30/2025 10:02 AM EDT): Stable, baseline appears 80-110 Transfuse for PLT<20 Assessment & Plan (04/29/2025 8:09 AM EDT): Stable, baseline appears 80-110 Transfuse for PLT<20 Decompensated hepatic cirrhosis 04/20/2019 Overview (04/29/2025): Assessment & Plan (05/04/2025 8:45 AM EDT): LFTs and bilirubin elevated, but generally stable from previous years labs Monitor on daily labs 2g APAP max Avoid hepatotoxic medications Ammonia 42, continue Lactulose and trend periodically Assessment & Plan (05/03/2025 2:28 PM EDT): LFTs and bilirubin elevated, but generally stable from previous years labs Monitor on daily labs 2g APAP max Avoid hepatotoxic medications Ammonia 89, continue Lactulose and trend periodically Assessment & Plan (05/02/2025 11:54 AM EDT): LFTs and bilirubin elevated, but generally stable from previous years labs Monitor on daily labs 2g APAP max Avoid hepatotoxic medications Ammonia 89, continue Lactulose and trend periodically Assessment & Plan (05/02/2025 8:20 AM EDT): LFTs and bilirubin elevated, but generally stable from previous years labs Monitor on daily labs 2g APAP max Avoid hepatotoxic medications Ammonia 89, continue Lactulose and trend periodically Assessment & Plan (04/30/2025 10:02 AM EDT): LFTs and bilirubin elevated, but generally stable from previous years labs Monitor on daily labs 2g APAP max Avoid hepatotoxic medications Ammonia 70, continue Lactulose and trend periodically , repeat 05/01 Assessment & Plan (04/29/2025 8:09 AM EDT): LFTs and bilirubin elevated, but generally stable from previous years labs - now down trending Monitor on daily labs 2g APAP max Avoid hepatic toxic medications Ammonia 70, continue Lactulose and trend periodically Resolved Problems Problem Noted Date Diagnosed Date Resolved Date Sinusitis 05/03/2025 10/21/2025 Assessment & Plan (05/04/2025 8:45 AM EDT): Likely secondary to DH tube for feeds Pending trial of extubation, consider CAMP ASSISTANT for swallow study Assessment & Plan (05/03/2025 2:28 PM EDT): Likely secondary to DH tube for feeds Pending trial of extubation, consider CAMP ASSISTANT for swallow study Hypernatremia 04/24/2025 07/21/2025 Assessment & Plan (05/04/2025 8:45 AM EDT): Normonatremia Started free water 04/23 Na 141 Hold free water if Na<140 Assessment & Plan (05/03/2025 2:28 PM EDT): Normonatremia Started free water 04/23 Na 141 Hold free water if Na<140 Assessment & Plan (05/02/2025 11:54 AM EDT): Normonatremia Started free water 04/23 Na 146 Assessment & Plan (05/02/2025 8:20 AM EDT): Normonatremia Started free water 04/23 Q6h Na Assessment & Plan (04/30/2025 10:02 AM EDT): Normonatremia Started free water 26 Q6h Na Assessment & Plan (04/29/2025 8:09 AM EDT): Goal 145-150 Started free water 04/23 Q6h Na Goals of care, counseling/discussion 04/23/2025 07/21/2025 Assessment & Plan (05/04/2025 8:45 AM EDT): 04/23 Neuro discussed complicated clinical status with in setting of rebleed, seizures, and cirrhosis. Discussed the high potential for new bleed and the difficulty controlling seizures. Palliative following thinking about code status Extubated, no current need for trach PEG contraindicated per GI, CAMP ASSISTANT eval Assessment & Plan (05/03/2025 2:28 PM EDT): 04/23 Neuro discussed complicated clinical status with in setting of rebleed, seizures, and cirrhosis. Discussed the high potential for new bleed and the difficulty controlling seizures. Palliative following thinking about code status would want trach/PEG Assessment & Plan (05/02/2025 11:54 AM EDT): 04/23 Neuro discussed complicated clinical status with in setting of rebleed, seizures, and cirrhosis. Discussed the high potential for new bleed and the difficulty controlling seizures. Palliative following thinking about code status Would want trach/PEG Assessment & Plan (05/02/2025 8:20 AM EDT): 04/23 Neuro discussed complicated clinical status with in setting of rebleed, seizures, and cirrhosis. Discussed the high potential for new bleed and the difficulty controlling seizures. Palliative following thinking about code status Would want trach/PEG Assessment & Plan (04/30/2025 10:02 AM EDT): 04/23 Neuro discussed complicated clinical status with in setting of rebleed, seizures, and cirrhosis. Discussed the high potential for new bleed and the difficulty controlling seizures. Prognosis is guarded and prolonged care may require trach/peg now at bedside, neurology to discuss plan of care 04/30 Assessment & Plan (04/29/2025 8:09 AM EDT): 04/23 Neuro discussed complicated clinical status with in setting of rebleed, seizures, and cirrhosis. Discussed the high potential for new bleed and the difficulty controlling seizures. Prognosis is guarded and prolonged care may require trach/peg Neurology discussing with palliative care 04/26 Complicated by being hospitalized presently Hypomagnesemia 04/21/2025 04/23/2025 Overview (04/21/2025): Replace per ICU protocol Hypotension 04/21/2025 04/22/2025 Overview (04/21/2025): 2/2 sedation for burst suppression on 04/21 Improving with sedation wean Goal MAP>65 Acute respiratory failure 04/19/2025 Overview (04/29/2025): Assessment & Plan (05/04/2025 8:45 AM EDT): Intubated 04/19 for airway protection/burst suppression for refractory seizures 04/21 Bronch for desaturations Extubated 05/03 to NC Tolerating NC well Assessment & Plan (05/03/2025 2:28 PM EDT): Intubated 04/19 for airway protection/burst suppression for refractory seizures 04/21 Bronch for desaturations Adjust ventilator for oxygen and ventilation needs Wean Fi02 for SAT>90% voiced her okay to proceed with trach given significant secretion burden while intubated Reduced secretion burden, attempt extubation to NC vs HFNC Assessment & Plan (05/02/2025 11:54 AM EDT): Intubated 04/19 for airway protection/burst suppression for refractory seizures 04/21 Bronch for desaturations Adjust ventilator for oxygen and ventilation needs Wean Fi02 for SAT>90% voiced her okay to proceed with trach given significant secretion burden while intubated Assessment & Plan (05/02/2025 8:20 AM EDT): Intubated 04/19 for airway protection/burst suppression for refractory seizures 04/21 Bronch for desaturations Adjust ventilator for oxygen and ventilation needs Wean Fi02 for SAT>90% Optimize for extubation in coming days, should he fail or not be appropriate his wishes to proceed with trach Assessment & Plan (04/30/2025 10:02 AM EDT): Intubated 04/19 for airway protection/burst suppression for refractory seizures 04/21 Bronch for desaturations Adjust ventilator for oxygen and ventilation needs Wean Fi02 for SAT>90% Neuro exam precluding extubation at this time Assessment & Plan (04/29/2025 8:09 AM EDT): Intubated 04/19 for airway protection/burst suppression for refractory seizures 04/21 Bronch for desaturations Adjust ventilator for oxygen and ventilation needs Wean Fi02 for SAT>90% Neuro exam precluding extubation at this time Feeding difficulty 04/19/2025 Assessment & Plan (05/04/2025 8:45 AM EDT): Due to intubation Nutrition for TF recommendations TF at goal CAMP ASSISTANT eval today Assessment & Plan (05/03/2025 2:28 PM EDT): Due to intubation Nutrition for TF recommendations TF at goal Assessment & Plan (05/02/2025 11:54 AM EDT): Due to intubation Nutrition for TF recommendations TF at goal Assessment & Plan (05/02/2025 8:20 AM EDT): Due to intubation Nutrition for TF recommendations Assessment & Plan (04/30/2025 10:02 AM EDT): Due to intubation DHT ordered Nutrition for TF recommendations 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 Assessment & Plan (04/29/2025 8:09 AM EDT): Due to intubation DHT ordered Nutrition for TF recommendations Hyponatremia 04/15/2025 04/24/2025 Overview (04/22/2025): C/b liver disease Now w/ NA goals 145-150 due to cerebral edema Trend NA labs Recurrent dislocation of left shoulder 08/24/2024 04/15/2025 Abnormal small bowel x-ray 10/27/2023 10/27/2023 0 04/15/2025 Acute dehydration 10/27/2023 10/27/2023 04/15/2025 Acute pancreatitis 10/27/2023 10/27/2023 Alcohol intoxication 10/27/2023 10/27/2023 025 Campylobacter enteritis 10/27/2023 10/27/202303/29 Cholelithiasis 10/27/2023 10/27/2023 04/15/2025 Colitis 10/27/2023 10/27/2023 04/15/2025 Enterocolitis 10/27/2023 10/27/2023 04/15/2025 Enteritis due to Norovirus 10/27/2023 10/27/2023 0 04/15/2025 Fatty liver 10/27/2023 10/27/2023 04/15/2025 Fever 10/27/2023 10/27/2023 07/21/2025 Assessment & Plan (05/04/2025 8:45 AM EDT): Fever overnight 6/2 Blood, sputum cultures, UA, 6/2 Low threshold to start antibiotics BAL with respiratory panel sent No recurrence of fevers Day 3/5 for Zosyn Sputum culture 6 Assessment & Plan (05/03/2025 2:28 PM EDT): Fever overnight 6/2 Blood, sputum cultures, UA, 6/2 Low threshold to start antibiotics BAL with respiratory panel sent No recurrence of fevers Day 2/5 for Zosyn Assessment & Plan (05/02/2025 11:54 AM EDT): Fever overnight 6/2 Blood, sputum cultures, UA, 6/2 Low threshold to start antibiotics BAL with respiratory panel sent No recurrence of fevers Assessment & Plan (05/02/2025 8:20 AM EDT): Fever overnight 6/2 Blood, sputum cultures, UA, 6/2 Low threshold to start antibiotics BAL with respiratory panel sent Assessment & Plan (04/30/2025 10:02 AM EDT): Fever overnight 6/2 Blood, sputum cultures, UA, 6/2 Low threshold to start antibiotics Assessment & Plan (04/29/2025 8:09 AM EDT): Fever overnight 04/23 requiring APAP and ice packs Blood, sputum cultures, UA, respiratory viral studies sent 04/24 Bcx: 04/24 MecA Staph - coagulase negative Sputum cx: 04/24 MURF Likely neurogenic in setting of negative infectious workup Instability of left shoulder joint 10/27/2023202204/15/2025 Intraparenchymal hemorrhage of brain 10/27/202309/3004/15/2025 Left shoulder pain 10/27/2023 10/27/2023 Reflux esophagitis 10/27/2023 10/27/2023 Skin lesion of left ear 10/27/2023 10/27/202303/29 Gastritis 10/27/2023 10/27/2023 04/15/2025 Gastroenteritis 10/27/2023 10/27/2023 04/15/2025 UGI bleed 10/27/2023 10/27/2023 04/15/2025 Cirrhosis 10/27/2023 10/27/2023 04/15/2025 Abdominal pain 10/27/2023 10/27/2023 04/15/2025 Chest pain 10/27/2023 10/27/2023 04/15/2025 Poor tolerance for activity 01/12/2022 04/15/2025 Acute kidney injury 12/19/2021 04/15/20 25 SBP (spontaneous bacterial peritonitis) 11/07/2021 11/12/2021 History of GI bleed 06/24/2021 04/15/20 25 Gastropathy 06/24/2021 04/15/2025 Pain of upper abdomen 06/22/20212024 Abdominal distension 06/22/2021 025 H/O spontaneous bacterial peritonitis 06/22/2021 04/15/2025 Ascites 01/08/2020 04/30/2025 Cognitive deficit, post-stroke 07/13/2019 04/30/2025 Esophageal varices in cirrhosis 07/13/2019 04/15/2025 H/O: alcohol abuse 05/16/2019 Encounters Date Type Department Care Team Description 10/16/2025 1:24 PM EST - 10/16/2025 8:10 PM EST Emergency [facility] [address] [place] [address] Shannon Baxter MD Rock, Troy C, MD Acute pain of left shoulder (Primary Dx) Discharge Disposition: Home or Self Care 10/16/2025 11:20 AM EST Office Visit [facility] [address] [place] [address] Oma Haywood MD Seizures (CMS/HCC) (Primary Dx); Left hemiparesis (CMS/HCC); Impaired mobility and activities of daily living; Needs assistance with community resources 10/16/2025 9:59 AM EST - 10/16/2025 1:23 PM EST Hospital Encounter [facility] 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) Discharge Disposition: Home or Self Care 10/16/2025 Travel 09/05/2025 Patient Outreach [facility] [address] [place] [address], [address] [address] Deena Mcfarland [facility] 08/27/2025 Patient Outreach POPULATION [address], [address] [address] Deena Mcfarland [facility] 08/23/2025 Patient Outreach [facility] [address] [place] [address], [address] [place] [phone] Deena Mcfarland [facility] from Last 3 Months Immunizations Immunization Administration Dates Next Due DT (pediatric) 03/19/2023 Hep B, adult 01/05/2020,10/09/2019,07/10/2019 HepB-CpG 10/27/2023 Family History Medical History Relation Name Comments Hypertension Father Anesthesia problems Neg Hx Malig Hyperthermia Neg Hx Relation Name Status Comments Father Social History Tobacco Use Types Packs/Day Years [...] answer 04/16/2025 How often do you attend [facility] or sabian[facility] services? Patient unable to answer 04/16/2025 Do you belong to any clubs o r organizations such as religious groups, unions, fraternal or athletic groups, or [...] Recorded Patient Health Questionnaire-2 Score 0 09/25/2024 [facility] - Occupational Stress [...] any time in the past 12 m [facility], were you homeless or living in a retirement (including now)? No 09/05/2025 CAGE ASSESSMENT Answer [...] drink first t lucia in the morning (EYE-STONEWORKER) to steady your nerves or to get rid of a hangover? 0 10/16/2025 CAGE Questionnaire Score 0 025 Utilities Answer Date Recorded In the past 12 months has th e [employer], gas, oil, or water company threatened to shut off services in your home? No 07/25/2025 PHQ-2A Answer Date Recorded Patient Health Questionnaire-2 Score 0 10/27/2023 Sex and Gender Information Value Date Recorded Sex Assigned at Male 07/22/2021 10:06 AM EDT Legal Sex Male 7:02 PM EDT Gender Identity Male 07/22/2021 10:06 AM EDT Sexual Orientation Not on file Last Filed [...] (155 lb) 10/16/2025 11:36 AM EST Height 167.6 cm (5' 6 ) 10/16/2025 1:09 PM EST Body Mass Index 25.02 06/13/2025 3:50 PM EDT Plan of Treatment Upcoming Encounters Date Type Department Care Team (Late st Contact Info) Description 01/15/2026 1:20 PM EST Office Visit [place] [facility] [address] [place] [address] Oma Haywood MD [address] [place] [address] Health Maintenance Due Date Last Done Comments [facility]-/Child/Adol SDOH Screenings 1975 [facility]-Hepatitis A Vaccines (1 of 2 - Risk 2-dose series) 1993 [facility]-Pneumococcal Vaccine: 50+ Years (1 of 2 - PCV) 1993 CT Colonography 2019 Colonoscopy 2019 FIT-DNA 2019 FIT 2019 FOBT 2019 Sigmoidoscopy 2019 [facility]-Colorectal Cancer Screening 2019 [facility]-Zoster Vaccines (1 of 2) 2024 [id number]-[id number]-61 Vaccine (5 - season) 2025 12/02/2022, 02/12/2022, 09/16/2021, Additional history exists [facility]-Influenza Vaccine (#1) 2025 [facility]-Depression Screening 09/25/2025 09/25/2024, 07/31 [facility]- SDOH Screenings 10/17/2025 [facility]-Adult SDOH Screenings 10/17/2025 04/16/2025 [facility]-DTaP,Tdap,and Td Vaccines (2 - Tdap) 03/19/2033 03/19/2023 [facility]-Diabetes: Hemoglobin A1C Discontinued 06/23/2021 [facility]-Hepatitis B Vaccines Completed 023, 01/05/2020, 10/09/2019, Additional history exists [facility]-HIV Screening Completed 10/02/2024, , 06/22/2021, Additional history exists [facility]-Obesity Intervention Completed 025, 07/27/2025, 04/15/2025, Additional history exists HPV Vaccines (No Doses Required) Completed [facility]-HIB Vaccines Aged Out No longer e ligible based on patient's age to complete this topic [facility]-IPV Vaccines Aged Out No longer e ligible based on patient's age to complete this topic [facility]-Rotavirus Vaccines Aged Out No lo nger eligible based on patient's age to complete this topic Goals Goal Patient Goal Type Associated Problems Recent Progress Patient-Stated? Author Autogenerat ed Goal Care Plan Autogenerated Problem No [employer] Implanted Type Area Box Tender Device Identifier Shelf Expiration Date Model / Serial / Lot Lawrence Suturefix Ultra 1.7mms Solid Blue - [id number] - [id number] Implanted:Qty: 4 on 09/27/2024 by Chandu Luis MD at [facility] Lawrence Left: Shoulder [employer] (Acu[employer])-[id number] 05/04/2029 [id number] / [id number] / [id number] Lawrence All Suture Qfix 2.8mm - [id number] - [id number] Implanted:Qty: 1 on 09/27/2024 by Chandu Luis MD at [facility] Lawrence Left: Shoulder [employer] ([employer])-[id number] 06/10/2027 25-2800 / [id number] / [id number] Stent Endoprosthesis Tips Viatorr 10mm X 6mm - [id number] Implanted:Qty: 1 on 01/14/2022 by Gilson Anaya MD at [facility] [id number] 10/28/2024 [id number] / [id number] / [id number] Coil Lulú 35-14-10 - [id number] Implanted:Qty: 1 on 01/14/2022 by Gilson Anaya MD at [facility] [employer]-[id number] 02/17/2026 [id number] / / [id number] Plug Amplatzer Vasc 8mm - [id number] Implanted:Qty: 1 on 01/14/2022 by Gilson Anaya MD at [facility] [employer]-[id number] 11/28/2026 [id number] Procedures Procedure Name Priority Date/Time Associated Diagnosis Comments XR HUMERUS LEFT 2+ VIEWS STAT 10/16/2025 2:45 PM EST XR SHOULDER LEFT 2+ VIEWS STAT 10/16/2025 2:[address] ANGIO NECK Routine 10/16/2025 10:30 AM EST 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 Kgjp-fa-cgiwenhd degenerative changes of the acromioclavicular joint and [...] of degeneration or narrowing of the subacromialspace. Egja-vi-znfpqjbg degenerative changes of the acromioclavicularjoint and glenohumeral [...] degeneration or narrowing of the subacromial space. Rrah-gr-jbwzwnax degenerative changes of the acromioclavicular joint and [...] of degeneration or narrowing of the subacromialspace. Qord-pp-zrhfinsr degenerative changes of the acromioclavicularjoint and glenohumeral [...] IMG XR PROCEDURES Final Resul t * CT Angio Neck (10/16/2025 10:30 AM [...] is favored to more likely reflect normal BAND SPLICER branches and venous structures coursing close proximity [...] prior chest CT from 04/12/2019 within the sbxqt-ox-xzuo on the current study. RECOMMENDATION: If clinically warranted, consider further imaging evaluation of the possible vascular malformations with a xdnp-le-isovzz MRA of the head or catheter angiogram. [...] error, please notify the sender immediately at [phone] and permanently delete the original report and destroy any copies or printouts. Narrative 10/16/2025 2:41 PM EST [facility] - Phone Outpatient NAME: Jah Dumont DATE OF EXAM: 10/16/2025 Patient No: [id number] Physician: Noe^Hunter^Larry Date of : 1975 Past [...] prior chest CT from 04/12/2019 within the whhfp-jo-debr of this exam. Bones and Soft Tissues: No destructive osseous lesion. Unchanged benign sclerotic focus in the left mandible dating back to 2019. There is a periapical lucency at the right mandibular second premolar tooth with thinning of the buccal cortex. Procedure Note David Douglas MD - 10/16/2025 [facility] - Phone Outpatient NAME: Jah Dumont DATE OF EXAM: 10/16/2025 Patient No: [id number] Physician: Noe^Hunter^Larry Date of : 1975 Past [...] the prior chest CTfrom 04/12/2019 within the wwajo-kw-kmag of this exam. Bones and Soft Tissues: [...] branches isfavored to more likely reflect normal BAND SPLICER branches and venous structurescoursing close proximity to [...] a prior chest CT from 04/12/2019 within mznildrd-ry-vgzu on the current study. RECOMMENDATION: If clinically warranted, consider further imaging evaluation of thepossible vascular malformations with a hcfa-mf-gojfij MRA of the head orcatheter angiogram. Dental [...] in error, pleasenotify the sender immediately at [phone] and permanently delete theoriginal report and destroy any copies or printouts. Hunter Liu HEAD OPERATOR SULFIDE IMG CT PROCEDURES Final Res ult * CT Angio Head (10/16/2025 10:30 AM EST) Anatomical Region Laterality Modality [place] [facility] [place] Computed Tomogr aphy Impressions 10/16/2025 [...] is favored to more likely reflect normal BAND SPLICER branches and venous structures coursing close proximity [...] prior chest CT from 04/12/2019 within the fwvkw-dp-rivp on the current study. RECOMMENDATION: If clinically warranted, consider further imaging evaluation of the possible vascular malformations with a uoye-un-yevjfe MRA of the head or catheter angiogram. [...] error, please notify the sender immediately at [phone] and permanently delete the original report and destroy any copies or printouts. Narrative 10/16/2025 2:41 PM EST [facility] - Phone Outpatient NAME: Jah Dumont DATE OF EXAM: 10/16/2025 Patient No: [id number] Physician: Noe^Hunter^Larry Date of : 1975 Past [...] prior chest CT from 04/12/2019 within the daxey-ei-itdn of this exam. Bones and Soft Tissues: No destructive osseous lesion. Unchanged benign sclerotic focus in the left mandible dating back to 2019. There is a periapical lucency at the right mandibular second premolar tooth with thinning of the buccal cortex. Procedure Note David Douglas MD - 10/16/2025 [facility] - Phone Outpatient NAME: Jah Dumont DATE OF EXAM: 10/16/2025 Patient No: [id number] Physician: Noe^Hunter^Larry Date of : 1975 Past [...] the prior chest CTfrom 04/12/2019 within the vfurh-za-zdod of this exam. Bones and Soft Tissues: [...] branches isfavored to more likely reflect normal BAND SPLICER branches and venous structurescoursing close proximity to [...] a prior chest CT from 04/12/2019 within jvipwpik-vm-bbsy on the current study. RECOMMENDATION: If clinically warranted, consider further imaging evaluation of thepossible vascular malformations with a lpef-ru-rvkqor MRA of the head orcatheter angiogram. Dental [...] in error, pleasenotify the sender immediately at [phone] and permanently delete theoriginal report and destroy any copies or printouts. Hunter Liu APRN IMG CT PROCEDURES Final Res ult * ED HIV 1/2 Antibody/Antigen Screen w/Reflex to HIV 1/2 Differentiation (10/02/2024 5:01 PM EST) Pathologist [facility] HIV 1 & 2 Antibody/Antigen Screen Non Reactive Non Reactive 10/02/2024 6:[address] [facility] Comment:Screening for HIV 1 & 2 antibodies, and P24 antigen is NONREACTIVE. No confirmatory testing is required. Blood Venous blood specimen / Unknown Venipuncture / Unknown 10/02/2024 5:01 PM EST 10/02/2024 5:22 PM EST us Sebas Martinez MD LAB BLOOD ORDERABLES Final Result [facility] [address] [place] [address] * (ABNORMAL) Hemoglobin A1c (06/23/2021 4:56 AM EDT) Hemoglobin A1c 5.7(H) <5.7 % 06/23/2021 11:23 AM EDT [facility] Blood Venous blood specimen / Unknown Venipuncture / Unknown 06/23/2021 4:56 AM EDT 06/23/2021 5:14 AM EDT Narrative [facility] - 06/23/2021 11:23 AM EDT HA1C Interpretive Data: Diagnosis of Diabetes: Diabetic > or = 6.5% Pre-diabetic 5.7 to 6.4% Non-diabetic < or = 5.6% Glycemic Targets for Type I and Type II Diabetics: Non- Adults <7.0% Adults <6.0% Children and Adolescents <7.5% Source: [place] [employer]. Standards of medical care in diabetes,2017. Diabetes Care.2017:40 (suppl 1):S1-S135. HbA1c assay performed by an ion-exchange chromatography method that is certified traceable to the DCCT. us Blas Hudson MD LAB BLOOD ORDERABLES Final Resul t [facility] [address] [place] [phone] from Last 3 Months or Most Recently Relevant to Health Maintenance Additional Health Concerns Active Problems Noted Date Diagnosed Date Autogenerated Problem 06/15/2025 Insurance [place] [facility] Advance Directives * Full Code (Latest Code Status on File) Date Activated Date Inactivated Comments 06/18/2025 5:41 PM 07/21/2025 4:33 PM Question Answer Comments Patient has decision-making capacity? Yes * Full Code Date Activated Date Inactivated Comments 05/09/2025 10:46 AM 06/18/2025 5:41 PM Question Answer Comments I have reviewed the capacity from the link above and, if needed, have updated to appropriate status: Yes * DNR - Ok to intubate Date Activated Date Inactivated Comments 05/08/2025 4:24 PM 05/09/2025 10:46 AM Patient is alert and able to express his wishes. Confirmed with and menitons if that's what he wants Question Answer Comments DNR determined on/before admission date? No I have reviewed the capacity from the link above and, if needed, have updated to appropriate status: Yes * Full Code Date Activated Date Inactivated Comments 04/18/2025 2:24 PM 05/08/2025 4:24 PM Question Answer Comments I have reviewed the capacity from the link above and, if needed, have updated to appropriate status: Yes * Full Code Date Activated Date Inactivated Comments 04/15/2025 4:52 PM 04/18/2025 2:24 PM Question Answer Comments I have reviewed the capacity from the link above and, if needed, have updated to appropriate status: Yes Care Teams [employer] Relationship Specialty Start Date End Date Pcp, No [address] [place] [address] PCP - General Family Medicine 03/17/25 Nayeli Torrez MD [address] [place] [address] Service Attending Neurology 07/28/22
--- NOTE | 2025-11-19 12:51 | XR_ITS ---
FINAL REPORT CLINICAL HISTORY: left shoulder pain COMPARISON: None FINDINGS: Two views of the left shoulder show no evidence of acute displaced fracture. There is an anterior inferior dislocation. Minimal degenerative changes noted. IMPRESSION: Anterior inferior dislocation of the left shoulder. Reviewed, Interpreted and Dictated by Denny Ramirez MD Transcribed by Lucille Elias Authenticated and [facility]
== END 2025-11-19 23:59 ==
LOC: RAD 12:42
PROVIDERS: PCP Family Medicine; Visit Provider Student in an Organized Health Care Education/Training Program
DX: S43.005A Unspecified dislocation of left shoulder joint, initial encounter (principal); X58.XXXA Exposure to other specified factors, initial encounter
CPT/HCPCS: 73030